=== PATIENT | male | born 1945 | race Caucasian/White ===

== ENCOUNTER 2018-04-16 04:08 | Inpatient (IN) | payer MEDICARE ==
[2018-04-16] MEDS ORDERED: MORPHINE SULFATE 4 MG/ML SYRINGE IV STA (04:28)
[2018-04-16] MEDS ORDERED: SODIUM CHLORIDE 0.9% 1,000 ML IV STA (04:28)
[2018-04-16] MEDS ORDERED: ONDANSETRON 4 MG/2 ML VIAL IVP STA (04:28)
--- NOTE | 2018-04-16 04:29 | ED ---
Abdominal Pain HPI - General Chief Complaint: Abdominal Pain Stated Complaint: vomiting Time Seen by Provider: 04/16/18 04:28 Source: patient Mode of arrival: ambulatory Limitations: no limitations - History of Present Illness Initial Comments: There is a pleasant 72-year-old woman who presents the emergency department today for evaluation of abdominal pain. Patient reports he was in his usual state of health until yesterday morning when he was eating breakfast at the [employer], he reports approximately skilled nursing through breakfast he developed sudden sharp abdominal pain and nausea. He was unable to finish his breakfast. Throughout the remainder of the day he didn't try to eat anything else and had persistent nausea. Patient reports he had a single episode of nonbloody nonbilious emesis around 8 or 9 PM last night. Patient then attempted to sleep but was very uncomfortable, this morning he had another large volume emesis that was nonbloody nonbilious and continued nausea and abdominal pain decided to ask his to bring him to the hospital for further evaluation. Patient does have a history of diverticulitis in the past though he reports that pain was lower in his left-sided pelvis he also has a history of kidney stones but reports when he has had kidney stones about this pain seemed to be in his back this pain seems to be more diffuse mid abdomen. Patient reports he has far overdue for colonoscopy though he's never had any acute findings he was told on his last colonoscopy they couldn't advance the scope as far as they would've liked due to the shape of his colon. He does have a history of abdominal hernia repair but otherwise no abdominal surgeries, he still has his appendix and gallbladder. He has no history of bowel obstruction. - Related Data Allergies Allergy/AdvReac Type Severity Reaction Status Date / Time No Known Allergies Allergy Verified 04/16/18 04:51 Review of Systems ROS Statement: Those systems with pertinent positive or pertinent negative responses have been documented in the HPI. ROS Other: All systems not noted in ROS Statement are negative. Past Medical History Past Medical History: CVA/TIA Additional Past Medical History / Comment(s): Kidney stones, diverticulitis History of Any Multi-Drug Resistant Organisms: None Reported Past Surgical History: Hernia Repair, Orthopedic Surgery Past Psychological History: No Psychological Hx Reported Smoking Status: Never smoker Past Alcohol Use History: None Reported Past Drug Use History: None Reported General Exam - General Exam Comments Initial Comments: Physical Exam GENERAL: Patient is well-developed and well-nourished. Patient is nontoxic and well-hydrated and is in mild distress, appears uncomfortable HENT: Normocephalic, Atraumatic. EYES: PERRL, EOMI PULMONARY: Unlabored respirations. No audible rales rhonchi or wheezing was noted. CARDIOVASCULAR: Tachycardia, regular ABDOMEN: Soft, normal active bowel sounds, mild diffuse tenderness, no peritoneal signs SKIN: Skin is clear with no lesions or rashes and otherwise unremarkable. Well-healed surgical incision over the right knee : Deferred NEUROLOGIC: Patient is alert and oriented x3. Moving all extremities spontaneously MUSCULOSKELETAL: Normal extremities with adequate strength and full range of motion. No lower extremity swelling or edema. No calf tenderness. PSYCHIATRIC: Normal psychiatric evaluation. Limitations: no limitations Limitations: no limitations Course Vital Signs 04/16/18 04/16/18 04:09 05:28 Temperature 97.6 F Pulse Rate 125 H 101 H Respiratory 18 17 Rate Blood Pressure 128/70 138/75 O2 Sat by Pulse 97 96 Oximetry Medical Decision Making - Medical Decision Making Patient was seen and evaluated, history is obtained from patient Labs and imaging were ordered Zofran and morphine were ordered Labs with leukocytosis this is likely reactive Computed tomography scan suggestive of small bowel obstruction, there is significant gastric distention and fluid in the stomach these results were discussed with the patient patient is agreeable to an NG tube. Admission orders were placed, surgery was consulted - Lab Data Result diagrams: 04/16/18 04:25 04/16/18 04:25 Lab Results 04/16/18 04/16/18 Range/Units 04:25 04:25 WBC 17.7 H (3.8-10.6) k/uL RBC 5.50 (4.30-5.90) m/uL Hgb 16.7 (13.0-17.5) gm/dL Hct 50.3 (39.0-53.0) % MCV 91.5 (80.0-100.0) fL MCH 30.3 (25.0-35.0) pg MCHC 33.1 (31.0-37.0) g/dL RDW 13.4 (11.5-15.5) % Plt Count 308 (150-450) k/uL Neutrophils % 88 % Lymphocytes % 5 % Monocytes % 5 % Eosinophils % 1 % Basophils % 0 % Neutrophils # 15.6 H (1.3-7.7) k/uL Lymphocytes # 0.9 L (1.0-4.8) k/uL Monocytes # 0.8 (0-1.0) k/uL Eosinophils # 0.2 (0-0.7) k/uL Basophils # 0.0 (0-0.2) k/uL Sodium 141 (137-145) mmol/L Potassium 4.1 (3.5-5.1) mmol/L Chloride 102 (98-107) mmol/L Carbon Dioxide 27 (22-30) mmol/L Anion Gap 12 mmol/L BUN 28 H (9-20) mg/dL Creatinine 1.53 H (0.66-1.25) mg/dL Est GFR (CKD-EPI)AfAm 52 (>60 ml/min/1.73 sqM) Est GFR (CKD-EPI)NonAf 45 (>60 ml/min/1.73 sqM) Glucose 163 H (74-99) mg/dL Calcium 10.5 H (8.4-10.2) mg/dL Total Bilirubin 0.9 (0.2-1.3) mg/dL AST 26 (17-59) U/L ALT 25 (21-72) U/L Alkaline Phosphatase 101 (38-126) U/L Total Protein 8.0 (6.3-8.2) g/dL Albumin 4.6 (3.5-5.0) g/dL Amylase 103 (30-110) U/L Lipase 71 (23-300) U/L Disposition Clinical Impression: Small bowel obstruction Disposition: ADMITTED IP TO THIS [facility] Condition: Stable Is patient prescribed a controlled substance at d/c from ED?: No Referrals: Bryan Edmonds DO [Primary Care Provider] - 1-2 days
[2018-04-16 04:47] LABS: Basophils % (A) 0 %; Eosinophils # (A) 0.2 k/uL (0-0.7); Eosinophils % (A) 1 %; HCT 50.3 % (39.0-53.0); HGB 16.7 gm/dL (13.0-17.5); Lymphocytes # (A) 0.9 k/uL (1.0-4.8); Lymphocytes % (A) 5 %; MCH 30.3 pg (25.0-35.0); MCHC 33.1 g/dL (31.0-37.0); MCV 91.5 fL (80.0-100.0); Monocytes # (A) 0.8 k/uL (0-1.0); Monocytes % (A) 5 %; Neutrophils # (A) 15.6 k/uL (1.3-7.7); Neutrophils % (A) 88 %; Platelet Count 308 k/uL (150-450); RDW 13.4 % (11.5-15.5); WBC 17.7 k/uL (3.8-10.6)
[2018-04-16 04:59] LABS: Albumin 4.6 g/dL (3.5-5.0); Calcium 10.5 mg/dL (8.4-10.2); Potassium 4.1 mmol/L (3.5-5.1); Total Bilirubin 0.9 mg/dL (0.2-1.3)
--- NOTE | 2018-04-16 05:28 | XR ---
EXAM: XR Abdomen, 2 Views CLINICAL HISTORY: Reason: abdominal pain TECHNIQUE: Frontal view of the abdomen/pelvis with upright view of the abdomen. COMPARISON: No relevant prior studies available. FINDINGS: Intraperitoneal space: No free air. Gastrointestinal tract: Unremarkable. No dilation. Bones/joints: Unremarkable. Other findings: IMPRESSION: Short air-fluid levels demonstrated in some distended loops of bowel. Possibility of ileus versus the early small bowel obstruction cannot be excluded
--- NOTE | 2018-04-16 05:51 | CT ---
EXAM: CT Abdomen and Pelvis With Intravenous Contrast CLINICAL HISTORY: Pain hx of diverticulitis TECHNIQUE: Axial computed tomography images of the abdomen and pelvis with intravenous administration of 80mL of Isovue 300. DLP is 1368.3 mGy-cm. This CT exam was performed using one or more of the following dose reduction techniques: automated exposure control, adjustment of the mA and/or kV according to patient size, and/or use of iterative reconstruction technique. COMPARISON: No relevant prior studies available. FINDINGS: Lung bases: Large eventration versus elevation of the right hemidiaphragm. Unremarkable. No mass. No consolidation. ABDOMEN: Liver: Unremarkable. No mass. Gallbladder and bile ducts: Unremarkable. No calcified stones. No ductal dilation. Pancreas: Unremarkable. No mass. No ductal dilation. Spleen: Unremarkable. No splenomegaly. Adrenals: Unremarkable. No mass. Kidneys and ureters: No solid mass. Multiple bilateral renal cysts. Multiple bilateral nonobstructing calyceal stones. There is formation of staghorn type calculus in the right this measures 2.3 cm in size. No evidence for hydronephrosis. Stomach and bowel: Small bowel obstruction with dilated proximal small bowel with decompressed distal small bowel beyond what appears be an area of adhesion in the right lower quadrant adjacent to the anterior abdominal wall. Clinical correlation is required. Small umbilical hernia containing fat PELVIS: Appendix: The appendix is unremarkable. Bladder: Unremarkable. No mass. Reproductive: Unremarkable as visualized. ABDOMEN and PELVIS: Intraperitoneal space: Unremarkable. No free air. No significant fluid collection. Bones/joints: No acute fracture. No dislocation. Soft tissues: Unremarkable. Vasculature: Unremarkable. No abdominal aortic aneurysm. Lymph nodes: Unremarkable. No enlarged lymph nodes. IMPRESSION: Findings suspicious for early small bowel obstruction with dilated small bowel proximally decompressed distal small bowel with zone of transition in the right lower quadrant appears to be an area of adhesion adjacent to the anterior abdominal wall.
[2018-04-16] MEDS ORDERED: ONDANSETRON 4 MG/2 ML VIAL IVP PRN (06:03)
[2018-04-16] MEDS ORDERED: NALOXONE 0.4 MG/ML 1 ML VIAL IV PRN (06:03)
[2018-04-16] MEDS ORDERED: LIDOCAINE URO-JET JELLY 2% 5 ML KIT URETHRAL ONE (06:06)
[2018-04-16 07:22] VITALS: BMI 31.0
[2018-04-16 09:17] LABS: Appearance,Urine Clear (Clear); Bilirubin,Urine Negative (Negative); Blood,Urine Trace (Negative); Color,Urine Yellow; Glucose,Urine (UA) Negative (Negative); Ketones,Urine Trace (Negative); Leukocyte Esterase,Urine Trace (Negative); Mucus,Urine Rare /hpf; Nitrite,Urine Negative (Negative); Protein,Urine Trace (Negative); RBC,Urine 4 /hpf (0-5); Squamous Epithelial Cell,Urine <1 /hpf (0-4); Urobilinogen,Urine <2.0 mg/dL (<2.0); WBC,Urine 5 /hpf (0-5)
[2018-04-16] MEDS: PANTOPRAZOLE 40 MG/10 ML VIAL IV SCH (09:19)
[2018-04-16] MEDS: SODIUM CHLORIDE 0.9% 1,000 ML IV SCH ×3 (10:30→23:33)
--- NOTE | 2018-04-16 16:00 | P.GSCN ---
History of Present Illness Consult date: 04/16/18 Reason for Consult: Small bowel obstruction History of present illness: Patient presents to the ER early this morning with abdominal pain. He was doing well yesterday morning when he awoke. He says his potassium felt low because of lower extremity cramps any at 3 bananas a short period of time. Following that he went out and a large breakfast. Around 10:30 yesterday morning he began experiencing abdominal pain. Pain is periumbilical. Pain persisted with nausea throughout the day. 9 a class last night patient had episodes of emesis that recurred at 2 and 3 AM. He came to the ER at that point. Somewhat loose stool yesterday. No sick contacts. No history of similar events. Patient's only abdominal surgery was a large midline hernia. He is unsure whether mesh was used. CAT scan was performed which revealed findings consistent with small bowel obstruction transition point right midabdomen. No hernias seen. Pain is essentially gone at this time. Small amount of flatus. Nasogastric tube remains in place. He had 700 mL output from nasogastric tube. White blood cell count last night elevated at 17. Review of Systems The patient denies any acute changes in vision or hearing, no dysphagia or odynophagia, no chest pain or shortness of breath, no dysuria or hematuria, no headache, no runny nose, no rectal bleeding or melena, no unexplained weight loss Past Medical History Past Medical History: CVA/TIA Additional Past Medical History / Comment(s): Kidney stones, diverticulitis History of Any Multi-Drug Resistant Organisms: None Reported Past Surgical History: Hernia Repair, Orthopedic Surgery Additional Past Surgical History / Comment(s): rotator cuff, TRK Past Psychological History: No Psychological Hx Reported Smoking Status: Never smoker Past Alcohol Use History: None Reported Past Drug Use History: None Reported - Past Family History Father Family Medical History: No Reported History Mother Family Medical History: Cancer Medications and Allergies Home Medications Medication Instructions Recorded Confirmed Type Aspirin EC [Ecotrin] 325 mg PO DAILY 04/16/18 04/16/18 History Metoprolol Tartrate [Lopressor] 25 mg PO BID 04/16/18 04/16/18 History Multivitamins, Thera [Multivitamin 1 tab PO DAILY 04/16/18 04/16/18 History (formulary)] amLODIPine [Norvasc] 5 mg PO DAILY 04/16/18 04/16/18 History Allergies Allergy/AdvReac Type Severity Reaction Status Date / Time No Known Allergies Allergy Verified 04/16/18 08:20 Surgical - Exam Vital Signs Temp Pulse Resp BP Pulse Ox 97.6 F 125 H 18 128/70 97 04/16/18 04:09 04/16/18 04:09 04/16/18 04:09 04/16/18 04:09 04/16/18 04:09 Physical exam: General: Well-developed, well-nourished HEENT: Normocephalic, sclerae nonicteric Abdomen: Nontender, nondistended, midline incision above umbilicus Extremities: No edema Neuro: Alert and oriented Results - Labs 04/16/18 04:25 04/16/18 04:25 Abnormal Lab Results - Last 24 Hours (Table) 04/16/18 04/16/18 04/16/18 Range/Units 04:25 04:25 08:33 WBC 17.7 H (3.8-10.6) k/uL Neutrophils # 15.6 H (1.3-7.7) k/uL Lymphocytes # 0.9 L (1.0-4.8) k/uL BUN 28 H (9-20) mg/dL Creatinine 1.53 H (0.66-1.25) mg/dL Glucose 163 H (74-99) mg/dL Calcium 10.5 H (8.4-10.2) mg/dL Ur Specific [place] 1.050 H (1.001-1.035) Urine Protein Trace H (Negative) Urine Ketones Trace H (Negative) Urine Blood Trace H (Negative) Ur Leukocyte Esterase Trace H (Negative) Urine Mucus Rare H (None) /hpf Diabetes panel 04/16/18 Range/Units 04:25 Sodium 141 (137-145) mmol/L Potassium 4.1 (3.5-5.1) mmol/L Chloride 102 (98-107) mmol/L Carbon Dioxide 27 (22-30) mmol/L BUN 28 H (9-20) mg/dL Creatinine 1.53 H (0.66-1.25) mg/dL Glucose 163 H (74-99) mg/dL Calcium 10.5 H (8.4-10.2) mg/dL AST 26 (17-59) U/L ALT 25 (21-72) U/L Alkaline Phosphatase 101 (38-126) U/L Total Protein 8.0 (6.3-8.2) g/dL Albumin 4.6 (3.5-5.0) g/dL Calcium panel 04/16/18 Range/Units 04:25 Calcium 10.5 H (8.4-10.2) mg/dL Albumin 4.6 (3.5-5.0) g/dL Pituitary panel 04/16/18 Range/Units 04:25 Sodium 141 (137-145) mmol/L Potassium 4.1 (3.5-5.1) mmol/L Chloride 102 (98-107) mmol/L Carbon Dioxide 27 (22-30) mmol/L BUN 28 H (9-20) mg/dL Creatinine 1.53 H (0.66-1.25) mg/dL Glucose 163 H (74-99) mg/dL Calcium 10.5 H (8.4-10.2) mg/dL Adrenal panel 04/16/18 Range/Units 04:25 Sodium 141 (137-145) mmol/L Potassium 4.1 (3.5-5.1) mmol/L Chloride 102 (98-107) mmol/L Carbon Dioxide 27 (22-30) mmol/L BUN 28 H (9-20) mg/dL Creatinine 1.53 H (0.66-1.25) mg/dL Glucose 163 H (74-99) mg/dL Calcium 10.5 H (8.4-10.2) mg/dL Total Bilirubin 0.9 (0.2-1.3) mg/dL AST 26 (17-59) U/L ALT 25 (21-72) U/L Alkaline Phosphatase 101 (38-126) U/L Total Protein 8.0 (6.3-8.2) g/dL Albumin 4.6 (3.5-5.0) g/dL Assessment and Plan (1) Small bowel obstruction Narrative/Plan: Continue nasogastric tube to suction. Recheck abdominal x-rays tomorrow. Recheck labs tomorrow. Etiology of the patient's CAT scan findings unclear. Still could represent atypical enteritis/ileus. Patient has had relatively minimal abdominal surgeries therefore adhesions are somewhat less likely. CAT scan findings do not support however internal herniation or malignancy with any certainty. Likely will plan small bowel follow-through during this hospitalization or possibly as an outpatient if the patient progresses nicely. Otherwise would consider diagnostic laparoscopy. Current Visit: Yes Status: Acute Code(s): K56.609 - UNSP INTESTNL OBST, UNSP TO PARTIAL VERSUS COMPLETE OBST SNOMED Code(s): 068707996
[2018-04-16] MEDS: HEPARIN SODIUM,PORCINE 5,000 UNIT/ML 1 ML VIAL SQ SCH ×2 (16:23→23:33)
[2018-04-16] MEDS: METOPROLOL TARTRATE 25 MG TAB PO SCH (22:25)
[2018-04-16] MEDS ORDERED: cloNIDine 0.1 MG/24HR PATCH TRANSDERM SCH (22:45)
--- NOTE | 2018-04-17 00:11 | HP ---
HISTORY AND PHYSICAL DATE OF ADMISSION: April 16, 2018. DATE OF SERVICE: April 16, 2018. PRESENTING COMPLAINT: Abdominal pain. HISTORY OF PRESENTING COMPLAINT: This is a very pleasant 72-year-old patient of Dr. Edmonds. Chronic stable medical conditions include diverticulosis, kidney stones, and obesity. The patient off and on gets charley horses and has take potassium supplementation. This morning, patient is going down with his for shopping and get some charley horses. Patient stopped on the way at the local grocery store and ate 3 bananas, then went on to go to [employer]. They ordered a full breakfast and he was eating the same including orange juice, biscuit, gravy, scrambled eggs and fay. [place] through the meal, the patient started developing severe abdominal pain and patient decided to leave. After some time patient had a loose bowel movement and became very nauseated. Abdominal pain continued to get worse. Decided to come down to the ER. There were no fever, chills. The patient's abdominal x-ray showed air-fluid levels. CT scan showed evidence of early small bowel obstruction. NG tube was placed and the patient is admitted for the same. When I saw this patient this afternoon, patient has not had any flatus or bowel movement. is present at the bedside. REVIEW OF SYSTEMS: CONSTITUTIONAL: Tired. HEENT: NG tube in place. RESPIRATORY: None. CARDIOVASCULAR none. GASTROINTESTINAL as above. GENITOURINARY: None. MUSCULOSKELETAL: None. DERMATOLOGIC, HEMATOLOGIC, LYMPHATIC: none. PSYCHIATRY none. NEUROLOGICAL: None. PAST MEDICAL HISTORY: Of stroke with recovery, kidney stones, diverticulitis. PAST SURGICAL HISTORY: Hernia repair, orthopedic surgery for rotator cuff. SOCIAL HISTORY: Does not smoke or drink alcohol. . FAMILY HISTORY: Reviewed, noncontributory to presentation. HOME MEDICATION: 1. Norvasc 5 mg a day. 2. Multivitamin 1 tablet p.o. daily. 3. Lopressor 25 mg b.i.d. 4. Aspirin 325 p.o. daily. ALLERGIES: None. PHYSICAL EXAMINATION: VITAL SIGNS: Vital signs on presentation, temperature 97.6, pulse 125, respiratory 18, blood pressure 120/70, pulse ox 97% on room air. GENERAL APPEARANCE: Well built, BMI 31. Sitting up, awake. EYES: Pupils equal. Conjunctivae normal. HEENT: External appearance of nose and ears normal. Oral cavity dry mucous membrane. HEENT: NG tube in place. NECK: JVD not raised. Mass not palpable. RESPIRATORY: Effort lungs are clear. CARDIOVASCULAR: 1st and 2nd sounds normal. No edema. Hyperactive bowel sounds. Minimal tenderness. Liver and spleen not palpable. LYMPHATICS: No lymph nodes palpable in neck or axillae. PSYCHIATRY: Alert and oriented x3. Mood and affect normal. NEUROLOGICAL: Pupils equal. Cranial nerves grossly intact. Power and sensation grossly intact. INVESTIGATIONS: White count 7.7, hemoglobin 16.7, potassium 4.1, BUN 28, creatinine 1.53. Abdominal x- ray film personally reviewed by me shows multiple air-fluid levels. CT scan of the abdomen suggestive of small bowel obstruction. EKG tracing personally reviewed by me shows sinus tachycardia, multiple PVCs. ASSESSMENT: 1. Acute small-bowel obstruction could have been presented different, large amount of food in a short period of time. The patient does feel a bit better with the NG tube. 2. Multiple PVCs on the EKG, asymptomatic. 3. Renal failure, acute versus chronic. We will repeat the same after hydration. The patient does have a trace of protein and protein in the urine. Also do a renal ultrasound. 4. Essential hypertension. 5. Leukocytosis likely reactive from the bowel obstruction. No obvious evidence of infection. PLAN: Patient has an NG tube in place. IV fluids. Do renal ultrasound. Dr. Albarado from General Surgery saw the patient. Care was discussed with the patient and . DVT prophylaxis given. Repeat labs in the morning. Copy to Dr. Edmonds. MMBOOL / RADHAN: [id number] /
[2018-04-17 07:26] LABS: Basophils % (A) 0 %; Eosinophils # (A) 0.3 k/uL (0-0.7); Eosinophils % (A) 2 %; HCT 48.1 % (39.0-53.0); HGB 15.3 gm/dL (13.0-17.5); Lymphocytes % (A) 8 %; MCH 30.5 pg (25.0-35.0); MCHC 31.8 g/dL (31.0-37.0); MCV 95.8 fL (80.0-100.0); Mean Platelet Volume 6.8; Monocytes # (A) 0.6 k/uL (0-1.0); Monocytes % (A) 5 %; Neutrophils # (A) 9.8 k/uL (1.3-7.7); Neutrophils % (A) 83 %; Platelet Count 225 k/uL (150-450); RBC 5.02 m/uL (4.30-5.90); RDW 13.6 % (11.5-15.5); WBC 11.8 k/uL (3.8-10.6)
[2018-04-17 07:39] LABS: Calcium 8.9 mg/dL (8.4-10.2); Potassium 4.2 mmol/L (3.5-5.1)
[2018-04-17] MEDS: HEPARIN SODIUM,PORCINE 5,000 UNIT/ML 1 ML VIAL SQ SCH ×2 (08:44→17:12)
[2018-04-17] MEDS: ASPIRIN 325 MG TAB PO SCH (08:44)
[2018-04-17] MEDS: PANTOPRAZOLE 40 MG/10 ML VIAL IV SCH (08:45)
[2018-04-17] MEDS: METOPROLOL TARTRATE 25 MG TAB PO SCH ×2 (08:45→20:55)
[2018-04-17] MEDS: amLODIPine 5 MG TAB PO SCH (08:45)
--- NOTE | 2018-04-17 09:32 | XR ---
EXAMINATION TYPE: XR abdomen complete w decub DATE OF EXAM: 04/17/2018 COMPARISON: 04/17/2018, earlier today HISTORY: 72-year-old male pain follow-up bowel obstruction TECHNIQUE: Supine, upright, and right side down lateral decubitus views of the abdomen are obtained. FINDINGS: Elevation of right hemidiaphragm. NG tube is present. Patchy retrocardiac opacity. No evidence for free intraperitoneal air when correlated with the decubitus view. A few dilated small bowel loops in the left side of the abdomen measure up to 4.9 cm, unchanged. Renal calculi on the left measuring up to 1.2 cm. Some mild scattered colonic gas is present with mild stool burden. IMPRESSION: 1. Similar dilated left-sided small bowel loops measuring up to 4.9 cm suggesting continued small bow el obstruction. There is no progressive dilatation. Some of the air fluid levels show improvement. 2. No free air seen. 3. Elevation of the right hemidiaphragm. Query etiology including possibility of hemidiaphragmatic pa ralysis.
--- NOTE | 2018-04-17 09:59 | P.PN ---
Subjective Progress Note Date: 04/17/18 Principal diagnosis: Bowel obstruction Patient doing better today. No pain. Passed a large volume of flatus last night. Very small bowel movement. Minimal nasogastric tube output. X-rays. Improved. Objective - Vital Signs Vital signs: Vital Signs Temp 98.7 F 04/17/18 07:46 Pulse 95 04/17/18 07:46 Resp 17 04/17/18 07:46 BP 146/88 04/17/18 07:46 Pulse Ox 92 L 04/17/18 07:46 Intake & Output 04/16/18 04/17/18 04/17/18 18:59 06:59 18:59 Intake Total 2000 Output Total 500 300 300 Balance -500 1700 -300 Weight 95.254 kg Intake: Intake, IV Titration 2000 Amount Sodium Chloride 0.9% 1, 2000 000 ml @ 125 mls/hr IV . Q8H [facility] Rx#:[id number] Output: Gastric Drainage 100 Urine 500 200 300 Other: Voiding Method Toilet # Voids 1 400 - Exam Abdomen: Soft, nontender, nondistended - Labs CBC & Chem 7: 04/17/18 07:09 04/17/18 07:09 Labs: Abnormal Lab Results - Last 24 Hours (Table) 04/17/18 04/17/18 Range/Units 07:09 07:09 WBC 11.8 H (3.8-10.6) k/uL Neutrophils # 9.8 H (1.3-7.7) k/uL Chloride 110 H (98-107) mmol/L BUN 21 H (9-20) mg/dL Microbiology - Last 24 Hours (Table) 04/16/18 08:33 Urine Culture - Preliminary Urine,Clean Catch Assessment and Plan (1) Small bowel obstruction Narrative/Plan: Remove nasogastric tube today. Start clear liquids. Reevaluate tomorrow. Current Visit: Yes Status: Acute Code(s): K56.609 - UNSP INTESTNL OBST, UNSP TO PARTIAL VERSUS COMPLETE OBST SNOMED Code(s): 490436157
--- NOTE | 2018-04-17 10:39 | US ---
EXAMINATION TYPE: US kidneys/renal and bladder DATE OF EXAM: 04/17/2018 COMPARISON: Correlation CT 04/16/2018 CLINICAL HISTORY: 72-year-old male acute vs CKD. Patient states having no pain at this time. Patient states having hx of renal stones and left renal cysts drained. TECHNIQUE: Multiple sonographic images of the kidneys and bladder are obtained. FINDINGS: EXAM MEASUREMENTS: Right Kidney: 10.9 x 5.1 x 6.1 cm Left Kidney: 12.7 x 4.1 x 6.0 cm Right Kidney: Suggesting a mild pelvocaliectasis. Multiple echogenic foci seen with shadowing. Large st = 1.2 cm in medial lower pole . Left Kidney: No hydronephrosis. Multiple echogenic foci and cystic appearing lesions seen. Largest c ystic lesion seen lower pole - 5.9 x 5.6 x 6.3 cm. Echogenic lesion with slight shadow in mid/lower pole - 1.8 x 1.6 cm. Echogenic focus with shadow in upper pole =0.8 cm. Bladder: Underdistended. Left jet seen IMPRESSION: 1. Mild pelvicaliectasis on the right may be transient. Consider follow-up to reassess. The patient's recent CT shows no hydronephrosis. 2. Bilateral nephrolithiasis measuring up to 1.6 cm by ultrasound. 3. Cysts measuring up to 5.9 cm on the left. 4. A vague echogenic area in the mid to lower pole of the left kidney is questioned by the sonographe r to represent a focal lesion. Review of the patient's recent CT shows a 1.8 cm cyst in this region. The ultrasound finding may reflect prominent renal sinus fat. Precautionary 6 month follow-up ultraso und can be performed to exclude any enlarging lesion. No definite suspicious lesion seen on the patie nt's CT.
[2018-04-17] MEDS: SODIUM CHLORIDE 0.9% 1,000 ML IV SCH ×2 (10:48→19:04)
--- NOTE | 2018-04-17 23:56 | PN ---
PROGRESS NOTE DATE OF SERVICE: 04/17/2018. PRESENTING COMPLAINT: Abdominal pain. INTERVAL HISTORY: This patient presents with small-bowel obstruction. Had NG tube taken out this morning. The patient has passed some flatus. No bowel movement. Abdominal pain is not present. REVIEW OF SYSTEMS: Done for constitutional, cardiovascular, GI, pulmonary; relevant findings as above. CURRENT MEDICATIONS: Reviewed, include Catapres patch. PHYSICAL EXAMINATION: Temperature 98.3 pulse 81, respiratory rate 18, blood pressure 110/66, pulse ox 91 percent on room air. GENERAL APPEARANCE: Sitting up, more comfortable. EYES: Pupils equal. Conjunctivae normal. HEENT: External appearance of ears and nose normal. Oral cavity normal. NG tube is out. NECK: JVD not raised. Mass not palpable. Respiratory effort normal. LUNGS: Clear. CARDIOVASCULAR: 1st and 2nd heart sounds normal. No edema. ABDOMEN: Distended, soft. Bowel sounds hyperactive. PSYCHIATRY: Alert and oriented x3. Mood and affect normal. INVESTIGATIONS: Abdominal x-ray personally reviewed by me shows some dilated small loops with decreased air-fluid levels. Renal ultrasound did show some kidney stones. ASSESSMENT: 1. Acute small-bowel obstruction that showed some clinical improvement and radiological improvement. 2. Multiple premature ventricular contractions, asymptomatic. 3. Acute renal failure, appears to be prerenal with creatinine actually improving. 4. Bilateral nephrolithiasis. 5. Abnormal renal ultrasound, to follow up with Urology as an outpatient. 6. Essential hypertension. PLAN: Overall patient doing better. Started on clear liquids and we will see how he does. Encouraged to ambulate. Repeat electrolytes in the morning. MMODL / IJN: [id number] /
[2018-04-18] MEDS: HEPARIN SODIUM,PORCINE 5,000 UNIT/ML 1 ML VIAL SQ SCH ×3 (00:52→14:57)
[2018-04-18 06:53] LABS: Basophils % (A) 0 %; Eosinophils # (A) 0.3 k/uL (0-0.7); Eosinophils % (A) 4 %; HCT 43.1 % (39.0-53.0); HGB 13.7 gm/dL (13.0-17.5); Lymphocytes # (A) 1.4 k/uL (1.0-4.8); Lymphocytes % (A) 19 %; MCH 29.6 pg (25.0-35.0); MCHC 31.7 g/dL (31.0-37.0); MCV 93.4 fL (80.0-100.0); Monocytes # (A) 0.4 k/uL (0-1.0); Monocytes % (A) 6 %; Neutrophils # (A) 4.8 k/uL (1.3-7.7); Neutrophils % (A) 68 %; Platelet Count 217 k/uL (150-450); RBC 4.61 m/uL (4.30-5.90); RDW 13.3 % (11.5-15.5); WBC 7.1 k/uL (3.8-10.6)
[2018-04-18 07:07] LABS: Calcium 8.6 mg/dL (8.4-10.2)
[2018-04-18] MEDS: PANTOPRAZOLE 40 MG/10 ML VIAL IV SCH (08:09)
[2018-04-18] MEDS: ASPIRIN 325 MG TAB PO SCH (08:10)
[2018-04-18] MEDS: METOPROLOL TARTRATE 25 MG TAB PO SCH (08:10)
[2018-04-18] MEDS: amLODIPine 5 MG TAB PO SCH (08:10)
--- NOTE | 2018-04-18 10:14 | P.PN ---
Subjective Progress Note Date: 04/18/18 Principal diagnosis: Bowel obstruction Patient doing well today. Denies pain. He had a bowel movement last night. He is tolerating clear liquids. White blood cell count is normal. Objective - Vital Signs Vital signs: Vital Signs Temp 97.8 F 04/18/18 06:55 Pulse 73 04/18/18 06:55 Resp 16 04/18/18 06:55 BP 154/92 04/18/18 06:55 Pulse Ox 92 L 04/18/18 06:55 Intake & Output 04/17/18 04/18/18 04/18/18 18:59 06:59 18:59 Intake Total 250 Output Total 450 Balance -200 Intake: Intake, IV Titration 250 Amount Sodium Chloride 0.9% 1, 250 000 ml @ 125 mls/hr IV . Q8H [facility] Rx#:[id number] Output: Gastric Drainage 150 Urine 300 Other: Voiding Method Toilet Toilet Urinal Urinal # Voids 0 - Exam Abdomen: Soft, nontender, nondistended - Labs CBC & Chem 7: 04/18/18 06:34 04/18/18 06:34 Labs: Abnormal Lab Results - Last 24 Hours (Table) 04/18/18 Range/Units 06:34 Chloride 110 H (98-107) mmol/L Microbiology - Last 24 Hours (Table) 04/16/18 08:33 Urine Culture - Final Urine,Clean Catch Assessment and Plan (1) Small bowel obstruction Narrative/Plan: Will advance diet at this time. Ambulate. Follow-up in the office if he is discharged later today. We'll plan outpatient small bowel follow-through. Follow-up regarding the patient's renal abnormalities on ultrasound per primary service. Current Visit: Yes Status: Acute Code(s): K56.609 - UNSP INTESTNL OBST, UNSP TO PARTIAL VERSUS COMPLETE OBST SNOMED Code(s): 196470761
[2018-04-18 14:42] VITALS: BP 129/80; PULSE 81; RESP 18; TEMP 97.4
--- NOTE | 2018-04-19 07:40 | DS ---
DISCHARGE SUMMARY DATE OF ADMISSION: 04/16/2018 DATE OF DISCHARGE: 04/18/2018 FINAL DIAGNOSES: 1. Acute small-bowel obstruction. 2. Multiple PVCs, asymptomatic. 3. Acute renal failure, appears to be prerenal. 4. Bilateral nephrolithiasis. 5. Abnormal renal ultrasound to be followed as an outpatient by Urology. 6. Essential hypertension. HOSPITAL COURSE: This patient presented with abdominal pain, nausea, vomiting, found to be acute bowel obstruction. Did well, had an NG tube. At time of discharge, tolerating a diet. Had a bowel movement. Abdominal pain was resolved. The patient had acute renal failure. Creatinine was 1.53 on presentation, did drop down to 1.07. The patient has slight abnormalities renal ultrasound. Patient to follow up with Urology for the same. CONSULTATION: Dr. Albarado from General surgery. On exam abdomen soft, nontender. Afebrile. Blood pressure 129/70. DISCHARGE MEDICATIONS: 1. Lopressor 25 mg b.i.d. 2. Multivitamin 1 tablet p.o. daily. 3. Aspirin 81 mg a day. 4. Norvasc 5 mg p.o. b.i.d. 5. Blood pressure medications adjusted. Follow up with Dr. Albarado as needed, Dr. Edmonds in [address] Sergey Daniel in 4 weeks. Abdominal ultrasound. Diet soft and advance as tolerated. Care was discussed with the patient. Questions were answered. Copy to Dr. Edmonds. MMODL / IJN: [id number] /
== END 2018-04-18 15:43 | disposition home or self-care (01) | DRG 389 ==
LOC: EC 04:08 → 4SSUR 06:04
PROVIDERS: ADMIT Hospitalist; ATTEND Hospitalist
DX: K56.609 Unspecified intestinal obstruction, unspecified as to partial versus complete obstruction (principal); N17.9 Acute kidney failure, unspecified; E66.9 Obesity, unspecified; Z68.31 Body mass index [BMI] 31.0-31.9, adult; I10 Essential (primary) hypertension; I49.3 Ventricular premature depolarization; K57.90 Diverticulosis of intestine, part unspecified, without perforation or abscess without bleeding; N20.0 Calculus of kidney; Z79.82 Long term (current) use of aspirin; Z79.899 Other long term (current) drug therapy; Z86.73 Personal history of transient ischemic attack (TIA), and cerebral infarction without residual deficits; Z87.442 Personal history of urinary calculi
CPT/HCPCS: 36415; 74018; 74021; 74177; 76770; 80048; 80053; 81001; 82150; 83690; 85025; 87086; 93005; 96361; 96374; 96375; 99285

== ENCOUNTER 2018-07-05 15:31 | Emergency (ER) | payer MEDICARE ==
[2018-07-05 16:14] VITALS: TEMP 97.4
--- NOTE | 2018-07-05 18:11 | US ---
EXAMINATION TYPE: US venous doppler duplex LE LT DATE OF EXAM: 07/05/2018 5:32 PM COMPARISON: NONE CLINICAL HISTORY: Pain. Pain post op knee surgery x8 weeks ago. SIDE PERFORMED: Left TECHNIQUE: The lower extremity deep venous system is examined utilizing real time linear array sonog arlene with graded compression, doppler sonography and color-flow sonography. VESSELS IMAGED: External Iliac Vein (EIV) Common Femoral Vein Deep Femoral Vein Greater Saphenous Vein * Femoral Vein Popliteal Vein Small Saphenous Vein * Proximal Calf Veins (* superficial vessels) Left Leg: Negative for DVT Grayscale, color doppler, spectral doppler imaging performed of the deep veins of the left lower extr emity. There is normal flow, compressibility, vascular waveforms. IMPRESSION: No ultrasound evidence for acute DVT in the left lower extremity.
--- NOTE | 2018-07-05 18:31 | ED ---
General Adult HPI - General Source: patient, RN notes reviewed Mode of arrival: ambulatory Limitations: no limitations <Ermias Sumner - Last Filed: 07/05/18 18:19> <Sergio Johnson - Last Filed: 07/05/18 18:43> - General Chief complaint: Extremity Injury, Lower Stated complaint: Poss Blood Clot Time Seen by Provider: 07/05/18 17:14 - History of Present Illness Initial comments: 72-year-old male presents to the emergency department for a chief complaint of left leg cramping. Patient states he had a knee replacement on 8 weeks ago and has had cramping in his calf and upper thigh since that time. He states he called his orthopedic physician who is out of [place] and requested a refill of his Robaxin. He states the orthopedic surgeon being concerned for possible blood clot and wanted him to get an ultrasound. He denies any pain in the calf. He states cramping is worse at night. Patient has no other complaints at this time including shortness of breath, chest pain, abdominal pain, nausea or vomiting, headache, or visual changes. (Ermias Sumner) - Related Data Home Medications Medication Instructions Recorded Confirmed Metoprolol Tartrate [Lopressor] 25 mg PO BID 04/16/18 07/05/18 Multivitamins, Thera [Multivitamin 1 tab PO DAILY 04/16/18 07/05/18 (formulary)] Methocarbamol [Robaxin-750] 750 mg PO HS 07/05/18 07/05/18 traMADol HCL [Ultram] 50 mg PO DAILY PRN 07/05/18 07/05/18 Previous Rx's Medication Instructions Recorded Aspirin 81 mg PO DAILY #1 chewable 04/18/18 amLODIPine [Norvasc] 5 mg PO BID #60 tab 04/18/18 Methocarbamol [Robaxin] 500 mg PO QID PRN #12 tab 07/05/18 Allergies Allergy/AdvReac Type Severity Reaction Status Date / Time No Known Allergies Allergy Verified 07/05/18 16:14 Review of Systems ROS Other: All systems not noted in ROS Statement are negative. <Ermias Sumner - Last Filed: 07/05/18 18:19> ROS Other: All systems not noted in ROS Statement are negative. <Sergio Johnson - Last Filed: 07/05/18 18:43> ROS Statement: Those systems with pertinent positive or pertinent negative responses have been documented in the HPI. Past Medical History Past Medical History: CVA/TIA Additional Past Medical History / Comment(s): Kidney stones, diverticulitis History of Any Multi-Drug Resistant Organisms: None Reported Past Surgical History: Hernia Repair, Orthopedic Surgery Additional Past Surgical History / Comment(s): rotator cuff, TRK, left knee Past Psychological History: No Psychological Hx Reported Smoking Status: Never smoker Past Alcohol Use History: None Reported Past Drug Use History: None Reported - Past Family History Father Family Medical History: No Reported History Mother Family Medical History: Cancer <Ermias Sumner - Last Filed: 07/05/18 18:19> General Exam Limitations: no limitations General appearance: alert, in no apparent distress Head exam: Present: atraumatic, normocephalic, normal inspection Eye exam: Present: normal appearance, PERRL, EOMI. Absent: scleral icterus, conjunctival injection, periorbital swelling ENT exam: Present: normal exam, mucous membranes moist Neck exam: Present: normal inspection, full ROM. Absent: tenderness, meningi smus, lymphadenopathy Respiratory exam: Present: normal lung sounds bilaterally. Absent: respiratory distress, wheezes, rales, rhonchi, stridor Cardiovascular Exam: Present: regular rate, normal rhythm, normal heart sounds. Absent: systolic murmur, diastolic murmur, rubs, gallop, clicks Extremities exam: Present: normal inspection, full ROM, normal capillary refill (Capillary refill less than 2 seconds and DP pulse 2+ in the left lower extremity), joint swelling (Patient does have moderate 2+ pitting edema noted in the left ankle which he states his been consistent since his surgery.), other (Sensation intact in the left lower extremity). Absent: tenderness (Tenderness noted in the calf or posterior knee), pedal edema, calf tenderness (Negative Homans sign) Neurological exam: Present: alert, oriented X3, CN II-XII intact Psychiatric exam: Present: normal affect, normal mood <Ermias Sumner - Last Filed: 07/05/18 18:19> Course <Sergio Johnson - Last Filed: 07/05/18 18:43> Vital Signs 07/05/18 16:09 Temperature 97.4 F L Pulse Rate 73 Respiratory 20 Rate Blood Pressure 131/86 O2 Sat by Pulse 93 L Oximetry - Reevaluation(s) Reevaluation #1: 07/05/18 18:42 PA supervision: I proceeded [id number] evaluation the patient did discuss the findings with him. Patient had a recent left knee states surgery/replacement he did have cramps he was sent in for evaluation or rule out a DVT. The ultrasound was negative for that finding. He does not have any other complaints this time no current cramping. He does state that he has a history the past of low potassium he states he will likely take more bananas and citrus. He also was advised to drink more water. He is in agreement with this finding he will be discharged I agree with the assessment and plan (Sergio Johnson) Medical Decision Making <Ermias Sumner - Last Filed: 07/05/18 18:19> - Medical Decision Making 72-year-old male presents to the emergency department for a chief complaint of left leg cramping. Patient states this has been ongoing since his total knee replacement 8 weeks ago. His orthopedic surgeon wanted to make sure he did not have a DVT before refilling his muscle relaxer. On exam negative Christie sign. There is 2+ pitting edema noted in the left ankle however this has been consistent since patient surgery. Ultrasound is negative for DVT. At this time patient will be given a few days worth of Robaxin. He will follow up with his orthopedic surgeon. He will return here if he has any worsening symptoms. (Ermias Sumner) Disposition Is patient prescribed a controlled substance at d/c from ED?: No Time of Disposition: 18:26 <Ermias Sumner - Last Filed: 07/05/18 18:19> <Sergio Johnson - Last Filed: 07/05/18 18:43> Clinical Impression: Leg cramping Disposition: HOME SELF-CARE Condition: Good Instructions (If sedation given, give patient instructions): Knee Pain (ED) Additional Instructions: Please take Robaxin as needed. Please follow-up with primary care in 1-2 days. Please return to the emergency department if you have any worsening symptoms. Prescriptions: Methocarbamol [Robaxin] 500 mg PO QID PRN #12 tab PRN Reason: Pain Referrals: Bryan Edmonds, [Primary Care Provider] - 1-2 days
[2018-07-05 18:47] VITALS: BP 145/83; PULSE 72; RESP 16
== END 2018-07-05 18:46 | disposition home or self-care (01) ==
LOC: EC 15:31
DX: R25.2 Cramp and spasm (principal); R60.0 Localized edema; Z86.73 Personal history of transient ischemic attack (TIA), and cerebral infarction without residual deficits; Z87.442 Personal history of urinary calculi; Z87.19 Personal history of other diseases of the digestive system; Z96.652 Presence of left artificial knee joint; Z98.890 Other specified postprocedural states; Z79.899 Other long term (current) drug therapy
CPT/HCPCS: 99283

== ENCOUNTER → 2018-10-01 | Outpatient (CLI) | payer MEDICARE ==
--- NOTE | 2018-10-01 09:44 | US ---
EXAMINATION TYPE: US kidneys/renal and bladder DATE OF EXAM: 10/01/2018 COMPARISON: 04/17/2018 CLINICAL HISTORY: N28.89 other specified disorders of kidney and. history of renal cysts and stones, no symptoms today EXAM MEASUREMENTS: Right Kidney: 10.2 x 4.6 x 6.0cm Left Kidney: 12.4 x 5.3 x 7.0cm Right Kidney: Multiple, nonobstructing, renal stones seen. The largest calculus on the right measures up to 8 mm. Left Kidney: Multiple, nonobstructing renal stones seen, along with multiple cystic lesions, largest = 6.8 x 5.6 x 6.8cm at mid/inf pole. The largest calculus on the left measures up to 1 cm. Bladder: not distended, has difficulty filling bladder based on previous exams also Bilateral Jets seen: no There is diminished cortical medullary differentiation and slightly lobular contour of the bilateral kidneys without significant cortical renal thinning. The urinary bladder is incompletely distended de monstrating circumferential urinary bladder wall thickening, possibly related to incomplete distentio n. There is lobular impression on the posterior urinary bladder by the enlarged and nodular prostate gland. IMPRESSION: 1. The previously seen right mild pelvocaliectasis was transient and no longer persists. 2. Bilateral nephrolithiasis is again seen measuring up to 1 cm on the left and 8 mm on the right. No hydronephrosis. 3. Multiple left renal cysts appears simple and benign and measure up to 6.8 cm, enlarged in the inte rim previously measuring up to 5.8 cm. 4. The previously questioned left renal mass versus artifact does not persist on today's examination only cystic lesions are seen. 5. Circumferential urinary bladder wall thickening may relate to incomplete. Additionally there is no dular impression on the posterior urinary bladder by an enlarged nodular prostate gland.
== END | disposition home or self-care (01) ==
LOC: RADUSWWP 08:45
PROVIDERS: ATTEND Family Medicine
DX: N20.0 Calculus of kidney (principal); N28.1 Cyst of kidney, acquired; N32.89 Other specified disorders of bladder
CPT/HCPCS: 76770

== ENCOUNTER → 2020-12-13 | Outpatient (CLI) | payer MEDICARE ==
[2020-12-13 11:20] LABS: HCT 51.9 % (39.0-53.0); HGB 16.6 gm/dL (13.0-17.5); MCH 31.6 pg (25.0-35.0); MCHC 31.9 g/dL (31.0-37.0); MCV 98.9 fL (80.0-100.0); Mean Platelet Volume 7.4; Platelet Count 214 k/uL (150-450); RBC 5.25 m/uL (4.30-5.90); RDW 13.5 % (11.5-15.5); WBC 8.2 k/uL (3.8-10.6)
[2020-12-13 11:29] LABS: Potassium 4.6 mmol/L (3.5-5.1)
--- NOTE | 2020-12-13 11:39 | XR ---
EXAMINATION TYPE: XR chest 2V DATE OF EXAM: 12/13/2020 COMPARISON: NONE HISTORY: Shortness of breath TECHNIQUE: Frontal and lateral views of the chest are obtained. FINDINGS: Scattered senescent parenchymal changes noted. Chronic elevation right hemidiaphragm with right basil ar No evidence for infiltrate. No evidence for atelectasis. Heart size is stable. Mediastinal structures are stable and grossly unremarkable. No evidence for hilar prominence. Degenerative changes dorsal spine. IMPRESSION: 1. No evidence for acute pulmonary disease.
== END | disposition home or self-care (01) ==
LOC: LABPAT 10:55
PROVIDERS: ATTEND Internal Medicine Interventional Cardiology
DX: Z01.818 Encounter for other preprocedural examination (principal); R06.02 Shortness of breath; R94.39 Abnormal result of other cardiovascular function study; R09.89 Other specified symptoms and signs involving the circulatory and respiratory systems
CPT/HCPCS: 36415; 71046; 80051; 82565; 84520; 85027

== ENCOUNTER → 2020-12-17 | Day surgery (SDC) | payer MEDICARE ==
[2020-12-12 13:39] VITALS: BMI 31.7
[~2020-12-17] MED LIST: ALPRAZolam 0.25 MG TAB PO PRN; ALPRAZolam 0.5 MG TAB PO PRN; ASPIRIN 325 MG TAB PO ONE; ASPIRIN 81 MG PO SCH; ATORVASTATIN 20 MG TAB PO SCH; HEPARIN SODIUM 1,000 UN/ML (10ML VL) IV ONE; HEPARIN SODIUM 1,000 UN/ML (10ML VL) ONE; HEPARIN SODIUM,PORCINE 10,000 UNIT in SODIUM CHLORIDE 0.9% 1,000 ML IRRIGATION PRN; HEPARIN SODIUM,PORCINE 2,500 UNIT in SODIUM CHLORIDE 0.9% 250 ML IRRIGATION PRN; IOPAMIDOL-370 100ML BTL INJ ONE; LIDOCAINE 1% INJ 10MG/ML (20 ML MDV) ONE; LIDOCAINE 1% INJ 10MG/ML (20 ML MDV) SQ ONE; METOPROLOL TARTRATE 25 MG TAB PO SCH; METOPROLOL TARTRATE 50 MG TAB PO SCH; MIDAZOLAM 2 MG/2 ML VIAL IV ONE; MULTIVITAMINS, THERA 1 EACH TAB PO SCH; NITROGLYCERIN SL TABS 0.4 MG TAB SUBLINGUAL PRN; RX INFO: IV CONTRAST WAS GIVEN 1 EACH MISC MISCELLANE PRN; SODIUM CHLORIDE 0.9% 1,000 ML IV SCH; SODIUM CHLORIDE 0.9% 1,000 ML in EMPTY BAG 1 BAG IV ONE; VERAPAMIL 2.5 MG/ML 2 ML AMP ONE; VERAPAMIL SYRINGE (5 MG/10 ML) INTRAARTER ONE; amLODIPine 5 MG TAB PO SCH
[2020-12-17 07:34] VITALS: TEMP 97.5
--- NOTE | 2020-12-17 12:49 | US ---
EXAMINATION TYPE: US carotid duplex BILAT DATE OF EXAM: 12/17/2020 COMPARISON: NONE CLINICAL HISTORY: Stenosis. EXAM MEASUREMENTS: RIGHT: Peak Systolic Velocity (PSV) cm/sec ----- Right CCA: 76.7 ----- Right ICA: 97.4 ----- Right ECA: 150.0 ICA/CCA ratio: 1.27 RIGHT: End Diastole cm/sec ----- Right CCA: 14.3 ----- Right ICA: 25.3 ----- Right ECA: 0.0 LEFT: Peak Systolic Velocity (PSV) cm/sec ----- Left CCA: 85.8 ----- Left ICA: 88.1 ----- Left ECA: 104.0 ICA/CCA ratio: 1.03 LEFT: End Diastole cm/sec ----- Left CCA: 11.5 ----- Left ICA: 23.0 ----- Left ECA: 12.3 VERTEBRALS (direction of flow): Right Vertebral: Antegrade Left Vertebral: Antegrade Rhythm: Normal No significant stenosis seen. Plaque noted throughout. Shadowing plaque noted. IMPRESSION: No evidence for hemodynamically significant stenosis. NASCET criteria was used in interpretation of this exam? Criteria for Assigning % of Stenosis / Diameter reduction (Estimation based on the indirect measurements of the internal carotid artery velocities (ICA PSV). 1. Normal (no stenosis)=ICA PSV < 125 cm/s: ratio < 2.0: ICA EDV<40 cm/s. 2. Less than 50% stenosis=ICA PSV < 125 cm/s: ratio < 2.0: ICA EDV<40 cm/s. 3. 50 to 69% stenosis=ICA PSV of 125 to 230 cm/s: ration 2.0 ? 4.0: ICA EDV 40-100 cm/s. 4. Greater than 70% stenosis to near occlusion= ICA PSV > 230 cm/s: ratio > 4.0: ICA EDV > 100 cm/s. 5. Near occlusion= ICA PSV velocities may be low or undetectable: variable ratio and ICA EDV. 6. Total occlusion=unable to detect flow.
--- NOTE | 2020-12-17 14:10 | CC ---
CARDIAC CATHETERIZATION REPORT DATE OF SERVICE: 12/17/2020 PROCEDURE: Left heart catheterization and coronary angiography. PERFORMED BY: Dr. Jose Owen. Moderate conscious sedation time was 20 minutes. The patient was administered Versed. Oxygen saturation, hemodynamics and EKG were monitored closely. CLINICAL INFORMATION: Mr. Davey Stratton is a 75-year-old gentleman with a history of hypertension, hyperlipidemia, previous CVA with left upper extremity weakness but significant improvement. He recently had a Lexiscan stress test which revealed anteroapical reversible defect of a moderate size with hypokinesia and ejection fraction of 50%. He was advised cardiac catheterization after due discussion regarding rationale, risks, benefits and options. This patient was found to have elevated creatinine and was therefore adequately hydrated both orally and intravenously this morning. He has no diabetes mellitus. PROCEDURE NOTE: Under local anesthesia and strict aseptic precautions, a 6-Japanese introducer was placed in the right radial artery. Using a JL3.5 and JR4 catheters, I performed coronary angiography, and the same right catheter was used to check LV pressure, but LV gram was not performed. The sheath was taken out and TR band applied as per protocol, with saturation in the fingers of the right hand of 93%. The patient tolerated procedure well without complications. CARDIAC CATHETERIZATION FINDINGS: The left ventricular end-diastolic pressure is about 12 mmHg without any gradient across the aortic valve. CORONARY ANGIOGRAPHY FINDINGS: RIGHT CORONARY ARTERY: Technically a dominant vessel has a 90% lesion in the proximal portion and another 80% in the distal portion, then it bifurcates into PDA and PLV. PLV is not filled very well, PDA also still sluggishly. There appear to be some collaterals to the distal RCA. RCA therefore is a highly diseased vessel with two areas of significant narrowing, but the PDA appears to be a graftable vessel. LEFT MAIN CORONARY ARTERY: Short vessel, free of significant disease, that bifurcates into LAD, circumflex and ramus intermedius. LEFT ANTERIOR DESCENDING CORONARY ARTERY: This vessel is totally occluded in the proximal portion after a small septal branch. This fills late from ipsilateral collaterals and the vessel appears to be of fair caliber and graftable but has diffuse disease in it, also. This is a chronic occlusion. RAMUS INTERMEDIUS: This vessel is of fair caliber and distribution, gives off a first branch very proximally, small in caliber and distribution. Then there is a 70% narrowing and then it bifurcates into two branches. The ramus therefore has a 70% narrowing that bifurcates into two large branches. LEFT POSTERIOR CIRCUMFLEX CORONARY ARTERY: This is a nondominant vessel that gives off small AV groove branches and distally has what seems to be a subtotal occlusion of the circumflex and slow filling of the distal branches. COLLATERAL CIRCULATION: There is a fair network of collaterals coming from the left system, opacifying the distal branches of RCA as well. Left ventriculogram was not performed. FINAL IMPRESSION: This patient has normal filling pressures, no gradient, significant triple-vessel disease involving the LAD, which is totally occluded with slow filling but graftable, RCA which has two 90% and 80% lesions in the proximal and distal portion, and ramus intermedius that has a 70% narrowing. The patient also has CKD. RECOMMENDATIONS: I am recommending aortocoronary bypass surgery with graft to the LAD, ramus intermedius and also distal RCA/PDA. The details were discussed with the patient and . I left a message for Dr. Addison, who will see the patient today. I will obtain an echocardiogram at bedside and also a carotid Doppler today. Discussed my thoughts in detail with the patient and his . MMODL / IJN: [id number] /
[2020-12-17 14:16] LABS: Appearance,Urine Clear (Clear); Bilirubin,Urine Negative (Negative); Blood,Urine Trace (Negative); Color,Urine Yellow; Glucose,Urine (UA) Negative (Negative); Ketones,Urine Negative (Negative); Leukocyte Esterase,Urine Negative (Negative); Mucus,Urine Rare /hpf; Nitrite,Urine Negative (Negative); PH, Urine 6.5 (5.0-8.0); Protein,Urine Negative (Negative); RBC,Urine 4 /hpf (0-5); Specific Gravity,Urine 1.022 (1.001-1.035); Urobilinogen,Urine <2.0 mg/dL (<2.0); WBC,Urine 4 /hpf (0-5)
[2020-12-17 14:23] LABS: Basophils # (A) 0.1 k/uL (0-0.2); Basophils % (A) 1 %; Eosinophils # (A) 0.1 k/uL (0-0.7); Eosinophils % (A) 2 %; HCT 46.7 % (39.0-53.0); HGB 15.6 gm/dL (13.0-17.5); Lymphocytes # (A) 1.5 k/uL (1.0-4.8); Lymphocytes % (A) 17 %; MCH 31.9 pg (25.0-35.0); MCHC 33.4 g/dL (31.0-37.0); MCV 95.6 fL (80.0-100.0); Mean Platelet Volume 7.5; Monocytes # (A) 0.5 k/uL (0-1.0); Monocytes % (A) 6 %; Neutrophils # (A) 6.4 k/uL (1.3-7.7); Neutrophils % (A) 73 %; Platelet Count 223 k/uL (150-450); RBC 4.89 m/uL (4.30-5.90); RDW 13.7 % (11.5-15.5); WBC 8.8 k/uL (3.8-10.6)
[2020-12-17 14:36] LABS: Partial Thromboplastin Time 26.5 sec (22.0-30.0); Prothrombin Time 10.7 sec (9.0-12.0)
[2020-12-17 14:42] LABS: Albumin 3.8 g/dL (3.5-5.0); Magnesium 2.4 mg/dL (1.6-2.3); Potassium 4.1 mmol/L (3.5-5.1); Total Bilirubin 0.5 mg/dL (0.2-1.3); Total Protein 6.3 g/dL (6.3-8.2)
[2020-12-17 15:59] LABS: T4, Free (Free Thyroxine) 1.42 ng/dL (0.78-2.19)
[2020-12-17 16:55] VITALS: BP 141/67; PULSE 70; RESP 18
--- NOTE | 2020-12-17 17:47 | P.GSCN ---
History of Present Illness Consult date: 12/17/20 Reason for Consult: Multivessel coronary artery disease, evaluation for myocardial revascularization surgery. Requesting physician: Nathan Owen History of present illness: This is a 75-year-old gentleman who follows with Dr. Bryan Edmonds on an outpatient basis for his primary care service and Dr. YASMANY Owen for his cardiac care. 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 The patient denies any recent complaints of shortness of breath, chest pain or pressure, nausea, vomiting, fever, chills, presyncope or syncope. On 11/19/2020 the patient underwent a gated SPECT Lexiscan Cardiolite myocardial perfusion scan and rest study which showed abnormal stress test MPI with evidence of moderate sized moderate intensity anterapical septal reversible defect with mild hypokinesia with an estimated ejection fraction of 50%. It also showed the possibility of ischemia should be considered. Due to the patient's abnormal stress test he was recommended to undergo a cardiac catheterization. The patient was brought in on elective basis and underwent a cardiac catheterization today 12/17/2020 which demonstrated an 80% stenosis to his right coronary artery, a 70% stenosis to a circumflex coronary artery and a totally occluded mid left anterior descending coronary artery. Due to the findings on the cardiac catheterization a consult was placed to Dr. Mariam Addison cardiothoracic surgery for further evaluation and treatment recommendations including myocardial revascularization surgery. Review of Systems A 14 point review of systems was completed and was negative except as mentioned in the HPI. Past Medical History Past Medical History: CVA/TIA (In 2010), Hyperlipidemia, Hypertension, Osteoarth ritis (OA) Additional Past Medical History / Comment(s): Kidney stones, diverticulitis History of Any Multi-Drug Resistant Organisms: None Reported Past Surgical History: Hernia Repair, Joint Replacement, Orthopedic Surgery Additional Past Surgical History / Comment(s): Right rotator cuff, total left and right knee replacements, abd hernia, he reports he had a procedure done to his left kidney to drain a cyst. Past Anesthesia/Blood Transfusion Reactions: No Reported Reaction Past Psychological History: No Psychological Hx Reported Smoking Status: Never smoker Past Alcohol Use History: None Reported Past Drug Use History: None Reported - Past Family History Father Family Medical History: Diabetes Mellitus, Hypertension Additional Family Medical History / Comment(s): Alzheimer's Mother Family Medical History: Cancer (History of kidney cancer) Medications and Allergies Home Medications Medication Instructions Recorded Confirmed Type Multivitamins, Thera [Multivitamin 1 tab PO DAILY 04/16/18 12/17/20 History (formulary)] Aspirin 81 mg PO DAILY #1 chewable 04/18/18 12/17/20 Rx Atorvastatin [Lipitor] 20 mg PO DAILY 12/12/20 12/17/20 History Metoprolol Tartrate [Lopressor] 25 mg PO HS 12/12/20 12/17/20 History Metoprolol Tartrate [Lopressor] 50 mg PO QAM 12/12/20 12/17/20 History amLODIPine [Norvasc] 5 mg PO DAILY 12/12/20 12/17/20 History Allergies Allergy/AdvReac Type Severity Reaction Status Date / Time No Known Allergies Allergy Verified 12/17/20 07:17 Surgical - Exam Vital Signs Temp Pulse Resp BP Pulse Ox 97.5 F L 102 H 18 125/67 91 L 12/17/20 07:30 12/17/20 07:30 12/17/20 07:30 12/17/20 07:30 12/17/20 07:30 - General well developed, well nourished, no distress, no pain, obese - Eyes PERRL, normal ocular movement, no icteric, no deviation - ENT normal pinna, normal nares, normal mucosa, no hearing loss, no congestion - Neck Neck is supple, no JVD. no masses, no bruits, trachea midline, no venous distension - Respiratory Lungs sounds essentially clear throughout, diminished to his bilateral bases. Respirations are symmetrical and nonlabored. Oxygen saturation are 91% on room air. - Cardiovascular Regular rhythm and rate. S1 and S2 present, negative for S3, gallop or murmur. No edema present. Bedside telemetry showing normal sinus rhythm heart rate 77. - Abdomen Abdomen: soft, non tender, bowel sounds (Active to all 4 abdominal quadrants.), no organomegaly, no surgical scars, no wound, no masses, no guarding, no rigid, no distended - Genitourinary Deferred - Rectum Deferred - Integumentary no rash, no growths, no abnormal pigmentation - Neurologic Cranial nerves II through XII intact. normal coordination, normal sensation - Musculoskeletal Moves all 4 extremities with equal strength. - Psychiatric oriented to time, oriented to person, oriented to place, speech is normal, memory intact Results - Labs 12/17/20 14:12 12/17/20 14:12 - Imaging Chest x-ray: report reviewed, image reviewed Additional studies: Carotid duplex results reviewed which demonstrates no evidence of hemodynamically significant stenosis. Assessment and Plan Assessment: 1. Multivessel coronary artery disease 2. History of CVA in 2010, with no residual deficits 3. Hypertension 4. Hyperlipidemia 5. Elevated BUN and creatinine on 12/13/2020 with a BUN of 26 and a creatinine of 1.86 6. History of small bowel obstruction in 2018 7. History of nephrolithiasis 8. Osteoarthritis 9. History of multiple left renal cysts 10. Lifetime nonsmoker Plan: The patient was seen and examined at his bedside in the extended stay unit. His chart and diagnostics were reviewed. The patient was seen and examined by Dr. Mariam Addison at his bedside in the extended stay unit. The usual preoperative course of open heart surgery was discussed in detail with the patient, his and daughter present at his bedside. Risks and benefits of myocardial revascularization surgery were reviewed and there questions were answered. Preoperative testing and preoperative teaching has been initiated. Once the preoperative testing has been completed we will calculate a risk or which will be discussed with the patient. Continue to optimize medical management with aspirin, statin and beta claudia. We will obtain a 2-D echocardiogram to evaluate his valves preoperatively. More recommendations to follow based on patient's clinical course. We will obtain a baseline computed tomography scan without contrast of his brain due to his history of CVA in 2010. A 5 m walk test was completed with the patient with time 1 showing 2.89 seconds, time 2 2.59 seconds, time 3 2.74 seconds. The patient will be scheduled to follow up with Dr. Mariam Addison in the office this 12/21/2020 to further discuss treatment options including myocardial revascularization. Thank you Dr. Owen for this consult and we will look for to working with you in the care of this patient. Time with Patient: Greater than 30
--- NOTE | 2020-12-17 18:04 | CT ---
EXAMINATION TYPE: CT brain wo con DATE OF EXAM: 12/17/2020 COMPARISON: None HISTORY: abnormal CVL study, hx of CVA CT DLP: 1108.4 mGycm Automated exposure control for dose reduction was used. There is cerebral cortical atrophy. There is moderate patchy hypodensity in the periventricular white matter. There is evidence of more noticeable white matter ischemia in the left internal capsule and left centrum semiovale. The calvarium is intact. The skull base is intact. IMPRESSION: Cerebral atrophy. Chronic small vessel ischemia that is more noticeable in the left cerebral hemisphe re. No hemorrhage.
[2020-12-18 03:23] LABS: Chol/HDL Ratio 3.64
[2020-12-18 05:46] LABS: Hepatitis A Antibody IgM Non-Reactive (Non-Reactive); Hepatitis C IgG Antibody Non-Reactive (Non-Reactive)
[2020-12-18 05:47] LABS: Hepatitis B Core IgM Non-Reactive (Non-Reactive); Hepatitis B Surface Antigen Non-Reactive (Non-Reactive)
--- NOTE | 2020-12-18 06:49 | ECHOF ---
Referral Reason:Evaulate wall motion and EF MEASUREMENTS -------- HEIGHT: 177.8 cm WEIGHT: 97.5 kg BP: RVIDd: 3.5 cm (< 3.3) IVSd: 1.1 cm (0.6 - 1.1) LVIDd: 4.6 cm (3.9 - 5.3) LVPWd: 1.5 cm (0.6 - 1.1) IVSs: 1.6 cm LVIDs: 1.7 cm LVPWs: 1.6 cm Ao Diam: 3.6 cm (2.0 - 3.7) AV Cusp: 2.1 cm (1.5 - 2.6) LA Diam: 4.3 cm (2.7 - 3.8) MV EXCURSION: 11.453 mm (> 18.000) MV EF SLOPE: 65 mm/s (70 - 150) EPSS: 0.4 cm MV E Julien: 0.68 m/s MV DecT: 300 ms MV A Julien: 1.10 m/s MV E/A Ratio: 0.62 RAP: 5.00 mmHg RVSP: 17.09 mmHg FINDINGS -------- This was a technically difficult study with suboptimal views. The left ventricular size is normal. There is mild concentric left ventricular hypertrophy. Overa ll left ventricular systolic function is low-normal with, an EF between 50 - 55 %. Apical lateral L V wall motion is hypokinetic. The right ventricle is mildly enlarged. The left atrium is mildly dilated. The right atrial size is normal. Lumason used The aortic valve is trileaflet and appears structurally normal. The mitral valve is normal. There is trace mitral regurgitation. The tricuspid valve appears structurally normal. Trace tricuspid regurgitation present. Right glenna tricular systolic pressure is normal at < 35 mmHg. There is no pulmonic regurgitation present. The aortic root size is normal. IVC Not well visulized. There is no pericardial effusion. CONCLUSIONS -------- 1. The left ventricular size is normal. 2. There is mild concentric left ventricular hypertrophy. 3. Apical lateral LV wall motion is hypokinetic. 4. The right ventricle is mildly enlarged. 5. The left atrium is mildly dilated. 6. There is trace mitral regurgitation. 7. Trace tricuspid regurgitation present. 8. There is no pericardial effusion. NEGATIVE SPOTTER: Princess Friend RDCS
--- NOTE | 2020-12-19 11:35 | P.ARTDOP ---
Arterial Doppler LOWER EXTREMITY ARTERIAL DOPPLER: DATE OF SERVICE: 12/17/2020 Reason for study: Preop CABG. Doppler waveforms: Multiphasic bilaterally throughout. Pulse volume recording: []. Pressure gradients: None. Ankle-brachial indices: The right cannot be occluded. The left is 1.35.. Toe brachial indices: [] on the right, [] on the left Impression: Perfusion appears normal. Hi ankle pressures suggest calcific wall disease, not of hemodynamic significance..
--- NOTE | 2020-12-19 11:37 | P.VSCSTY ---
Greater Saphenous Vein Mapping This is bilateral lower extremity greater saphenous vein mapping. Date of service: 12/17/2020 Vein quality and ultrasound appearance: We see no intraluminal thrombus or obvious wall changes. Vein size groin right : 8 x 7.3 groin left: 8.6 x 8.5 High thigh right: 5.1 x 5.4 high thigh left: 5.2 x 3.7 Mid thigh right: 4.6 x 3.9 mid thigh left: 5.7 x 4.2 Above-knee right: 3.3 x 2.5 above-knee left: 4.7 x 4.0 Below knee right: 2.2 x 1.9 below-knee left: 3.4 x 3.5 Mid calf right: 2.0 x 1.8 mid calf left: 2.5 x 2.3 Ankle right: 1.9 x 1.3 ankle left: To 0.3 x 1.7. Impression: Usable bilateral greater saphenous vein. Right below the knee and left ankle appear bit small for use as conduit..
== END ==
LOC: CATHCVL 06:59
PROVIDERS: ATTEND Internal Medicine Interventional Cardiology
DX: I25.10 Atherosclerotic heart disease of native coronary artery without angina pectoris (principal); I25.82 Chronic total occlusion of coronary artery; I12.9 Hypertensive chronic kidney disease with stage 1 through stage 4 chronic kidney disease, or unspecified chronic kidney disease; N18.9 Chronic kidney disease, unspecified; E78.5 Hyperlipidemia, unspecified; I69.351 Hemiplegia and hemiparesis following cerebral infarction affecting right dominant side; M19.90 Unspecified osteoarthritis, unspecified site; Z82.49 Family history of ischemic heart disease and other diseases of the circulatory system; Q61.02 Congenital multiple renal cysts
CPT/HCPCS: 94150; 93306; 93458; 84439; 80061; 80053; 80074; 84443; 83735; 85025; 85610; 85730; 81001; 83036; 93970; 93922; 93880; 70450; C1769; C1894; J2250; J2001; J1644; Q9967

== ENCOUNTER → 2020-12-22 | Outpatient (CLI) | payer MEDICARE ==
[2020-12-22 09:36] LABS: HCT 46.6 % (39.0-53.0); HGB 15.9 gm/dL (13.0-17.5); MCH 32.7 pg (25.0-35.0); MCHC 34.1 g/dL (31.0-37.0); MCV 95.9 fL (80.0-100.0); Mean Platelet Volume 7.7; Platelet Count 233 k/uL (150-450); RBC 4.86 m/uL (4.30-5.90); RDW 13.6 % (11.5-15.5); WBC 7.7 k/uL (3.8-10.6)
[2020-12-22 09:44] LABS: Potassium 4.7 mmol/L (3.5-5.1)
== END | disposition home or self-care (01) ==
LOC: LABPAT 08:45
PROVIDERS: ATTEND Internal Medicine Interventional Cardiology
DX: Z01.812 Encounter for preprocedural laboratory examination (principal); I25.10 Atherosclerotic heart disease of native coronary artery without angina pectoris
CPT/HCPCS: 80051; 82565; 84520; 85027

== ENCOUNTER 2020-12-26 07:01 | Day surgery (SDC) | payer MEDICARE ==
[~2020-12-26 07:01] MED LIST changes: -ASPIRIN 81 MG PO SCH; -ATORVASTATIN 20 MG TAB PO SCH; +ATORVASTATIN 80 MG TAB PO ONE; -HEPARIN SODIUM 1,000 UN/ML (10ML VL) IV ONE; -HEPARIN SODIUM 1,000 UN/ML (10ML VL) ONE; -IOPAMIDOL-370 100ML BTL INJ ONE; -LIDOCAINE 1% INJ 10MG/ML (20 ML MDV) ONE; -LIDOCAINE 1% INJ 10MG/ML (20 ML MDV) SQ ONE; -METOPROLOL TARTRATE 25 MG TAB PO SCH; -METOPROLOL TARTRATE 50 MG TAB PO SCH; -MIDAZOLAM 2 MG/2 ML VIAL IV ONE; -MULTIVITAMINS, THERA 1 EACH TAB PO SCH; -RX INFO: IV CONTRAST WAS GIVEN 1 EACH MISC MISCELLANE PRN; -SODIUM CHLORIDE 0.9% 1,000 ML IV SCH; -VERAPAMIL 2.5 MG/ML 2 ML AMP ONE; -VERAPAMIL SYRINGE (5 MG/10 ML) INTRAARTER ONE; -amLODIPine 5 MG TAB PO SCH
[2020-12-26] MEDS ORDERED: SODIUM CHLORIDE 0.9% 1,000 ML IV ONE (07:24)
[2020-12-26 08:15] LABS: Calcium 9.7 mg/dL (8.4-10.2); Potassium 4.5 mmol/L (3.5-5.1)
[2020-12-26] MEDS ORDERED: LIDOCAINE 1% INJ 10MG/ML (20 ML MDV) ONE (10:23)
[2020-12-26] MEDS ORDERED: HEPARIN SODIUM 1,000 UN/ML (10ML VL) ONE (10:49)
[2020-12-26] MEDS ORDERED: LIDOCAINE 1% INJ 10MG/ML (20 ML MDV) SQ ONE (10:52)
[2020-12-26] MEDS ORDERED: MIDAZOLAM 2 MG/2 ML VIAL IV ONE ×2 (10:53)
[2020-12-26] MEDS: HEPARIN SODIUM 1,000 UN/ML (10ML VL) IV ONE ×2 (11:00→11:21)
[2020-12-26] MEDS ORDERED: NITROGLYCERIN 1000MCG/10ML SYRINGE INTRACORON ONE (11:36)
[2020-12-26] MEDS ORDERED: TICAGRELOR 90 MG TAB ONE (11:37)
[2020-12-26] MEDS ORDERED: IOPAMIDOL-370 100ML BTL INJ ONE (11:41)
[2020-12-26] MEDS ORDERED: TICAGRELOR 90 MG TAB PO ONE (11:41)
[2020-12-26] MEDS ORDERED: HYDROmorphone 0.5 MG/0.5 ML SYRINGE IVP ONE (11:45)
[2020-12-26] MEDS: SODIUM CHLORIDE 0.9% 1,000 ML IV SCH (17:05)
--- NOTE | 2020-12-26 17:43 | PTCA ---
PERCUTANEOUSTRANS CORORONARY ANGIOGRAPHY DATE OF SERVICE: 12/26/2020 PROCEDURE: PTCA and stenting of proximal and distal complex calcified tortuous right coronary artery with 2 drug-eluting stents. PERFORMED BY: Dr. Jose Owen. Moderate conscious sedation time was 56 minutes. Patient was administered Versed, oxygen saturation, hemodynamics and EKG were monitored closely. CLINICAL INFORMATION: Mr. Stratton is a 75-year-old gentleman with a history of previous CVA, significant triple- vessel disease, hypertension and hyperlipidemia. He also has right-sided diaphragmatic paralysis, was advised initially aortocoronary bypass surgery but Dr. Addison, the cardiac surgeon, felt that he was a high risk for surgery and therefore recommended percutaneous intervention. I suggested I will do intervention of the RCA which was a heavily calcified vessel in the proximal and distal portion of 95% lesion and then I will tackle the circumflex at a later date. Patient has renal failure with a creatinine in the range of 1.8-2.0. His maximum threshold of contrast was only 99 cc. He was brought in for the procedure after due discussion regarding risks, benefits, options. PROCEDURE NOTE: Under local anesthesia and strict aseptic precautions, a 6-Afghan introducer was placed in the right femoral artery. Using initially a JR4 catheter I got decent injection of the right coronary artery but I had poor guide support. I switched it over to ART 3.5 guide catheter. I could not advance the wire. I used a combination of a 45 degree SuperCross and a long whisper wire. With this combination the wire was kept distally in the PLV branch. Predilatation was performed with a 2.5 caliber 12 mm NC Trek balloon. Multiple inflations in the proximal and distal portions were given. I then deployed a 12 mm long 3.25 caliber Xience stent in the distal lesion and a 3.5 caliber 18 mm long Xience stent in the proximal lesion. Excellent angiographic result was achieved. Patient received 6500 units of heparin and ACT was 265. He also received 180 mg of Brilinta. The sheath was taken out and a Perclose device used to secure hemostasis and he was sent to the room in stable condition. Excellent angiographic result without complication was achieved. Results were discussed with the patient and family and I expect he will be discharged tomorrow morning if he remains stable. MMODL / IJN: [id number] /
[2020-12-26] MEDS ORDERED: METOPROLOL TARTRATE 25 MG TAB PO SCH (21:00)
[2020-12-26] MEDS: TICAGRELOR 90 MG TAB PO SCH (21:51)
[2020-12-27] MEDS: SODIUM CHLORIDE 0.9% 1,000 ML IV SCH (01:52)
[2020-12-27 02:56] VITALS: PULSE 54; RESP 19
[2020-12-27 08:21] LABS: African American GFR (CKD) 47 (>60 ml/min/1.73 sqM); Anion Gap 9 mmol/L; Blood Urea Nitrogen 20 mg/dL (9-20); Calcium 8.8 mg/dL (8.4-10.2); Carbon Dioxide 20 mmol/L (22-30); Chloride 111 mmol/L (98-107); Glucose 109 mg/dL (74-99); Non-African American GFR(CKD) 41 (>60 ml/min/1.73 sqM); Potassium 4.3 mmol/L (3.5-5.1); Sodium 140 mmol/L (137-145)
[2020-12-27] MEDS: TICAGRELOR 90 MG TAB PO SCH (08:41)
[2020-12-27] MEDS ORDERED: ASPIRIN 81 MG PO SCH (09:00)
[2020-12-27] MEDS ORDERED: METOPROLOL TARTRATE 50 MG TAB PO SCH (09:00)
[2020-12-27] MEDS ORDERED: amLODIPine 5 MG TAB PO SCH (09:00)
[2020-12-27 09:27] LABS: African American GFR (CKD) 46 (>60 ml/min/1.73 sqM); Anion Gap 9 mmol/L; Blood Urea Nitrogen 19 mg/dL (9-20); Calcium 9.1 mg/dL (8.4-10.2); Carbon Dioxide 25 mmol/L (22-30); Chloride 107 mmol/L (98-107); Glucose 131 mg/dL (74-99); Non-African American GFR(CKD) 40 (>60 ml/min/1.73 sqM); Potassium 4.6 mmol/L (3.5-5.1); Sodium 141 mmol/L (137-145)
[2020-12-27 09:34] VITALS: BP 168/99; TEMP 97.3
[2020-12-27 09:41] LABS: Basophils # (A) 0.1 X 10*3/uL (0.00-0.10); Basophils % (A) 1 %; Eosinophils # (A) 0.3 X 10*3/uL (0.04-0.35); Eosinophils % (A) 3 %; HGB 13.2 g/dL (13.0-17.0); Lymphocytes # (A) 0.9 X 10*3/uL (0.90-5.00); Lymphocytes % (A) 9 %; MCH 30.6 pg (27.0-32.0); MCHC 32.2 g/dL (32.0-37.0); MCV 94.9 fL (80.0-97.0); Monocytes % (A) 10 %; Neutrophils # (A) 7.4 X 10*3/uL (1.80-7.70); Neutrophils % (A) 78 %; Platelet Count 197 X 10*3/uL (140-440); RBC 4.32 X 10*6/uL (4.40-5.60); RDW 13.8 % (11.5-14.5); WBC 9.6 X 10*3/uL (4.50-10.00)
--- NOTE | 2020-12-27 10:51 | DS ---
DISCHARGE SUMMARY DATE OF ADMISSION: 12/26/2020 DATE OF DISCHARGE: 12/27/2020 DIAGNOSIS: 1. Unstable angina with significant triple-vessel disease. 2. Hypertension. 3. Chronic kidney disease. 4. Hypercholesterolemia. This gentleman had significant triple-vessel disease. He had an abnormal stress test and was advised aortocoronary bypass surgery, but Surgery felt his risk was high, given his previous history of stroke, diaphragmatic paralysis and elevated creatinine. I therefore brought him in for elective PCI. His LAD was totally occluded, collateralized from the right and circumflex. I performed stenting of two lesions in the right coronary artery. These were heavily calcified lesions in the proximal and distal portions. Excellent angiographic result was achieved. Post-procedure course was uneventful. This morning he is asymptomatic. His right groin is clean and dry with a good pulse. His blood pressure is stable. His EKG is unremarkable. Labs are pending. Plan is to discharge him today, and I will see him in the office on January 01 at 9:15 _AM____. His vitals are stable. No JVD. S1, S2 heard normally. Short systolic murmur at the left sternal border is noted. Lungs are clear. Abdomen is soft, nontender. Right groin is clean and dry with a good pulse. Central nervous system grossly within normal limits. His labs are pending, specifically his creatinine, which was 9.4. He received only 80 mL or less of contrast yesterday. He will be discharged today and I will see him in the office on January 01. To call for questions. MMODL / IJN: [id number] / ALICIA
== END 2020-12-27 11:10 | disposition home or self-care (01) ==
LOC: CATHCVL 07:01 → 6NMEDSUR 11:46 → CATHCVL 12-27 11:10
PROVIDERS: ATTEND Internal Medicine Interventional Cardiology
DX: I25.110 Atherosclerotic heart disease of native coronary artery with unstable angina pectoris (principal); I25.82 Chronic total occlusion of coronary artery; I25.84 Coronary atherosclerosis due to calcified coronary lesion; J98.6 Disorders of diaphragm; E78.00 Pure hypercholesterolemia, unspecified; E78.2 Mixed hyperlipidemia; I12.9 Hypertensive chronic kidney disease with stage 1 through stage 4 chronic kidney disease, or unspecified chronic kidney disease; N18.9 Chronic kidney disease, unspecified; Z79.82 Long term (current) use of aspirin; Z79.899 Other long term (current) drug therapy; I69.954 Hemiplegia and hemiparesis following unspecified cerebrovascular disease affecting left non-dominant side
CPT/HCPCS: 80048 ×2; 85025; C9600; C1769 ×4; C1887 ×3; C1894 ×2; C1725; C1760; C1874 ×2; J2250; J2001; J1644; J1170; Q9967

== ENCOUNTER → 2021-01-03 | Outpatient (CLI) | payer MEDICARE ==
[2021-01-03 19:17] LABS: HCT 46.8 % (39.6-50.0); HGB 14.6 g/dL (13.0-17.0); MCH 30.3 pg (27.0-32.0); MCHC 31.2 g/dL (32.0-37.0); MCV 97.1 fL (80.0-97.0); Mean Platelet Volume 9.7 fL (9.5-12.2); Platelet Count 257 X 10*3/uL (140-440); RBC 4.82 X 10*6/uL (4.40-5.60); RDW 13.9 % (11.5-14.5); WBC 10.55 X 10*3/uL (4.50-10.00)
[2021-01-04 01:59] LABS: African American GFR (CKD) 41.7 (60.0-200.0); Anion Gap 11.3 mmol/L (4.00-12.00); BUN/Creat Ratio 12.22 Ratio (12.00-20.00); Calcium 9.8 mg/dL (8.7-10.3); Carbon Dioxide 25.7 mmol/L (21.6-31.8); Potassium 4.8 mmol/L (3.5-5.5)
== END | disposition home or self-care (01) ==
LOC: LABWHC1 08:59
PROVIDERS: ATTEND Internal Medicine Interventional Cardiology
DX: I25.10 Atherosclerotic heart disease of native coronary artery without angina pectoris (principal)
CPT/HCPCS: 36415; 80048; 85027

== ENCOUNTER 2021-01-22 06:52 | Day surgery (SDC) | payer MEDICARE ==
[2021-01-18 16:14] VITALS: BMI 33.7
[~2021-01-22 06:52] MED LIST changes: -ASPIRIN 325 MG TAB PO ONE; -ATORVASTATIN 80 MG TAB PO ONE; -SODIUM CHLORIDE 0.9% 1,000 ML in EMPTY BAG 1 BAG IV ONE
[2021-01-22] MEDS ORDERED: ASPIRIN 325 MG TAB PO ONE (07:00)
[2021-01-22] MEDS ORDERED: SODIUM CHLORIDE 0.9% 1,000 ML in EMPTY BAG 1 BAG IV ONE (07:00)
[2021-01-22] MEDS ORDERED: ATORVASTATIN 80 MG TAB PO ONE (07:00)
[2021-01-22] MEDS ORDERED: SODIUM CHLORIDE 0.9% 1,000 ML IV ONE (07:20)
[2021-01-22 07:42] VITALS: RESP 16; TEMP 98.5
[2021-01-22] MEDS ORDERED: VERAPAMIL 2.5 MG/ML 2 ML AMP ONE (08:49)
[2021-01-22] MEDS ORDERED: LIDOCAINE 1% INJ 10MG/ML (20 ML MDV) ONE (08:49)
[2021-01-22] MEDS ORDERED: MIDAZOLAM 2 MG/2 ML VIAL IV ONE (09:27)
[2021-01-22] MEDS ORDERED: LIDOCAINE 1% INJ 10MG/ML (20 ML MDV) SQ ONE ×2 (09:28→09:30)
[2021-01-22] MEDS ORDERED: VERAPAMIL SYRINGE (5 MG/10 ML) INTRAARTER ONE ×2 (09:28→09:32)
[2021-01-22] MEDS: HEPARIN SODIUM 1,000 UN/ML (10ML VL) IV ONE ×2 (09:36→09:39)
[2021-01-22] MEDS ORDERED: IOPAMIDOL-370 100ML BTL INJ ONE (09:59)
[2021-01-22] MEDS ORDERED: CLOPIDOGREL 75 MG TAB ONE (10:03)
[2021-01-22] MEDS ORDERED: CLOPIDOGREL 75 MG TAB PO ONE (10:05)
[2021-01-22] MEDS ORDERED: IOPAMIDOL-370 50ML BTL INJ ONE (10:13)
[2021-01-22] MEDS ORDERED: RX INFO: IV CONTRAST WAS GIVEN 1 EACH MISC MISCELLANE PRN (10:59)
[2021-01-22] MEDS ORDERED: MAG HYDROX/AL HYDROX/SIMETH 30 ML CUP PO PRN (10:59)
[2021-01-22] MEDS ORDERED: ZOLPIDEM 5 MG TAB PO PRN (10:59)
[2021-01-22] MEDS ORDERED: ATROPINE SULFATE 0.1 MG/ML 10ML SYRINGE IV PRN (10:59)
[2021-01-22] MEDS ORDERED: SODIUM CHLORIDE 0.9% 1,000 ML IV SCH (11:00)
--- NOTE | 2021-01-22 11:32 | PTCA ---
PERCUTANEOUSTRANS CORORONARY ANGIOGRAPHY DATE OF SERVICE: 01/22/2021. PROCEDURE: 1. Selective coronary angiography of [place] right coronary artery that was stented 3-4 weeks ago. 2. Percutaneous transluminal coronary angioplasty and stenting of proximal ramus intermedius coronary artery with a drug-eluting stent. PERFORMED BY: Dr. Jose Owen. Moderate conscious sedation time was 38 minutes. The patient was administered Versed. Oxygen saturation, hemodynamics and EKG were monitored closely. CLINICAL INFORMATION: Mr. Davey Stratton is a 75-year-old gentleman with a history of previous stroke with some residual neurological deficit, hypertension and hypercholesterolemia who has also significant coronary artery disease. He underwent stenting of proximal and distal RCA about 3-1/2 weeks ago, was brought in for elective PCI of ramus intermedius, which had an 85% to 90% lesion. He also has a total occlusion of LAD that fills late. He was initially advised aortocoronary bypass surgery, but the surgeons felt that he was at high risk, given his diaphragmatic paralysis on the left side, and also CVA with poor pulmonary status. He was brought in for elective PCI of ramus. PROCEDURE NOTE: Under local anesthesia and strict aseptic precautions, a 6-Pashto introducer was placed in the right radial artery. Using a standard right Jo diagnostic catheter, I performed selective coronary angiography of the right coronary artery and noted that the previously stented proximal and distal RCA was widely patent with good flow. I then turned my attention to the left system. A JL3.5 guide catheter was used to cannulate the left coronary artery. A run-through wire was used to cross the lesion in the ramus. Predilatation was performed with a 2.75 caliber 8 mm NC Trek balloon, and then I deployed a 3.25 caliber 8 mm long Xience stent at 12 atmospheres. Patient had mild chest discomfort. No EKG changes. Excellent angiographic result without complication was achieved. Patient received intravenous heparin of 5500 units and ACT was 278. Excellent angiographic result without complication was achieved. The guide, catheter and wire were taken out. The sheath was taken out and TR band applied as per protocol. Saturation in the fingers of the right hand was 94%. Excellent angiographic result without complication was achieved of the ramus intermedius with one drug-eluting stent. Previously stented RCA was widely patent. Results were discussed with the patient and family, and I expect he will be discharged later on this evening. I will see him in the office on Thursday at 2:30 p.m. SINDY / RODRIGO: [id number] /
[2021-01-22 16:11] VITALS: BP 130/72; PULSE 76
[2021-01-22] MEDS ORDERED: METOPROLOL TARTRATE 25 MG TAB PO SCH (21:00)
[2021-01-23] MEDS ORDERED: amLODIPine 5 MG TAB PO SCH (09:00)
[2021-01-23] MEDS ORDERED: METOPROLOL TARTRATE 50 MG TAB PO SCH (09:00)
[2021-01-23] MEDS ORDERED: MULTIVITAMINS, THERA 1 EACH TAB PO SCH (09:00)
[2021-01-23] MEDS ORDERED: ATORVASTATIN 20 MG TAB PO SCH (09:00)
[2021-01-23] MEDS ORDERED: ASPIRIN 81 MG PO SCH (09:00)
[2021-01-23] MEDS ORDERED: CLOPIDOGREL 75 MG TAB PO SCH (09:00)
== END 2021-01-22 16:30 | disposition home or self-care (01) ==
LOC: CATHCVL 06:52
PROVIDERS: ATTEND Internal Medicine Interventional Cardiology
DX: I25.10 Atherosclerotic heart disease of native coronary artery without angina pectoris (principal); I12.9 Hypertensive chronic kidney disease with stage 1 through stage 4 chronic kidney disease, or unspecified chronic kidney disease; N18.9 Chronic kidney disease, unspecified; E78.5 Hyperlipidemia, unspecified; Z86.73 Personal history of transient ischemic attack (TIA), and cerebral infarction without residual deficits; Z79.02 Long term (current) use of antithrombotics/antiplatelets; Z95.5 Presence of coronary angioplasty implant and graft; Z79.82 Long term (current) use of aspirin; Z79.899 Other long term (current) drug therapy; Z20.822 Contact with and (suspected) exposure to COVID-19
CPT/HCPCS: 87635; C9600; C1887; C1894; C1725; C1874; J2250; J2001; J1644; Q9967 ×2

== ENCOUNTER 2021-02-17 09:06 | Emergency (ER) | payer MEDICARE ==
[2021-02-17 09:16] VITALS: RESP 18
--- NOTE | 2021-02-17 09:25 | ED ---
Male Urogenital HPI - General Chief complaint: Urogenital Stated complaint: blood in urine Time Seen by Provider: 02/17/21 09:15 Source: patient, RN notes reviewed Mode of arrival: ambulatory Limitations: physical limitation - History of Present Illness Initial comments: Patient is 75-year-old male presented daily for blood in urine. Patient states that starting last night 1 a.m. noticed red tinting to be here an ongoing pattern. Patient reports to other episodes since that time that urine has appeared with red tint. Patient denies any pain with urination no changes in oral intake or bowel movements at this time. Patient denies any nausea vomiting generalize weakness or fatigue. Patient denies comfort and abdomen, no reported flank pain. Patient does have positive history for 1 month old stent placement related to CAD. Patient does also have a positive history of kidney stones in the past. - Related Data Home Medications Medication Instructions Recorded Confirmed Metoprolol Tartrate [Lopressor] 25 mg PO HS 12/12/20 02/17/21 amLODIPine [Norvasc] 5 mg PO DAILY 12/12/20 02/17/21 Clopidogrel [Plavix] 75 mg PO HS 01/18/21 02/17/21 Aspirin 81 mg PO HS 02/17/21 02/17/21 Atorvastatin Calcium [Lipitor] 80 mg PO HS 02/17/21 02/17/21 Metoprolol Tartrate [Lopressor] 50 mg PO DAILY 02/17/21 02/17/21 Multivit-Min/FA/Lycopen/Lutein 1 tab PO HS 02/17/21 02/17/21 [Centrum Silver Men Tablet] Nitroglycerin Sl Tabs [Nitrostat] 0.4 mg SUBLINGUAL Q5M PRN 02/17/21 02/17/21 Previous Rx's Medication Instructions Recorded Tamsulosin [Flomax] 0.4 mg PO DAILY #7 cap 02/17/21 Allergies Allergy/AdvReac Type Severity Reaction Status Date / Time No Known Allergies Allergy Verified 02/17/21 10:05 Review of Systems ROS Statement: Those systems with pertinent positive or pertinent negative responses have been documented in the HPI. ROS Other: All systems not noted in ROS Statement are negative. Past Medical History Past Medical History: CVA/TIA, Hyperlipidemia, Hypertension, Osteoarthritis (OA) Additional Past Medical History / Comment(s): Kidney stones, diverticulitis History of Any Multi-Drug Resistant Organisms: None Reported Past Surgical History: Heart Catheterization, Heart Catheterization With Stent, Hernia Repair, Joint Replacement, Orthopedic Surgery Additional Past Surgical History / Comment(s): Right rotator cuff, total left and right knee replacements, abd hernia, he reports he had a procedure done to his left kidney to drain a cyst. Past Anesthesia/Blood Transfusion Reactions: No Reported Reaction Past Psychological History: No Psychological Hx Reported Smoking Status: Never smoker Past Alcohol Use History: None Reported Past Drug Use History: None Reported - Past Family History Father Family Medical History: Diabetes Mellitus, Hypertension Additional Family Medical History / Comment(s): Alzheimer's Mother Family Medical History: Cancer General Exam Limitations: physical limitation General appearance: alert, in no apparent distress Respiratory exam: Present: normal lung sounds bilaterally. Absent: respiratory distress, wheezes, rales, rhonchi, stridor Cardiovascular Exam: Present: regular rate, normal rhythm, normal heart sounds. Absent: systolic murmur, diastolic murmur, rubs, gallop, clicks GI/Abdominal exam: Present: soft, normal bowel sounds. Absent: distended, tenderness, guarding, rebound, rigid Neurological exam: Present: alert, oriented X3 Skin exam: Present: warm, dry, intact, normal color. Absent: rash Course Vital Signs 02/17/21 09:12 Temperature 98.5 F Pulse Rate 69 Respiratory 18 Rate Blood Pressure 126/71 O2 Sat by Pulse 95 Oximetry Medical Decision Making - Medical Decision Making 75-year-old male presented from chief complaint of hematuria. Patient does have a long history kidney stones in which the patient was imaged today showing that he has 5 ureteral calculi largest approximately 9 mm right proximal ureteral stone approximately 8 mm. Right ear is not obstructing, left obstructing. Patient's creatinine is at baseline or improved from prior creatinines. I did discuss case with on-call urologist Dr. Flores recommended patient follow-up in office this week is return numbers Department if he has any worsening or change of symptoms. Patient currently has no pain. - Lab Data Result diagrams: 02/17/21 09:43 02/17/21 09:43 Lab Results 02/17/21 02/17/21 02/17/21 Range/Units 09:43 09:43 09:43 WBC 9.8 (3.8-10.6) k/uL RBC 4.53 (4.30-5.90) m/uL Hgb 14.2 (13.0-17.5) gm/dL Hct 43.2 (39.0-53.0) % MCV 95.4 (80.0-100.0) fL MCH 31.5 (25.0-35.0) pg MCHC 33.0 (31.0-37.0) g/dL RDW 13.3 (11.5-15.5) % Plt Count 246 (150-450) k/uL MPV 7.3 Neutrophils % 75 % Lymphocytes % 13 % Monocytes % 5 % Eosinophils % 3 % Basophils % 1 % Neutrophils # 7.3 (1.3-7.7) k/uL Lymphocytes # 1.3 (1.0-4.8) k/uL Monocytes # 0.5 (0-1.0) k/uL Eosinophils # 0.3 (0-0.7) k/uL Basophils # 0.1 (0-0.2) k/uL Sodium 138 (137-145) mmol/L Potassium 4.4 (3.5-5.1) mmol/L Chloride 104 (98-107) mmol/L Carbon Dioxide 25 (22-30) mmol/L Anion Gap 9 mmol/L BUN 21 H (9-20) mg/dL Creatinine 1.57 H (0.66-1.25) mg/dL Est GFR (CKD-EPI)AfAm 49 (>60 ml/min/1.73 sqM) Est GFR (CKD-EPI)NonAf 43 (>60 ml/min/1.73 sqM) Glucose 113 H (74-99) mg/dL Plasma Lactic Acid Noman (0.7-2.0) mmol/L Calcium 9.1 (8.4-10.2) mg/dL Total Bilirubin 0.8 (0.2-1.3) mg/dL AST 26 (17-59) U/L ALT 25 (4-49) U/L Alkaline Phosphatase 103 (38-126) U/L Total Protein 6.8 (6.3-8.2) g/dL Albumin 3.9 (3.5-5.0) g/dL Urine Color Light Red Urine Appearance Clear (Clear) Urine pH 6.5 (5.0-8.0) Ur Specific [place] 1.004 (1.001-1.035) Urine Protein 1+ H (Negative) Urine Glucose (UA) Negative (Negative) Urine Ketones Negative (Negative) Urine Blood Large H (Negative) Urine Nitrite Negative (Negative) Urine Bilirubin Negative (Negative) Urine Urobilinogen <2.0 (<2.0) mg/dL Ur Leukocyte Esterase Small H (Negative) Urine RBC 4 (0-5) /hpf Urine WBC 6 H (0-5) /hpf Urine Bacteria Rare H (None) /hpf 02/17/21 Range/Units 09:43 WBC (3.8-10.6) k/uL RBC (4.30-5.90) m/uL Hgb (13.0-17.5) gm/dL Hct (39.0-53.0) % MCV (80.0-100.0) fL MCH (25.0-35.0) pg MCHC (31.0-37.0) g/dL RDW (11.5-15.5) % Plt Count (150-450) k/uL MPV Neutrophils % % Lymphocytes % % Monocytes % % Eosinophils % % Basophils % % Neutrophils # (1.3-7.7) k/uL Lymphocytes # (1.0-4.8) k/uL Monocytes # (0-1.0) k/uL Eosinophils # (0-0.7) k/uL Basophils # (0-0.2) k/uL Sodium (137-145) mmol/L Potassium (3.5-5.1) mmol/L Chloride (98-107) mmol/L Carbon Dioxide (22-30) mmol/L Anion Gap mmol/L BUN (9-20) mg/dL Creatinine (0.66-1.25) mg/dL Est GFR (CKD-EPI)AfAm (>60 ml/min/1.73 sqM) Est GFR (CKD-EPI)NonAf (>60 ml/min/1.73 sqM) Glucose (74-99) mg/dL Plasma Lactic Acid Noman 1.1 (0.7-2.0) mmol/L Calcium (8.4-10.2) mg/dL Total Bilirubin (0.2-1.3) mg/dL AST (17-59) U/L ALT (4-49) U/L Alkaline Phosphatase (38-126) U/L Total Protein (6.3-8.2) g/dL Albumin (3.5-5.0) g/dL Urine Color Urine Appearance (Clear) Urine pH (5.0-8.0) Ur Specific [place] (1.001-1.035) Urine Protein (Negative) Urine Glucose (UA) (Negative) Urine Ketones (Negative) Urine Blood (Negative) Urine Nitrite (Negative) Urine Bilirubin (Negative) Urine Urobilinogen (<2.0) mg/dL Ur Leukocyte Esterase (Negative) Urine RBC (0-5) /hpf Urine WBC (0-5) /hpf Urine Bacteria (None) /hpf Disposition Clinical Impression: Bilateral ureteral calculi, Hematuria Disposition: HOME SELF-CARE Condition: Stable Instructions (If sedation given, give patient instructions): Kidney Stones (ED) Additional Instructions: Please return to the Emergency Department if symptoms worsen or any other concerns. Prescriptions: Tamsulosin [Flomax] 0.4 mg PO DAILY #7 cap Is patient prescribed a controlled substance at d/c from ED?: No Referrals: Bryan Edmonds DO [Primary Care Provider] - 1-2 days Kristopher Daniel MD [STAFF PHYSICIAN] - 1-2 days Time of Disposition: 11:33
[2021-02-17] MEDS ORDERED: SODIUM CHLORIDE 0.9% 1,000 ML IV ONE (09:31)
[2021-02-17 10:23] LABS: Appearance,Urine Clear (Clear); Bacteria,Urine Rare /hpf; Bilirubin,Urine Negative (Negative); Blood,Urine Large (Negative); Color,Urine Light Red; Glucose,Urine (UA) Negative (Negative); Ketones,Urine Negative (Negative); Leukocyte Esterase,Urine Small (Negative); Nitrite,Urine Negative (Negative); PH, Urine 6.5 (5.0-8.0); Protein,Urine 1+ (Negative); RBC,Urine 4 /hpf (0-5); Specific Gravity,Urine 1.004 (1.001-1.035); Urobilinogen,Urine <2.0 mg/dL (<2.0); WBC,Urine 6 /hpf (0-5)
[2021-02-17 10:24] LABS: Albumin 3.9 g/dL (3.5-5.0); Calcium 9.1 mg/dL (8.4-10.2); Potassium 4.4 mmol/L (3.5-5.1); Total Bilirubin 0.8 mg/dL (0.2-1.3); Total Protein 6.8 g/dL (6.3-8.2)
[2021-02-17 10:26] LABS: Basophils # (A) 0.1 k/uL (0-0.2); Basophils % (A) 1 %; Eosinophils # (A) 0.3 k/uL (0-0.7); Eosinophils % (A) 3 %; HCT 43.2 % (39.0-53.0); HGB 14.2 gm/dL (13.0-17.5); Lymphocytes # (A) 1.3 k/uL (1.0-4.8); Lymphocytes % (A) 13 %; MCH 31.5 pg (25.0-35.0); MCV 95.4 fL (80.0-100.0); Mean Platelet Volume 7.3; Monocytes # (A) 0.5 k/uL (0-1.0); Monocytes % (A) 5 %; Neutrophils # (A) 7.3 k/uL (1.3-7.7); Neutrophils % (A) 75 %; Platelet Count 246 k/uL (150-450); RBC 4.53 m/uL (4.30-5.90); RDW 13.3 % (11.5-15.5); WBC 9.8 k/uL (3.8-10.6)
--- NOTE | 2021-02-17 11:14 | CT ---
EXAMINATION TYPE: CT abdomen pelvis wo con DATE OF EXAM: 02/17/2021 COMPARISON: 04/16/2020 HISTORY: Blood in urine CT DLP: 1112.4 mGycm Examination of the solid and hollow viscera is limited given the lack of contrast. FINDINGS: LUNG BASES: Elevation right hemidiaphragm with right basilar parenchymal scarring. LIVER/GB: The gallbladder is unremarkable. No space-occupying hepatic lesion. PANCREAS: No pancreatic mass identified. No inflammatory process seen. SPLEEN: No evidence for splenomegaly. No intrasplenic lesions seen. ADRENALS: No adrenal nodules identified. No evidence for thickening. KIDNEYS: 3 obstructing calculi are noted within the mid left ureter measuring 5 mm, 5.2 mm and 9 mm respectively. There is a moderate to severe left-sided hydroureteronephrosis. 2 additional distal lef t ureteral calculi are noted measuring up to 5 mm. There is renal parenchymal thinning which may refl ect chronic process. Additional multiple renal calculi are seen on the left totaling approximately 6 in number the largest being within the lower pole measuring 1.1 cm. Hypoattenuating renal lesions may reflect cysts. Lack of contrast limits evaluation. Multiple calculi right kidney noted. Proximal right ureteral calculus measuring 8 mm without significant hydronephrosis. 3. Bilateral nephrolithiasis. Proximal right ureteral calculus measuring 8 mm without significant hyd ronephrosis. 2.3 cm calculus lower pole right kidney with additional calculi totaling approximately 8 and number. BOWEL: Appendix has a normal appearance. No evidence of bowel obstruction. No inflammatory process. Lymph nodes: No evidence for adenopathy greater than 1 cm. Abdominal aorta: Atheromatous changes seen. No evidence for aneurysm. Genital organs: No significant abnormality. Other: No significant abnormality. IMPRESSION: 1. Five Calculi noted within the left ureter 3 of which are within the mid left ureter resulting in m oderate to severe left-sided hydronephrosis. 2 distal calculi left ureter as noted above. 2.
[2021-02-17] MEDS ORDERED: ACET/COD 300 MG/30 MG STARTER PACK 6 TAB BTL PO STA (11:33)
[2021-02-17 11:58] VITALS: BP 129/70; PULSE 62; TEMP 98
== END 2021-02-17 11:58 | disposition home or self-care (01) ==
LOC: EC 09:06
DX: N13.2 Hydronephrosis with renal and ureteral calculous obstruction (principal); I10 Essential (primary) hypertension; E78.5 Hyperlipidemia, unspecified; M19.90 Unspecified osteoarthritis, unspecified site; Z86.73 Personal history of transient ischemic attack (TIA), and cerebral infarction without residual deficits; Z79.82 Long term (current) use of aspirin; Z79.899 Other long term (current) drug therapy
CPT/HCPCS: 36415; 74176; 80053; 81001; 83605; 85025; 96360; 99284

== ENCOUNTER 2021-03-06 08:30 | Day surgery (SDC) | payer MEDICARE ==
[2021-03-05 14:20] VITALS: BMI 32.6
--- NOTE | 2021-03-05 17:56 | P.GSHP ---
History of Present Illness H&P Date: 03/05/21 75 yo male sent via the [facility] er with left ureteral stones. He has two large left distal ureteral stones with chronic hydro present much longer than the recent er visit. He comes for a left ureteroscopy with laser lithotripsy and probable stent. The risks have been discussed. - Constitutional Constitutional: Denies chills, Denies fever - EENT Eyes: denies blurred vision, denies pain Ears, nose, mouth and throat: Denies headache, Denies sore throat - Cardiovascular Cardiovascular: Denies chest pain, Denies shortness of breath - Respiratory Respiratory: Denies cough, Denies 7 - Gastrointestinal Gastrointestinal: Denies abdominal pain, Denies diarrhea, Denies nausea, Denies vomiting - Genitourinary (Female) Genitourinary: Denies dysuria, Denies hematuria - Genitourinary (Male) Genitourinary: Denies dysuria, Denies hematuria - Musculoskeletal Musculoskeletal: Denies myalgias - Integumentary Integumentary: Denies pruritus, Denies rash - Neurological Neurological: Denies numbness, Denies weakness - Psychiatric Psychiatric: Denies anxiety, Denies depression - Endocrine Endocrine: Denies fatigue, Denies weight change Past Medical History Past Medical History: Coronary Artery Disease (CAD), CVA/TIA, Hyperlipidemia, Hypertension Additional Past Medical History / Comment(s): Kidney stones, diverticulitis, stroke 10 yrs ago-no residual effects, History of Any Multi-Drug Resistant Organisms: None Reported Past Surgical History: Heart Catheterization, Heart Catheterization With Stent, Hernia Repair, Joint Replacement, Orthopedic Surgery Additional Past Surgical History / Comment(s): Right rotator cuff, total left and right knee replacements, he reports he had a procedure done to his left kidney to drain a cyst. 3 cardiac stents Past Anesthesia/Blood Transfusion Reactions: No Reported Reaction Date of Last Stent Placement:: 01/22/21 Smoking Status: Never smoker - Past Family History Father Family Medical History: Diabetes Mellitus, Hypertension Additional Family Medical History / Comment(s): Alzheimer's Mother Family Medical History: Cancer Additional Family Medical History / Comment(s): kidney Medications and Allergies Home Medications Medication Instructions Recorded Confirmed Type Metoprolol Tartrate [Lopressor] 25 mg PO HS 12/12/20 03/05/21 History amLODIPine [Norvasc] 5 mg PO DAILY 12/12/20 03/05/21 History Clopidogrel [Plavix] 75 mg PO DAILY 01/18/21 03/05/21 History Aspirin 81 mg PO HS 02/17/21 03/05/21 History Atorvastatin Calcium [Lipitor] 80 mg PO DAILY 02/17/21 03/05/21 History Metoprolol Tartrate [Lopressor] 50 mg PO QAM 02/17/21 03/05/21 History Multivit-Min/FA/Lycopen/Lutein 1 tab PO HS 02/17/21 03/05/21 History [Centrum Silver Men Tablet] Nitroglycerin Sl Tabs [Nitrostat] 0.4 mg SUBLINGUAL Q5M PRN 02/17/21 03/05/21 History Tamsulosin [Flomax] 0.4 mg PO DAILY 03/05/21 03/05/21 History Allergies Allergy/AdvReac Type Severity Reaction Status Date / Time No Known Allergies Allergy Verified 03/05/21 14:07 Surgical - Exam - General well developed, well nourished - Eyes PERRL - ENT no hearing loss - Neck trachea midline - Respiratory normal expansion, normal respiratory effort - Cardiovascular Rhythm: regular - Abdomen Abdomen: soft, non tender - Genitourinary normal penis with no external lesions, testicles present - Integumentary no rash - Neurologic normal coordination, normal sensation - Musculoskeletal normal gait, normal posture - Psychiatric oriented to time, oriented to person, oriented to place, speech is normal, memory intact Results - Imaging CT scan - abdomen: report reviewed, image reviewed CT scan - pelvis: report reviewed, image reviewed Assessment and Plan Assessment: Impression: left ureteral stones large Plan: left ureteroscopy with laser lithotripsy and probable stent placement
[~2021-03-06 08:30] MED LIST changes: -ALPRAZolam 0.25 MG TAB PO PRN; -ALPRAZolam 0.5 MG TAB PO PRN; +DEXAMETHASONE SOD PHOSPHATE 4 MG/ML 1 ML VIAL IV ONE; -HEPARIN SODIUM,PORCINE 10,000 UNIT in SODIUM CHLORIDE 0.9% 1,000 ML IRRIGATION PRN; -HEPARIN SODIUM,PORCINE 2,500 UNIT in SODIUM CHLORIDE 0.9% 250 ML IRRIGATION PRN; +HYDROmorphone 0.5 MG/0.5 ML SYRINGE IVP PRN; +LACTATED RINGERS 1,000 ML IV SCH; +LIDOCAINE 1% (10MG/ML) FOR IV START INTRADERMA PRN; +MIDAZOLAM 2 MG/2 ML VIAL IV PRN; -NITROGLYCERIN SL TABS 0.4 MG TAB SUBLINGUAL PRN; +ONDANSETRON 4 MG/2 ML VIAL IVP ONE
--- NOTE | 2021-03-06 08:53 | XR ---
KUB graph history: Kidney stones Frontal KUB and [address] 02/17/2021 The left ureteral calculi are again noted in similar position. There are phleboliths within the pelvi s. Multiple left-sided renal calcifications are again seen as noted on CT, there are again noted mult iple right-sided renal calcifications as well as a proximal right ureteral calculus. No evident bowel obstruction or pneumoperitoneum. Degenerative disc changes present in the visualized spine. IMPRESSION: Bilateral ureteral calculi, nephrolithiasis is present bilaterally
[2021-03-06] MEDS ORDERED: SUCCINYLCHOLINE CHLORIDE 100 MG/5 ML SYR IV ONE (10:41)
[2021-03-06] MEDS ORDERED: PROPOFOL 10 MG/ML 20 ML VIAL IV ONE (10:41)
[2021-03-06] MEDS ORDERED: LIDOCAINE 1% INJ 10MG/ML (20 ML MDV) ONE (10:41)
[2021-03-06] MEDS ORDERED: PHENYLEPHRINE-0.9% NACL SYG 1,000 MCG/10 ML SYRINGE ONE (10:41)
[2021-03-06] MEDS ORDERED: fentaNYL (PF) 50 MCG/ML 2 ML AMP ONE (10:41)
[2021-03-06] MEDS ORDERED: MIDAZOLAM 2 MG/2 ML VIAL ONE (10:41)
[2021-03-06] MEDS ORDERED: IOPAMIDOL-370 50ML BTL MISCELLANE ONE (11:03)
--- NOTE | 2021-03-06 12:33 | P.OP ---
Date of Procedure: 03/06/21 Preoperative Diagnosis: Left ureteral stones with obstruction Postoperative Diagnosis: same Procedure(s) Performed: Cystoscopy, left ureteroscopy with laser lithotripsy, placement of 6 x 26 double-J catheter Anesthesia: ESTUARDO Surgeon: Kristopher Daniel Estimated Blood Loss (ml): 25 Pathology: other (Stone) Condition: stable Disposition: PACU Indications for Procedure: The patient is 75. He came via [facility] emergency room because of flank pain. He has 3 large stones in the distal ureter with chronic hydroureteronephrosis. He comes for ureteroscopy and laser lithotripsy on the left side. Description of Procedure: The patient is brought to the operating room and given a general ended tracheal anesthesia on the operating table. He's placed in lithotomy position with sterile prep and drape. Cystoscopy Foroblique lens and 22-[place]oz[place] sheath identifies a normal anterior urethra. The prostate is enlarged long trilobed and vascular. Upon entering the bladder there is severe trabeculation. The left ureteral orifice is identified and somewhat J-hook to. I'm eventually able to get the left ureteroscope up the ureter to the first distal stone. With the 270 laser probe the stone was broken into tiny pieces. I advanced the scope further up and there is a 1 cm stone with a tiny 2-3 mm fragment distal of that in the ureter. I spent a long time breaking the stone into tiny pieces. I eventually place an 035 wire up the ureter into the kidney. I removed the ureteroscope and over the wire a 6 x 26 double-J catheters passed into the left kidney and coils in the bladder. Prior to this it is backloaded on the cystoscope. This is a very challenging procedure due to the very large prostate and the angulation of the left distal ureteral orifice.. I then of procedure the bladder strain the patient awake and returned recovery room good condition. He will be discharged home upon recovery and found the office in one week for left ureteral stent removal.
[2021-03-06 12:44] VITALS: TEMP 97.5
[2021-03-06 13:17] VITALS: RESP 18
[2021-03-06 13:40] VITALS: BP 109/70; PULSE 63
--- NOTE | 2021-03-06 14:06 | FL ---
Fluoroscopy HISTORY: Ureteral calculus 15 seconds fluoroscopy time supplied to the referring clinician. 4 intraoperative C-arm images docum ent the procedure. See dictated report from urology.
== END 2021-03-06 14:24 | disposition home or self-care (01) ==
LOC: OR 08:30
PROVIDERS: ATTEND Urology
DX: N13.2 Hydronephrosis with renal and ureteral calculous obstruction (principal); I25.10 Atherosclerotic heart disease of native coronary artery without angina pectoris; Z86.73 Personal history of transient ischemic attack (TIA), and cerebral infarction without residual deficits; E78.5 Hyperlipidemia, unspecified; I10 Essential (primary) hypertension; Z87.442 Personal history of urinary calculi; Z83.49 Family history of other endocrine, nutritional and metabolic diseases; Z82.49 Family history of ischemic heart disease and other diseases of the circulatory system; Z79.82 Long term (current) use of aspirin
CPT/HCPCS: 52353; 82365; 74018; C2625; C1758 ×2; C1769 ×2; J2250; J1100; J0690; J2405; J2001; J3010; J2370; J0330; J2704; Q9967

== ENCOUNTER 2021-03-17 11:22 | Emergency (ER) | payer MEDICARE ==
[2021-03-17 11:52] VITALS: TEMP 98.1
[2021-03-17 14:31] LABS: Basophils # (A) 0.1 k/uL (0-0.2); Basophils % (A) 1 %; Eosinophils # (A) 0.3 k/uL (0-0.7); Eosinophils % (A) 3 %; HCT 42.2 % (39.0-53.0); HGB 13.9 gm/dL (13.0-17.5); Lymphocytes # (A) 1.4 k/uL (1.0-4.8); Lymphocytes % (A) 15 %; MCH 30.8 pg (25.0-35.0); MCHC 32.9 g/dL (31.0-37.0); MCV 93.7 fL (80.0-100.0); Mean Platelet Volume 6.8; Monocytes # (A) 0.5 k/uL (0-1.0); Monocytes % (A) 5 %; Neutrophils # (A) 6.7 k/uL (1.3-7.7); Neutrophils % (A) 74 %; Platelet Count 306 k/uL (150-450); RDW 13.6 % (11.5-15.5)
[2021-03-17 14:42] LABS: Calcium 9.5 mg/dL (8.4-10.2); Potassium 4.4 mmol/L (3.5-5.1)
[2021-03-17 15:04] LABS: Mucus,Urine Few /hpf; RBC,Urine >182 /hpf (0-5); WBC,Urine 20 /hpf (0-5)
[2021-03-17 15:06] LABS: Appearance,Urine Bloody (Clear); Color,Urine Dark Red
--- NOTE | 2021-03-17 15:44 | US ---
EXAMINATION TYPE: US renals and bladder DATE OF EXAM: 03/17/2021 COMPARISON: NONE CLINICAL HISTORY: evaluate for hydronephrosis. multiple renal stones for years, recent stenting and r emoval of stent on the left, gross hematuria is what brings pt in today, no pain EXAM MEASUREMENTS: Right Kidney: 11.4 x 4.7 x 5.7 cm Left Kidney: 14.2 x 6.3 x 6.3 cm Right Kidney: multiple stones, largest inferior pole = 2.6cm Left Kidney: inferior pole cyst = 5.9cm, multiple stones seen, largest superior pole = 1.3cm Bladder: not fully distended IMPRESSION: Multiple bilateral renal calculi. No evidence of any significant hydronephrosis. Renal cortical cysts seen lower pole left kidney. No evidence of a bladder mass. There is clearing of the left side hydro nephrosis compared to CT scan of 02/17/2021.
[2021-03-17] MEDS ORDERED: cefTRIAXone IN SWFI 1,000 MG/10 ML SYRINGE IVP STA (15:50)
--- NOTE | 2021-03-17 15:52 | ED ---
General Adult HPI - General Chief complaint: Urogenital Stated complaint: Blood in Urine Time Seen by Provider: 03/17/21 13:54 Source: patient, RN notes reviewed, old records reviewed Mode of arrival: ambulatory Limitations: no limitations - History of Present Illness Initial comments: She is a 75-year-old male with past medical history remarkable for CAD, CVA, hypertension, kidney stones who recently had a ureteral stent placed and removed for a large stone presents emergency Department complaining of return of hematuria. Patient had his stent removed last week. His urine became normal but he started noticing hematuria yesterday. This progressively gotten darker. Denies any blood thinners. Denies any abdominal pain. He has known nephrolit hiasis still. He has no other symptoms at this time. He became concerned because he needed a stent last time in 1 to be evaluated for possible obstruction. He denies any other acute complaints at this time. - Related Data Home Medications Medication Instructions Recorded Confirmed Metoprolol Tartrate [Lopressor] 25 mg PO HS 12/12/20 03/17/21 amLODIPine [Norvasc] 5 mg PO DAILY 12/12/20 03/17/21 Clopidogrel [Plavix] 75 mg PO DAILY 01/18/21 03/17/21 Aspirin 81 mg PO HS 02/17/21 03/17/21 Atorvastatin Calcium [Lipitor] 80 mg PO DAILY 02/17/21 03/17/21 Metoprolol Tartrate [Lopressor] 50 mg PO DAILY 02/17/21 03/17/21 Multivit-Min/FA/Lycopen/Lutein 1 tab PO HS 02/17/21 03/17/21 [Centrum Silver Men Tablet] Nitroglycerin Sl Tabs [Nitrostat] 0.4 mg SUBLINGUAL Q5M PRN 02/17/21 03/17/21 Previous Rx's Medication Instructions Recorded Sulfamethox-Tmp 800-160Mg [Bactrim 1 tab PO Q12HR 5 Days #10 tab 03/17/21 DS 800-160 mg] Tamsulosin [Flomax] 0.4 mg PO DAILY 7 Days #7 cap 03/17/21 Allergies Allergy/AdvReac Type Severity Reaction Status Date / Time No Known Allergies Allergy Verified 03/17/21 14:17 Review of Systems ROS Statement: Those systems with pertinent positive or pertinent negative responses have been documented in the HPI. Review of Systems: CONST: Denies fever EYES: Denies blurry vision ENT: Denies nasal congestion C/V: Denies Chest pain RESP: Denies shortness of breath GI: Denies abdominal pain : Endorses hematuria SKIN: Denies rash. MSK: Denies joint pain. NEURO: Denies headache ROS Other: All systems not noted in ROS Statement are negative. Past Medical History Past Medical History: Coronary Artery Disease (CAD), CVA/TIA, Hyperlipidemia, Hypertension Additional Past Medical History / Comment(s): Kidney stones, diverticulitis, stroke 10 yrs ago-no residual effects, History of Any Multi-Drug Resistant Organisms: None Reported Past Surgical History: Heart Catheterization, Heart Catheterization With Stent, Hernia Repair, Joint Replacement, Orthopedic Surgery Additional Past Surgical History / Comment(s): Right rotator cuff, total left and right knee replacements, he reports he had a procedure done to his left kidney to drain a cyst. 3 cardiac stents Past Anesthesia/Blood Transfusion Reactions: No Reported Reaction Date of Last Stent Placement:: 01/22/21 Past Psychological History: No Psychological Hx Reported Smoking Status: Never smoker - Past Family History Father Family Medical History: Diabetes Mellitus, Hypertension Additional Family Medical History / Comment(s): Alzheimer's Mother Family Medical History: Cancer Additional Family Medical History / Comment(s): kidney General Exam - General Exam Comments Initial Comments: General: Appears in no acute distress. HEAD: Normal with no signs of head trauma. EYES: PERRLA, EOMI, conjunctiva normal, no discharge. ENT: Hearing grossly intact, normal oropharynx. RESPIRATORY: Clear breath sounds bilaterally. No wheezes, rales, or rhonchi. C/V: Regular rate and rhythm. S1 and S2 auscultated, no edema, peripheral pulses 2+ and intact throughout ABD: Abd is soft, nontender, nondistended EXT: Normal range of motion, no obvious deformity SKIN: No rashes or lesions observed on exposed skin. NEURO: Alert and oriented 4. Limitations: no limitations Course Vital Signs 03/17/21 03/17/21 11:48 15:57 Temperature 98.1 F Pulse Rate 71 67 Respiratory 16 18 Rate Blood Pressure 148/60 146/90 O2 Sat by Pulse 95 99 Oximetry Medical Decision Making - Medical Decision Making Based on the patient's presentation and physical exam, I'm concerned for possible worsening obstruction considering his history of kidney stones. We will obtain basic laboratory studies in addition to urinalysis and renal and bladder ultrasound. Patient was in agreement this plan. Does not require any analgesia or other medications at this time. Laboratory studies were remarkable for a normal hemoglobin. Patient is elevated creatinine of 1.62 in the setting of CK D. This is improved from prior creatinine levels. Urinalysis revealed a large number of RBCs with 20 WBCs. Renal ultrasound reveals nephrolithiasis without signs of hydronephrosis. Reevaluation come patient remains asymptomatic. He has been tolerating by mouth intake. I do believe it is safe for him to be discharged home. Due to the white blood cell count in his urine, he will be given a dose of Rocephin as well as home bactrim in case he is developing a UTI. I did recommend he follow-up with his urologist. He was in agreement this plan. I will provide the patient with a prescription for Bactrim, Flomax. I instructed the patient to follow up with their PCP in the next 3 days. . I explained th at the patient should return to the emergency department if they experience any worsening symptoms. Strict return precautions were discussed with the patient. The patient expressed understanding of these instructions. I answered all questions that the patient had. The patient was discharged home in good condition with their prescriptions and follow up information. - Lab Data Result diagrams: 03/17/21 14:14 03/17/21 14:14 Lab Results 03/17/21 03/17/21 03/17/21 Range/Units 14:14 14:14 14:14 WBC 9.0 (3.8-10.6) k/uL RBC 4.50 (4.30-5.90) m/uL Hgb 13.9 (13.0-17.5) gm/dL Hct 42.2 (39.0-53.0) % MCV 93.7 (80.0-100.0) fL MCH 30.8 (25.0-35.0) pg MCHC 32.9 (31.0-37.0) g/dL RDW 13.6 (11.5-15.5) % Plt Count 306 (150-450) k/uL MPV 6.8 Neutrophils % 74 % Lymphocytes % 15 % Monocytes % 5 % Eosinophils % 3 % Basophils % 1 % Neutrophils # 6.7 (1.3-7.7) k/uL Lymphocytes # 1.4 (1.0-4.8) k/uL Monocytes # 0.5 (0-1.0) k/uL Eosinophils # 0.3 (0-0.7) k/uL Basophils # 0.1 (0-0.2) k/uL Sodium 141 (137-145) mmol/L Potassium 4.4 (3.5-5.1) mmol/L Chloride 106 (98-107) mmol/L Carbon Dioxide 27 (22-30) mmol/L Anion Gap 8 mmol/L BUN 18 (9-20) mg/dL Creatinine 1.62 H (0.66-1.25) mg/dL Est GFR (CKD-EPI)AfAm 47 (>60 ml/min/1.73 sqM) Est GFR (CKD-EPI)NonAf 41 (>60 ml/min/1.73 sqM) Glucose 101 H (74-99) mg/dL Calcium 9.5 (8.4-10.2) mg/dL Urine Color Dark Red Urine Appearance Bloody (Clear) Urine RBC >182 H (0-5) /hpf Urine WBC 20 H (0-5) /hpf Urine Mucus Few H (None) /hpf Disposition Clinical Impression: Hematuria, Nephrolithiasis, UTI (urinary tract infection) Disposition: HOME SELF-CARE Condition: Good Instructions (If sedation given, give patient instructions): Kidney Stones (ED), Urinary Tract Infection in Men (ED), Hematuria (ED) Prescriptions: Sulfamethox-Tmp 800-160Mg [Bactrim DS 800-160 mg] 1 tab PO Q12HR 5 Days #10 tab Tamsulosin [Flomax] 0.4 mg PO DAILY 7 Days #7 cap Is patient prescribed a controlled substance at d/c from ED?: No Referrals: Bryan Edmonds DO [Primary Care Provider] - 1-2 days Kristopher Daniel MD [STAFF PHYSICIAN] - 1-2 days
[2021-03-17 15:59] VITALS: BP 146/90; PULSE 67; RESP 18
== END 2021-03-17 16:33 | disposition home or self-care (01) ==
LOC: EC 11:22
DX: N20.0 Calculus of kidney (principal); N39.0 Urinary tract infection, site not specified; I10 Essential (primary) hypertension; I25.10 Atherosclerotic heart disease of native coronary artery without angina pectoris; E78.5 Hyperlipidemia, unspecified; Z79.82 Long term (current) use of aspirin; Z79.899 Other long term (current) drug therapy; Z83.3 Family history of diabetes mellitus; Z82.49 Family history of ischemic heart disease and other diseases of the circulatory system
CPT/HCPCS: 36415; 80048; 85025; 81001; 87086; 76770; 96374; 99284; J0696

== ENCOUNTER 2021-04-02 17:15 | Inpatient (IN) | payer MEDICARE ==
[2021-04-02] MEDS ORDERED: SODIUM CHLORIDE 0.9% 500 ML 500 ML IV ONE (19:28)
--- NOTE | 2021-04-02 19:41 | ED ---
URI HPI - General Chief Complaint: Upper Respiratory Infection Stated Complaint: SOB,Fever Time Seen by Provider: 04/02/21 19:01 Source: patient, RN notes reviewed Mode of arrival: ambulatory Limitations: no limitations - History of Present Illness Initial Comments: This is a 75-year-old male presents emergency Department chief complaint of possible COVID-19. Patient had prior vaccination. Patient states on Thursday started having some chills, mild cough and congestion decreased appetite. Denies any chest pain no vomiting or diarrhea no noted sick contacts. Patient is not taking recent Tylenol Motrin or other complaints. - Related Data Home Medications Medication Instructions Recorded Confirmed Metoprolol Tartrate [Lopressor] 25 mg PO HS 12/12/20 03/17/21 amLODIPine [Norvasc] 5 mg PO DAILY 12/12/20 03/17/21 Clopidogrel [Plavix] 75 mg PO DAILY 01/18/21 03/17/21 Aspirin 81 mg PO HS 02/17/21 03/17/21 Atorvastatin Calcium [Lipitor] 80 mg PO DAILY 02/17/21 03/17/21 Metoprolol Tartrate [Lopressor] 50 mg PO DAILY 02/17/21 03/17/21 Multivit-Min/FA/Lycopen/Lutein 1 tab PO HS 02/17/21 03/17/21 [Centrum Silver Men Tablet] Nitroglycerin Sl Tabs [Nitrostat] 0.4 mg SUBLINGUAL Q5M PRN 02/17/21 03/17/21 Previous Rx's Medication Instructions Recorded Sulfamethox-Tmp 800-160Mg [Bactrim 1 tab PO Q12HR 5 Days #10 tab 03/17/21 DS 800-160 mg] Tamsulosin [Flomax] 0.4 mg PO DAILY 7 Days #7 cap 03/17/21 Allergies Allergy/AdvReac Type Severity Reaction Status Date / Time No Known Allergies Allergy Verified 04/02/21 17:25 Review of Systems ROS Statement: Those systems with pertinent positive or pertinent negative responses have been documented in the HPI. ROS Other: All systems not noted in ROS Statement are negative. Past Medical History Past Medical History: Coronary Artery Disease (CAD), CVA/TIA, Hyperlipidemia, Hypertension Additional Past Medical History / Comment(s): Kidney stones, diverticulitis, stroke 10 yrs ago-no residual effects, History of Any Multi-Drug Resistant Organisms: None Reported Past Surgical History: Heart Catheterization, Heart Catheterization With Stent, Hernia Repair, Joint Replacement, Orthopedic Surgery Additional Past Surgical History / Comment(s): Right rotator cuff, total left and right knee replacements, he reports he had a procedure done to his left kidney to drain a cyst. 3 cardiac stents Past Anesthesia/Blood Transfusion Reactions: No Reported Reaction Date of Last Stent Placement:: 01/22/21 Past Psychological History: No Psychological Hx Reported Smoking Status: Never smoker Past Alcohol Use History: None Reported Past Drug Use History: None Reported - Past Family History Father Family Medical History: Diabetes Mellitus, Hypertension Additional Family Medical History / Comment(s): Alzheimer's Mother Family Medical History: Cancer Additional Family Medical History / Comment(s): kidney General Exam Limitations: no limitations General appearance: alert, in no apparent distress Head exam: Present: atraumatic, normocephalic, normal inspection Eye exam: Present: normal appearance, PERRL, EOMI. Absent: scleral icterus, conjunctival injection, periorbital swelling ENT exam: Present: normal exam, mucous membranes moist Neck exam: Present: normal inspection. Absent: tenderness, meningismus, lymphadenopathy Respiratory exam: Present: normal lung sounds bilaterally. Absent: respiratory distress, wheezes, rales, rhonchi, stridor Cardiovascular Exam: Present: regular rate, normal rhythm, normal heart sounds. Absent: systolic murmur, diastolic murmur, rubs, gallop, clicks Course Vital Signs 04/02/21 17:22 Temperature 99.5 F Pulse Rate 110 H Respiratory 22 Rate Blood Pressure 109/55 O2 Sat by Pulse 95 Oximetry Medical Decision Making - Medical Decision Making Patient is positive for COVID-19. Patient did receive monoclonal antibodies will be discharged in stable condition. Return parameters were discussed - Lab Data Lab Results 04/02/21 Range/Units 17:30 Coronavirus (PCR) Detected A (Not Detectd) Disposition Clinical Impression: COVID-19 Disposition: HOME SELF-CARE Condition: Stable Instructions (If sedation given, give patient instructions): Coronavirus Disease 2019 (COVID-19) Additional Instructions: Please return to the Emergency Department if symptoms worsen or any other concerns. Is patient prescribed a controlled substance at d/c from ED?: No Referrals: Bryan Edmonds DO [Primary Care Provider] - 1-2 days Time of Disposition: 19:40
[2021-04-02] MEDS ORDERED: SOTROVIMAB (EUA) 500 MG in SODIUM CHLORIDE 0.9% 100 ML IVPB ONE (20:00)
--- NOTE | 2021-04-02 20:15 | XR ---
EXAMINATION TYPE: XR chest 2V DATE OF EXAM: 04/02/2021 COMPARISON: 12/13/2020 HISTORY: Cough TECHNIQUE: FINDINGS: There is marked elevation of the right diaphragm. There is atelectasis and infiltrate at ginger th lung bases. There is no heart failure. Bony thorax is intact. IMPRESSION: There is new airspace infiltrate left lower lobe compared to old exam. There is chronic e levation of the right diaphragm and with right basilar atelectasis and linear infiltrate.
[2021-04-02] MEDS ORDERED: SODIUM CHLORIDE 0.9% 50 ML IVPB ONE (20:30)
[2021-04-02] MEDS ORDERED: NALOXONE 0.4 MG/ML 1 ML VIAL IV PRN (21:53)
[2021-04-02] MEDS ORDERED: ONDANSETRON 4 MG/2 ML VIAL IVP PRN (21:53)
[2021-04-02] MEDS ORDERED: ACETAMINOPHEN TAB 325 MG TAB PO PRN (21:53)
[2021-04-02] MEDS ORDERED: ACETAMINOPHEN TAB 500 MG TAB PO STA (21:54)
[2021-04-02] MEDS ORDERED: DEXAMETHASONE SOD PHOSPHATE 10 MG/ML 1 ML VIAL IVP STA (21:55)
--- NOTE | 2021-04-02 21:56 | ED ---
Medical Decision Making - Medical Decision Making Upon patient being discharged patient seemed to steadily declining, having worsening dyspnea. Patient will be admitted for COVID-19. - Lab Data Lab Results 04/02/21 Range/Units 17:30 Coronavirus (PCR) Detected A (Not Detectd) Disposition Clinical Impression: COVID-19, Hypoxia, Pneumonia due to COVID-19 virus Disposition: HOME SELF-CARE Condition: Stable Instructions (If sedation given, give patient instructions): Coronavirus Disease 2019 (COVID-19) Additional Instructions: Please return to the Emergency Department if symptoms worsen or any other concerns. Is patient prescribed a controlled substance at d/c from ED?: No Referrals: Bryan Edmonds DO [Primary Care Provider] - 1-2 days Time of Disposition: 21:56
[2021-04-03 06:30] LABS: Basophils % (A) 0 %; Eosinophils % (A) 0 %; HCT 36.9 % (39.0-53.0); Lymphocytes # (A) 0.4 k/uL (1.0-4.8); Lymphocytes % (A) 3 %; MCH 30.9 pg (25.0-35.0); MCHC 32.6 g/dL (31.0-37.0); MCV 94.7 fL (80.0-100.0); Mean Platelet Volume 7.6; Monocytes # (A) 0.8 k/uL (0-1.0); Monocytes % (A) 5 %; Neutrophils # (A) 13.9 k/uL (1.3-7.7); Neutrophils % (A) 91 %; Platelet Count 222 k/uL (150-450); RDW 13.1 % (11.5-15.5); WBC 15.3 k/uL (3.8-10.6)
[2021-04-03 06:42] LABS: ALT 42 U/L (4-49); AST 46 U/L (17-59); African American GFR (CKD) 28 (>60 ml/min/1.73 sqM); Albumin 2.9 g/dL (3.5-5.0); Alkaline Phosphatase 118 U/L (38-126); Anion Gap 10 mmol/L; Blood Urea Nitrogen 31 mg/dL (9-20); Calcium 8.3 mg/dL (8.4-10.2); Carbon Dioxide 22 mmol/L (22-30); Chloride 102 mmol/L (98-107); Globulin 2.8 g/dL; Glucose 139 mg/dL (74-99); LDH 566 U/L (313-618); Non-African American GFR(CKD) 24 (>60 ml/min/1.73 sqM); Potassium 3.8 mmol/L (3.5-5.1); Sodium 134 mmol/L (137-145); Total Bilirubin 1.2 mg/dL (0.2-1.3); Total Protein 5.7 g/dL (6.3-8.2)
[2021-04-03] MEDS ORDERED: NITROGLYCERIN SL TABS 0.4 MG TAB SUBLINGUAL PRN (08:39)
[2021-04-03] MEDS: amLODIPine 5 MG TAB PO SCH (08:59)
[2021-04-03] MEDS: METOPROLOL TARTRATE 50 MG TAB PO SCH (08:59)
[2021-04-03] MEDS: ASPIRIN 81 MG PO SCH (08:59)
[2021-04-03] MEDS: CLOPIDOGREL 75 MG TAB PO SCH (08:59)
[2021-04-03] MEDS: ATORVASTATIN 80 MG TAB PO SCH (08:59)
[2021-04-03 09:10] LABS: C Reactive Protein 26.7 mg/dL (<1.0)
--- NOTE | 2021-04-03 10:48 | P.CNPUL ---
History of Present Illness Consult date: 04/03/21 Requesting physician: Shay Smith Reason for consult: dyspnea, hypoxemia, abnormal CXR/CT Chief complaint: Poor appetite, generalized weakness, shortness of breath History of present illness: This is a 75-year-old gentleman who follows with Dr. Edmonds as his primary care provider. He has a history of coronary artery disease with previous stent placements, nephrolithiasis with recent passing of a kidney stone, retention, hyperlipidemia, obesity. He presented here to the emergency room yesterday with poor appetite and a generalized weakness and shortness of breath. White count 15.3. Hemoglobin 12.0. Lymphocytes 0.4. Sodium 134. Potassium 3.8. Creatinine 2.50. BUN 31. GFR 24. Glucose 139. AST 46. ALT 42. LDH 566. C- reactive protein 26.7. Chronic virus by PCR positive. The patient has been vaccinated back in July 2020 2 with Moderna. No booster. Chest x-ray does r eveal new patchy airspace disease bilaterally. Elevated right hemidiaphragm. He is seen today in consultation in the emergency room. He is currently lying on the stretcher on his right side. This helps him breathe the easiest. He is currently requiring 6 L high flow nasal cannula to maintain O2 saturations in the low 90s. He was 87% on room air. He's been afebrile. Slightly tachycardic. Tachypneic. He's been initiated on Decadron. Review of Systems REVIEW OF SYSTEMS: CONSTITUTIONAL: Generalized weakness. Denies any recent significant weight loss or weight gain. EYES: Denies change in vision. EARS, NOSE, MOUTH, THROAT: Denies headaches, denies sore throat. CARDIOVASCULAR: Denies chest pain, palpitations or syncopal episodes. RESPIRATORY: Positive for shortness of breath, cough, congestion no hemoptysis. GASTROINTESTINAL: Poor appetite, denies abdominal pain GENITOURINARY: Recent kidney stones. MUSKULOSKELETAL: Denies pain, denies swelling. INTEGUMENTARY: Denies rash, denies eczema. NEUROLOGICAL: Denies recent memory loss, no recent seizure activity. PSYCHIATRIC: Denies anxiety, denies depression. HEMATOLOGIC/LYMPHATIC: Denies anemia, denies enlarged lymph nodes. 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 History of Any Multi-Drug Resistant Organisms: None Reported Past Surgical History: Heart Catheterization, Heart Catheterization With Stent, Hernia Repair, Joint Replacement, Orthopedic Surgery Additional Past Surgical History / Comment(s): Total of 3 coronary stents, cystoscopy/lithotripsy/L ureteroscopy and stent, L kidney cyst drained, abdominal hernia repair, R rotator cuff repair, bilateral total knee arthroplasties. Past Anesthesia/Blood Transfusion Reactions: No Reported Reaction Date of Last Stent Placement:: 01/22/21 Smoking Status: Never smoker - Past Family History Father Family Medical History: Diabetes Mellitus, Hypertension Additional Family Medical History / Comment(s): Alzheimer's Mother Family Medical History: Cancer Additional Family Medical History / Comment(s): kidney Medications and Allergies Home Medications Medication Instructions Recorded Confirmed Type Metoprolol Tartrate [Lopressor] 25 mg PO HS 12/12/20 04/02/21 History amLODIPine [Norvasc] 5 mg PO DAILY 12/12/20 04/02/21 History Clopidogrel [Plavix] 75 mg PO DAILY 01/18/21 04/02/21 History Aspirin 81 mg PO DAILY 02/17/21 04/02/21 History Atorvastatin Calcium [Lipitor] 80 mg PO DAILY 02/17/21 04/02/21 History Metoprolol Tartrate [Lopressor] 50 mg PO DAILY 02/17/21 04/02/21 History Multivit-Min/FA/Lycopen/Lutein 1 tab PO DAILY 02/17/21 04/02/21 History [Centrum Silver Men Tablet] Nitroglycerin Sl Tabs [Nitrostat] 0.4 mg SUBLINGUAL Q5M PRN 02/17/21 04/02/21 History Allergies Allergy/AdvReac Type Severity Reaction Status Date / Time No Known Allergies Allergy Verified 04/02/21 22:14 Physical Exam Vitals: Vital Signs Temp Pulse Pulse Resp BP BP Pulse Ox 04/03/21 09:51 91 L 04/03/21 08:49 28 H 90 L 04/03/21 08:36 113 H 28 H 110/65 87 L 04/02/21 22:14 91 L 04/02/21 21:56 99.4 F 123 H 40 H 124/70 87 L 04/02/21 20:15 24 04/02/21 20:02 98.6 F 95 22 144/61 90 L 04/02/21 17:22 99.5 F 110 H 22 109/55 95 Intake and Output 04/02/21 04/03/21 04/03/21 22:59 06:59 14:59 Intake Total 600 Balance 600 Intake: Oral 600 Other: Weight 99.79 kg 99.79 kg GENERAL EXAM: Alert, pleasant 75-year-old gentleman, laying on his right side, on 6 L high flow nasal cannula, fairly comfortable in no apparent distress. HEAD: Normocephalic. EYES: Normal reaction of pupils, equal size. NOSE: Clear with pink turbinates. THROAT: No erythema or exudates. NECK: No masses, no JVD. CHEST: No chest wall deformity. LUNGS: Equal air entry with crackles in the bilateral bases. CVS: S1 and S2 normal with no audible murmur, regular rhythm. ABDOMEN: No hepatosplenomegaly, normal bowel sounds, no guarding or rigidity. SPINE: No scoliosis or deformity SKIN: No rashes CENTRAL NERVOUS SYSTEM: No focal deficits, tone is normal in all 4 extremities. EXTREMITIES: There is no peripheral edema. No clubbing, no cyanosis. Peripheral pulses are intact. Results - Laboratory Findings CBC and BMP: 04/03/21 05:52 04/03/21 05:52 Abnormal lab findings: Abnormal Labs 04/02/21 04/03/21 04/03/21 17:30 05:52 05:52 WBC 15.3 H RBC 3.90 L Hgb 12.0 L Hct 36.9 L Neutrophils # 13.9 H Lymphocytes # 0.4 L Sodium 134 L BUN 31 H Creatinine 2.50 H Glucose 139 H Calcium 8.3 L C-Reactive Protein 26.7 H Total Protein 5.7 L Albumin 2.9 L Coronavirus (PCR) Detected A - Diagnostic Findings Chest x-ray: image reviewed Assessment and Plan Assessment: 1 Acute hypoxemic respiratory failure secondary to acute COVID-19 pneumonia in addition to an elevated right hemidiaphragm. The patient was vaccinated with Moderna 2 back in July 2020. No booster. GFR 24. May not qualify for Remdesivir. 2 Acute renal failure with a creatinine of 2.5. GFR 24. 3 History of nephrolithiasis with recent passing of a kidney stone 2 days ago. Renal ultrasound from 03/17/2021 revealed multiple bilateral renal calculi. No evidence of any significant high to nephrosis. There is clearing of left sided hydronephrosis compared to scan of 02/17/2021. 4 Leukocytosis, pro-calcitonin pending 5 Coronary artery disease with previous stent placement 6 History of CVA/TIA 7 Hyperlipidemia 8 Hypertension Plan: The patient was seen and evaluated Chest x-ray and labs reviewed Urinalysis with reflex to culture Check pro-calcitonin Add Decadron, vitamin supplements Renal dose Lovenox Titrate the FiO2 as tolerated We will continue to follow and make further recommendations based on his clinical status I, the cosigning physician, performed a history & physical examination of the patient. Lungs sounds with crackles in the posterior bases, diminished in the right base Maintaining good O2 saturations in the 90s on 6 L high flow nasal cannula. I discussed the assessment and plan of care with my nurse practitioner, Maia Chavez. I attest to the above consultation as dictated by her. Time with Patient: Greater than 30
[2021-04-03] MEDS: ZINC SULFATE 220 MG CAP PO SCH (12:38)
[2021-04-03] MEDS: DEXAMETHASONE SOD PHOSPHATE 10 MG/ML 1 ML VIAL IVP SCH (12:39)
[2021-04-03] MEDS: CHOLECALCIFEROL 25 MCG (1000 IU) TABLET PO SCH (12:39)
[2021-04-03] MEDS: ASCORBIC ACID 500 MG TAB PO SCH (12:39)
[2021-04-03] MEDS: ENOXAPARIN 30 MG/0.3 ML SYRINGE SQ SCH (12:39)
[2021-04-03 13:31] LABS: Appearance,Urine Cloudy (Clear); Bilirubin,Urine Negative (Negative); Blood,Urine Small (Negative); Color,Urine Yellow; Glucose,Urine (UA) Negative (Negative); Hyaline Casts,Urine 8 /lpf (0-2); Ketones,Urine Negative (Negative); Leukocyte Esterase,Urine Negative (Negative); Mucus,Urine Rare /hpf; Nitrite,Urine Negative (Negative); PH, Urine 5.5 (5.0-8.0); Protein,Urine 1+ (Negative); RBC,Urine 12 /hpf (0-5); Specific Gravity,Urine 1.015 (1.001-1.035); Squamous Epithelial Cell,Urine <1 /hpf (0-4); WBC,Urine 8 /hpf (0-5)
--- NOTE | 2021-04-03 15:50 | P.HPIM ---
History of Present Illness H&P Date: 04/03/21 Chief Complaint: Not feeling well This is a very pleasant 75-year-old patient who follows Dr. Edmonds. Chronic stable medical conditions include CAD with stent, hypertension, hyperlipidemia, stroke in the past with some right-sided weakness that resolved, bilateral kidney stones, right diaphragm paralysis diverticulosis. Arthritis in the joints. Patient presents with decreased appetite for 3 days. No loss of smell or taste. Feeling very weak. Slight fever. No diarrhea no headache. Slight cough. Patient did pass a kidney stone 3 days ago. Feeling tired and rundown. Some shortness of breath. Patient did test for positive for: The ER. Patient had received prior vaccination. Patient presented yesterday evening to the ER and received monoclonal antibodies. He was discharged. He came back to the ER feeling worse and hypoxic. And therefore admitted Review of systems: GEN.: Tired, decreased appetite EYES: None HEENT: None NECK: None RESPIRATORY: Some cough and shortness of breath CARDIOVASCULAR: None GASTROINTESTINAL: None GENITOURINARY: None MUSCULOSKELETAL: Joint pains LYMPHATICS: None HEMATOLOGICAL: None PSYCHIATRY: None NEUROLOGICAL: None Past medical history to include: CAD with stent, stroke with right-sided weakness that is resolved, hypertension, hyperlipidemia, kidney stones bilateral, right diaphragm paralysis, diverticulosis Social history: Sometimes uses a cane. . Retired. Does not smoke or drink alcohol. Family history: Diabetes, hypertension, Alzheimer's. Physical examination: VITAL SIGNS: 99.5, 110, 22, 109/55, 90% on room air GENERAL: BMI 32.5, laying in bed, awake, tired. EYES: Pupils equal. Conjunctiva normal. HEENT: External appearance of nose and ears normal, oral cavity grossly normal. NECK: JVD not raised; masses not palpable. HEART: First and second heart sounds are normal; no edema. LUNGS: Respiratory rate increased, decreased breath sounds, occasional crackle. ABDOMEN: Soft, nontender, liver spleen not palpable, no masses palpable. PSYCH: Alert and oriented x3; mood and affect normal. MUSCULAR skeletal: Evidence of OA NEUROLOGICAL: Cranial nerves grossly intact; no facial asymmetry, power and sensation grossly intact. LYMPHATICS: No lymph nodes palpable in the axilla and neck INVESTIGATIONS, reviewed in the clinical context: WBC 15.3 hemoglobin 12 platelets 222 sodium 134 potassium 3.8 BUN 31 creatinine 2.50 Coronavirus [PCR]: Detected EKG tracing personally reviewed by me. Right bundle-branch block. DC. Normal sinus rhythm. Rate 105 Chest x-ray film personally reviewed by me-right diaphragm elevation. Infiltrate in the bases. Previous labs: 03/17/2021]: Creatinine 1.62 Assessment and plan: -Acute COVID 19 pneumonitis,'s causing hypoxia in a patient who is previously been vaccinated. Patient had received monoclonal antibodies and return to the ER in a few hours feeling worse. Decadron 6 mg, Lovenox subcu, vitamin C zinc vitamin D. Pulmonary consultation -Acute hypoxic respiratory failure from COVID 19 pneumonitis, with pulse ox dropping to 87% on room air Currently on 3 L nasal cannula -CAD with stent Lopressor, Plavix, aspirin, Lipitor -Hyperlipidemia Lipitor 80 mg by mouth daily -Essential hypertension Lopressor 50 mg a morning pre-5 mg the evening, amlodipine 5 mg a day -Primary osteoarthritis multiple joints bilaterally Use pain medications as needed -Chronic diverticulosis, asymptomatic Follow clinically -Chronic kidney disease stage III from nephrosclerosis At the baseline creatinine of 1.6 -Acute kidney injury likely prerenal from decreased oral intake IV fluids. Follow renal function -Bilateral nephrolithiasis. Patient did pass a stone 3 days ago with some hematuria which is improved. On March 06 patient underwent left ureteroscope even with laser lithotripsy and placement of a double-J catheter by Dr. Mark Mason. Subcu Lovenox. Resume all medications. IV fluids 100 mL an hour. Follow labs. Consultation to pulmonary. Given the complexity and severity of patient's condition expect the patient to be in the hospital at least for 2 overnights Past Medical History Past Medical History: Coronary Artery Disease (CAD), CVA/TIA, Hyperlipidemia, Hypertension, Renal Disease Additional Past Medical History / Comment(s): 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 History of Any Multi-Drug Resistant Organisms: None Reported Past Surgical History: Heart Catheterization, Heart Catheterization With Stent, Hernia Repair, Joint Replacement, Orthopedic Surgery Additional Past Surgical History / Comment(s): Total of 3 coronary stents, cystoscopy/lithotripsy/L ureteroscopy and stent, L kidney cyst drained, abdominal hernia repair, R rotator cuff repair, bilateral total knee arthroplasties. Past Anesthesia/Blood Transfusion Reactions: No Reported Reaction Date of Last Stent Placement:: 01/22/21 Smoking Status: Never smoker - Past Family History Father Family Medical History: Diabetes Mellitus, Hypertension Additional Family Medical History / Comment(s): Alzheimer's Mother Family Medical History: Cancer Additional Family Medical History / Comment(s): kidney Medications and Allergies Home Medications Medication Instructions Recorded Confirmed Type Metoprolol Tartrate [Lopressor] 25 mg PO HS 12/12/20 04/02/21 History amLODIPine [Norvasc] 5 mg PO DAILY 12/12/20 04/02/21 History Clopidogrel [Plavix] 75 mg PO DAILY 01/18/21 04/02/21 History Aspirin 81 mg PO DAILY 02/17/21 04/02/21 History Atorvastatin Calcium [Lipitor] 80 mg PO DAILY 02/17/21 04/02/21 History Metoprolol Tartrate [Lopressor] 50 mg PO DAILY 02/17/21 04/02/21 History Multivit-Min/FA/Lycopen/Lutein 1 tab PO DAILY 02/17/21 04/02/21 History [Centrum Silver Men Tablet] Nitroglycerin Sl Tabs [Nitrostat] 0.4 mg SUBLINGUAL Q5M PRN 02/17/21 04/02/21 History Allergies Allergy/AdvReac Type Severity Reaction Status Date / Time No Known Allergies Allergy Verified 04/02/21 22:14 Physical Exam Vitals: Vital Signs Temp Pulse Pulse Resp BP BP Pulse Ox 04/03/21 09:51 91 L 04/03/21 08:49 28 H 90 L 04/03/21 08:36 113 H 28 H 110/65 87 L 04/02/21 22:14 91 L 04/02/21 21:56 99.4 F 123 H 40 H 124/70 87 L 04/02/21 20:15 24 04/02/21 20:02 98.6 F 95 22 144/61 90 L 04/02/21 17:22 99.5 F 110 H 22 109/55 95 Intake and Output 04/02/21 04/03/21 04/03/21 22:59 06:59 14:59 Intake Total 610 Balance 610 Intake: IV 10 Invasive Line 1 10 Oral 600 Other: Weight 99.79 kg 99.79 kg Results CBC & Chem 7: 04/03/21 05:52 04/03/21 05:52 Labs: Abnormal Lab Results - Last 24 Hours (Table) 04/02/21 04/03/21 04/03/21 Range/Units 17:30 05:52 05:52 WBC 15.3 H (3.8-10.6) k/uL RBC 3.90 L (4.30-5.90) m/uL Hgb 12.0 L (13.0-17.5) gm/dL Hct 36.9 L (39.0-53.0) % Neutrophils # 13.9 H (1.3-7.7) k/uL Lymphocytes # 0.4 L (1.0-4.8) k/uL Sodium 134 L (137-145) mmol/L BUN 31 H (9-20) mg/dL Creatinine 2.50 H (0.66-1.25) mg/dL Glucose 139 H (74-99) mg/dL Calcium 8.3 L (8.4-10.2) mg/dL C-Reactive Protein 26.7 H (<1.0) mg/dL Total Protein 5.7 L (6.3-8.2) g/dL Albumin 2.9 L (3.5-5.0) g/dL Coronavirus (PCR) Detected A (Not Detectd) Thrombosis Risk Factor Assmnt - Choose All That Apply Any of the Below Risk Factors Present?: Yes Each Factor Represents 1 point: Serious lung disease incl. pneumonia (< 1month) Other Risk Factors: Yes Each Risk Factor Represents 3 Points: Age 75 years or older Other congenital or acquired thrombophilia - If yes, enter type in comment: No Thrombosis Risk Factor Assessment Total Risk Factor Score: 4 Thrombosis Risk Factor Assessment Level: Moderate Risk
[2021-04-03 16:59] LABS: Glucose,Whole Blood 143 mg/dL (75-99)
[2021-04-03] MEDS: INSULIN ASPART (NovoLOG) 100 UNIT/ML VIAL SQ SCH ×2 (17:14→22:14)
[2021-04-03] MEDS: SODIUM CHLORIDE 0.45% 1,000 ML IV SCH (17:21)
[2021-04-03 22:04] LABS: Glucose,Whole Blood 139 mg/dL (75-99)
[2021-04-03] MEDS: METOPROLOL TARTRATE 25 MG TAB PO SCH (22:13)
[2021-04-04 06:18] LABS: Glucose,Whole Blood 139 mg/dL (75-99)
[2021-04-04] MEDS: SODIUM CHLORIDE 0.45% 1,000 ML IV SCH ×2 (06:26→17:13)
[2021-04-04] MEDS: INSULIN ASPART (NovoLOG) 100 UNIT/ML VIAL SQ SCH ×4 (06:27→22:07)
[2021-04-04 07:59] LABS: Calcium 8.4 mg/dL (8.4-10.2); Potassium 3.8 mmol/L (3.5-5.1)
[2021-04-04 08:35] LABS: C Reactive Protein 35.9 mg/dL (<1.0)
--- NOTE | 2021-04-04 08:59 | XR ---
EXAMINATION TYPE: XR chest 1V portable DATE OF EXAM: 04/04/2021 COMPARISON: Chest x-ray 04/02/2021 HISTORY: Covid 19 pneumonia TECHNIQUE: Single frontal view of the chest is obtained. FINDINGS: There is been interval increase in the density seen in the right lower and mid lung. There is meniscus adjacent to the right lateral heart border, motion on exam. Airspace disease persists in the left mid and lower lung. Heart is largely obscured. Patient is rotated. No evident pneumothorax. IMPRESSION: Findings may represent right pleural effusion and associated atelectasis versus pneumoni a or edema.
[2021-04-04] MEDS: ENOXAPARIN 30 MG/0.3 ML SYRINGE SQ SCH (09:10)
[2021-04-04] MEDS: CLOPIDOGREL 75 MG TAB PO SCH (09:10)
[2021-04-04] MEDS: amLODIPine 5 MG TAB PO SCH (09:11)
[2021-04-04] MEDS: ATORVASTATIN 80 MG TAB PO SCH (09:11)
[2021-04-04] MEDS: CHOLECALCIFEROL 25 MCG (1000 IU) TABLET PO SCH (09:11)
[2021-04-04] MEDS: METOPROLOL TARTRATE 50 MG TAB PO SCH (09:11)
[2021-04-04] MEDS: ASPIRIN 81 MG PO SCH (09:11)
[2021-04-04] MEDS: ZINC SULFATE 220 MG CAP PO SCH (09:11)
[2021-04-04] MEDS: ASCORBIC ACID 500 MG TAB PO SCH (09:12)
[2021-04-04] MEDS: DEXAMETHASONE SOD PHOSPHATE 10 MG/ML 1 ML VIAL IVP SCH (09:12)
[2021-04-04 12:14] LABS: Glucose,Whole Blood 128 mg/dL (75-99)
--- NOTE | 2021-04-04 13:34 | P.PN ---
Subjective Progress Note Date: 04/04/21 Principal diagnosis: COVID-19 pneumonia This is a 75-year-old gentleman who follows with Dr. Edmonds as his primary care provider. He has a history of coronary artery disease with previous stent placements, nephrolithiasis with recent passing of a kidney stone, retention, hyperlipidemia, obesity. He presented here to the emergency room yesterday with poor appetite and a generalized weakness and shortness of breath. White count 15.3. Hemoglobin 12.0. Lymphocytes 0.4. Sodium 134. Potassium 3.8. Creatinine 2.50. BUN 31. GFR 24. Glucose 139. AST 46. ALT 42. LDH 566. C- reactive protein 26.7. Chronic virus by PCR positive. The patient has been vaccinated back in July 2020 2 with Moderna. No booster. Chest x-ray does reveal new patchy airspace disease bilaterally. Elevated right hemidiaphragm. He is seen today in consultation in the emergency room. He is currently lying on the stretcher on his right side. This helps him breathe the easiest. He is currently requiring 6 L high flow nasal cannula to maintain O2 saturations in the low 90s. He was 87% on room air. He's been afebrile. Slightly tachycardic. Tachypneic. He's been initiated on Decadron. The patient is seen today 04/04/2021 in follow-up on the regular medical floor. He is currently resting comfortably in bed. Laying on his right side. Breathing a bit easier today compared to yesterday. He is still requiring 15 L high flow nasal cannula to maintain O2 saturation in the low 90s. He is afebrile. Hemodynamically stable. His appetite has improved. D-dimer 1.08. Sodium 134. Potassium 3.8. Creatinine 2.25. Glucose 139. LDH 529. C- reactive protein 35.9. Pro-calcitonin 5.08. Urine culture pending. Blood culture revealed no growth to date. He is continued on Decadron, Lovenox, vitamin supplements. 0.45 normal saline at 100 ML's per hour. Objective - Vital Signs Vital signs: Vital Signs Temp 97.3 F L 04/04/21 13:14 Pulse 77 04/04/21 13:14 Resp 16 04/04/21 13:14 BP 107/60 04/04/21 13:14 Pulse Ox 90 L 04/04/21 13:14 Intake & Output 04/03/21 04/04/21 04/04/21 18:59 06:59 18:59 Intake Total 1270 Output Total 0 Balance 1270 0 Weight 99.79 kg 99.79 kg Intake: IV 110 Invasive Line 1 10 Sodium Chloride 0.45% 1, 100 000 ml @ 100 mls/hr IV . Q10H [facility] Rx#:[id number] Oral 1160 Output: Urine 0 Other: Voiding Method Bedside Commode Bedside Commode Urinal Urinal # Voids 0 - Exam GENERAL EXAM: Alert, pleasant 75-year-old gentleman, laying on his right side, on 15 L high flow nasal cannula, fairly comfortable in no apparent distress. HEAD: Normocephalic. EYES: Normal reaction of pupils, equal size. NOSE: Clear with pink turbinates. THROAT: No erythema or exudates. NECK: No masses, no JVD. CHEST: No chest wall deformity. LUNGS: Equal air entry with crackles in the bilateral bases. CVS: S1 and S2 normal with no audible murmur, regular rhythm. ABDOMEN: No hepatosplenomegaly, normal bowel sounds, no guarding or rigidity. SPINE: No scoliosis or deformity SKIN: No rashes CENTRAL NERVOUS SYSTEM: No focal deficits, tone is normal in all 4 extremities. EXTREMITIES: There is no peripheral edema. No clubbing, no cyanosis. Peripheral pulses are intact. - Labs CBC & Chem 7: 04/03/21 05:52 04/04/21 06:52 Labs: Abnormal Lab Results - Last 24 Hours (Table) 04/03/21 04/03/21 04/03/21 Range/Units 05:52 10:41 13:15 D-Dimer (<0.60) mg/L FEU Sodium (137-145) mmol/L Carbon Dioxide (22-30) mmol/L BUN (9-20) mg/dL Creatinine (0.66-1.25) mg/dL Glucose (74-99) mg/dL POC Glucose (mg/dL) (75-99) mg/dL Ferritin 554.0 H (22.0-322.0) ng/mL C-Reactive Protein (<1.0) mg/dL Procalcitonin 5.08 H (0.02-0.09) ng/mL Urine Protein 1+ H (Negative) Urine Blood Small H (Negative) Urine RBC 12 H (0-5) /hpf Urine WBC 8 H (0-5) /hpf Hyaline Casts 8 H (0-2) /lpf Urine Mucus Rare H (None) /hpf 04/03/21 04/03/21 04/04/21 Range/Units 16:53 22:03 06:10 D-Dimer (<0.60) mg/L FEU Sodium (137-145) mmol/L Carbon Dioxide (22-30) mmol/L BUN (9-20) mg/dL Creatinine (0.66-1.25) mg/dL Glucose (74-99) mg/dL POC Glucose (mg/dL) 143 H 139 H 139 H (75-99) mg/dL Ferritin (22.0-322.0) ng/mL C-Reactive Protein (<1.0) mg/dL Procalcitonin (0.02-0.09) ng/mL Urine Protein (Negative) Urine Blood (Negative) Urine RBC (0-5) /hpf Urine WBC (0-5) /hpf Hyaline Casts (0-2) /lpf Urine Mucus (None) /hpf 04/04/21 04/04/21 04/04/21 Range/Units 06:52 06:52 12:03 D-Dimer 1.08 H (<0.60) mg/L FEU Sodium 134 L (137-145) mmol/L Carbon Dioxide 21 L (22-30) mmol/L BUN 43 H (9-20) mg/dL Creatinine 2.25 H (0.66-1.25) mg/dL Glucose 139 H (74-99) mg/dL POC Glucose (mg/dL) 128 H (75-99) mg/dL Ferritin (22.0-322.0) ng/mL C-Reactive Protein 35.9 H (<1.0) mg/dL Procalcitonin (0.02-0.09) ng/mL Urine Protein (Negative) Urine Blood (Negative) Urine RBC (0-5) /hpf Urine WBC (0-5) /hpf Hyaline Casts (0-2) /lpf Urine Mucus (None) /hpf Microbiology - Last 24 Hours (Table) 04/03/21 10:41 Blood Culture - Preliminary Blood No Growth after 24 hours Assessment and Plan Assessment: 1 Acute hypoxemic respiratory failure secondary to acute COVID-19 pneumonia in addition to an elevated right hemidiaphragm. The patient was vaccinated with Moderna 2 back in July 2020. No booster. GFR 24. May not qualify for Remdesivir. He is now up to 15 liters high flow nasal cannula. Pro calcitonin 5.08. 2 Acute renal failure with a creatinine of 2.5. GFR 24. 3 History of nephrolithiasis with recent passing of a kidney stone 2 days ago. Renal ultrasound from 03/17/2021 revealed multiple bilateral renal calculi. No evidence of any significant high to nephrosis. There is clearing of left sided hydronephrosis compared to scan of 02/17/2021. 4 Leukocytosis, pro-calcitonin pending 5 Coronary artery disease with previous stent placement 6 History of CVA/TIA 7 Hyperlipidemia 8 Hypertension Plan: The patient was seen and evaluated Elevated pro-calcitonin Urine culture pending Continue Lovenox, Decadron, vitamin supplements Titrate the FiO2 as tolerated We will continue to follow I, the cosigning physician, performed a history & physical examination of the patient. Lungs sounds with crackles in the posterior bases, diminished in the right base Maintaining O2 saturations in the 90s on 15 L high flow nasal cannula. I discussed the assessment and plan of care with my nurse practitioner, Maia Chavez. I attest to the above note as dictated by her.
--- NOTE | 2021-04-04 16:54 | P.PN ---
Progress Note - Text Progress Note Date: 04/04/21 Chief Complaint: Not feeling well This is a very pleasant 75-year-old patient who follows Dr. Edmonds. Chronic stable medical conditions include CAD with stent, hypertension, hyperlipidemia, stroke in the past with some right-sided weakness that resolved, bilateral kid hardik stones, right diaphragm paralysis diverticulosis. Arthritis in the joints. Patient presents with decreased appetite for 3 days. No loss of smell or taste. Feeling very weak. Slight fever. No diarrhea no headache. Slight cough. Patient did pass a kidney stone 3 days ago. Feeling tired and rundown. Some shortness of breath. Patient did test for positive for COVID in the ER. Patient had received prior vaccination. Patient presented yesterday evening to the ER and received monoclonal antibodies. He was discharged. He came back to the ER feeling worse and hypoxic. And therefore admitted April 04: shortness of breath. On 15 L nasal cannula. Tired Review of systems: Was done for constitutional, cardiovascular, GI, pulmonary. relevant finding as above Past medical history to include: CAD with stent, stroke with right-sided weakness that is resolved, hypertension, hyperlipidemia, kidney stones bilateral, right diaphragm paralysis, diverticulosis Social history: Sometimes uses a cane. . Retired. Does not smoke or drink alcohol. Family history: Diabetes, hypertension, Alzheimer's. Physical examination: VITAL SIGNS: 97.3, 77,'s 22, 107/60, 90% on 15 L high flow GENERAL: Reclining in bed, awake, tired LUNGS: Respiratory rate increased, decreased breath sounds, occasional crackle. PSYCH: Alert and oriented x3; mood and affect normal. NEUROLOGICAL: Cranial nerves grossly intact; no facial asymmetry, moving all 4 limbs Rest of exam. Pulmonary nursing INVESTIGATIONS, reviewed in the clinical context: April 04: D-dimer 1.08 progression 3.8 BUN 43 creatinine 2.25 WBC 15.3 hemoglobin 12 platelets 222 sodium 134 potassium 3.8 BUN 31 creatinine 2.50 Coronavirus [PCR]: Detected EKG tracing personally reviewed by me. Right bundle-branch block. DC. Normal sinus rhythm. Rate 105 Chest x-ray film personally reviewed by me-right diaphragm elevation. Infiltrate in the bases. Previous labs: 03/17/2021]: Creatinine 1.62 Assessment and plan: -Acute COVID 19 pneumonitis,'s causing hypoxia in a patient who is previously been vaccinated. Patient had received monoclonal antibodies and return to the ER in a few hours feeling worse.: Not improving Decadron 6 mg, Lovenox subcu, vitamin C zinc vitamin D. Pulmonary consultation -Acute hypoxic respiratory failure from COVID 19 pneumonitis, with pulse ox dropping to 87% on room air: Worsening Currently on15 L nasal cannula -CAD with stent Lopressor, Plavix, aspirin, Lipitor -Hyperlipidemia Lipitor 80 mg by mouth daily -Essential hypertension Lopressor 50 mg a morning pre-5 mg the evening, amlodipine 5 mg a day -Primary osteoarthritis multiple joints bilaterally Use pain medications as needed -Chronic diverticulosis, asymptomatic Follow clinically -Chronic kidney disease stage III from nephrosclerosis At the baseline creatinine of 1.6 -Acute kidney injury likely prerenal from decreased oral intake IV fluids. Follow renal function -Bilateral nephrolithiasis. Patient did pass a stone 3 days ago with some hematuria which is improved. On March 06 patient underwent left ureteroscope even with laser lithotripsy and placement of a double-J catheter by Dr. Mark Mason. Subcu Lovenox. 15 L nasal cannula. Continue saline. Repeat labs.
[2021-04-04 16:59] LABS: Glucose,Whole Blood 139 mg/dL (75-99)
[2021-04-04 20:34] LABS: Glucose,Whole Blood 160 mg/dL (75-99)
[2021-04-04] MEDS: METOPROLOL TARTRATE 25 MG TAB PO SCH (22:06)
[2021-04-05 05:59] LABS: Glucose,Whole Blood 324 mg/dL (75-99)
[2021-04-05] MEDS: INSULIN ASPART (NovoLOG) 100 UNIT/ML VIAL SQ SCH ×4 (06:49→21:16)
[2021-04-05] MEDS: SODIUM CHLORIDE 0.45% 1,000 ML IV SCH ×2 (06:53→21:29)
[2021-04-05] MEDS: METOPROLOL TARTRATE 50 MG TAB PO SCH (08:43)
[2021-04-05] MEDS: ASPIRIN 81 MG PO SCH (08:43)
[2021-04-05] MEDS: CHOLECALCIFEROL 25 MCG (1000 IU) TABLET PO SCH (08:43)
[2021-04-05] MEDS: DEXAMETHASONE SOD PHOSPHATE 10 MG/ML 1 ML VIAL IVP SCH (08:44)
[2021-04-05] MEDS: amLODIPine 5 MG TAB PO SCH (08:44)
[2021-04-05] MEDS: CLOPIDOGREL 75 MG TAB PO SCH (08:44)
[2021-04-05] MEDS: ASCORBIC ACID 500 MG TAB PO SCH (08:44)
[2021-04-05] MEDS: ZINC SULFATE 220 MG CAP PO SCH (08:44)
[2021-04-05] MEDS: ATORVASTATIN 80 MG TAB PO SCH (08:44)
[2021-04-05] MEDS: ENOXAPARIN 30 MG/0.3 ML SYRINGE SQ SCH (08:44)
[2021-04-05 08:51] LABS: Calcium 8.7 mg/dL (8.4-10.2); Potassium 3.9 mmol/L (3.5-5.1)
[2021-04-05 09:51] LABS: C Reactive Protein 17.5 mg/dL (<1.0)
--- NOTE | 2021-04-05 11:20 | P.PN ---
Subjective Progress Note Date: 04/05/21 Principal diagnosis: COVID-19 pneumonia This is a 75-year-old gentleman who follows with Dr. Edmonds as his primary care provider. He has a history of coronary artery disease with previous stent placements, nephrolithiasis with recent passing of a kidney stone, retention, hyperlipidemia, obesity. He presented here to the emergency room yesterday with poor appetite and a generalized weakness and shortness of breath. White count 15.3. Hemoglobin 12.0. Lymphocytes 0.4. Sodium 134. Potassium 3.8. Creatinine 2.50. BUN 31. GFR 24. Glucose 139. AST 46. ALT 42. LDH 566. C- reactive protein 26.7. Chronic virus by PCR positive. The patient has been vaccinated back in July 2020 2 with Moderna. No booster. Chest x-ray does reveal new patchy airspace disease bilaterally. Elevated right hemidiaphragm. He is seen today in consultation in the emergency room. He is currently lying on the stretcher on his right side. This helps him breathe the easiest. He is currently requiring 6 L high flow nasal cannula to maintain O2 saturations in the low 90s. He was 87% on room air. He's been afebrile. Slightly tachycardic. Tachypneic. He's been initiated on Decadron. The patient is seen today 04/04/2021 in follow-up on the regular medical floor. He is currently resting comfortably in bed. Laying on his right side. Breathing a bit easier today compared to yesterday. He is still requiring 15 L high flow nasal cannula to maintain O2 saturation in the low 90s. He is afebrile. Hemodynamically stable. His appetite has improved. D-dimer 1.08. Sodium 134. Potassium 3.8. Creatinine 2.25. Glucose 139. LDH 529. C- reactive protein 35.9. Pro-calcitonin 5.08. Urine culture pending. Blood culture revealed no growth to date. He is continued on Decadron, Lovenox, vitamin supplements. 0.45 normal saline at 100 ML's per hour. The patient is seen today 04/05/2021 in follow-up on the regular medical floor. He is currently resting in bed on his right side. Awake and alert in no acute distress. He is still requiring 15 L high flow nasal cannula to maintain O2 saturation in the low 90s. He's been afebrile. Hemodynamically stable. Follow-up chest x-ray continues to show right hemidiaphragm elevation with some possible pleural effusion. Ultrasound of the right chest pending. Blood culture reveals no growth. D-dimer 0.9. Sodium 136. Potassium 3.9. Creatinine 2.09. He remains on Decadron, Lovenox, vitamin supplements. Objective - Vital Signs Vital signs: Vital Signs Temp 97.6 F 04/05/21 08:00 Pulse 62 04/05/21 08:00 Resp 24 04/05/21 08:00 BP 110/49 04/05/21 08:00 Pulse Ox 91 L 04/05/21 08:00 Intake & Output 04/04/21 04/05/21 04/05/21 18:59 06:59 18:59 Intake Total 1000 240 Output Total 300 Balance 1000 -60 Weight 99.79 kg 98.5 kg Intake: Intake, IV Titration 1000 Amount Sodium Chloride 0.45% 1, 1000 000 ml @ 100 mls/hr IV . Q10H [facility] Rx#:[id number] Oral 240 Output: Urine 300 Other: Voiding Method Bedside Commode Bedside Commode Urinal Urinal # Voids 1 # Bowel Movements 2 - Exam GENERAL EXAM: Alert, pleasant 75-year-old gentleman, laying on his right side, on 15 L high flow nasal cannula, fairly comfortable in no apparent distress. HEAD: Normocephalic. EYES: Normal reaction of pupils, equal size. NOSE: Clear with pink turbinates. THROAT: No erythema or exudates. NECK: No masses, no JVD. CHEST: No chest wall deformity. LUNGS: Equal air entry with crackles in the bilateral bases. CVS: S1 and S2 normal with no audible murmur, regular rhythm. ABDOMEN: No hepatosplenomegaly, normal bowel sounds, no guarding or rigidity. SPINE: No scoliosis or deformity SKIN: No rashes CENTRAL NERVOUS SYSTEM: No focal deficits, tone is normal in all 4 extremities. EXTREMITIES: There is no peripheral edema. No clubbing, no cyanosis. Peripheral pulses are intact. - Labs CBC & Chem 7: 04/03/21 05:52 04/05/21 08:00 Labs: Abnormal Lab Results - Last 24 Hours (Table) 04/04/21 04/04/21 04/04/21 Range/Units 12:03 16:51 20:21 D-Dimer (<0.60) mg/L FEU Sodium (137-145) mmol/L Carbon Dioxide (22-30) mmol/L BUN (9-20) mg/dL Creatinine (0.66-1.25) mg/dL Glucose (74-99) mg/dL POC Glucose (mg/dL) 128 H 139 H 160 H (75-99) mg/dL Magnesium (1.6-2.3) mg/dL C-Reactive Protein (<1.0) mg/dL 04/05/21 04/05/21 04/05/21 Range/Units 05:52 08:00 08:00 D-Dimer 0.90 H (<0.60) mg/L FEU Sodium 136 L (137-145) mmol/L Carbon Dioxide 15 L (22-30) mmol/L BUN 59 H (9-20) mg/dL Creatinine 2.09 H (0.66-1.25) mg/dL Glucose 113 H (74-99) mg/dL POC Glucose (mg/dL) 324 H (75-99) mg/dL Magnesium (1.6-2.3) mg/dL C-Reactive Protein 17.5 H (<1.0) mg/dL 04/05/21 Range/Units 08:00 D-Dimer (<0.60) mg/L FEU Sodium (137-145) mmol/L Carbon Dioxide (22-30) mmol/L BUN (9-20) mg/dL Creatinine (0.66-1.25) mg/dL Glucose (74-99) mg/dL POC Glucose (mg/dL) (75-99) mg/dL Magnesium 2.5 H (1.6-2.3) mg/dL C-Reactive Protein (<1.0) mg/dL Microbiology - Last 24 Hours (Table) 04/03/21 10:41 Blood Culture - Preliminary Blood No Growth after 24 hours Assessment and Plan Assessment: 1 Acute hypoxemic respiratory failure secondary to acute COVID-19 pneumonia in addition to an elevated right hemidiaphragm. The patient was vaccinated with Moderna 2 back in July 2020. No booster. GFR 24. He does not qualify for Remdesivir. He is now up to 15 liters high flow nasal cannula. Pro calcitonin 5.08. 2 Acute renal failure with a creatinine of 2.5. GFR 24. 3 History of nephrolithiasis with recent passing of a kidney stone 2 days ago. Renal ultrasound from 03/17/2021 revealed multiple bilateral renal calculi. No evidence of any significant high to nephrosis. There is clearing of left sided hydronephrosis compared to scan of 02/17/2021. 4 Leukocytosis, pro-calcitonin 5.08. Today's CBC pending. Blood culture reveals no growth to date. 5 Coronary artery disease with previous stent placement 6 History of CVA/TIA 7 Hyperlipidemia 8 Hypertension Plan: The patient was seen and evaluated Ultrasound of the right chest pending Continue Lovenox, Decadron, vitamin supplements Titrate the FiO2 as tolerated Follow-up chest x-ray and labs in a.m. We will continue to follow I, the cosigning physician, performed a history & physical examination of the patient. Lungs sounds with crackles in the posterior bases, diminished in the right base Maintaining O2 saturations in the 90s on 15 L high flow nasal cannula. I discussed the assessment and plan of care with my nurse practitioner, Maia Chavez. I attest to the above note as dictated by her.
[2021-04-05 12:00] LABS: Glucose,Whole Blood 125 mg/dL (75-99)
--- NOTE | 2021-04-05 12:41 | US ---
EXAMINATION TYPE: US chest DATE OF EXAM: 04/05/2021 COMPARISON: xray CLINICAL HISTORY: CoVID, right pleural effusion. TECHNIQUE: Targeted ultrasound of the posterior lower right hemithorax EXAM MEASUREMENTS: Right Pleural Effusion pocket size: 0.8 cm Right skin surface to fluid distance: 3.4 cm Small pocket, no markings. Pulmonologists are able to review the images in the patient?s EMR. IMPRESSIONS: As above
[2021-04-05 12:56] LABS: Basophils % (A) 0 %; Eosinophils % (A) 0 %; HCT 42.4 % (39.0-53.0); HGB 13.7 gm/dL (13.0-17.5); Lymphocytes # (A) 0.9 k/uL (1.0-4.8); Lymphocytes % (A) 6 %; MCH 31.5 pg (25.0-35.0); MCHC 32.3 g/dL (31.0-37.0); MCV 97.5 fL (80.0-100.0); Mean Platelet Volume 9.1; Monocytes # (A) 0.6 k/uL (0-1.0); Monocytes % (A) 4 %; Neutrophils # (A) 13.1 k/uL (1.3-7.7); Neutrophils % (A) 89 %; Platelet Count 321 k/uL (150-450); RBC 4.35 m/uL (4.30-5.90); RDW 14.1 % (11.5-15.5); WBC 14.7 k/uL (3.8-10.6)
[2021-04-05] MEDS ORDERED: LEVOFLOXACIN 500 MG TAB PO SCH (13:00)
--- NOTE | 2021-04-05 13:57 | P.CRDCN ---
History of Present Illness Consult date: 04/05/21 History of present illness: This is a 75-year-old gentleman who we consulted to see for further evaluation of cardiac arrhythmia. The patient does have history of coronary artery disease with prior stenting as well as hypertension and dyslipidemia and also history of chronic kidney disease. He presented to the emergency department complaining of poor appetite associated with generalized weakness and fatigue and increasing in the shortness of breath without fever or chills. No symptoms of chest pain or chest discomfort. He was diagnosed was COVID-19 infection and currently he is on isolation. We requested to see the patient for further evaluation of cardiac arrhythmia. The patient did have multiple episodes of sinus pauses with the longest 2.9 seconds. Currently he is on metoprolol at 50 mg in the morning and 2598. He was asymptomatic during these episodes without any dizziness or lightheadedness and without any presyncope or syncope. No known thyroid disease. The patient underwent an echo earlier this year and that revealed normal left ventricular systolic function. Reviewing and watching the rhythm strip at the telemetry room indicate that the patient possibly is in atrial fibrillation and I am in process of obtaining an EKG at this point. 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 History of Any Multi-Drug Resistant Organisms: None Reported Past Surgical History: Heart Catheterization, Heart Catheterization With Stent, Hernia Repair, Joint Replacement, Orthopedic Surgery Additional Past Surgical History / Comment(s): Total of 3 coronary stents, cystoscopy/lithotripsy/L ureteroscopy and stent, L kidney cyst drained, abdominal hernia repair, R rotator cuff repair, bilateral total knee arthroplasties. Past Anesthesia/Blood Transfusion Reactions: No Reported Reaction Date of Last Stent Placement:: 01/22/21 Smoking Status: Never smoker - Past Family History Father Family Medical History: Diabetes Mellitus, Hypertension Additional Family Medical History / Comment(s): Alzheimer's Mother Family Medical History: Cancer Additional Family Medical History / Comment(s): kidney Medications and Allergies Home Medications Medication Instructions Recorded Confirmed Type Metoprolol Tartrate [Lopressor] 25 mg PO HS 12/12/20 04/02/21 History amLODIPine [Norvasc] 5 mg PO DAILY 12/12/20 04/02/21 History Clopidogrel [Plavix] 75 mg PO DAILY 01/18/21 04/02/21 History Aspirin 81 mg PO DAILY 02/17/21 04/02/21 History Atorvastatin Calcium [Lipitor] 80 mg PO DAILY 02/17/21 04/02/21 History Metoprolol Tartrate [Lopressor] 50 mg PO DAILY 02/17/21 04/02/21 History Multivit-Min/FA/Lycopen/Lutein 1 tab PO DAILY 02/17/21 04/02/21 History [Centrum Silver Men Tablet] Nitroglycerin Sl Tabs [Nitrostat] 0.4 mg SUBLINGUAL Q5M PRN 02/17/21 04/02/21 History Allergies Allergy/AdvReac Type Severity Reaction Status Date / Time No Known Allergies Allergy Verified 04/02/21 22:14 Physical Exam Vitals: Vital Signs Temp Pulse Resp BP Pulse Ox 04/05/21 12:00 98.3 F 71 24 109/53 89 L 04/05/21 08:00 97.6 F 62 24 110/49 91 L 04/05/21 04:00 96.8 F L 81 18 125/67 95 04/05/21 02:00 97.6 F 79 18 143/67 94 L 04/04/21 20:00 97.6 F 79 18 143/67 94 L 04/04/21 17:18 79 16 121/56 91 L Intake and Output 04/04/21 04/05/21 04/05/21 22:59 06:59 14:59 Intake Total 1000 240 Output Total 300 Balance 700 240 Intake: Intake, IV Titration 1000 Amount Sodium Chloride 0.45% 1, 1000 000 ml @ 100 mls/hr IV . Q10H [facility] Rx#:[id number] Oral 240 Output: Urine 300 Other: Voiding Method Bedside Commode Urinal # Voids 1 # Bowel Movements 2 Weight 98.5 kg - Constitutional General appearance: no acute distress Results 04/05/21 08:00 04/05/21 08:00 CBC 04/05/21 Range/Units 08:00 WBC 14.7 H (3.8-10.6) k/uL RBC 4.35 (4.30-5.90) m/uL Hgb 13.7 (13.0-17.5) gm/dL Hct 42.4 (39.0-53.0) % Plt Count 321 (150-450) k/uL Comprehensive Metabolic Panel 04/05/21 Range/Units 08:00 Sodium 136 L (137-145) mmol/L Potassium 3.9 (3.5-5.1) mmol/L Chloride 105 (98-107) mmol/L Carbon Dioxide 15 L (22-30) mmol/L BUN 59 H (9-20) mg/dL Creatinine 2.09 H (0.66-1.25) mg/dL Glucose 113 H (74-99) mg/dL Calcium 8.7 (8.4-10.2) mg/dL Current Medications Generic Name Dose Route Start Last Admin Trade Name Freq PRN Reason Stop Dose Admin Acetaminophen 650 mg 04/02/21 21:53 Acetaminophen Tab 325 Mg Tab PO Q6HR PRN Mild Pain or Fever > 100.5 Amlodipine Besylate 5 mg 04/03/21 09:00 04/05/21 08:44 Amlodipine 5 Mg Tab PO 5 mg DAILY [facility] Administration Ascorbic Acid 1,000 mg 04/03/21 11:00 04/05/21 08:44 Ascorbic Acid 500 Mg Tab PO 1,000 mg DAILY [facility] Administration Aspirin 81 mg 04/03/21 09:00 04/05/21 08:43 Aspirin 81 Mg PO 81 mg DAILY [facility] Administration Atorvastatin Calcium 80 mg 04/03/21 09:00 04/05/21 08:44 Atorvastatin 80 Mg Tab PO 80 mg DAILY [facility] Administration Cholecalciferol 25 mcg 04/03/21 11:00 04/05/21 08:43 Cholecalciferol 25 Mcg (1000 Iu) Tablet PO 25 mcg DAILY [facility] Administration Clopidogrel Bisulfate 75 mg 04/03/21 09:00 04/05/21 08:44 Clopidogrel 75 Mg Tab PO 75 mg DAILY [facility] Administration Dexamethasone Sodium Phosphate 6 mg 04/03/21 11:00 04/05/21 08:44 Dexamethasone Sod Phosphate 10 Mg/Ml 1 Ml Vial IVP 6 mg DAILY [facility] Administration Enoxaparin Sodium 30 mg 04/03/21 11:00 04/05/21 08:44 Enoxaparin 30 Mg/0.3 Ml Syringe SQ 30 mg DAILY [facility] Administration Sodium Chloride 1,000 mls @ 100 mls/hr 12/08/21 15:45 04/05/21 06:53 Saline 0.45% IV Not Given .Q10H [facility] Insulin Aspart 0 unit 04/03/21 17:30 04/05/21 12:19 Insulin Aspart (Novolog) 100 Unit/Ml Vial SQ Not Given ACHS [facility] Protocol Levofloxacin 250 mg 04/06/21 12:00 Levofloxacin 250 Mg Tab PO Q24H [facility] Metoprolol Tartrate 25 mg 04/05/21 21:00 Metoprolol Tartrate 25 Mg Tab PO BID [facility] Naloxone HCl 0.2 mg 04/02/21 21:53 Naloxone 0.4 Mg/Ml 1 Ml Vial IV Q2M PRN Opioid Reversal Nitroglycerin 0.4 mg 04/03/21 08:39 Nitroglycerin Sl Tabs 0.4 Mg Tab SUBLINGUAL Q5M PRN Chest Pain Ondansetron HCl 4 mg 04/02/21 21:53 Ondansetron 4 Mg/2 Ml Vial IVP Q8HR PRN Nausea And Vomiting Zinc Sulfate 220 mg 04/03/21 11:00 04/05/21 08:44 Zinc Sulfate 220 Mg Cap PO 220 mg DAILY [facility] Administration Intake and Output 04/04/21 04/05/21 04/05/21 22:59 06:59 14:59 Intake Total 1000 240 Output Total 300 Balance 700 240 Intake: Intake, IV Titration 1000 Amount Sodium Chloride 0.45% 1, 1000 000 ml @ 100 mls/hr IV . Q10H [facility] Rx#:[id number] Oral 240 Output: Urine 300 Other: Voiding Method Bedside Commode Urinal # Voids 1 # Bowel Movements 2 Weight 98.5 kg 04/05/21 08:00 04/05/21 08:00 Assessment and Plan Assessment: Assessment #1 acute hypoxic respiratory failure secondary to COVID-19 a pneumonia #2 acute on chronic renal failure #3 multiple episodes of sinus pauses concerning for conversion pauses. #4 coronary artery disease #5 history of TIA/CVA Plan #1 decrease the dose of metoprolol #2 obtain a TSH and free T4 #3 continue monitor the rhythm and watch for sinus pauses. Rule out atrial fibrillation #4 follow-up with the patient
--- NOTE | 2021-04-05 14:41 | P.PN ---
Progress Note - Text Progress Note Date: 04/05/21 Chief Complaint: Not feeling well This is a very pleasant 75-year-old patient who follows Dr. Edmonds. Chronic stable medical conditions include CAD with stent, hypertension, hyperlipidemia, stroke in the past with some right-sided weakness that resolved, bilateral kid hardik stones, right diaphragm paralysis diverticulosis. Arthritis in the joints. Patient presents with decreased appetite for 3 days. No loss of smell or taste. Feeling very weak. Slight fever. No diarrhea no headache. Slight cough. Patient did pass a kidney stone 3 days ago. Feeling tired and rundown. Some shortness of breath. Patient did test for positive for COVID in the ER. Patient had received prior vaccination. Patient presented yesterday evening to the ER and received monoclonal antibodies. He was discharged. He came back to the ER feeling worse and hypoxic. And therefore admitted April 04: shortness of breath. On 15 L nasal cannula. Tired April 05: Short of breath. On 15 L nasal cannula. Tired. Oral intake fair. Review of systems: Was done for constitutional, cardiovascular, GI, pulmonary. relevant finding as above Active Medications Acetaminophen (Acetaminophen Tab 325 Mg Tab) 650 mg PO Q6HR PRN PRN Reason: Mild Pain or Fever > 100.5 Amlodipine Besylate (Amlodipine 5 Mg Tab) 5 mg PO DAILY [facility] Last Admin: 04/05/21 08:44 Dose: 5 mg Documented by: Ascorbic Acid (Ascorbic Acid 500 Mg Tab) 1,000 mg PO DAILY [facility] Last Admin: 04/05/21 08:44 Dose: 1,000 mg Documented by: Aspirin (Aspirin 81 Mg) 81 mg PO DAILY [facility] Last Admin: 04/05/21 08:43 Dose: 81 mg Documented by: Atorvastatin Calcium (Atorvastatin 80 Mg Tab) 80 mg PO DAILY [facility] Last Admin: 04/05/21 08:44 Dose: 80 mg Documented by: Cholecalciferol (Cholecalciferol 25 Mcg (1000 Iu) Tablet) 25 mcg PO DAILY [facility] Last Admin: 04/05/21 08:43 Dose: 25 mcg Documented by: Clopidogrel Bisulfate (Clopidogrel 75 Mg Tab) 75 mg PO DAILY [facility] Last Admin: 04/05/21 08:44 Dose: 75 mg Documented by: Dexamethasone Sodium Phosphate (Dexamethasone Sod Phosphate 10 Mg/Ml 1 Ml Vial) 6 mg IVP DAILY [facility] Last Admin: 04/05/21 08:44 Dose: 6 mg Documented by: Enoxaparin Sodium (Enoxaparin 30 Mg/0.3 Ml Syringe) 30 mg SQ DAILY [facility] Last Admin: 04/05/21 08:44 Dose: 30 mg Documented by: Sodium Chloride (Saline 0.45%) 1,000 mls @ 100 mls/hr IV .Q10H [facility] Last Admin: 04/05/21 06:53 Dose: Not Given Documented by: Insulin Aspart (Insulin Aspart (Novolog) 100 Unit/Ml Vial) 0 unit SQ ACHS [facility]; Protocol Last Admin: 04/05/21 12:19 Dose: Not Given Documented by: Levofloxacin (Levofloxacin 250 Mg Tab) 250 mg PO Q24H [facility] Metoprolol Tartrate (Metoprolol Tartrate 25 Mg Tab) 25 mg PO BID [facility] Naloxone HCl (Naloxone 0.4 Mg/Ml 1 Ml Vial) 0.2 mg IV Q2M PRN PRN Reason: Opioid Reversal Nitroglycerin (Nitroglycerin Sl Tabs 0.4 Mg Tab) 0.4 mg SUBLINGUAL Q5M PRN PRN Reason: Chest Pain Ondansetron HCl (Ondansetron 4 Mg/2 Ml Vial) 4 mg IVP Q8HR PRN PRN Reason: Nausea And Vomiting Zinc Sulfate (Zinc Sulfate 220 Mg Cap) 220 mg PO DAILY [facility] Last Admin: 04/05/21 08:44 Dose: 220 mg Documented by: Past medical history to include: CAD with stent, stroke with right-sided weakness that is resolved, hypertension, hyperlipidemia, kidney stones bilateral, right diaphragm paralysis, diverticulosis Social history: Sometimes uses a cane. . Retired. Does not smoke or drink alcohol. Family history: Diabetes, hypertension, Alzheimer's. Physical examination: VITAL SIGNS: 98.3, 71, 24, 109/53, 89% on 15 L GENERAL: Reclining in bed, awake, tired LUNGS: Respiratory rate increased, decreased breath sounds, occasional crackle. PSYCH: Alert and oriented x3; mood and affect normal. NEUROLOGICAL: Cranial nerves grossly intact; no facial asymmetry, moving all 4 limbs Rest of exam. Pulmonary nursing INVESTIGATIONS, reviewed in the clinical context: April 05: White count 14.7 hemoglobin 13.7 d-dimer 0.9 BUN 59 creatinine 2.09 CRP 17.5 April 04: D-dimer 1.08 progression 3.8 BUN 43 creatinine 2.25 WBC 15.3 hemoglobin 12 platelets 222 sodium 134 potassium 3.8 BUN 31 creatinine 2.50 Coronavirus [PCR]: Detected EKG tracing personally reviewed by me. Right bundle-branch block. DC. Normal sinus rhythm. Rate 105 Chest x-ray film personally reviewed by me-right diaphragm elevation. Infiltrate in the bases. Previous labs: 03/17/2021]: Creatinine 1.62 Assessment and plan: -Acute COVID 19 pneumonitis,'s causing hypoxia in a patient who is previously been vaccinated. Patient had received monoclonal antibodies and return to the ER in a few hours feeling worse.: Not improving Decadron 6 mg, Lovenox subcu, vitamin C zinc vitamin D. Pulmonary consultation -Acute hypoxic respiratory failure from COVID 19 pneumonitis, with pulse ox dropping to 87% on room air: Not improving Currently on 15 L nasal cannula -CAD with stent Lopressor, Plavix, aspirin, Lipitor -Hyperlipidemia Lipitor 80 mg by mouth daily -Essential hypertension Lopressor 50 mg a morning pre-5 mg the evening, amlodipine 5 mg a day -Primary osteoarthritis multiple joints bilaterally Use pain medications as needed -Chronic diverticulosis, asymptomatic Follow clinically -Chronic kidney disease stage III from nephrosclerosis At the baseline creatinine of 1.6 -Acute kidney injury likely prerenal from decreased oral intake: Slow improvement IV fluids. Follow renal function -Bilateral nephrolithiasis. Patient did pass a stone 3 days ago with some hematuria which is improved. On March 06 patient underwent left ureteroscope even with laser lithotripsy and placement of a double-J catheter by Dr. Mark Mason. Subcu Lovenox. 15 L nasal cannula. Continue saline. Discussed with patient. Up in chair as tolerated. Follow with pulmonary.
[2021-04-05] MEDS ORDERED: HEPARIN SODIUM 1,000 UN/ML (10ML VL) IV PRN (15:48)
[2021-04-05] MEDS ORDERED: HEPARIN SOD,PORK IN 0.45% NACL 25,000 UNIT in 0.45% NACL 1 250ML.BAG IV SCH (16:15)
[2021-04-05 17:11] LABS: Glucose,Whole Blood 159 mg/dL (75-99)
[2021-04-05 20:52] LABS: Glucose,Whole Blood 194 mg/dL (75-99)
[2021-04-05] MEDS: METOPROLOL TARTRATE 25 MG TAB PO SCH (21:16)
[2021-04-06 05:31] LABS: C Reactive Protein 6.3 mg/dL (<1.0); Calcium 8.5 mg/dL (8.4-10.2); Potassium 4.2 mmol/L (3.5-5.1)
[2021-04-06 05:46] LABS: INR 1.3 (<1.2); Prothrombin Time 13.5 sec (9.0-12.0)
[2021-04-06 05:57] LABS: Partial Thromboplastin Time 103.6 sec (22.0-30.0)
[2021-04-06 06:14] LABS: Glucose,Whole Blood 137 mg/dL (75-99)
[2021-04-06] MEDS: INSULIN ASPART (NovoLOG) 100 UNIT/ML VIAL SQ SCH ×4 (06:56→21:04)
--- NOTE | 2021-04-06 07:10 | P.PN ---
Subjective Progress Note Date: 04/06/21 Principal diagnosis: Paroxysmal atrial fibrillation The patient is a 75-year-old gentleman with CAD and prior revascularization as well as history of stroke and also multiple comorbid conditions was admitted to the hospital was COVID-19 pneumonia. We consulted to see the patient because of multiple episodes of sinus pauses. When the patient was seen he did have a regular rhythm and EKG confirmed atrial fibrillation which is a new diagnosis the patient. Because of the sinus pauses a decrease the dose of metoprolol. The patient continues to have controlled heart rate in the 50s as well as the 60s. He has been in normal sinus mechanism. He was started on heparin IV for anticoagulation and I would consider starting him on oral anticoagulation. The echo previously showed an ejection fraction within normal limits. Objective - Vital Signs Vital signs: Vital Signs Temp 97.8 F 04/06/21 00:00 Pulse 62 04/06/21 02:00 Resp 18 04/06/21 02:00 BP 122/50 04/06/21 00:00 Pulse Ox 94 L 04/06/21 00:00 Intake & Output 04/05/21 04/06/21 04/06/21 18:59 06:59 18:59 Intake Total 1280 869.929 Balance 1280 869.929 Weight 83.5 kg Intake: IV 800 Sodium Chloride 0.45% 1, 800 000 ml @ 100 mls/hr IV . Q10H [facility] Rx#:[id number] Intake, IV Titration 149.929 Amount Heparin Sod,Pork in 0.45% 149.929 NaCl 25,000 unit In 0.45 % NaCl 1 250ml.bag @ 10. 15 UNITS/KG/HR 9.998 mls/ hr IV .Q24H [facility] Rx#: [id number] Oral 480 720 Other: Voiding Method Bedside Commode Urinal # Voids 1 1 # Bowel Movements 2 - Constitutional General appearance: Present: no acute distress - Labs CBC & Chem 7: 04/05/21 08:00 04/06/21 04:59 Labs: Abnormal Lab Results - Last 24 Hours (Table) 04/05/21 04/05/21 04/05/21 Range/Units 08:00 08:00 08:00 WBC (3.8-10.6) k/uL Neutrophils # (1.3-7.7) k/uL Lymphocytes # (1.0-4.8) k/uL PT (9.0-12.0) sec INR (<1.2) APTT (22.0-30.0) sec D-Dimer 0.90 H (<0.60) mg/L FEU Sodium 136 L (137-145) mmol/L Carbon Dioxide 15 L (22-30) mmol/L BUN 59 H (9-20) mg/dL Creatinine 2.09 H (0.66-1.25) mg/dL Glucose 113 H (74-99) mg/dL POC Glucose (mg/dL) (75-99) mg/dL Magnesium 2.5 H (1.6-2.3) mg/dL C-Reactive Protein 17.5 H (<1.0) mg/dL 04/05/21 04/05/21 04/05/21 Range/Units 08:00 11:58 16:55 WBC 14.7 H (3.8-10.6) k/uL Neutrophils # 13.1 H (1.3-7.7) k/uL Lymphocytes # 0.9 L (1.0-4.8) k/uL PT (9.0-12.0) sec INR (<1.2) APTT (22.0-30.0) sec D-Dimer (<0.60) mg/L FEU Sodium (137-145) mmol/L Carbon Dioxide (22-30) mmol/L BUN (9-20) mg/dL Creatinine (0.66-1.25) mg/dL Glucose (74-99) mg/dL POC Glucose (mg/dL) 125 H 159 H (75-99) mg/dL Magnesium (1.6-2.3) mg/dL C-Reactive Protein (<1.0) mg/dL 04/05/21 04/06/21 04/06/21 Range/Units 20:48 04:59 04:59 WBC (3.8-10.6) k/uL Neutrophils # (1.3-7.7) k/uL Lymphocytes # (1.0-4.8) k/uL PT 13.5 H (9.0-12.0) sec INR 1.3 H (<1.2) APTT 103.6 H* (22.0-30.0) sec D-Dimer 0.60 H (<0.60) mg/L FEU Sodium 135 L (137-145) mmol/L Carbon Dioxide 16 L (22-30) mmol/L BUN 68 H (9-20) mg/dL Creatinine 1.98 H (0.66-1.25) mg/dL Glucose 153 H (74-99) mg/dL POC Glucose (mg/dL) 194 H (75-99) mg/dL Magnesium (1.6-2.3) mg/dL C-Reactive Protein 6.3 H (<1.0) mg/dL 04/06/21 Range/Units 06:09 WBC (3.8-10.6) k/uL Neutrophils # (1.3-7.7) k/uL Lymphocytes # (1.0-4.8) k/uL PT (9.0-12.0) sec INR (<1.2) APTT (22.0-30.0) sec D-Dimer (<0.60) mg/L FEU Sodium (137-145) mmol/L Carbon Dioxide (22-30) mmol/L BUN (9-20) mg/dL Creatinine (0.66-1.25) mg/dL Glucose (74-99) mg/dL POC Glucose (mg/dL) 137 H (75-99) mg/dL Magnesium (1.6-2.3) mg/dL C-Reactive Protein (<1.0) mg/dL Microbiology - Last 24 Hours (Table) 04/03/21 10:41 Blood Culture - Preliminary Blood No Growth after 48 hours Assessment and Plan Assessment: Assessment #1 acute hypoxic respiratory failure secondary to COVID-19 a pneumonia #2 acute on chronic renal failure #3 paroxysmal atrial fibrillation #4 multiple episodes of sinus pauses Plan #1 continue the current dose of metoprolol which was reduced yesterday #2 continue heparin IV and consider oral anticoagulation in the next 24 hours #3 previous echo showed normal ejection fraction
[2021-04-06] MEDS: ASCORBIC ACID 500 MG TAB PO SCH (09:09)
[2021-04-06] MEDS: amLODIPine 5 MG TAB PO SCH (09:09)
[2021-04-06] MEDS: ZINC SULFATE 220 MG CAP PO SCH (09:09)
[2021-04-06] MEDS: ATORVASTATIN 80 MG TAB PO SCH (09:09)
[2021-04-06] MEDS: ASPIRIN 81 MG PO SCH (09:09)
[2021-04-06] MEDS: CHOLECALCIFEROL 25 MCG (1000 IU) TABLET PO SCH (09:09)
[2021-04-06] MEDS: DEXAMETHASONE SOD PHOSPHATE 10 MG/ML 1 ML VIAL IVP SCH (09:09)
[2021-04-06] MEDS: METOPROLOL TARTRATE 25 MG TAB PO SCH ×2 (09:10→21:04)
[2021-04-06] MEDS: SODIUM CHLORIDE 0.45% 1,000 ML IV SCH ×4 (09:10→18:39)
[2021-04-06] MEDS: CLOPIDOGREL 75 MG TAB PO SCH (09:10)
[2021-04-06 12:04] LABS: Glucose,Whole Blood 136 mg/dL (75-99)
[2021-04-06] MEDS: LEVOFLOXACIN 250 MG TAB PO SCH (12:22)
--- NOTE | 2021-04-06 13:44 | P.PN ---
Subjective Progress Note Date: 04/06/21 Principal diagnosis: COVID-19 pneumonia This is a 75-year-old gentleman who follows with Dr. Edmonds as his primary care provider. He has a history of coronary artery disease with previous stent placements, nephrolithiasis with recent passing of a kidney stone, retention, hyperlipidemia, obesity. He presented here to the emergency room yesterday with poor appetite and a generalized weakness and shortness of breath. White count 15.3. Hemoglobin 12.0. Lymphocytes 0.4. Sodium 134. Potassium 3.8. Creatinine 2.50. BUN 31. GFR 24. Glucose 139. AST 46. ALT 42. LDH 566. C- reactive protein 26.7. Chronic virus by PCR positive. The patient has been vaccinated back in July 2020 2 with Moderna. No booster. Chest x-ray does reveal new patchy airspace disease bilaterally. Elevated right hemidiaphragm. He is seen today in consultation in the emergency room. He is currently lying on the stretcher on his right side. This helps him breathe the easiest. He is currently requiring 6 L high flow nasal cannula to maintain O2 saturations in the low 90s. He was 87% on room air. He's been afebrile. Slightly tachycardic. Tachypneic. He's been initiated on Decadron. The patient is seen today 04/04/2021 in follow-up on the regular medical floor. He is currently resting comfortably in bed. Laying on his right side. Breathing a bit easier today compared to yesterday. He is still requiring 15 L high flow nasal cannula to maintain O2 saturation in the low 90s. He is afebrile. Hemodynamically stable. His appetite has improved. D-dimer 1.08. Sodium 134. Potassium 3.8. Creatinine 2.25. Glucose 139. LDH 529. C- reactive protein 35.9. Pro-calcitonin 5.08. Urine culture pending. Blood culture revealed no growth to date. He is continued on Decadron, Lovenox, vitamin supplements. 0.45 normal saline at 100 ML's per hour. The patient is seen today 04/05/2021 in follow-up on the regular medical floor. He is currently resting in bed on his right side. Awake and alert in no acute distress. He is still requiring 15 L high flow nasal cannula to maintain O2 saturation in the low 90s. He's been afebrile. Hemodynamically stable. Follow-up chest x-ray continues to show right hemidiaphragm elevation with some possible pleural effusion. Ultrasound of the right chest pending. Blood culture reveals no growth. D-dimer 0.9. Sodium 136. Potassium 3.9. Creatinine 2.09. He remains on Decadron, Lovenox, vitamin supplements. The patient is seen today 04/06/2021 in follow-up on the regular medical floor. He is currently sitting up at the bedside. Awake and alert in no acute distress. He is still requiring 14 L high flow nasal cannula with O2 saturations in the mid 90s. Ultrasound of the right chest revealed no significant pleural effusion. Blood culture revealed no growth. INR 1.3. D- dimer 0.6. Sodium 135. Potassium 4.2. Creatinine 1.98. BUN 68. C-reactive protein 6.3. Glucose 137. Continued on Decadron, vitamin supplements, Levaquin. The patient was found to be in atrial fibrillation with sinus pauses. Beta b lockers were adjusted. Currently on a heparin drip. Objective - Vital Signs Vital signs: Vital Signs Temp 98.3 F 04/06/21 12:43 Pulse 78 04/06/21 12:43 Resp 18 04/06/21 12:43 BP 118/58 04/06/21 12:43 Pulse Ox 88 L 04/06/21 12:43 Intake & Output 04/05/21 04/06/21 04/06/21 18:59 06:59 18:59 Intake Total 1280 729.890 0698 Balance 1280 363.660 4167 Weight 83.5 kg Intake: IV 800 Sodium Chloride 0.45% 1, 800 000 ml @ 100 mls/hr IV . Q10H [facility] Rx#:[id number] Intake, IV Titration 151.104 7947 Amount Heparin Sod,Pork in 0.45% 149.929 0 NaCl 25,000 unit In 0.45 % NaCl 1 250ml.bag @ 10. 15 UNITS/KG/HR 9.998 mls/ hr IV .Q24H [facility] Rx#: [id number] Sodium Chloride 0.45% 1, 1200 000 ml @ 100 mls/hr IV . Q10H [facility] Rx#:[id number] Oral 480 720 Other: Voiding Method Bedside Commode Urinal # Voids 1 1 1 # Bowel Movements 2 1 - Exam GENERAL EXAM: Alert, pleasant 75-year-old gentleman, sitting up in bed, on 14 L high flow nasal cannula, fairly comfortable in no apparent distress. HEAD: Normocephalic. EYES: Normal reaction of pupils, equal size. NOSE: Clear with pink turbinates. THROAT: No erythema or exudates. NECK: No masses, no JVD. CHEST: No chest wall deformity. LUNGS: Equal air entry with crackles in the bilateral bases. CVS: S1 and S2 normal with no audible murmur, regular rhythm. ABDOMEN: No hepatosplenomegaly, normal bowel sounds, no guarding or rigidity. SPINE: No scoliosis or deformity SKIN: No rashes CENTRAL NERVOUS SYSTEM: No focal deficits, tone is normal in all 4 extremities. EXTREMITIES: There is no peripheral edema. No clubbing, no cyanosis. Peripheral pulses are intact. - Labs CBC & Chem 7: 04/05/21 08:00 04/06/21 04:59 Labs: Abnormal Lab Results - Last 24 Hours (Table) 04/05/21 04/05/21 04/06/21 Range/Units 16:55 20:48 04:59 PT 13.5 H (9.0-12.0) sec INR 1.3 H (<1.2) APTT 103.6 H* (22.0-30.0) sec D-Dimer 0.60 H (<0.60) mg/L FEU Sodium (137-145) mmol/L Carbon Dioxide (22-30) mmol/L BUN (9-20) mg/dL Creatinine (0.66-1.25) mg/dL Glucose (74-99) mg/dL POC Glucose (mg/dL) 159 H 194 H (75-99) mg/dL C-Reactive Protein (<1.0) mg/dL 04/06/21 04/06/21 04/06/21 Range/Units 04:59 06:09 12:03 PT (9.0-12.0) sec INR (<1.2) APTT (22.0-30.0) sec D-Dimer (<0.60) mg/L FEU Sodium 135 L (137-145) mmol/L Carbon Dioxide 16 L (22-30) mmol/L BUN 68 H (9-20) mg/dL Creatinine 1.98 H (0.66-1.25) mg/dL Glucose 153 H (74-99) mg/dL POC Glucose (mg/dL) 137 H 136 H (75-99) mg/dL C-Reactive Protein 6.3 H (<1.0) mg/dL Microbiology - Last 24 Hours (Table) 04/03/21 10:41 Blood Culture - Preliminary Blood No Growth after 72 hours Assessment and Plan Assessment: 1 Acute hypoxemic respiratory failure secondary to acute COVID-19 pneumonia in addition to an elevated right hemidiaphragm. The patient was vaccinated with Moderna 2 back in July 2020. No booster. GFR 24. He does not qualify for Remdesivir. He is now up to 14 liters high flow nasal cannula. Pro calcitonin 5.08. 2 Acute renal failure with a creatinine of 2.5. GFR 24. 3 History of nephrolithiasis with recent passing of a kidney stone 2 days ago. Renal ultrasound from 03/17/2021 revealed multiple bilateral renal calculi. No evidence of any significant high to nephrosis. There is clearing of left sided hydronephrosis compared to scan of 02/17/2021. 4 Leukocytosis, pro-calcitonin 5.08. Today's CBC pending. Blood culture reveals no growth to date. 5 Coronary artery disease with previous stent placement 6 History of CVA/TIA 7 Hyperlipidemia 8 Hypertension 9 New-onset atrial fibrillation with bradycardia, heparin drip initiated Plan: The patient was seen and evaluated No significant right-sided pleural effusion Continue Decadron, vitamin supplements Now on a heparin drip for A. fib Still requiring 14 L high flow nasal cannula Titrate the FiO2 as tolerated Follow-up chest x-ray and labs in a.m. We will continue to follow I, the cosigning physician, performed a history & physical examination of the patient. Lungs sounds with crackles in the posterior bases, diminished in the right base Maintaining O2 saturations in the 90s on 14 L high flow nasal cannula. I discussed the assessment and plan of care with my nurse practitioner, Maia Chavez. I attest to the above note as dictated by her.
[2021-04-06] MEDS ORDERED: PANTOPRAZOLE 40 MG TABLET PO SCH (13:48)
--- NOTE | 2021-04-06 16:19 | P.PN ---
Progress Note - Text Progress Note Date: 04/06/21 Chief Complaint: Not feeling well This is a very pleasant 75-year-old patient who follows Dr. Edmonds. Chronic stable medical conditions include CAD with stent, hypertension, hyperlipidemia, stroke in the past with some right-sided weakness that resolved, bilateral kid hardik stones, right diaphragm paralysis diverticulosis. Arthritis in the joints. Patient presents with decreased appetite for 3 days. No loss of smell or taste. Feeling very weak. Slight fever. No diarrhea no headache. Slight cough. Patient did pass a kidney stone 3 days ago. Feeling tired and rundown. Some shortness of breath. Patient did test for positive for COVID in the ER. Patient had received prior vaccination. Patient presented yesterday evening to the ER and received monoclonal antibodies. He was discharged. He came back to the ER feeling worse and hypoxic. And therefore admitted April 04: shortness of breath. On 15 L nasal cannula. Tired April 05: Short of breath. On 15 L nasal cannula. Tired. Oral intake fair. April 06: Short of breath. Remains on 15 L nasal cannula. Tired. Eating 25-50%. Patient had dark stools this morning. I discontinued IV heparin. GI service not available the hospital. Surgery consulted. Protonix added. No abdominal pain. Patient (yesterday went into atrial fibrillation. With pauses. Lopressor dose was cut back. Started IV heparin by cardiology.] Atrial fibrillation rate controlled today. Review of systems: Was done for constitutional, cardiovascular, GI, pulmonary. relevant finding as above Active Medications Acetaminophen (Acetaminophen Tab 325 Mg Tab) 650 mg PO Q6HR PRN PRN Reason: Mild Pain or Fever > 100.5 Amlodipine Besylate (Amlodipine 5 Mg Tab) 5 mg PO DAILY [facility] Last Admin: 04/06/21 09:09 Dose: 5 mg Documented by: Ascorbic Acid (Ascorbic Acid 500 Mg Tab) 1,000 mg PO DAILY [facility] Last Admin: 04/06/21 09:09 Dose: 1,000 mg Documented by: Aspirin (Aspirin 81 Mg) 81 mg PO DAILY [facility] Last Admin: 04/06/21 09:09 Dose: 81 mg Documented by: Atorvastatin Calcium (Atorvastatin 80 Mg Tab) 80 mg PO DAILY [facility] Last Admin: 04/06/21 09:09 Dose: 80 mg Documented by: Cholecalciferol (Cholecalciferol 25 Mcg (1000 Iu) Tablet) 25 mcg PO DAILY [facility] Last Admin: 04/06/21 09:09 Dose: 25 mcg Documented by: Clopidogrel Bisulfate (Clopidogrel 75 Mg Tab) 75 mg PO DAILY [facility] Last Admin: 04/06/21 09:10 Dose: 75 mg Documented by: Dexamethasone Sodium Phosphate (Dexamethasone Sod Phosphate 10 Mg/Ml 1 Ml Vial) 6 mg IVP DAILY [facility] Last Admin: 04/06/21 09:09 Dose: 6 mg Documented by: Sodium Chloride (Saline 0.45%) 1,000 mls @ 100 mls/hr IV .Q10H [facility] Last Admin: 04/06/21 12:18 Dose: Not Given Documented by: Insulin Aspart (Insulin Aspart (Novolog) 100 Unit/Ml Vial) 0 unit SQ ACHS [facility]; Protocol Last Admin: 04/06/21 12:22 Dose: 1 unit Documented by: Levofloxacin (Levofloxacin 250 Mg Tab) 250 mg PO Q24H [facility] Last Admin: 04/06/21 12:22 Dose: 250 mg Documented by: Metoprolol Tartrate (Metoprolol Tartrate 25 Mg Tab) 25 mg PO BID [facility] Last Admin: 04/06/21 09:10 Dose: 25 mg Documented by: Naloxone HCl (Naloxone 0.4 Mg/Ml 1 Ml Vial) 0.2 mg IV Q2M PRN PRN Reason: Opioid Reversal Nitroglycerin (Nitroglycerin Sl Tabs 0.4 Mg Tab) 0.4 mg SUBLINGUAL Q5M PRN PRN Reason: Chest Pain Ondansetron HCl (Ondansetron 4 Mg/2 Ml Vial) 4 mg IVP Q8HR PRN PRN Reason: Nausea And Vomiting Pantoprazole Sodium (Pantoprazole 40 Mg/10 Ml Vial) 40 mg IVP BID [facility] Zinc Sulfate (Zinc Sulfate 220 Mg Cap) 220 mg PO DAILY [facility] Last Admin: 04/06/21 09:09 Dose: 220 mg Documented by: Past medical history to include: CAD with stent, stroke with right-sided weakness that is resolved, hypertension, hyperlipidemia, kidney stones bilateral, right diaphragm paralysis, diverticulosis Social history: Sometimes uses a cane. . Retired. Does not smoke or drink alcohol. Family history: Diabetes, hypertension, Alzheimer's. Physical examination: VITAL SIGNS: 98.1, 68, 18, 120/46, 96% on 15 L GENERAL: Reclining in bed, awake, tired LUNGS: Respiratory rate increased, . PSYCH: Alert and oriented x3; mood and affect normal. NEUROLOGICAL: Cranial nerves grossly intact; no facial asymmetry, moving all 4 limbs Rest of exam. Pulmonary nursing INVESTIGATIONS, reviewed in the clinical context: April 05: White count 14.7 hemoglobin 13.7 d-dimer 0.9 BUN 59 creatinine 2.09 CRP 17.5 April 04: D-dimer 1.08 progression 3.8 BUN 43 creatinine 2.25 WBC 15.3 hemoglobin 12 platelets 222 sodium 134 potassium 3.8 BUN 31 creatinine 2.50 Coronavirus [PCR]: Detected EKG tracing personally reviewed by me. Right bundle-branch block. DC. Normal sinus rhythm. Rate 105 Chest x-ray film personally reviewed by me-right diaphragm elevation. Infiltrate in the bases. Previous labs: 03/17/2021]: Creatinine 1.62 Assessment and plan: -Acute COVID 19 pneumonitis,'s causing hypoxia in a patient who is previously been vaccinated. Patient had received monoclonal antibodies and return to the ER in a few hours feeling worse.: Not improving Decadron 6 mg, Lovenox subcu, vitamin C zinc vitamin D. Pulmonary consultation -Acute hypoxic respiratory failure from COVID 19 pneumonitis, with pulse ox dropping to 87% on room air: Not improving Currently on 15 L nasal cannula -Acute GI bleed, suspect upper GI source.. Not patient is on aspirin, Plavix. Dexamethasone. IV heparin. Follow H&H. DC IV heparin. Stop Plavix. Consult surgery -New onset atrial fibrillation. Rate controlled. Lopressor 25 mg twice a day. IV heparin that was started discontinued because of Doxil stools -Patient was having pauses on telemetry Dose of Lopressor cutback -CAD with stent Lopressor, Plavix, aspirin, Lipitor -Hyperlipidemia Lipitor 80 mg by mouth daily -Essential hypertension Lopressor 50 mg a morning pre-5 mg the evening, amlodipine 5 mg a day -Primary osteoarthritis multiple joints bilaterally Use pain medications as needed -Chronic diverticulosis, asymptomatic Follow clinically -Chronic kidney disease stage III from nephrosclerosis At the baseline creatinine of 1.6 -Acute kidney injury likely prerenal from decreased oral intake: Slow improvement IV fluids. Follow renal function -Bilateral nephrolithiasis. Patient did pass a stone 3 days ago with some hematuria which is improved. On March 06 patient underwent left ureteroscope even with laser lithotripsy and placement of a double-J catheter by Dr. Flores Dexamethasone. Subcu Lovenox. 15 L nasal cannula. . DC IV heparin. Check CBC later today. And in the morning. Add PPI. Stop Plavix. Consult surgery. Discussed with patient.
[2021-04-06 16:29] LABS: Glucose,Whole Blood 198 mg/dL (75-99)
[2021-04-06 17:44] LABS: HCT 37.9 % (39.0-53.0); HGB 12.3 gm/dL (13.0-17.5); MCH 31.7 pg (25.0-35.0); MCHC 32.4 g/dL (31.0-37.0); MCV 97.9 fL (80.0-100.0); Mean Platelet Volume 8.1; Platelet Count 339 k/uL (150-450); RBC 3.87 m/uL (4.30-5.90); RDW 14.3 % (11.5-15.5); WBC 16.5 k/uL (3.8-10.6)
[2021-04-06 20:02] LABS: Glucose,Whole Blood 157 mg/dL (75-99)
[2021-04-06] MEDS: PANTOPRAZOLE 40 MG/10 ML VIAL IVP SCH (21:03)
[2021-04-07] MEDS: SODIUM CHLORIDE 0.45% 1,000 ML IV SCH ×2 (05:28→20:40)
[2021-04-07 06:10] LABS: Glucose,Whole Blood 113 mg/dL (75-99)
[2021-04-07] MEDS: INSULIN ASPART (NovoLOG) 100 UNIT/ML VIAL SQ SCH ×4 (06:58→20:43)
--- NOTE | 2021-04-07 07:20 | XR ---
EXAMINATION TYPE: XR chest 1V portable DATE OF EXAM: 04/07/2021 6:28 AM COMPARISON:Chest radiographs from 04/04/2021 CLINICAL INDICATION:Male, 75 years old with history of CoVID pneumonia; TECHNIQUE: Frontal view of the chest. FINDINGS: Lungs/Pleura: Persistent opacification of the right mid and lower lung. The left lung demonstrates a few areas of airspace opacities within the left lung base similar to prior. No evidence of pneumothor ax. Pulmonary vascularity: Unremarkable. Heart/mediastinum: Cardiomediastinal silhouette is unremarkable. Musculoskeletal: No acute osseous pathology. IMPRESSION: 1. Persistent large right pleural effusion and/or atelectasis changes. 2. Persistent left lung base airspace disease.
[2021-04-07 07:41] LABS: Basophils % (A) 0 %; Eosinophils % (A) 0 %; HCT 38.1 % (39.0-53.0); HGB 12.4 gm/dL (13.0-17.5); Lymphocytes % (A) 6 %; MCH 31.2 pg (25.0-35.0); MCHC 32.4 g/dL (31.0-37.0); MCV 96.3 fL (80.0-100.0); Mean Platelet Volume 7.9; Monocytes # (A) 0.9 k/uL (0-1.0); Monocytes % (A) 5 %; Neutrophils # (A) 16.1 k/uL (1.3-7.7); Neutrophils % (A) 88 %; Platelet Count 415 k/uL (150-450); RBC 3.96 m/uL (4.30-5.90); RDW 14.2 % (11.5-15.5); WBC 18.3 k/uL (3.8-10.6)
--- NOTE | 2021-04-07 07:44 | P.PN ---
Subjective Progress Note Date: 04/07/21 Principal diagnosis: Paroxysmal atrial fibrillation The patient is a 75-year-old gentleman with CAD and prior revascularization as well as history of stroke and also multiple comorbid conditions was admitted to the hospital was COVID-19 pneumonia. We consulted to see the patient because of multiple episodes of sinus pauses. When the patient was evaluated he was found to have irregular rhythm and he was found to be in atrial fibrillation which is new with the diagnosis to him. Because of the sinus pauses with decrease the dose of metoprolol. The patient remains in atrial fibrillation with heart rate in the 50s as well as the 60s. Last night he did have multiple episodes of sinus pauses with the longest of 2.9 seconds at 12:00 at night. He was asymptomatic during these episodes. I'm going to back up the dose of beta claudia with metoprolol to 12.5 mg by mouth twice a day from 25 mg by mouth twice a day. Beside that he needs to be on anticoagulation and I'm going to stop the aspirin and add oral anticoagulation to the current medical regimen. Objective - Vital Signs Vital signs: Vital Signs Temp 97.9 F 04/07/21 04:00 Pulse 72 04/07/21 04:00 Resp 18 04/07/21 04:00 BP 127/73 04/07/21 04:00 Pulse Ox 90 L 04/07/21 04:00 Intake & Output 04/06/21 04/07/21 04/07/21 18:59 06:59 18:59 Intake Total 1200 480 Balance 1200 480 Intake: Intake, IV Titration 1200 Amount Heparin Sod,Pork in 0.45% 0 NaCl 25,000 unit In 0.45 % NaCl 1 250ml.bag @ 10. 15 UNITS/KG/HR 9.998 mls/ hr IV .Q24H [facility] Rx#: [id number] Sodium Chloride 0.45% 1, 1200 000 ml @ 100 mls/hr IV . Q10H [facility] Rx#:[id number] Oral 480 Other: Voiding Method Bedside Commode Urinal # Voids 3 3 # Bowel Movements 1 - Constitutional General appearance: Present: no acute distress - Labs CBC & Chem 7: 04/06/21 16:52 04/06/21 04:59 Labs: Abnormal Lab Results - Last 24 Hours (Table) 04/06/21 04/06/21 04/06/21 Range/Units 12:03 13:15 16:28 WBC (3.8-10.6) k/uL RBC (4.30-5.90) m/uL Hgb (13.0-17.5) gm/dL Hct (39.0-53.0) % APTT 51.5 H (22.0-30.0) sec POC Glucose (mg/dL) 136 H 198 H (75-99) mg/dL 04/06/21 04/06/21 04/07/21 Range/Units 16:52 20:01 06:08 WBC 16.5 H (3.8-10.6) k/uL RBC 3.87 L (4.30-5.90) m/uL Hgb 12.3 L (13.0-17.5) gm/dL Hct 37.9 L (39.0-53.0) % APTT (22.0-30.0) sec POC Glucose (mg/dL) 157 H 113 H (75-99) mg/dL Microbiology - Last 24 Hours (Table) 04/03/21 10:41 Blood Culture - Preliminary Blood No Growth after 72 hours Assessment and Plan Assessment: Assessment #1 acute hypoxic respiratory failure secondary to COVID-19 a pneumonia #2 acute on chronic renal failure #3 atrial fibrillation, paroxysmal, this is a new diagnosis to the patient. #4 acute on chronic renal failure Plan #1 decrease the dose of metoprolol to 12.5 mg by mouth twice a day #2 consider oral anticoagulation #3 continue monitor the kidney function and electrolytes #4 follow-up with the patient
[2021-04-07] MEDS: PANTOPRAZOLE 40 MG/10 ML VIAL IVP SCH ×2 (09:00→20:40)
[2021-04-07] MEDS: DEXAMETHASONE SOD PHOSPHATE 10 MG/ML 1 ML VIAL IVP SCH (09:01)
[2021-04-07] MEDS: ASCORBIC ACID 500 MG TAB PO SCH (09:02)
[2021-04-07] MEDS: ATORVASTATIN 80 MG TAB PO SCH (09:02)
[2021-04-07] MEDS: ZINC SULFATE 220 MG CAP PO SCH (09:02)
[2021-04-07] MEDS: APIXABAN 2.5 MG TABLET PO SCH ×2 (09:02→20:40)
[2021-04-07] MEDS: CLOPIDOGREL 75 MG TAB PO SCH (09:02)
[2021-04-07] MEDS: METOPROLOL TARTRATE 12.5 MG TAB PO SCH ×2 (09:02→20:40)
[2021-04-07] MEDS: amLODIPine 5 MG TAB PO SCH (09:02)
[2021-04-07] MEDS: CHOLECALCIFEROL 25 MCG (1000 IU) TABLET PO SCH (09:02)
--- NOTE | 2021-04-07 10:25 | P.GSCN ---
History of Present Illness Consult date: 04/07/21 Reason for Consult: GI bleed History of present illness: We were consulted on this patient for possible GI bleed. Patient says he had a stool that looked somewhat bloody a few days ago. Bowel movements are now normal. He has not had a previous endoscopic evaluation. Patient was on Plavix for stents that were placed in December. Today he was started on eloquis. He is Covid positive. Mild shortness of breath. No history of previous GI bleed. 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 History of Any Multi-Drug Resistant Organisms: None Reported Past Surgical History: Heart Catheterization, Heart Catheterization With Stent, Hernia Repair, Joint Replacement, Orthopedic Surgery Additional Past Surgical History / Comment(s): Total of 3 coronary stents, cystoscopy/lithotripsy/L ureteroscopy and stent, L kidney cyst drained, abdominal hernia repair, R rotator cuff repair, bilateral total knee arth roplasties. Past Anesthesia/Blood Transfusion Reactions: No Reported Reaction Date of Last Stent Placement:: 01/22/21 Smoking Status: Never smoker - Past Family History Father Family Medical History: Diabetes Mellitus, Hypertension Additional Family Medical History / Comment(s): Alzheimer's Mother Family Medical History: Cancer Additional Family Medical History / Comment(s): kidney Medications and Allergies Home Medications Medication Instructions Recorded Confirmed Type Metoprolol Tartrate [Lopressor] 25 mg PO HS 12/12/20 04/02/21 History amLODIPine [Norvasc] 5 mg PO DAILY 12/12/20 04/02/21 History Clopidogrel [Plavix] 75 mg PO DAILY 01/18/21 04/02/21 History Aspirin 81 mg PO DAILY 02/17/21 04/02/21 History Atorvastatin Calcium [Lipitor] 80 mg PO DAILY 02/17/21 04/02/21 History Metoprolol Tartrate [Lopressor] 50 mg PO DAILY 02/17/21 04/02/21 History Multivit-Min/FA/Lycopen/Lutein 1 tab PO DAILY 02/17/21 04/02/21 History [Centrum Silver Men Tablet] Nitroglycerin Sl Tabs [Nitrostat] 0.4 mg SUBLINGUAL Q5M PRN 02/17/21 04/02/21 History Allergies Allergy/AdvReac Type Severity Reaction Status Date / Time No Known Allergies Allergy Verified 04/02/21 22:14 Surgical - Exam Vital Signs Temp Pulse Resp BP Pulse Ox 99.5 F 110 H 22 109/55 95 04/02/21 17:22 04/02/21 17:22 04/02/21 17:22 04/02/21 17:22 04/02/21 17:22 Physical exam: General: Well-developed, well-nourished HEENT: Normocephalic, sclerae nonicteric Abdomen: Nontender, nondistended Extremities: No edema Neuro: Alert and oriented Results - Labs 04/07/21 07:09 04/06/21 04:59 Abnormal Lab Results - Last 24 Hours (Table) 04/06/21 04/06/21 04/06/21 Range/Units 12:03 13:15 16:28 WBC (3.8-10.6) k/uL RBC (4.30-5.90) m/uL Hgb (13.0-17.5) gm/dL Hct (39.0-53.0) % Neutrophils # (1.3-7.7) k/uL APTT 51.5 H (22.0-30.0) sec D-Dimer (<0.60) mg/L FEU POC Glucose (mg/dL) 136 H 198 H (75-99) mg/dL C-Reactive Protein (<1.0) mg/dL 04/06/21 04/06/21 04/07/21 Range/Units 16:52 20:01 06:08 WBC 16.5 H (3.8-10.6) k/uL RBC 3.87 L (4.30-5.90) m/uL Hgb 12.3 L (13.0-17.5) gm/dL Hct 37.9 L (39.0-53.0) % Neutrophils # (1.3-7.7) k/uL APTT (22.0-30.0) sec D-Dimer (<0.60) mg/L FEU POC Glucose (mg/dL) 157 H 113 H (75-99) mg/dL C-Reactive Protein (<1.0) mg/dL 04/07/21 04/07/21 04/07/21 Range/Units 07:09 07:09 07:09 WBC 18.3 H (3.8-10.6) k/uL RBC 3.96 L (4.30-5.90) m/uL Hgb 12.4 L (13.0-17.5) gm/dL Hct 38.1 L (39.0-53.0) % Neutrophils # 16.1 H (1.3-7.7) k/uL APTT (22.0-30.0) sec D-Dimer 0.83 H (<0.60) mg/L FEU POC Glucose (mg/dL) (75-99) mg/dL C-Reactive Protein 3.9 H (<1.0) mg/dL Microbiology - Last 24 Hours (Table) 04/03/21 10:41 Blood Culture - Preliminary Blood No Growth after 72 hours Assessment and Plan (1) GI bleed Narrative/Plan: Patient apparently had a stool that appeared possibly bloody. This has resolved. He was started on eloquis today. We'll see if any further bleeding occurs at this point. Will follow with you. Certainly endoscopic workup at some point is in the patient's best interest however this can be performed as an outpatient if no further bleeding at this time. Current Visit: Yes Status: Acute Code(s): K92.2 - GASTROINTESTINAL HEMORRHAGE, UNSPECIFIED SNOMED Code(s): 23789864
[2021-04-07 11:23] LABS: Glucose,Whole Blood 139 mg/dL (75-99)
[2021-04-07] MEDS: LEVOFLOXACIN 250 MG TAB PO SCH (11:43)
--- NOTE | 2021-04-07 12:36 | P.PN ---
Progress Note - Text Progress Note Date: 04/07/21 Chief Complaint: Not feeling well This is a very pleasant 75-year-old patient who follows Dr. Edmonds. Chronic stable medical conditions include CAD with stent, hypertension, hyperlipidemia, stroke in the past with some right-sided weakness that resolved, bilateral kid hardik stones, right diaphragm paralysis diverticulosis. Arthritis in the joints. Patient presents with decreased appetite for 3 days. No loss of smell or taste. Feeling very weak. Slight fever. No diarrhea no headache. Slight cough. Patient did pass a kidney stone 3 days ago. Feeling tired and rundown. Some shortness of breath. Patient did test for positive for COVID in the ER. Patient had received prior vaccination. Patient presented yesterday evening to the ER and received monoclonal antibodies. He was discharged. He came back to the ER feeling worse and hypoxic. And therefore admitted April 04: shortness of breath. On 15 L nasal cannula. Tired April 05: Short of breath. On 15 L nasal cannula. Tired. Oral intake fair. April 06: Short of breath. Remains on 15 L nasal cannula. Tired. Eating 25-50%. Patient had dark stools this morning. I discontinued IV heparin. GI service not available the hospital. Surgery consulted. Protonix added. No abdominal pain. Patient (yesterday went into atrial fibrillation. With pauses. Lopressor dose was cut back. Started IV heparin by cardiology.] Atrial fibrillation rate controlled today. April 07: Remain short of breath. Tired. From Black stool changed over to dark brown stool. No abdominal pain. Sitting up in a recliner. Eating about 25%. 98% on 10 L. Started on eliquis by cardiology. Review of systems: Was done for constitutional, cardiovascular, GI, pulmonary. relevant finding as above Active Medications Acetaminophen (Acetaminophen Tab 325 Mg Tab) 650 mg PO Q6HR PRN PRN Reason: Mild Pain or Fever > 100.5 Amlodipine Besylate (Amlodipine 5 Mg Tab) 5 mg PO DAILY [facility] Last Admin: 04/07/21 09:02 Dose: 5 mg Documented by: Apixaban (Apixaban 2.5 Mg Tablet) 2.5 mg PO BID [facility]; Protocol Last Admin: 04/07/21 09:02 Dose: 2.5 mg Documented by: Ascorbic Acid (Ascorbic Acid 500 Mg Tab) 1,000 mg PO DAILY [facility] Last Admin: 04/07/21 09:02 Dose: 1,000 mg Documented by: Atorvastatin Calcium (Atorvastatin 80 Mg Tab) 80 mg PO DAILY [facility] Last Admin: 04/07/21 09:02 Dose: 80 mg Documented by: Cholecalciferol (Cholecalciferol 25 Mcg (1000 Iu) Tablet) 25 mcg PO DAILY [facility] Last Admin: 04/07/21 09:02 Dose: 25 mcg Documented by: Clopidogrel Bisulfate (Clopidogrel 75 Mg Tab) 75 mg PO DAILY [facility] Last Admin: 04/07/21 09:02 Dose: 75 mg Documented by: Dexamethasone Sodium Phosphate (Dexamethasone Sod Phosphate 10 Mg/Ml 1 Ml Vial) 6 mg IVP DAILY [facility] Last Admin: 04/07/21 09:01 Dose: 6 mg Documented by: Sodium Chloride (Saline 0.45%) 1,000 mls @ 50 mls/hr IV .Q20H [facility] Last Admin: 04/07/21 05:28 Dose: 100 mls/hr Documented by: Insulin Aspart (Insulin Aspart (Novolog) 100 Unit/Ml Vial) 0 unit SQ [facility]; Protocol Last Admin: 04/07/21 11:43 Dose: 1 unit Documented by: Levofloxacin (Levofloxacin 250 Mg Tab) 250 mg PO Q24H [facility] Last Admin: 04/07/21 11:43 Dose: 250 mg Documented by: Metoprolol Tartrate (Metoprolol Tartrate 12.5 Mg Tab) 12.5 mg PO BID [facility] Last Admin: 04/07/21 09:02 Dose: 12.5 mg Documented by: Naloxone HCl (Naloxone 0.4 Mg/Ml 1 Ml Vial) 0.2 mg IV Q2M PRN PRN Reason: Opioid Reversal Nitroglycerin (Nitroglycerin Sl Tabs 0.4 Mg Tab) 0.4 mg SUBLINGUAL Q5M PRN PRN Reason: Chest Pain Ondansetron HCl (Ondansetron 4 Mg/2 Ml Vial) 4 mg IVP Q8HR PRN PRN Reason: Nausea And Vomiting Pantoprazole Sodium (Pantoprazole 40 Mg/10 Ml Vial) 40 mg IVP BID [facility] Last Admin: 04/07/21 09:00 Dose: 40 mg Documented by: Zinc Sulfate (Zinc Sulfate 220 Mg Cap) 220 mg PO DAILY [facility] Last Admin: 04/07/21 09:02 Dose: 220 mg Documented by: Past medical history to include: CAD with stent, stroke with right-sided weakness that is resolved, hypertension, hyperlipidemia, kidney stones bilateral, right diaphragm paralysis, diverticulosis Social history: Sometimes uses a cane. . Retired. Does not smoke or drink alcohol. Family history: Diabetes, hypertension, Alzheimer's. Physical examination: VITAL SIGNS: 96.9, 89, 18, 1 25 x 66, 98% on 10 L GENERAL: Reclining in chair, awake, tired LUNGS: Respiratory rate increased, . PSYCH: Alert and oriented x3; mood and affect normal. NEUROLOGICAL: Cranial nerves grossly intact; no facial asymmetry, moving all 4 limbs Rest of exam. As per Pulmonary and nursing INVESTIGATIONS, reviewed in the clinical context: April 07: White count 18.3 hemoglobin 12.4 d-dimer 0.83 CRP 3.9 April 05: White count 14.7 hemoglobin 13.7 d-dimer 0.9 BUN 59 creatinine 2.09 CRP 17.5 April 04: D-dimer 1.08 progression 3.8 BUN 43 creatinine 2.25 WBC 15.3 hemoglobin 12 platelets 222 sodium 134 potassium 3.8 BUN 31 creatinine 2.50 Coronavirus [PCR]: Detected EKG tracing personally reviewed by me. Right bundle-branch block. DC. Normal sinus rhythm. Rate 105 Chest x-ray film personally reviewed by me-right diaphragm elevation. Infiltrate in the bases. Previous labs: 03/17/2021]: Creatinine 1.62 Assessment and plan: -Acute COVID 19 pneumonitis,'s causing hypoxia in a patient who is previously been vaccinated. Patient had received monoclonal antibodies and return to the ER in a few hours feeling worse.: Slow to respond Decadron 6 mg, Lovenox subcu, vitamin C zinc vitamin D. Pulmonary consultation -Acute hypoxic respiratory failure from COVID 19 pneumonitis, with pulse ox dropping to 87% on room air: Slow to respond Currently on 10 L nasal cannula -Acute GI bleed, suspect upper GI source.. Note patient is on aspirin, Plavix. Dexamethasone. IV heparin. Follow H&H. DC IV heparin. Stop Plavix. Surgery on the case. Started on eliquis today by his cardiology. -New onset atrial fibrillation. Rate controlled. Lopressor 25 mg twice a day. IV heparin that was started discontinued because of dark stools. Started on eliquis -Patient was having pauses on telemetry Dose of Lopressor cutback -CAD with stent Lopressor, Plavix, aspirin-discontinued, Lipitor -Hyperlipidemia Lipitor 80 mg by mouth daily -Essential hypertension Lopressor 50 mg a morning pre-5 mg the evening, amlodipine 5 mg a day -Primary osteoarthritis multiple joints bilaterally Use pain medications as needed -Chronic diverticulosis, asymptomatic Follow clinically -Chronic kidney disease stage III from nephrosclerosis At the baseline creatinine of 1.6 -Acute kidney injury likely prerenal from decreased oral intake: Slow improvement IV fluids. Follow renal function -Bilateral nephrolithiasis. Patient did pass a stone 3 days ago with some hematuria which is improved. On March 06 patient underwent left ureteroscope even with laser lithotripsy and placement of a double-J catheter by Dr. Flores Dexamethasone. Subcu Lovenox. 12 L nasal cannula. . Started on eliquis by cardiology. PPI. Repeat CBC.
--- NOTE | 2021-04-07 14:40 | P.PN ---
Subjective Progress Note Date: 04/07/21 Principal diagnosis: Dyspnea This is a 75-year-old gentleman who follows with Dr. Edmonds as his primary care provider. He has a history of coronary artery disease with previous stent placements, nephrolithiasis with recent passing of a kidney stone, retention, hyperlipidemia, obesity. He presented here to the emergency room yesterday with poor appetite and a generalized weakness and shortness of breath. White count 15.3. Hemoglobin 12.0. Lymphocytes 0.4. Sodium 134. Potassium 3.8. Creatinine 2.50. BUN 31. GFR 24. Glucose 139. AST 46. ALT 42. LDH 566. C-reactive protein 26.7. Chronic virus by PCR positive. The patient has been vaccinated back in July 2020 2 with Moderna. No booster. Chest x-ray does reveal new patchy airspace disease bilaterally. Elevated right hemidiaphragm. He is seen today in consultation in the emergency room. He is currently lying on the stretcher on his right side. This helps him breathe the easiest. He is currently requiring 6 L high flow nasal cannula to maintain O2 saturations in the low 90s. He was 87% on room air. He's been afebrile. Slightly tachycardic. Tachypneic. He's been initiated on Decadron. The patient is seen today 04/04/2021 in follow-up on the regular medical floor. He is currently resting comfortably in bed. Laying on his right side. Breathing a bit easier today compared to yesterday. He is still requiring 15 L high flow nasal cannula to maintain O2 saturation in the low 90s. He is afebrile. Hemodynamically stable. His appetite has improved. D-dimer 1.08. Sodium 134. Potassium 3.8. Creatinine 2.25. Glucose 139. LDH 529. C- reactive protein 35.9. Pro-calcitonin 5.08. Urine culture pending. Blood culture revealed no growth to date. He is continued on Decadron, Lovenox, vitamin supplements. 0.45 normal saline at 100 ML's per hour. The patient is seen today 04/05/2021 in follow-up on the regular medical floor. He is currently resting in bed on his right side. Awake and alert in no acute distress. He is still requiring 15 L high flow nasal cannula to maintain O2 saturation in the low 90s. He's been afebrile. Hemodynamically stable. Follow-up chest x-ray continues to show right hemidiaphragm elevation with some possible pleural effusion. Ultrasound of the right chest pending. Blood culture reveals no growth. D-dimer 0.9. Sodium 136. Potassium 3.9. Creatinine 2.09. He remains on Decadron, Lovenox, vitamin supplements. The patient is seen today 04/06/2021 in follow-up on the regular medical floor. He is currently sitting up at the bedside. Awake and alert in no acute distress. He is still requiring 14 L high flow nasal cannula with O2 saturations in the mid 90s. Ultrasound of the right chest revealed no significant pleural effusion. Blood culture revealed no growth. INR 1.3. D- dimer 0.6. Sodium 135. Potassium 4.2. Creatinine 1.98. BUN 68. C-reactive protein 6.3. Glucose 137. Continued on Decadron, vitamin supplements, Levaquin. The patient was found to be in atrial fibrillation with sinus pauses. Beta blockers were adjusted. Currently on a heparin drip. On 04/07/2021 patient seen in follow-up on selective care unit, he is awake and alert, in no acute distress, he is currently on 12 L of oxygen pulse ox is 90%. Appears to be in no acute distress. He sitting up in the recliner, breathing comfortably, patient has diminished breath sounds on the right, he has chronically elevated right hemidiaphragm, he is ultrasound of the chest showed no significant pleural fluid on the right for drainage, overall breathing comfortably, respirations are nonlabored, he has diffuse crackles over left lower base, his been afebrile. He remains on Decadron 6 mg daily, he is on empiric antibiotics in the form of Levaquin, and he is on Eliquis 2.5 mg twice daily for new onset atrial fibrillation. No acute events overnight, occasional cough, no phlegm production. Objective - Vital Signs Vital signs: Vital Signs Temp 96.9 F L 04/07/21 12:00 Pulse 99 04/07/21 12:00 Resp 18 04/07/21 12:00 BP 144/68 04/07/21 12:00 Pulse Ox 94 L 04/07/21 12:00 Intake & Output 04/06/21 04/07/21 04/07/21 18:59 06:59 18:59 Intake Total 1200 480 236 Output Total 100 Balance 1200 480 136 Intake: Intake, IV Titration 1200 Amount Heparin Sod,Pork in 0.45% 0 NaCl 25,000 unit In 0.45 % NaCl 1 250ml.bag @ 10. 15 UNITS/KG/HR 9.998 mls/ hr IV .Q24H [facility] Rx#: [id number] Sodium Chloride 0.45% 1, 1200 000 ml @ 50 mls/hr IV . Q20H [facility] Rx#:[id number] Oral 480 236 Output: Urine 100 Other: Voiding Method Bedside Commode Urinal # Voids 3 3 # Bowel Movements 1 - Exam GENERAL EXAM: Alert, very pleasant, 75-year-old white male, on 10 L of oxygen pulse ox is 94-98% comfortable in no apparent distress. HEAD: Normocephalic/atraumatic. EYES: Normal reaction of pupils, equal size. Conjunctiva pink, sclera white. NOSE: Clear with pink turbinates. THROAT: No erythema or exudates. NECK: No masses, no JVD, no thyroid enlargement, no adenopathy. CHEST: No chest wall deformity. Symmetrical expansion. LUNGS: Diminished air entry over right lung noted, diffuse scattered crackles o everett left lung CVS: Irregular rate and rhythm, normal S1 and S2, no gallops, no murmurs, no rubs ABDOMEN: Soft, nontender. No hepatosplenomegaly, normal bowel sounds, no guarding or rigidity. EXTREMITIES: No clubbing, no edema, no cyanosis, 2+ pulses and upper and lower extremities. MUSCULOSKELETAL: Muscle strength and tone normal. SPINE: No scoliosis or deformity SKIN: No rashes CENTRAL NERVOUS SYSTEM: Alert and oriented -3. No focal deficits, tone is normal in all 4 extremities. PSYCHIATRIC: Alert and oriented -3. Appropriate affect. Intact judgment and insight. - Labs CBC & Chem 7: 04/07/21 07:09 04/06/21 04:59 Labs: Abnormal Lab Results - Last 24 Hours (Table) 04/06/21 04/06/21 04/06/21 Range/Units 16:28 16:52 20:01 WBC 16.5 H (3.8-10.6) k/uL RBC 3.87 L (4.30-5.90) m/uL Hgb 12.3 L (13.0-17.5) gm/dL Hct 37.9 L (39.0-53.0) % Neutrophils # (1.3-7.7) k/uL D-Dimer (<0.60) mg/L FEU POC Glucose (mg/dL) 198 H 157 H (75-99) mg/dL C-Reactive Protein (<1.0) mg/dL 04/07/21 04/07/21 04/07/21 Range/Units 06:08 07:09 07:09 WBC 18.3 H (3.8-10.6) k/uL RBC 3.96 L (4.30-5.90) m/uL Hgb 12.4 L (13.0-17.5) gm/dL Hct 38.1 L (39.0-53.0) % Neutrophils # 16.1 H (1.3-7.7) k/uL D-Dimer 0.83 H (<0.60) mg/L FEU POC Glucose (mg/dL) 113 H (75-99) mg/dL C-Reactive Protein (<1.0) mg/dL 04/07/21 04/07/21 Range/Units 07:09 11:22 WBC (3.8-10.6) k/uL RBC (4.30-5.90) m/uL Hgb (13.0-17.5) gm/dL Hct (39.0-53.0) % Neutrophils # (1.3-7.7) k/uL D-Dimer (<0.60) mg/L FEU POC Glucose (mg/dL) 139 H (75-99) mg/dL C-Reactive Protein 3.9 H (<1.0) mg/dL Microbiology - Last 24 Hours (Table) 04/03/21 10:41 Blood Culture - Preliminary Blood No Growth after 96 hours Assessment and Plan Plan: Assessment: #1. Acute hypoxic rest secondary to acute COVID-19 pneumonia, and possible pneumonia is not completely excluded, patient is covered with Levaquin. Patient was vaccinated with DuoNeb vaccine in July 2020. Did not qualify for Remdesivir related to his GFR of less than 30. #2. Rule out possibility of underlying pneumonia, community-acquired, currently covered with Levaquin #3. Acute renal failure #4. History of nephrolithiasis with recent history of kidney stone passing 2 days ago. Renal ultrasound on 03/17/2021 showed multiple bilateral renal calculi. No evidence of hydronephrosis #4. Leukocytosis, with elevated pro calcitonin #5. Coronary artery disease with previous stent placement #6. History of CVA/TIA #. Hyperlipidemia #8. Hypertension #9. New-onset A. fib with bradycardia, patient was started on Eliquis, currently rate is 70-80 BPM #10. Possible GI bleed, surgery has been consulted, hemoglobin has been stable at 12.4 Plan: Continue current medical treatment Continue Decadron, Eliquis is on hold for possible blood in stool Wean Fio2 to keep O2 sat at or above 90% Breathing comfortably, encouraged the patient to sit up in the chair and deep breathing and cough, Provide incentive spirometer No plans for thoracentesis I performed a history & physical examination of the patient and discussed their management with my nurse practitioner, Dottie Askew. I reviewed the nurse practitioner's note and agree with the documented findings and plan of care. Lung sounds are positive for diminished breath sounds throughout the lung ross. The findings and the impression was discussed with the patient. I attest to the documentation by the nurse practitioner. Time with Patient: Greater than 30
[2021-04-07 16:52] LABS: Glucose,Whole Blood 176 mg/dL (75-99)
[2021-04-07 20:19] LABS: Glucose,Whole Blood 151 mg/dL (75-99)
[2021-04-08 05:57] LABS: Glucose,Whole Blood 104 mg/dL (75-99)
[2021-04-08 06:23] LABS: Basophils % (A) 0 %; Eosinophils % (A) 0 %; HCT 37.2 % (39.0-53.0); Lymphocytes % (A) 5 %; MCH 31.6 pg (25.0-35.0); MCHC 32.3 g/dL (31.0-37.0); MCV 97.9 fL (80.0-100.0); Monocytes # (A) 1.1 k/uL (0-1.0); Monocytes % (A) 5 %; Neutrophils # (A) 18.6 k/uL (1.3-7.7); Neutrophils % (A) 89 %; Platelet Count 401 k/uL (150-450); RBC 3.81 m/uL (4.30-5.90); RDW 14.3 % (11.5-15.5); WBC 20.9 k/uL (3.8-10.6)
[2021-04-08] MEDS: INSULIN ASPART (NovoLOG) 100 UNIT/ML VIAL SQ SCH ×4 (06:32→21:14)
[2021-04-08 06:37] LABS: Calcium 8.7 mg/dL (8.4-10.2); Potassium 4.9 mmol/L (3.5-5.1)
[2021-04-08] MEDS: DEXAMETHASONE SOD PHOSPHATE 10 MG/ML 1 ML VIAL IVP SCH (09:05)
[2021-04-08] MEDS: ATORVASTATIN 80 MG TAB PO SCH (09:05)
[2021-04-08] MEDS: APIXABAN 2.5 MG TABLET PO SCH ×2 (09:05→21:14)
[2021-04-08] MEDS: METOPROLOL TARTRATE 12.5 MG TAB PO SCH ×2 (09:05→21:14)
[2021-04-08] MEDS: PANTOPRAZOLE 40 MG/10 ML VIAL IVP SCH ×2 (09:05→21:14)
[2021-04-08] MEDS: ZINC SULFATE 220 MG CAP PO SCH (09:06)
[2021-04-08] MEDS: ASCORBIC ACID 500 MG TAB PO SCH (09:06)
[2021-04-08] MEDS: CLOPIDOGREL 75 MG TAB PO SCH (09:06)
[2021-04-08] MEDS: amLODIPine 5 MG TAB PO SCH (09:06)
[2021-04-08] MEDS: CHOLECALCIFEROL 25 MCG (1000 IU) TABLET PO SCH (09:06)
--- NOTE | 2021-04-08 10:45 | P.PN ---
<Lucia Ahuja - Last Filed: 04/08/21 10:40> Subjective Progress Note Date: 04/08/21 CHIEF COMPLAINT: GI bleed HISTORY OF PRESENT ILLNESS: Surgical service is following her course patient's GI bleed. Patient has had no further blood in stools. He is having brown bowel movements. Denies any abdominal pain. Denies any pain with eating. Denies any nausea or vomiting. Afebrile. WBC 18.3 up to 20.9 hemoglobin stable at 12 down from 12.4. He is on Eliquis for A. fib. PHYSICAL EXAM: VITAL SIGNS: Reviewed. GENERAL: Well-developed in no acute distress. HEENT: No sclera icterus. Extraocular movements grossly intact. Moist buccal mucosa. Head is atraumatic, normocephalic. ABDOMEN: Soft. Nondistended. Nontender. NEUROLOGIC: Alert and oriented. Cranial nerves II through XII grossly intact. ASSESSMENT: 1. Possible GI bleed. Now resolved. No further signs of bleeding. 2. COVID-19 pneumonia PLAN: -Recommend endoscopies outpatient -Continue supportive care -Continue regular diet -Continue to monitor for any signs or symptoms of bleeding Physician [place] Expert note has been reviewed by physician. Signing provider agrees with the documented findings, assessment, and plan of care. Objective - Vital Signs Vital signs: Vital Signs Temp 98.6 F 04/08/21 09:22 Pulse 81 04/08/21 09:22 Resp 18 04/08/21 09:22 BP 114/58 04/08/21 09:22 Pulse Ox 93 L 04/08/21 09:22 Intake & Output 04/07/21 04/08/21 04/08/21 18:59 06:59 18:59 Intake Total 351 Output Total 100 200 Balance 251 -200 Weight 99.4 kg 99.5 kg Intake: Oral 351 Output: Urine 100 200 Other: Voiding Method Bedside Commode Bedside Commode Urinal Urinal # Bowel Movements 2 1 - Labs CBC & Chem 7: 04/08/21 05:33 04/08/21 05:33 Labs: Abnormal Lab Results - Last 24 Hours (Table) 04/07/21 04/07/21 04/07/21 Range/Units 11:22 16:51 20:07 WBC (3.8-10.6) k/uL RBC (4.30-5.90) m/uL Hgb (13.0-17.5) gm/dL Hct (39.0-53.0) % Neutrophils # (1.3-7.7) k/uL Monocytes # (0-1.0) k/uL Chloride (98-107) mmol/L Carbon Dioxide (22-30) mmol/L BUN (9-20) mg/dL Creatinine (0.66-1.25) mg/dL Glucose (74-99) mg/dL POC Glucose (mg/dL) 139 H 176 H 151 H (75-99) mg/dL C-Reactive Protein (<1.0) mg/dL Procalcitonin (0.02-0.09) ng/mL 04/08/21 04/08/21 04/08/21 Range/Units 05:33 05:33 05:33 WBC 20.9 H (3.8-10.6) k/uL RBC 3.81 L (4.30-5.90) m/uL Hgb 12.0 L (13.0-17.5) gm/dL Hct 37.2 L (39.0-53.0) % Neutrophils # 18.6 H (1.3-7.7) k/uL Monocytes # 1.1 H (0-1.0) k/uL Chloride 109 H (98-107) mmol/L Carbon Dioxide 21 L (22-30) mmol/L BUN 72 H (9-20) mg/dL Creatinine 2.60 H (0.66-1.25) mg/dL Glucose 110 H (74-99) mg/dL POC Glucose (mg/dL) (75-99) mg/dL C-Reactive Protein 3.0 H (<1.0) mg/dL Procalcitonin 0.54 H (0.02-0.09) ng/mL 04/08/21 Range/Units 05:56 WBC (3.8-10.6) k/uL RBC (4.30-5.90) m/uL Hgb (13.0-17.5) gm/dL Hct (39.0-53.0) % Neutrophils # (1.3-7.7) k/uL Monocytes # (0-1.0) k/uL Chloride (98-107) mmol/L Carbon Dioxide (22-30) mmol/L BUN (9-20) mg/dL Creatinine (0.66-1.25) mg/dL Glucose (74-99) mg/dL POC Glucose (mg/dL) 104 H (75-99) mg/dL C-Reactive Protein (<1.0) mg/dL Procalcitonin (0.02-0.09) ng/mL Microbiology - Last 24 Hours (Table) 04/03/21 10:41 Blood Culture - Preliminary Blood No Growth after 96 hours <Jersey Albarado - Last Filed: 04/08/21 18:02> Subjective As above. Patient still hasn't noticed any active bleeding. He is now on eloquis. Tolerating diet. No abdominal pain. Patient is not a good candidate for endoscopic evaluation at this time. Recommend patient have upper and lower endoscopy after Covid pneumonia improved. We'll sign off. Will have patient follow up post discharge to schedule upper and lower endoscopy. Objective - Vital Signs Vital signs: Vital Signs Temp 97.8 F 04/08/21 15:56 Pulse 80 04/08/21 15:56 Resp 18 04/08/21 15:56 BP 110/73 04/08/21 15:56 Pulse Ox 92 L 04/08/21 15:56 Intake & Output 04/07/21 04/08/21 04/08/21 18:59 06:59 18:59 Intake Total 351 236 Output Total 100 200 Balance 251 -200 236 Weight 99.4 kg 99.5 kg Intake: Oral 351 236 Output: Urine 100 200 Other: Voiding Method Bedside Commode Bedside Commode Urinal Urinal # Voids 1 # Bowel Movements 2 1 1 - Labs CBC & Chem 7: 04/08/21 05:33 04/08/21 05:33 Labs: Abnormal Lab Results - Last 24 Hours (Table) 04/07/21 04/08/21 04/08/21 Range/Units 20:07 05:33 05:33 WBC 20.9 H (3.8-10.6) k/uL RBC 3.81 L (4.30-5.90) m/uL Hgb 12.0 L (13.0-17.5) gm/dL Hct 37.2 L (39.0-53.0) % Neutrophils # 18.6 H (1.3-7.7) k/uL Monocytes # 1.1 H (0-1.0) k/uL Chloride (98-107) mmol/L Carbon Dioxide (22-30) mmol/L BUN (9-20) mg/dL Creatinine (0.66-1.25) mg/dL Glucose (74-99) mg/dL POC Glucose (mg/dL) 151 H (75-99) mg/dL C-Reactive Protein (<1.0) mg/dL Procalcitonin 0.54 H (0.02-0.09) ng/mL 04/08/21 04/08/21 04/08/21 Range/Units 05:33 05:56 11:40 WBC (3.8-10.6) k/uL RBC (4.30-5.90) m/uL Hgb (13.0-17.5) gm/dL Hct (39.0-53.0) % Neutrophils # (1.3-7.7) k/uL Monocytes # (0-1.0) k/uL Chloride 109 H (98-107) mmol/L Carbon Dioxide 21 L (22-30) mmol/L BUN 72 H (9-20) mg/dL Creatinine 2.60 H (0.66-1.25) mg/dL Glucose 110 H (74-99) mg/dL POC Glucose (mg/dL) 104 H 147 H (75-99) mg/dL C-Reactive Protein 3.0 H (<1.0) mg/dL Procalcitonin (0.02-0.09) ng/mL 04/08/21 Range/Units 16:41 WBC (3.8-10.6) k/uL RBC (4.30-5.90) m/uL Hgb (13.0-17.5) gm/dL Hct (39.0-53.0) % Neutrophils # (1.3-7.7) k/uL Monocytes # (0-1.0) k/uL Chloride (98-107) mmol/L Carbon Dioxide (22-30) mmol/L BUN (9-20) mg/dL Creatinine (0.66-1.25) mg/dL Glucose (74-99) mg/dL POC Glucose (mg/dL) 188 H (75-99) mg/dL C-Reactive Protein (<1.0) mg/dL Procalcitonin (0.02-0.09) ng/mL Microbiology - Last 24 Hours (Table) 04/03/21 10:41 Blood Culture - Preliminary Blood No Growth after 120 hours Assessment and Plan (1) GI bleed Current Visit: Yes Status: Acute Code(s): K92.2 - GASTROINTESTINAL HEMORRHAGE, UNSPECIFIED SNOMED Code(s): 42925041
[2021-04-08 11:41] LABS: Glucose,Whole Blood 147 mg/dL (75-99)
[2021-04-08] MEDS: LEVOFLOXACIN 250 MG TAB PO SCH (12:07)
--- NOTE | 2021-04-08 12:54 | P.PN ---
Subjective This is a 75 year old male with a past medical history of coronary artery disease s/p PCI to RCA 12/26/2020, PCI to proximal ramus intermidius 01/22/2021, hypertension, hyperlipidemia, chronic kidney disease, CVA. He follows with Dr. Owen. We are consulted for new atrial fibrillation with RVR and pauses on telemetry. Echo 11/2020 revealed EF 50-55%. Patient is admitted with Covid 19 pneumonia. Patient continues to be in atrial fibrillation HR 55-70s. He continues to have pauses on the monitor all 2-3seconds. No significant pauses noted. His beta claudia was decreased from 25-12.5 mg twice a day. He has been started on Eliquis 2.5 mg BID. Patient is also on amlodipine 5 mg daily, atorvastatin 80 mg daily, Plavix 75 mg daily. Patient was seen by surgery for possible GI bleed, plan for endoscopies as an outpatient GENERAL: Well-appearing, well-nourished and in no acute distress. NECK: Supple without JVD or thyromegaly. LUNGS: Breath sounds clear to auscultation bilaterally. Respiration equal and unlabored. No wheezes, rales or rhonchi. HEART: Irregular rate and rhythm. S1 and S2 heard. EXTREMITIES: no edema. ASSESSMENT: COVID-19 Pneumonia New onset Paroxysmal atrial fibrillation [id number] score 5 Coronary artery disease s/p PCI to RCA 12/26/2020, PCI to proximal ramus intermidius 01/22/2021 History of hypertension Hyperlipidemia Chronic kidney disease History of CVA PLAN: Patient's heart rates are controlled, will continue metoprolol tartrate 12.5mg BID Continue Eliquis 2.5mg daily, consult case management for coverage assistance Continue Plavix, discontinue aspirin Continue amlodipine 5mg daily Continue cardiac telemetry Patient was seen by surgery for possible GI bleed, plan for endoscopies as an outpatient Follow up with Dr. Owen as an outpatient Objective - Vital Signs Vital signs: Vital Signs Temp 98.6 F 04/08/21 09:22 Pulse 75 04/08/21 12:12 Resp 18 04/08/21 12:12 BP 115/55 04/08/21 12:12 Pulse Ox 94 L 04/08/21 12:12 Intake & Output 04/07/21 04/08/21 04/08/21 18:59 06:59 18:59 Intake Total 351 Output Total 100 200 Balance 251 -200 Weight 99.4 kg 99.5 kg Intake: Oral 351 Output: Urine 100 200 Other: Voiding Method Bedside Commode Bedside Commode Urinal Urinal # Voids 1 # Bowel Movements 2 1 - Labs CBC & Chem 7: 04/08/21 05:33 04/08/21 05:33 Labs: Abnormal Lab Results - Last 24 Hours (Table) 04/07/21 04/07/21 04/08/21 Range/Units 16:51 20:07 05:33 WBC (3.8-10.6) k/uL RBC (4.30-5.90) m/uL Hgb (13.0-17.5) gm/dL Hct (39.0-53.0) % Neutrophils # (1.3-7.7) k/uL Monocytes # (0-1.0) k/uL Chloride (98-107) mmol/L Carbon Dioxide (22-30) mmol/L BUN (9-20) mg/dL Creatinine (0.66-1.25) mg/dL Glucose (74-99) mg/dL POC Glucose (mg/dL) 176 H 151 H (75-99) mg/dL C-Reactive Protein (<1.0) mg/dL Procalcitonin 0.54 H (0.02-0.09) ng/mL 04/08/21 04/08/21 04/08/21 Range/Units 05:33 05:33 05:56 WBC 20.9 H (3.8-10.6) k/uL RBC 3.81 L (4.30-5.90) m/uL Hgb 12.0 L (13.0-17.5) gm/dL Hct 37.2 L (39.0-53.0) % Neutrophils # 18.6 H (1.3-7.7) k/uL Monocytes # 1.1 H (0-1.0) k/uL Chloride 109 H (98-107) mmol/L Carbon Dioxide 21 L (22-30) mmol/L BUN 72 H (9-20) mg/dL Creatinine 2.60 H (0.66-1.25) mg/dL Glucose 110 H (74-99) mg/dL POC Glucose (mg/dL) 104 H (75-99) mg/dL C-Reactive Protein 3.0 H (<1.0) mg/dL Procalcitonin (0.02-0.09) ng/mL 04/08/21 Range/Units 11:40 WBC (3.8-10.6) k/uL RBC (4.30-5.90) m/uL Hgb (13.0-17.5) gm/dL Hct (39.0-53.0) % Neutrophils # (1.3-7.7) k/uL Monocytes # (0-1.0) k/uL Chloride (98-107) mmol/L Carbon Dioxide (22-30) mmol/L BUN (9-20) mg/dL Creatinine (0.66-1.25) mg/dL Glucose (74-99) mg/dL POC Glucose (mg/dL) 147 H (75-99) mg/dL C-Reactive Protein (<1.0) mg/dL Procalcitonin (0.02-0.09) ng/mL Microbiology - Last 24 Hours (Table) 04/03/21 10:41 Blood Culture - Preliminary Blood No Growth after 96 hours
--- NOTE | 2021-04-08 14:01 | P.PN ---
Progress Note - Text Progress Note Date: 04/08/21 Chief Complaint: Not feeling well This is a very pleasant 75-year-old patient who follows Dr. Edmonds. Chronic stable medical conditions include CAD with stent, hypertension, hyperlipidemia, stroke in the past with some right-sided weakness that resolved, bilateral kid hardik stones, right diaphragm paralysis diverticulosis. Arthritis in the joints. Patient presents with decreased appetite for 3 days. No loss of smell or taste. Feeling very weak. Slight fever. No diarrhea no headache. Slight cough. Patient did pass a kidney stone 3 days ago. Feeling tired and rundown. Some shortness of breath. Patient did test for positive for COVID in the ER. Patient had received prior vaccination. Patient presented yesterday evening to the ER and received monoclonal antibodies. He was discharged. He came back to the ER feeling worse and hypoxic. And therefore admitted April 04: shortness of breath. On 15 L nasal cannula. Tired April 05: Short of breath. On 15 L nasal cannula. Tired. Oral intake fair. April 06: Short of breath. Remains on 15 L nasal cannula. Tired. Eating 25-50%. Patient had dark stools this morning. I discontinued IV heparin. GI service not available the hospital. Surgery consulted. Protonix added. No abdominal pain. Patient (yesterday went into atrial fibrillation. With pauses. Lopressor dose was cut back. Started IV heparin by cardiology.] Atrial fibrillation rate controlled today. April 07: Remain short of breath. Tired. From Black stool changed over to dark brown stool. No abdominal pain. Sitting up in a recliner. Eating about 25%. 98% on 10 L. Started on eliquis by cardiology. April 08: No more dark stools. Breathing she did better. Eating doesn't nasal cannula. Sitting up in a chair. Eating some. Review of systems: Was done for constitutional, cardiovascular, GI, pulmonary. relevant finding as above Active Medications Acetaminophen (Acetaminophen Tab 325 Mg Tab) 650 mg PO Q6HR PRN PRN Reason: Mild Pain or Fever > 100.5 Amlodipine Besylate (Amlodipine 5 Mg Tab) 5 mg PO DAILY [facility] Last Admin: 04/08/21 09:06 Dose: 5 mg Documented by: Apixaban (Apixaban 2.5 Mg Tablet) 2.5 mg PO BID [facility]; Protocol Last Admin: 04/08/21 09:05 Dose: 2.5 mg Documented by: Ascorbic Acid (Ascorbic Acid 500 Mg Tab) 1,000 mg PO DAILY [facility] Last Admin: 04/08/21 09:06 Dose: 1,000 mg Documented by: Atorvastatin Calcium (Atorvastatin 80 Mg Tab) 80 mg PO DAILY [facility] Last Admin: 04/08/21 09:05 Dose: 80 mg Documented by: Cholecalciferol (Cholecalciferol 25 Mcg (1000 Iu) Tablet) 25 mcg PO DAILY [facility] Last Admin: 04/08/21 09:06 Dose: 25 mcg Documented by: Clopidogrel Bisulfate (Clopidogrel 75 Mg Tab) 75 mg PO DAILY [facility] Last Admin: 04/08/21 09:06 Dose: 75 mg Documented by: Dexamethasone Sodium Phosphate (Dexamethasone Sod Phosphate 10 Mg/Ml 1 Ml Vial) 6 mg IVP DAILY [facility] Last Admin: 04/08/21 09:05 Dose: 6 mg Documented by: Sodium Chloride (Saline 0.45%) 1,000 mls @ 50 mls/hr IV .Q20H [facility] Last Admin: 04/07/21 20:40 Dose: 50 mls/hr Documented by: Insulin Aspart (Insulin Aspart (Novolog) 100 Unit/Ml Vial) 0 unit SQ ACHS [facility]; Protocol Last Admin: 04/08/21 12:06 Dose: 1 unit Documented by: Levofloxacin (Levofloxacin 250 Mg Tab) 250 mg PO Q24H [facility] Last Admin: 04/08/21 12:07 Dose: 250 mg Documented by: Metoprolol Tartrate (Metoprolol Tartrate 12.5 Mg Tab) 12.5 mg PO BID [facility] Last Admin: 04/08/21 09:05 Dose: 12.5 mg Documented by: Naloxone HCl (Naloxone 0.4 Mg/Ml 1 Ml Vial) 0.2 mg IV Q2M PRN PRN Reason: Opioid Reversal Nitroglycerin (Nitroglycerin Sl Tabs 0.4 Mg Tab) 0.4 mg SUBLINGUAL Q5M PRN PRN Reason: Chest Pain Ondansetron HCl (Ondansetron 4 Mg/2 Ml Vial) 4 mg IVP Q8HR PRN PRN Reason: Nausea And Vomiting Pantoprazole Sodium (Pantoprazole 40 Mg/10 Ml Vial) 40 mg IVP BID [facility] Last Admin: 04/08/21 09:05 Dose: 40 mg Documented by: Zinc Sulfate (Zinc Sulfate 220 Mg Cap) 220 mg PO DAILY [facility] Last Admin: 04/08/21 09:06 Dose: 220 mg Documented by: Past medical history to include: CAD with stent, stroke with right-sided weakness that is resolved, hypertension, hyperlipidemia, kidney stones bilateral, right diaphragm paralysis, diverticulosis Social history: Sometimes uses a cane. . Retired. Does not smoke or drink alcohol. Family history: Diabetes, hypertension, Alzheimer's. Physical examination: VITAL SIGNS: 98.6, 91, 18, 140s/58, 93% on 8 L GENERAL: Sitting up in chair, awake, tired LUNGS: Respiratory rate increased, . PSYCH: Alert and oriented x3; mood and affect normal. NEUROLOGICAL: Cranial nerves grossly intact; no facial asymmetry, moving all 4 limbs Rest of exam. As per Pulmonary and nursing INVESTIGATIONS, reviewed in the clinical context: April 08: WBC 20.9 hemoglobin 12 platelets 401 potassium 4.9 BUN 72 creatinine 2.6 CRP 3. D-dimer 0.5 to April 07: White count 18.3 hemoglobin 12.4 d-dimer 0.83 CRP 3.9 April 05: White count 14.7 hemoglobin 13.7 d-dimer 0.9 BUN 59 creatinine 2.09 CRP 17.5 April 04: D-dimer 1.08 progression 3.8 BUN 43 creatinine 2.25 WBC 15.3 hemoglobin 12 platelets 222 sodium 134 potassium 3.8 BUN 31 creatinine 2.50 Coronavirus [PCR]: Detected EKG tracing personally reviewed by me. Right bundle-branch block. DC. Normal sinus rhythm. Rate 105 Chest x-ray film personally reviewed by me-right diaphragm elevation. Infiltrate in the bases. Previous labs: 03/17/2021]: Creatinine 1.62 Assessment and plan: -Acute COVID 19 pneumonitis,'s causing hypoxia in a patient who is previously been vaccinated. Patient had received monoclonal antibodies and return to the ER in a few hours feeling worse.: Slow to respond Decadron 6 mg, Lovenox subcu, vitamin C zinc vitamin D. Pulmonary consultation -Acute hypoxic respiratory failure from COVID 19 pneumonitis, with pulse ox dropping to 87% on room air: Slow to respond Currently on 8 L nasal cannula -Acute GI bleed, suspect upper GI source.. Note patient is on aspirin, Plavix. Dexamethasone. IV heparin. Follow H&H. DC IV heparin. Stop Plavix. Surgery on the case. On eliquis for A. fib.. -New onset atrial fibrillation. Rate controlled. Lopressor 25 mg twice a day. IV heparin that was started discontinued because of dark stools. Started on eliquis -Patient was having pauses on telemetry Dose of Lopressor cutback -CAD with stent Lopressor, Plavix, aspirin-discontinued, Lipitor -Hyperlipidemia Lipitor 80 mg by mouth daily -Essential hypertension Lopressor 50 mg a morning pre-5 mg the evening, amlodipine 5 mg a day -Primary osteoarthritis multiple joints bilaterally Use pain medications as needed -Chronic diverticulosis, asymptomatic Follow clinically -Chronic kidney disease stage III from nephrosclerosis At the baseline creatinine of 1.6 -Acute kidney injury likely prerenal from decreased oral intake: Worsening Creatinine 2.6. Increase IV fluids 200 mL an hour.. Follow renal function -Bilateral nephrolithiasis. Patient did pass a stone 3 days ago with some hematuria which is improved. On March 06 patient underwent left ureteroscope even with laser lithotripsy and placement of a double-J catheter by Dr. Mark Mason. Subcu Lovenox. 8 L nasal cannula. . Eliquis PPI. Follow BMP. Increase IV fluids 100 mL an hour.
--- NOTE | 2021-04-08 15:44 | P.PN ---
Subjective Progress Note Date: 04/08/21 Principal diagnosis: Coronavirus associated pneumonia. This is a 75-year-old gentleman who follows with Dr. Edmonds as his primary care provider. He has a history of coronary artery disease with previous stent placements, nephrolithiasis with recent passing of a kidney stone, retention, hyperlipidemia, obesity. He presented here to the emergency room yesterday with poor appetite and a generalized weakness and shortness of breath. White count 15.3. Hemoglobin 12.0. Lymphocytes 0.4. Sodium 134. Potassium 3.8. Creatinine 2.50. BUN 31. GFR 24. Glucose 139. AST 46. ALT 42. LDH 566. C- reactive protein 26.7. Chronic virus by PCR positive. The patient has been v accinated back in July 2020 2 with Moderna. No booster. Chest x-ray does reveal new patchy airspace disease bilaterally. Elevated right hemidiaphragm. He is seen today in consultation in the emergency room. He is currently lying on the stretcher on his right side. This helps him breathe the easiest. He is currently requiring 6 L high flow nasal cannula to maintain O2 saturations in the low 90s. He was 87% on room air. He's been afebrile. Slightly tachycardic. Tachypneic. He's been initiated on Decadron. The patient is seen today 04/04/2021 in follow-up on the regular medical floor. He is currently resting comfortably in bed. Laying on his right side. Breathing a bit easier today compared to yesterday. He is still requiring 15 L high flow nasal cannula to maintain O2 saturation in the low 90s. He is afebrile. Hemodynamically stable. His appetite has improved. D-dimer 1.08. Sodium 134. Potassium 3.8. Creatinine 2.25. Glucose 139. LDH 529. C- reactive protein 35.9. Pro-calcitonin 5.08. Urine culture pending. Blood culture revealed no growth to date. He is continued on Decadron, Lovenox, vitamin supplements. 0.45 normal saline at 100 ML's per hour. The patient is seen today 04/05/2021 in follow-up on the regular medical floor. He is currently resting in bed on his right side. Awake and alert in no acute distress. He is still requiring 15 L high flow nasal cannula to maintain O2 saturation in the low 90s. He's been afebrile. Hemodynamically stable. Follow-up chest x-ray continues to show right hemidiaphragm elevation with some possible pleural effusion. Ultrasound of the right chest pending. Blood culture reveals no growth. D-dimer 0.9. Sodium 136. Potassium 3.9. Creatinine 2.09. He remains on Decadron, Lovenox, vitamin supplements. The patient is seen today 04/06/2021 in follow-up on the regular medical floor. He is currently sitting up at the bedside. Awake and alert in no acute distress. He is still requiring 14 L high flow nasal cannula with O2 saturations in the mid 90s. Ultrasound of the right chest revealed no s ignificant pleural effusion. Blood culture revealed no growth. INR 1.3. D- dimer 0.6. Sodium 135. Potassium 4.2. Creatinine 1.98. BUN 68. C-reactive protein 6.3. Glucose 137. Continued on Decadron, vitamin supplements, Levaquin. The patient was found to be in atrial fibrillation with sinus pauses. Beta blockers were adjusted. Currently on a heparin drip. On 04/07/2021 patient seen in follow-up on selective care unit, he is awake and alert, in no acute distress, he is currently on 12 L of oxygen pulse ox is 90%. Appears to be in no acute distress. He sitting up in the recliner, breathing comfortably, patient has diminished breath sounds on the right, he has chronically elevated right hemidiaphragm, he is ultrasound of the chest showed no significant pleural fluid on the right for drainage, overall breathing comfortably, respirations are nonlabored, he has diffuse crackles over left lower base, his been afebrile. He remains on Decadron 6 mg daily, he is on empiric antibiotics in the form of Levaquin, and he is on Eliquis 2.5 mg twice daily for new onset atrial fibrillation. No acute events overnight, occasional cough, no phlegm production. Progress note dated 04/08/2021. 75-year-old male seen today in room 354. The patient is currently on 6 L nasal cannula, and receiving half-normal saline at 50 mL an hour. He has been vaccinated against coronavirus infection. The patient feels much better today. Much less short of breath. Apparently yesterday he was on 12 L of oxygen. The patient has recently found to have coronary artery disease, and apparently was c onsidering bypass grafting, but instead, stents were placed. White count 20.1, he will been 12, hematocrit 37.2, with a normal platelet count. D-dimer is 0.52. Sodium 139, potassium 4.9, chlorides 109, CO2 21, anion gap 9, BUN 72, with creatinine of 2.60. Pro-calcitonin levels 0.54. Microbiology is negative. A chest x-ray reveals a chronically elevated right diaphragm. Ultrasound did not show significant fluid collection. Objective - Vital Signs Vital signs: Vital Signs Temp 98.6 F 04/08/21 09:22 Pulse 75 04/08/21 14:00 Resp 18 04/08/21 14:00 BP 115/55 04/08/21 12:12 Pulse Ox 94 L 04/08/21 12:12 Intake & Output 04/07/21 04/08/21 04/08/21 18:59 06:59 18:59 Intake Total 351 236 Output Total 100 200 Balance 251 -200 236 Weight 99.4 kg 99.5 kg Intake: Oral 351 236 Output: Urine 100 200 Other: Voiding Method Bedside Commode Bedside Commode Urinal Urinal # Voids 1 # Bowel Movements 2 1 1 - Exam No acute distress, oriented 3. Currently on 8 liter high flow nasal cannula with saturations of 94%. HEENT examination is grossly unremarkable. Neck supple. Full range of motion. No adenopathy thyromegaly or neck vein distention. Cardiovascular examination reveals regular rhythm rate. S1-S2 normal. No S3 or S4. No discernible murmur noted. Heart sounds are distant. Heart rate 75 bpm. Lungs reveal scattered rhonchi throughout. Severely diminished breath sounds at the right base. No wheezes. No crackles. Abdomen soft bowel sounds are heard. No masses or tenderness. Extremities are intact. No cyanosis clubbing or edema. Skin is without rash or lesion. Neurologic examination is brief but nonfocal. - Labs CBC & Chem 7: 04/08/21 05:33 04/08/21 05:33 Labs: Abnormal Lab Results - Last 24 Hours (Table) 04/07/21 04/07/21 04/08/21 Range/Units 16:51 20:07 05:33 WBC (3.8-10.6) k/uL RBC (4.30-5.90) m/uL Hgb (13.0-17.5) gm/dL Hct (39.0-53.0) % Neutrophils # (1.3-7.7) k/uL Monocytes # (0-1.0) k/uL Chloride (98-107) mmol/L Carbon Dioxide (22-30) mmol/L BUN (9-20) mg/dL Creatinine (0.66-1.25) mg/dL Glucose (74-99) mg/dL POC Glucose (mg/dL) 176 H 151 H (75-99) mg/dL C-Reactive Protein (<1.0) mg/dL Procalcitonin 0.54 H (0.02-0.09) ng/mL 04/08/21 04/08/21 04/08/21 Range/Units 05:33 05:33 05:56 WBC 20.9 H (3.8-10.6) k/uL RBC 3.81 L (4.30-5.90) m/uL Hgb 12.0 L (13.0-17.5) gm/dL Hct 37.2 L (39.0-53.0) % Neutrophils # 18.6 H (1.3-7.7) k/uL Monocytes # 1.1 H (0-1.0) k/uL Chloride 109 H (98-107) mmol/L Carbon Dioxide 21 L (22-30) mmol/L BUN 72 H (9-20) mg/dL Creatinine 2.60 H (0.66-1.25) mg/dL Glucose 110 H (74-99) mg/dL POC Glucose (mg/dL) 104 H (75-99) mg/dL C-Reactive Protein 3.0 H (<1.0) mg/dL Procalcitonin (0.02-0.09) ng/mL 04/08/21 Range/Units 11:40 WBC (3.8-10.6) k/uL RBC (4.30-5.90) m/uL Hgb (13.0-17.5) gm/dL Hct (39.0-53.0) % Neutrophils # (1.3-7.7) k/uL Monocytes # (0-1.0) k/uL Chloride (98-107) mmol/L Carbon Dioxide (22-30) mmol/L BUN (9-20) mg/dL Creatinine (0.66-1.25) mg/dL Glucose (74-99) mg/dL POC Glucose (mg/dL) 147 H (75-99) mg/dL C-Reactive Protein (<1.0) mg/dL Procalcitonin (0.02-0.09) ng/mL Microbiology - Last 24 Hours (Table) 04/03/21 10:41 Blood Culture - Preliminary Blood No Growth after 120 hours Assessment and Plan Assessment: Acute hypoxemic respiratory failure secondary to coronavirus associated pneumonia. Possible community-acquired pneumonia. Acute renal failure. History of nephrolithiasis. CAD with previous stent placement. History of CVA. History of hyperlipidemia. History of hypertension. History of new onset atrial fibrillation. History of possible GI bleed. History of chronically elevated right diaphragm. Plan: Plan dated 04/08/2021. The patient continues on appropriate medications including Decadron, Eliquis, and vitamins. The patient's currently on 8 L high flow nasal O2. The patient's getting half-normal saline at 50 mL an hour. Medications, labs, and x-rays all reviewed. No plans for thoracentesis. Ultrasound shows small amount of fluid in the right pleural space. He has a chronically elevated right hemidiaphragm. Yesterday, he was on 12 L high flow. He does seem to be improving albeit slo wly. Time with Patient: Less than 30
[2021-04-08 16:42] LABS: Glucose,Whole Blood 188 mg/dL (75-99)
[2021-04-08] MEDS: SODIUM CHLORIDE 0.45% 1,000 ML IV SCH (16:42)
[2021-04-08] MEDS: SODIUM BICARBONATE TAB 650 MG TAB PO SCH ×2 (16:45→21:14)
[2021-04-08 19:58] LABS: Glucose,Whole Blood 181 mg/dL (75-99)
[2021-04-09] MEDS: SODIUM CHLORIDE 0.45% 1,000 ML IV SCH ×2 (05:11→10:20)
[2021-04-09 06:17] LABS: Glucose,Whole Blood 101 mg/dL (75-99)
[2021-04-09 06:28] LABS: Calcium 8.6 mg/dL (8.4-10.2); Potassium 4.6 mmol/L (3.5-5.1)
[2021-04-09] MEDS: INSULIN ASPART (NovoLOG) 100 UNIT/ML VIAL SQ SCH ×4 (06:30→21:51)
[2021-04-09] MEDS: APIXABAN 2.5 MG TABLET PO SCH ×2 (10:18→21:50)
[2021-04-09] MEDS: ATORVASTATIN 80 MG TAB PO SCH (10:18)
[2021-04-09] MEDS: CLOPIDOGREL 75 MG TAB PO SCH (10:18)
[2021-04-09] MEDS: CHOLECALCIFEROL 25 MCG (1000 IU) TABLET PO SCH (10:18)
[2021-04-09] MEDS: METOPROLOL TARTRATE 12.5 MG TAB PO SCH ×2 (10:18→21:50)
[2021-04-09] MEDS: ZINC SULFATE 220 MG CAP PO SCH (10:18)
[2021-04-09] MEDS: amLODIPine 5 MG TAB PO SCH (10:19)
[2021-04-09] MEDS: LEVOFLOXACIN 250 MG TAB PO SCH (10:19)
[2021-04-09] MEDS: PANTOPRAZOLE 40 MG/10 ML VIAL IVP SCH ×2 (10:19→21:51)
[2021-04-09] MEDS: ASCORBIC ACID 500 MG TAB PO SCH (10:19)
[2021-04-09] MEDS: DEXAMETHASONE SOD PHOSPHATE 10 MG/ML 1 ML VIAL IVP SCH (10:19)
[2021-04-09] MEDS: SODIUM BICARBONATE TAB 650 MG TAB PO SCH (10:24)
[2021-04-09 11:27] VITALS: BMI 32.3
--- NOTE | 2021-04-09 11:28 | P.PN ---
Subjective This is a 75 year old male with a past medical history of coronary artery disease s/p PCI to RCA 12/26/2020, PCI to proximal ramus intermidius 01/22/2021, hypertension, hyperlipidemia, chronic kidney disease, CVA. He follows with Dr. Owen. We are consulted for new atrial fibrillation with RVR and pauses on telemetry. Echo 11/2020 revealed EF 50-55%. Patient is admitted with Covid 19 pneumonia. Patient continues to be in atrial fibrillation heart rates are controlled. He continues to have pauses on the monitor all 3 seconds or less than 3 seconds. No significant pauses noted. He is currently maintained on metprolol tartrate 12.5 mg BID, Eliquis 2.5 mg BID, amlodipine 5 mg daily, atorvastatin 80 mg daily, Plavix 75 mg daily. VITALS: Blood pressure 121/56, heart rate 70, afebrile, oxygen saturation 93%, requiring 7 liters high flow nasal cannula GENERAL: In no acute distress. NECK: Supple without JVD or thyromegaly. LUNGS: Respiration equal and unlabored. HEART: Irregular rate and rhythm. ASSESSMENT: COVID-19 Pneumonia New onset Paroxysmal atrial fibrillation [id number] score 5 Coronary artery disease s/p PCI to RCA 12/26/2020, PCI to proximal ramus intermidius 01/22/2021 History of hypertension Hyperlipidemia Chronic kidney disease History of CVA PLAN: Patient's heart rates are controlled, will continue metoprolol tartrate 12.5mg BID Continue Eliquis 2.5mg daily, per case management, patient does not have Rx coverage, he will get a free month of Eliqius, he may need to be transition to another anticoagulation in the office Continue Plavix, discontinue aspirin Continue amlodipine 5mg daily Patient was seen by surgery for possible GI bleed, plan for endoscopies as an outpatient We will follow the patient as needed. Please reach out with any further questions or concerns. Follow up with Dr. Owen as an outpatient Objective - Vital Signs Vital signs: Vital Signs Temp 97.8 F 04/09/21 04:00 Pulse 70 04/09/21 04:00 Resp 18 04/09/21 04:00 BP 121/56 04/09/21 04:00 Pulse Ox 93 L 04/09/21 04:00 Intake & Output 04/08/21 04/09/21 04/09/21 18:59 06:59 18:59 Intake Total 476 480 Output Total 450 Balance 476 30 Intake: Oral 476 480 Output: Urine 450 Other: Voiding Method Bedside Commode Bedside Commode Urinal Urinal # Voids 1 1 # Bowel Movements 1 1 - Labs CBC & Chem 7: 04/08/21 05:33 04/09/21 05:20 Labs: Abnormal Lab Results - Last 24 Hours (Table) 04/08/21 04/08/21 04/08/21 Range/Units 11:40 16:41 19:56 Chloride (98-107) mmol/L Carbon Dioxide (22-30) mmol/L BUN (9-20) mg/dL Creatinine (0.66-1.25) mg/dL Glucose (74-99) mg/dL POC Glucose (mg/dL) 147 H 188 H 181 H (75-99) mg/dL 04/09/21 04/09/21 Range/Units 05:20 06:13 Chloride 112 H (98-107) mmol/L Carbon Dioxide 16 L (22-30) mmol/L BUN 73 H (9-20) mg/dL Creatinine 2.77 H (0.66-1.25) mg/dL Glucose 111 H (74-99) mg/dL POC Glucose (mg/dL) 101 H (75-99) mg/dL Microbiology - Last 24 Hours (Table) 04/03/21 10:41 Blood Culture - Preliminary Blood No Growth after 120 hours
--- NOTE | 2021-04-09 11:43 | P.PN ---
Subjective Progress Note Date: 04/09/21 Principal diagnosis: Coronavirus associated pneumonia. This is a 75-year-old gentleman who follows with Dr. Edmonds as his primary care provider. He has a history of coronary artery disease with previous stent placements, nephrolithiasis with recent passing of a kidney stone, retention, hyperlipidemia, obesity. He presented here to the emergency room yesterday with poor appetite and a generalized weakness and shortness of breath. White count 15.3. Hemoglobin 12.0. Lymphocytes 0.4. Sodium 134. Potassium 3.8. Creatinine 2.50. BUN 31. GFR 24. Glucose 139. AST 46. ALT 42. LDH 566. C- reactive protein 26.7. Chronic virus by PCR positive. The patient has been v accinated back in July 2020 2 with Moderna. No booster. Chest x-ray does reveal new patchy airspace disease bilaterally. Elevated right hemidiaphragm. He is seen today in consultation in the emergency room. He is currently lying on the stretcher on his right side. This helps him breathe the easiest. He is currently requiring 6 L high flow nasal cannula to maintain O2 saturations in the low 90s. He was 87% on room air. He's been afebrile. Slightly tachycardic. Tachypneic. He's been initiated on Decadron. The patient is seen today 04/04/2021 in follow-up on the regular medical floor. He is currently resting comfortably in bed. Laying on his right side. Breathing a bit easier today compared to yesterday. He is still requiring 15 L high flow nasal cannula to maintain O2 saturation in the low 90s. He is afebrile. Hemodynamically stable. His appetite has improved. D-dimer 1.08. Sodium 134. Potassium 3.8. Creatinine 2.25. Glucose 139. LDH 529. C- reactive protein 35.9. Pro-calcitonin 5.08. Urine culture pending. Blood culture revealed no growth to date. He is continued on Decadron, Lovenox, vitamin supplements. 0.45 normal saline at 100 ML's per hour. The patient is seen today 04/05/2021 in follow-up on the regular medical floor. He is currently resting in bed on his right side. Awake and alert in no acute distress. He is still requiring 15 L high flow nasal cannula to maintain O2 saturation in the low 90s. He's been afebrile. Hemodynamically stable. Follow-up chest x-ray continues to show right hemidiaphragm elevation with some possible pleural effusion. Ultrasound of the right chest pending. Blood culture reveals no growth. D-dimer 0.9. Sodium 136. Potassium 3.9. Creatinine 2.09. He remains on Decadron, Lovenox, vitamin supplements. The patient is seen today 04/06/2021 in follow-up on the regular medical floor. He is currently sitting up at the bedside. Awake and alert in no acute distress. He is still requiring 14 L high flow nasal cannula with O2 saturations in the mid 90s. Ultrasound of the right chest revealed no s ignificant pleural effusion. Blood culture revealed no growth. INR 1.3. D- dimer 0.6. Sodium 135. Potassium 4.2. Creatinine 1.98. BUN 68. C-reactive protein 6.3. Glucose 137. Continued on Decadron, vitamin supplements, Levaquin. The patient was found to be in atrial fibrillation with sinus pauses. Beta blockers were adjusted. Currently on a heparin drip. On 04/07/2021 patient seen in follow-up on selective care unit, he is awake and alert, in no acute distress, he is currently on 12 L of oxygen pulse ox is 90%. Appears to be in no acute distress. He sitting up in the recliner, breathing comfortably, patient has diminished breath sounds on the right, he has chronically elevated right hemidiaphragm, he is ultrasound of the chest showed no significant pleural fluid on the right for drainage, overall breathing comfortably, respirations are nonlabored, he has diffuse crackles over left lower base, his been afebrile. He remains on Decadron 6 mg daily, he is on empiric antibiotics in the form of Levaquin, and he is on Eliquis 2.5 mg twice daily for new onset atrial fibrillation. No acute events overnight, occasional cough, no phlegm production. Progress note dated 04/08/2021. 75-year-old male seen today in room 354. The patient is currently on 6 L nasal cannula, and receiving half-normal saline at 50 mL an hour. He has been vaccinated against coronavirus infection. The patient feels much better today. Much less short of breath. Apparently yesterday he was on 12 L of oxygen. The patient has recently found to have coronary artery disease, and apparently was c onsidering bypass grafting, but instead, stents were placed. White count 20.1, he will been 12, hematocrit 37.2, with a normal platelet count. D-dimer is 0.52. Sodium 139, potassium 4.9, chlorides 109, CO2 21, anion gap 9, BUN 72, with creatinine of 2.60. Pro-ca Progress note dated 04/09/2021. 75-year-old male, again seen in room 354. Currently, the patient's receiving half-normal saline at 100 mL an hour, is on 6 L nasal cannula. He does feel better today. He was hoping for physical therapy to come see him. They have not as yet. Currently, sodium 139, potassium 4.6, chlorides 112, CO2 16, anion gap 11, BUN 73, with a creatinine of 2.77. Last chest x-ray was done on April 07. Objective - Vital Signs Vital signs: Vital Signs Temp 97.8 F 04/09/21 04:00 Pulse 70 04/09/21 04:00 Resp 18 04/09/21 04:00 BP 121/56 04/09/21 04:00 Pulse Ox 93 L 04/09/21 04:00 Intake & Output 04/08/21 04/09/21 04/09/21 18:59 06:59 18:59 Intake Total 476 480 Output Total 450 Balance 476 30 Weight 99.5 kg Intake: Oral 476 480 Output: Urine 450 Other: Voiding Method Bedside Commode Bedside Commode Urinal Urinal # Voids 1 1 # Bowel Movements 1 1 - Exam No acute distress, oriented 3. Currently on 6 liter high flow nasal cannula with saturations of 93%. HEENT examination is grossly unremarkable. Neck supple. Full range of motion. No adenopathy thyromegaly or neck vein distention. Cardiovascular examination reveals regular rhythm rate. S1-S2 normal. No S3 or S4. No discernible murmur noted. Heart sounds are distant. Heart rate 70 bpm. Lungs reveal scattered rhonchi throughout. Severely diminished breath sounds at the right base. No wheezes. No crackles. Abdomen soft bowel sounds are heard. No masses or tenderness. Extremities are intact. No cyanosis clubbing or edema. Skin is without rash or lesion. Neurologic examination is brief but nonfocal. - Labs CBC & Chem 7: 04/08/21 05:33 04/09/21 05:20 Labs: Abnormal Lab Results - Last 24 Hours (Table) 04/08/21 04/08/21 04/08/21 Range/Units 11:40 16:41 19:56 Chloride (98-107) mmol/L Carbon Dioxide (22-30) mmol/L BUN (9-20) mg/dL Creatinine (0.66-1.25) mg/dL Glucose (74-99) mg/dL POC Glucose (mg/dL) 147 H 188 H 181 H (75-99) mg/dL 04/09/21 04/09/21 Range/Units 05:20 06:13 Chloride 112 H (98-107) mmol/L Carbon Dioxide 16 L (22-30) mmol/L BUN 73 H (9-20) mg/dL Creatinine 2.77 H (0.66-1.25) mg/dL Glucose 111 H (74-99) mg/dL POC Glucose (mg/dL) 101 H (75-99) mg/dL Microbiology - Last 24 Hours (Table) 04/03/21 10:41 Blood Culture - Preliminary Blood No Growth after 120 hours Assessment and Plan Assessment: Acute hypoxemic respiratory failure secondary to coronavirus associated pneumonia. Possible community-acquired pneumonia. Acute renal failure. History of nephrolithiasis. CAD with previous stent placement. History of CVA. History of hyperlipidemia. History of hypertension. History of new onset atrial fibrillation. History of possible GI bleed. History of chronically elevated right diaphragm. Plan: Plan dated 04/08/2021. The patient continues on appropriate medications including Decadron, Eliquis, and vitamins. The patient's currently on 8 L high flow nasal O2. The patient's getting half-normal saline at 50 mL an hour. Medications, labs, and x-rays all reviewed. No plans for thoracentesis. Ultrasound shows small amount of fluid in the right pleural space. He has a chronically elevated right hemidiaphragm. Yesterday, he was on 12 L high flow. He does seem to be improving albeit sl owly. Plan dated 04/09/2021. The patient continues on appropriate medications including Decadron, Eliquis, vitamin C, vitamin D3, and zinc. His oxygen has been weaned down to 6 L from 8 L yesterday. Remains on half-normal saline, now at 100 mL an hour. The patient's doing much better. Clinically he feels much better. He's hoping for some physical therapy today. He does have a chronically elevated right hemidiaphragm. Ultrasound showed minimal fluid. He was not a candidate for thoracentesis. We will continue to follow make recommendations where appropriate. Time with Patient: Less than 30
[2021-04-09 11:54] LABS: Glucose,Whole Blood 135 mg/dL (75-99)
[2021-04-09] MEDS ORDERED: DEXTROSE 5% IN WATER 1,000 ML with SODIUM ACETATE 100 MEQ IV SCH (12:00)
--- NOTE | 2021-04-09 14:01 | P.PN ---
Progress Note - Text Progress Note Date: 04/09/21 Chief Complaint: Not feeling well This is a very pleasant 75-year-old patient who follows Dr. Edmonds. Chronic stable medical conditions include CAD with stent, hypertension, hyperlipidemia, stroke in the past with some right-sided weakness that resolved, bilateral kid hardik stones, right diaphragm paralysis diverticulosis. Arthritis in the joints. Patient presents with decreased appetite for 3 days. No loss of smell or taste. Feeling very weak. Slight fever. No diarrhea no headache. Slight cough. Patient did pass a kidney stone 3 days ago. Feeling tired and rundown. Some shortness of breath. Patient did test for positive for COVID in the ER. Patient had received prior vaccination. Patient presented yesterday evening to the ER and received monoclonal antibodies. He was discharged. He came back to the ER feeling worse and hypoxic. And therefore admitted April 04: shortness of breath. On 15 L nasal cannula. Tired April 05: Short of breath. On 15 L nasal cannula. Tired. Oral intake fair. April 06: Short of breath. Remains on 15 L nasal cannula. Tired. Eating 25-50%. Patient had dark stools this morning. I discontinued IV heparin. GI service not available the hospital. Surgery consulted. Protonix added. No abdominal pain. Patient (yesterday went into atrial fibrillation. With pauses. Lopressor dose was cut back. Started IV heparin by cardiology.] Atrial fibrillation rate controlled today. April 07: Remain short of breath. Tired. From Black stool changed over to dark brown stool. No abdominal pain. Sitting up in a recliner. Eating about 25%. 98% on 10 L. Started on eliquis by cardiology. April 08: No more dark stools. Breathing she did better. Eating doesn't nasal cannula. Sitting up in a chair. Eating some. April 09: Remains on eliquis. Oral intake fair. On 7 L of nasal cannula. S low improvement in breathing. Creatinine worsening. Sodium bicarbonate drip with D5W ordered. Nephrology consultation. Review of systems: Was done for constitutional, cardiovascular, GI, pulmonary. relevant finding as above Active Medications Acetaminophen (Acetaminophen Tab 325 Mg Tab) 650 mg PO Q6HR PRN PRN Reason: Mild Pain or Fever > 100.5 Amlodipine Besylate (Amlodipine 5 Mg Tab) 5 mg PO DAILY [facility] Last Admin: 04/09/21 10:19 Dose: 5 mg Documented by: Apixaban (Apixaban 2.5 Mg Tablet) 2.5 mg PO BID [facility]; Protocol Last Admin: 04/09/21 10:18 Dose: 2.5 mg Documented by: Ascorbic Acid (Ascorbic Acid 500 Mg Tab) 1,000 mg PO DAILY [facility] Last Admin: 04/09/21 10:19 Dose: 1,000 mg Documented by: Atorvastatin Calcium (Atorvastatin 80 Mg Tab) 80 mg PO DAILY [facility] Last Admin: 04/09/21 10:18 Dose: 80 mg Documented by: Cholecalciferol (Cholecalciferol 25 Mcg (1000 Iu) Tablet) 25 mcg PO DAILY [facility] Last Admin: 04/09/21 10:18 Dose: 25 mcg Documented by: Clopidogrel Bisulfate (Clopidogrel 75 Mg Tab) 75 mg PO DAILY [facility] Last Admin: 04/09/21 10:18 Dose: 75 mg Documented by: Dexamethasone Sodium Phosphate (Dexamethasone Sod Phosphate 10 Mg/Ml 1 Ml Vial) 6 mg IVP DAILY [facility] Last Admin: 04/09/21 10:19 Dose: 6 mg Documented by: Sodium Bicarbonate 100 ml/ (Dextrose/Water) 1,100 mls @ 125 mls/hr IV .Q8H48M [facility] Insulin Aspart (Insulin Aspart (Novolog) 100 Unit/Ml Vial) 0 unit SQ ACHS [facility]; Protocol Last Admin: 04/09/21 13:11 Dose: 1 unit Documented by: Levofloxacin (Levofloxacin 250 Mg Tab) 250 mg PO Q24H [facility] Last Admin: 04/09/21 10:19 Dose: 250 mg Documented by: Metoprolol Tartrate (Metoprolol Tartrate 12.5 Mg Tab) 12.5 mg PO BID [facility] Last Admin: 04/09/21 10:18 Dose: 12.5 mg Documented by: Naloxone HCl (Naloxone 0.4 Mg/Ml 1 Ml Vial) 0.2 mg IV Q2M PRN PRN Reason: Opioid Reversal Nitroglycerin (Nitroglycerin Sl Tabs 0.4 Mg Tab) 0.4 mg SUBLINGUAL Q5M PRN PRN Reason: Chest Pain Ondansetron HCl (Ondansetron 4 Mg/2 Ml Vial) 4 mg IVP Q8HR PRN PRN Reason: Nausea And Vomiting Pantoprazole Sodium (Pantoprazole 40 Mg/10 Ml Vial) 40 mg IVP BID [facility] Last Admin: 04/09/21 10:19 Dose: 40 mg Documented by: Zinc Sulfate (Zinc Sulfate 220 Mg Cap) 220 mg PO DAILY [facility] Last Admin: 04/09/21 10:18 Dose: 220 mg Documented by: Past medical history to include: CAD with stent, stroke with right-sided weakness that is resolved, hypertension, hyperlipidemia, kidney stones bilateral, right diaphragm paralysis, diverticulosis Social history: Sometimes uses a cane. . Retired. Does not smoke or drink alcohol. Family history: Diabetes, hypertension, Alzheimer's. Physical examination: VITAL SIGNS: 96.8, 94, 22, 95 x 69, 94% on 7 L GENERAL: Sitting up in chair, awake, tired LUNGS: Respiratory rate increased, . PSYCH: Alert and oriented x3; mood and affect normal. NEUROLOGICAL: Cranial nerves grossly intact; no facial asymmetry, moving all 4 limbs Rest of exam. As per Pulmonary and nursing INVESTIGATIONS, reviewed in the clinical context: April 09: Potassium 4.6 BUN 73 creatinine 2.77 April 08: WBC 20.9 hemoglobin 12 platelets 401 potassium 4.9 BUN 72 creatinine 2.6 CRP 3. D-dimer 0.5 to April 07: White count 18.3 hemoglobin 12.4 d-dimer 0.83 CRP 3.9 April 05: White count 14.7 hemoglobin 13.7 d-dimer 0.9 BUN 59 creatinine 2.09 CRP 17.5 April 04: D-dimer 1.08 progression 3.8 BUN 43 creatinine 2.25 WBC 15.3 hemoglobin 12 platelets 222 sodium 134 potassium 3.8 BUN 31 creatinine 2.50 Coronavirus [PCR]: Detected EKG tracing personally reviewed by me. Right bundle-branch block. DC. Normal sinus rhythm. Rate 105 Chest x-ray film personally reviewed by me-right diaphragm elevation. Infiltrate in the bases. Previous labs: 03/17/2021]: Creatinine 1.62 Assessment and plan: -Acute COVID 19 pneumonitis,'s causing hypoxia in a patient who is previously been vaccinated. Patient had received monoclonal antibodies and return to the ER in a few hours feeling worse.: Slow to respond Decadron 6 mg, Lovenox subcu, vitamin C zinc vitamin D. Pulmonary consultation -Acute hypoxic respiratory failure from COVID 19 pneumonitis, with pulse ox dropping to 87% on room air: Slow to respond Currently on 7 L nasal cannula -Acute GI bleed, suspect upper GI source.. Note patient is on aspirin, Plavix. Dexamethasone. IV heparin. Follow H&H. DC IV heparin. Stop Plavix. Surgery on the case. On eliquis for A. fib.. -New onset atrial fibrillation. Rate controlled. Lopressor 25 mg twice a day. IV heparin that was started discontinued because of dark stools. Started on eliquis -Patient was having pauses on telemetry Dose of Lopressor cutback -CAD with stent Lopressor, Plavix, aspirin-discontinued, Lipitor -Hyperlipidemia Lipitor 80 mg by mouth daily -Essential hypertension Lopressor 50 mg a morning pre-5 mg the evening, amlodipine 5 mg a day -Primary osteoarthritis multiple joints bilaterally Use pain medications as needed -Chronic diverticulosis, asymptomatic Follow clinically -Chronic kidney disease stage III from nephrosclerosis At the baseline creatinine of 1.6 -Acute kidney injury likely prerenal from decreased oral intake: Worsening Creatinine 2.77. Consult nephrology. -Metabolic acidosis due to acute kidney injury: New diagnosis *Bicarbonate drip -Bilateral nephrolithiasis. Patient did pass a stone 3 days ago with some hematuria which is improved. On March 06 patient underwent left ureteroscope even with laser lithotripsy and placement of a double-J catheter by Dr. Flores Dexamethasone. Subcu Lovenox. 7 L nasal cannula. . Eliquis PPI. Start bicarbonate drip Consult nephrology. Follow labs
[2021-04-09 17:12] LABS: Glucose,Whole Blood 200 mg/dL (75-99)
[2021-04-09] MEDS: DEXTROSE 5% IN WATER 1,000 ML with SODIUM BICARB (1 MEQ/ML) 100 ML IV SCH ×2 (18:50→21:51)
[2021-04-09 20:46] LABS: Glucose,Whole Blood 160 mg/dL (75-99)
[2021-04-10 06:04] LABS: Glucose,Whole Blood 114 mg/dL (75-99)
[2021-04-10] MEDS: INSULIN ASPART (NovoLOG) 100 UNIT/ML VIAL SQ SCH ×4 (06:06→21:17)
[2021-04-10 06:24] LABS: Calcium 8.4 mg/dL (8.4-10.2); Potassium 4.8 mmol/L (3.5-5.1)
[2021-04-10] MEDS: ATORVASTATIN 80 MG TAB PO SCH (10:18)
[2021-04-10] MEDS: METOPROLOL TARTRATE 12.5 MG TAB PO SCH ×2 (10:18→21:17)
[2021-04-10] MEDS: ZINC SULFATE 220 MG CAP PO SCH (10:18)
[2021-04-10] MEDS: APIXABAN 2.5 MG TABLET PO SCH ×2 (10:18→21:17)
[2021-04-10] MEDS: amLODIPine 5 MG TAB PO SCH (10:18)
[2021-04-10] MEDS: CLOPIDOGREL 75 MG TAB PO SCH (10:18)
[2021-04-10] MEDS: DEXTROSE 5% IN WATER 1,000 ML with SODIUM BICARB (1 MEQ/ML) 100 ML IV SCH ×2 (10:19→16:26)
[2021-04-10] MEDS: DEXAMETHASONE SOD PHOSPHATE 10 MG/ML 1 ML VIAL IVP SCH (10:19)
[2021-04-10] MEDS: CHOLECALCIFEROL 25 MCG (1000 IU) TABLET PO SCH (10:19)
[2021-04-10] MEDS: ASCORBIC ACID 500 MG TAB PO SCH (10:19)
[2021-04-10] MEDS: PANTOPRAZOLE 40 MG/10 ML VIAL IVP SCH (10:28)
[2021-04-10 11:34] LABS: Glucose,Whole Blood 136 mg/dL (75-99)
--- NOTE | 2021-04-10 14:16 | P.PN ---
Subjective Progress Note Date: 04/10/21 Principal diagnosis: Coronavirus associated pneumonia. This is a 75-year-old gentleman who follows with Dr. Edmonds as his primary care provider. He has a history of coronary artery disease with previous stent placements, nephrolithiasis with recent passing of a kidney stone, retention, hyperlipidemia, obesity. He presented here to the emergency room yesterday with poor appetite and a generalized weakness and shortness of breath. White count 15.3. Hemoglobin 12.0. Lymphocytes 0.4. Sodium 134. Potassium 3.8. Creatinine 2.50. BUN 31. GFR 24. Glucose 139. AST 46. ALT 42. LDH 566. C- reactive protein 26.7. Chronic virus by PCR positive. The patient has been v accinated back in July 2020 2 with Moderna. No booster. Chest x-ray does reveal new patchy airspace disease bilaterally. Elevated right hemidiaphragm. He is seen today in consultation in the emergency room. He is currently lying on the stretcher on his right side. This helps him breathe the easiest. He is currently requiring 6 L high flow nasal cannula to maintain O2 saturations in the low 90s. He was 87% on room air. He's been afebrile. Slightly tachycardic. Tachypneic. He's been initiated on Decadron. The patient is seen today 04/04/2021 in follow-up on the regular medical floor. He is currently resting comfortably in bed. Laying on his right side. Breathing a bit easier today compared to yesterday. He is still requiring 15 L high flow nasal cannula to maintain O2 saturation in the low 90s. He is afebrile. Hemodynamically stable. His appetite has improved. D-dimer 1.08. Sodium 134. Potassium 3.8. Creatinine 2.25. Glucose 139. LDH 529. C- reactive protein 35.9. Pro-calcitonin 5.08. Urine culture pending. Blood culture revealed no growth to date. He is continued on Decadron, Lovenox, vitamin supplements. 0.45 normal saline at 100 ML's per hour. The patient is seen today 04/05/2021 in follow-up on the regular medical floor. He is currently resting in bed on his right side. Awake and alert in no acute distress. He is still requiring 15 L high flow nasal cannula to maintain O2 saturation in the low 90s. He's been afebrile. Hemodynamically stable. Follow-up chest x-ray continues to show right hemidiaphragm elevation with some possible pleural effusion. Ultrasound of the right chest pending. Blood culture reveals no growth. D-dimer 0.9. Sodium 136. Potassium 3.9. Creatinine 2.09. He remains on Decadron, Lovenox, vitamin supplements. The patient is seen today 04/06/2021 in follow-up on the regular medical floor. He is currently sitting up at the bedside. Awake and alert in no acute distress. He is still requiring 14 L high flow nasal cannula with O2 saturations in the mid 90s. Ultrasound of the right chest revealed no s ignificant pleural effusion. Blood culture revealed no growth. INR 1.3. D- dimer 0.6. Sodium 135. Potassium 4.2. Creatinine 1.98. BUN 68. C-reactive protein 6.3. Glucose 137. Continued on Decadron, vitamin supplements, Levaquin. The patient was found to be in atrial fibrillation with sinus pauses. Beta blockers were adjusted. Currently on a heparin drip. On 04/07/2021 patient seen in follow-up on selective care unit, he is awake and alert, in no acute distress, he is currently on 12 L of oxygen pulse ox is 90%. Appears to be in no acute distress. He sitting up in the recliner, breathing comfortably, patient has diminished breath sounds on the right, he has chronically elevated right hemidiaphragm, he is ultrasound of the chest showed no significant pleural fluid on the right for drainage, overall breathing comfortably, respirations are nonlabored, he has diffuse crackles over left lower base, his been afebrile. He remains on Decadron 6 mg daily, he is on empiric antibiotics in the form of Levaquin, and he is on Eliquis 2.5 mg twice daily for new onset atrial fibrillation. No acute events overnight, occasional cough, no phlegm production. Progress note dated 04/08/2021. 75-year-old male seen today in room 354. The patient is currently on 6 L nasal cannula, and receiving half-normal saline at 50 mL an hour. He has been vaccinated against coronavirus infection. The patient feels much better today. Much less short of breath. Apparently yesterday he was on 12 L of oxygen. The patient has recently found to have coronary artery disease, and apparently was c onsidering bypass grafting, but instead, stents were placed. White count 20.1, he will been 12, hematocrit 37.2, with a normal platelet count. D-dimer is 0.52. Sodium 139, potassium 4.9, chlorides 109, CO2 21, anion gap 9, BUN 72, with creatinine of 2.60. Pro-ca Progress note dated 04/09/2021. 75-year-old male, again seen in room 354. Currently, the patient's receiving half-normal saline at 100 mL an hour, is on 6 L nasal cannula. He does feel better today. He was hoping for physical therapy to come see him. They have not as yet. Currently, sodium 139, potassium 4.6, chlorides 112, CO2 16, anion gap 11, BUN 73, with a creatinine of 2.77. Last chest x-ray was done on April 07. Progress note dated 04/10/2021. 75-year-old male, seen again in room 354. Currently, Mr. Stratton is on 4 L nasal cannula. He is getting an IV with 2 ampules of sodium bicarbonate and D5W, at 100 mL an hour. The patient's resting comfortably. He denies any shortness of breath, cough, wheezing, or phlegm production. He does feel better. Current labs include a sodium 138, potassium 4.8, chlorides 111, CO2 19, anion gap 8, BUN 67, with a creatinine of 2.59. There is no recent chest x-ray. Currently, the patient is on vitamin C, vitamin D3, and zinc. In addition, the patient is getting Decadron, and Eliquis. Finally, the patient is on Levaquin 250 mg every 24 hours. Microbiology is currently negative. Objective - Vital Signs Vital signs: Vital Signs Temp 98.0 F 04/10/21 13:01 Pulse 75 04/10/21 13:01 Resp 16 04/10/21 13:01 BP 155/52 04/10/21 13:01 Pulse Ox 93 L 04/10/21 13:01 Intake & Output 04/09/21 04/10/21 04/10/21 18:59 06:59 18:59 Intake Total 100 115 Output Total 3 303 Balance 97 -303 115 Weight 99.5 kg Intake: Oral 100 115 Output: Urine 300 Stool 3 3 Other: Voiding Method Bedside Commode Bedside Commode Urinal Urinal # Voids 2 # Bowel Movements 2 - Exam No acute distress, oriented 3. Currently on 4 liter high flow nasal cannula with saturations of 93%. HEENT examination is grossly unremarkable. Neck supple. Full range of motion. No adenopathy thyromegaly or neck vein distention. Cardiovascular examination reveals regular rhythm rate. S1-S2 normal. No S3 or S4. No discernible murmur noted. Heart sounds are distant. Heart rate 75 bpm. Lungs reveal scattered rhonchi throughout. Severely diminished breath sounds at the right base. No wheezes. No crackles. Abdomen soft bowel sounds are heard. No masses or tenderness. Extremities are intact. No cyanosis clubbing or edema. Skin is without rash or lesion. Neurologic examination is brief but nonfocal. - Labs CBC & Chem 7: 04/08/21 05:33 04/10/21 05:17 Labs: Abnormal Lab Results - Last 24 Hours (Table) 04/09/21 04/09/21 04/10/21 Range/Units 16:55 20:45 05:17 Chloride 111 H (98-107) mmol/L Carbon Dioxide 19 L (22-30) mmol/L BUN 67 H (9-20) mg/dL Creatinine 2.59 H (0.66-1.25) mg/dL Glucose 117 H (74-99) mg/dL POC Glucose (mg/dL) 200 H 160 H (75-99) mg/dL 04/10/21 04/10/21 Range/Units 05:52 11:33 Chloride (98-107) mmol/L Carbon Dioxide (22-30) mmol/L BUN (9-20) mg/dL Creatinine (0.66-1.25) mg/dL Glucose (74-99) mg/dL POC Glucose (mg/dL) 114 H 136 H (75-99) mg/dL Microbiology - Last 24 Hours (Table) 04/03/21 10:41 Blood Culture - Final Blood No Growth after 144 hours Assessment and Plan Assessment: Acute hypoxemic respiratory failure secondary to coronavirus associated pneumonia. Possible community-acquired pneumonia. Acute renal failure. History of nephrolithiasis. CAD with previous stent placement. History of CVA. History of hyperlipidemia. History of hypertension. History of new onset atrial fibrillation. History of possible GI bleed. History of chronically elevated right diaphragm. Plan: Plan dated 04/08/2021. The patient continues on appropriate medications including Decadron, Eliquis, and vitamins. The patient's currently on 8 L high flow nasal O2. The patient's getting half-normal saline at 50 mL an hour. Medications, labs, and x-rays all reviewed. No plans for thoracentesis. Ultrasound shows small amount of fluid in the right pleural space. He has a chronically elevated right hemidiaphragm. Yesterday, he was on 12 L high flow. He does seem to be improving albeit slowly. Plan dated 04/09/2021. The patient continues on appropriate medications including Decadron, Eliquis, vitamin C, vitamin D3, and zinc. His oxygen has been weaned down to 6 L from 8 L yesterday. Remains on half-normal saline, now at 100 mL an hour. The patient's doing much better. Clinically he feels much better. He's hoping for some physical therapy today. He does have a chronically elevated right hemidiaphragm. Ultrasound showed minimal fluid. He was not a candidate for thoracentesis. We will continue to follow make recommendations where appropriat e. Plan dated 04/10/2021. The patient continues on Decadron, Eliquis, vitamin C, vitamin D3, and zinc. The patient also continues on Levaquin IV at a reduced dose. The patient to has been weaned down to 4 L. He is currently on sodium bicarbonate drip, with 2 ampules of sodium bicarbonate and D5W, running at 100 mL an hour. The patient's overall prognosis remains guarded. We will continue to follow make recommendations where appropriate. The patient is not a candidate for thoracentesis. Time with Patient: Less than 30
--- NOTE | 2021-04-10 15:20 | US ---
EXAMINATION TYPE: US kidneys/renal and bladder DATE OF EXAM: 04/10/2021 COMPARISON: CT abdomen and pelvis February 17, 2021. CLINICAL HISTORY: rf. abnormal labs. Hx renal stones. Covid +. EXAM MEASUREMENTS: Right Kidney: 10.7 x 5.8 x 6.0 cm Left Kidney: 12.2 x 4.9 x 5.9 cm Right Kidney: Hydronephrosis. Multiple stones visualized with largest - lower pole 1.6 cm Left Kidney: Hydronephrosis. Multiple stones with largest - upper 1.5 cm . Lower pole cyst - 6.1 x 5.8 x 6.0 cm Bladder: distended, anechoic Bilateral Jets not seen Cortical thinning and increased cortical echogenicity bilaterally with exophytic 6.1 cm thin-walled c yst lower pole of the left kidney. Severe left-sided hydronephrosis redemonstrated. Satisfactorily di stended bladder without suspicious mass. Bilateral distal ureteral jets not seen. Increased cortical echogenicity right kidney. Mild to moderate right-sided hydronephrosis present. Bilateral renal calcu li varying sizes and shapes redemonstrated. IMPRESSION: Persistent severe left-sided hydronephrosis. New Mild to moderate right-sided hydronephro sis. Multiple bilateral renal calculi redemonstrated. Evidence of underlying chronic medical renal di sease again seen.
[2021-04-10] MEDS: LEVOFLOXACIN 250 MG TAB PO SCH (16:26)
[2021-04-10 17:20] LABS: Glucose,Whole Blood 189 mg/dL (75-99)
--- NOTE | 2021-04-10 18:11 | CONS ---
CONSULTATION REASON FOR CONSULTATION: Renal failure. HISTORY OF PRESENT ILLNESS: Patient is a 75-year-old male who was admitted to the hospital on 04/02/2021 with complaints of shortness of breath and not feeling well. He tested positive for COVID- 19. He does have CKD stage 3 and previous history of nephrolithiasis. Serum creatinine was 2.5 on initial admission. It increased to 2.7. It is back down to 2.5 now. Review of previous labs show serum creatinine 1.5 to 1.6 mg/dL on 02/17/2021 and 03/17/2021. Blood pressure has been slightly on the lower side with systolic in the 92 and 95 range yesterday and on 04/08. Patient has been voiding on his own. PAST MEDICAL HISTORY: Significant for coronary artery disease, history of CVA/TIA, hyperlipidemia, hypertension. PAST SURGICAL HISTORY: Cardiac catheterization, coronary stent placement, hernia repair, lithotripsy, ureteroscopy, stent placement, right rotator cuff, bilateral knee arthroplasties. SOCIAL HISTORY: Negative for smoking, drug abuse or alcohol abuse. MEDICATIONS: Medications prior to admission included Lopressor, Norvasc, Plavix, aspirin, Lipitor, Nitrostat. ALLERGIES: NONE. PHYSICAL EXAMINATION: Patient is comfortable, awake, not in any acute distress. Blood pressure is 155/52, heart rate of 89 per minute. He is afebrile. Examination of lower extremities shows trace edema. [employer] exam grossly intact. Lungs and heart are not examined. Labs show sodium 138, potassium 4.8, chloride 111, CO2 is 19, BUN 67, serum creatinine 2.59. ASSESSMENT: 1. Acute kidney injury, most likely prerenal versus acute tubular necrosis, currently nonoliguric. Rule out obstructive uropathy. Check ultrasound of the kidneys. Check postvoid residual. Patient also was hypotensive with systolic blood pressure in the 92 to 95 range on 04/08 and 04/09/2021. No nephrotoxic agents on board. I will continue with the IV fluids for now. 2. COVID pneumonia. 3. History of nephrolithiasis. 4. Coronary artery disease with history of coronary stent placement. 5. Metabolic acidosis, currently improved. PLAN: Continue with the bicarb drip. Repeat labs in a.m. Check postvoid residual. Check ultrasound of the kidneys. Patient will need outpatient followup for CKD. Thank you for this consultation. Will continue to follow the patient with you during his hospitalization. SINDY / RADHAN: [id number] /
--- NOTE | 2021-04-10 19:14 | P.PN ---
Progress Note - Text Progress Note Date: 04/10/21 Chief Complaint: Not feeling well This is a very pleasant 75-year-old patient who follows Dr. Edmonds. Chronic stable medical conditions include CAD with stent, hypertension, hyperlipidemia, stroke in the past with some right-sided weakness that resolved, bilateral kid hardik stones, right diaphragm paralysis diverticulosis. Arthritis in the joints. Patient presents with decreased appetite for 3 days. No loss of smell or taste. Feeling very weak. Slight fever. No diarrhea no headache. Slight cough. Patient did pass a kidney stone 3 days ago. Feeling tired and rundown. Some shortness of breath. Patient did test for positive for COVID in the ER. Patient had received prior vaccination. Patient presented yesterday evening to the ER and received monoclonal antibodies. He was discharged. He came back to the ER feeling worse and hypoxic. And therefore admitted April 04: shortness of breath. On 15 L nasal cannula. Tired April 05: Short of breath. On 15 L nasal cannula. Tired. Oral intake fair. April 06: Short of breath. Remains on 15 L nasal cannula. Tired. Eating 25-50%. Patient had dark stools this morning. I discontinued IV heparin. GI service not available the hospital. Surgery consulted. Protonix added. No abdominal pain. Patient (yesterday went into atrial fibrillation. With pauses. Lopressor dose was cut back. Started IV heparin by cardiology.] Atrial fibrillation rate controlled today. April 07: Remain short of breath. Tired. From Black stool changed over to dark brown stool. No abdominal pain. Sitting up in a recliner. Eating about 25%. 98% on 10 L. Started on eliquis by cardiology. April 08: No more dark stools. Breathing she did better. Eating doesn't nasal cannula. Sitting up in a chair. Eating some. April 09: Remains on eliquis. Oral intake fair. On 7 L of nasal cannula. S low improvement in breathing. Creatinine worsening. Sodium bicarbonate drip with D5W ordered. Nephrology consultation. April 10: Acute kidney injury. Possibly prerenal versus ATN. Has been on IV fluids since yesterday. Seen by nephrology. Some improvement in creatinine. Oral intake fair. Sitting up in a chair. Blood the patient start to ambulate in the room. On 4 L of nasal cannula. Review of systems: Was done for constitutional, cardiovascular, GI, pulmonary. relevant finding as above Active Medications Acetaminophen (Acetaminophen Tab 325 Mg Tab) 650 mg PO Q6HR PRN PRN Reason: Mild Pain or Fever > 100.5 Amlodipine Besylate (Amlodipine 5 Mg Tab) 5 mg PO DAILY [facility] Last Admin: 04/10/21 10:18 Dose: 5 mg Documented by: Apixaban (Apixaban 2.5 Mg Tablet) 2.5 mg PO BID [facility]; Protocol Last Admin: 04/10/21 10:18 Dose: 2.5 mg Documented by: Ascorbic Acid (Ascorbic Acid 500 Mg Tab) 1,000 mg PO DAILY [facility] Last Admin: 04/10/21 10:19 Dose: 1,000 mg Documented by: Atorvastatin Calcium (Atorvastatin 80 Mg Tab) 80 mg PO DAILY [facility] Last Admin: 04/10/21 10:18 Dose: 80 mg Documented by: Cholecalciferol (Cholecalciferol 25 Mcg (1000 Iu) Tablet) 25 mcg PO DAILY [facility] Last Admin: 04/10/21 10:19 Dose: 25 mcg Documented by: Clopidogrel Bisulfate (Clopidogrel 75 Mg Tab) 75 mg PO DAILY [facility] Last Admin: 04/10/21 10:18 Dose: 75 mg Documented by: Dexamethasone Sodium Phosphate (Dexamethasone Sod Phosphate 10 Mg/Ml 1 Ml Vial) 6 mg IVP DAILY [facility] Last Admin: 04/10/21 10:19 Dose: 6 mg Documented by: Sodium Bicarbonate 100 ml/ (Dextrose/Water) 1,100 mls @ 125 mls/hr IV .Q8H48M [facility] Last Admin: 04/10/21 16:26 Dose: Not Given Documented by: Insulin Aspart (Insulin Aspart (Novolog) 100 Unit/Ml Vial) 0 unit SQ ACHS [facility]; Protocol Last Admin: 04/10/21 18:08 Dose: 2 unit Documented by: Levofloxacin (Levofloxacin 250 Mg Tab) 250 mg PO Q24H [facility] Last Admin: 04/10/21 16:26 Dose: 250 mg Documented by: Metoprolol Tartrate (Metoprolol Tartrate 12.5 Mg Tab) 12.5 mg PO BID [facility] Last Admin: 04/10/21 10:18 Dose: 12.5 mg Documented by: Naloxone HCl (Naloxone 0.4 Mg/Ml 1 Ml Vial) 0.2 mg IV Q2M PRN PRN Reason: Opioid Reversal Nitroglycerin (Nitroglycerin Sl Tabs 0.4 Mg Tab) 0.4 mg SUBLINGUAL Q5M PRN PRN Reason: Chest Pain Ondansetron HCl (Ondansetron 4 Mg/2 Ml Vial) 4 mg IVP Q8HR PRN PRN Reason: Nausea And Vomiting Pantoprazole Sodium (Pantoprazole 40 Mg Tablet) 40 mg PO BID [facility] Zinc Sulfate (Zinc Sulfate 220 Mg Cap) 220 mg PO DAILY [facility] Last Admin: 04/10/21 10:18 Dose: 220 mg Documented by: Past medical history to include: CAD with stent, stroke with right-sided weakness that is resolved, hypertension, hyperlipidemia, kidney stones bilateral, right diaphragm paralysis, diverticulosis Social history: Sometimes uses a cane. . Retired. Does not smoke or drink alcohol. Family history: Diabetes, hypertension, Alzheimer's. Physical examination: VITAL SIGNS: 98, 75, 16, 150/52, 93% on 4 L GENERAL: Sitting up in chair, awake, LUNGS: Respiratory rate increased, . PSYCH: Alert and oriented x3; mood and affect normal. NEUROLOGICAL: Cranial nerves grossly intact; no facial asymmetry, moving all 4 limbs Rest of exam. As per Pulmonary and nursing INVESTIGATIONS, reviewed in the clinical context: April 10: Potassium 4.8 BUN 67 creatinine 2.59 April 09: Potassium 4.6 BUN 73 creatinine 2.77 April 08: WBC 20.9 hemoglobin 12 platelets 401 potassium 4.9 BUN 72 creatinine 2.6 CRP 3. D-dimer 0.5 to April 07: White count 18.3 hemoglobin 12.4 d-dimer 0.83 CRP 3.9 April 05: White count 14.7 hemoglobin 13.7 d-dimer 0.9 BUN 59 creatinine 2.09 CRP 17.5 April 04: D-dimer 1.08 progression 3.8 BUN 43 creatinine 2.25 WBC 15.3 hemoglobin 12 platelets 222 sodium 134 potassium 3.8 BUN 31 creatinine 2.50 Coronavirus [PCR]: Detected EKG tracing personally reviewed by me. Right bundle-branch block. DC. Normal sinus rhythm. Rate 105 Chest x-ray film personally reviewed by me-right diaphragm elevation. Infiltrate in the bases. Previous labs: 03/17/2021]: Creatinine 1.62 Assessment and plan: -Acute COVID 19 pneumonitis,'s causing hypoxia in a patient who is previously been vaccinated. Patient had received monoclonal antibodies and return to the ER in a few hours feeling worse.: Slow to respond Decadron 6 mg, Lovenox subcu, vitamin C zinc vitamin D. Pulmonary consultation -Acute hypoxic respiratory failure from COVID 19 pneumonitis, with pulse ox dropping to 87% on room air: Improving Currently on 4 L nasal cannula -Acute GI bleed, suspect upper GI source.. Note patient was on aspirin, Plavix. Dexamethasone. IV heparin. Follow H&H. DC IV heparin. Stop Plavix. Surgery on the case. On eliquis for A. fib.. -New onset atrial fibrillation. Rate controlled. Lopressor 25 mg twice a day. IV heparin that was started discontinued because of dark stools. Started on eliquis -Patient was having pauses on telemetry Dose of Lopressor cutback -CAD with stent Lopressor, Plavix, aspirin-discontinued, Lipitor -Hyperlipidemia Lipitor 80 mg by mouth daily -Essential hypertension Lopressor 12.5 mg twice a day, amlodipine 5 mg a day -Primary osteoarthritis multiple joints bilaterally Use pain medications as needed -Chronic diverticulosis, asymptomatic Follow clinically -Chronic kidney disease stage III from nephrosclerosis At the baseline creatinine of 1.6 -Acute kidney injury likely prerenal from decreased oral intake: Slow to respond Creatinine 2.59. Consult nephrology. IV fluids -Metabolic acidosis due to acute kidney injury: New diagnosis *Bicarbonate drip -Bilateral nephrolithiasis. Patient did pass a stone 3 days ago with some hematuria which is improved. On March 06 patient underwent left ureteroscope even with laser lithotripsy and placement of a double-J catheter by Dr. Flores Dexamethasone. Subcu Lovenox. 4 L nasal cannula. . Eliquis PPI. bicarbonate drip discussed with patient. Told to increase activity. Repeat BMP
[2021-04-10 20:59] LABS: Glucose,Whole Blood 164 mg/dL (75-99)
[2021-04-10] MEDS: PANTOPRAZOLE 40 MG TABLET PO SCH (21:17)
[2021-04-11 05:53] LABS: Glucose,Whole Blood 158 mg/dL (75-99)
[2021-04-11] MEDS: INSULIN ASPART (NovoLOG) 100 UNIT/ML VIAL SQ SCH ×4 (06:42→21:23)
[2021-04-11 08:10] LABS: Calcium 8.6 mg/dL (8.4-10.2); Potassium 4.4 mmol/L (3.5-5.1)
[2021-04-11] MEDS: CHOLECALCIFEROL 25 MCG (1000 IU) TABLET PO SCH (08:17)
[2021-04-11] MEDS: APIXABAN 2.5 MG TABLET PO SCH ×2 (08:17→21:23)
[2021-04-11] MEDS: DEXTROSE 5% IN WATER 1,000 ML with SODIUM BICARB (1 MEQ/ML) 100 ML IV SCH ×2 (08:17→10:08)
[2021-04-11] MEDS: CLOPIDOGREL 75 MG TAB PO SCH (08:18)
[2021-04-11] MEDS: DEXAMETHASONE SOD PHOSPHATE 10 MG/ML 1 ML VIAL IVP SCH (08:18)
[2021-04-11] MEDS: ZINC SULFATE 220 MG CAP PO SCH (08:18)
[2021-04-11] MEDS: amLODIPine 5 MG TAB PO SCH (08:18)
[2021-04-11] MEDS: ASCORBIC ACID 500 MG TAB PO SCH (08:18)
[2021-04-11] MEDS: METOPROLOL TARTRATE 12.5 MG TAB PO SCH ×2 (08:18→21:23)
[2021-04-11] MEDS: PANTOPRAZOLE 40 MG TABLET PO SCH ×2 (08:18→21:23)
[2021-04-11] MEDS: ATORVASTATIN 80 MG TAB PO SCH (08:18)
[2021-04-11 11:59] LABS: Glucose,Whole Blood 198 mg/dL (75-99)
--- NOTE | 2021-04-11 12:44 | P.PN ---
Subjective Progress Note Date: 04/11/21 Principal diagnosis: COVID-19 pneumonia This is a 75-year-old gentleman who follows with Dr. Edmonds as his primary care provider. He has a history of coronary artery disease with previous stent placements, nephrolithiasis with recent passing of a kidney stone, retention, hyperlipidemia, obesity. He presented here to the emergency room yesterday with poor appetite and a generalized weakness and shortness of breath. White count 15.3. Hemoglobin 12.0. Lymphocytes 0.4. Sodium 134. Potassium 3.8. Creatinine 2.50. BUN 31. GFR 24. Glucose 139. AST 46. ALT 42. LDH 566. C- reactive protein 26.7. Chronic virus by PCR positive. The patient has been vaccinated back in July 2020 2 with Moderna. No booster. Chest x-ray does reveal new patchy airspace disease bilaterally. Elevated right hemidiaphragm. He is seen today in consultation in the emergency room. He is currently lying on the stretcher on his right side. This helps him breathe the easiest. He is currently requiring 6 L high flow nasal cannula to maintain O2 saturations in the low 90s. He was 87% on room air. He's been afebrile. Slightly tachycardic. Tachypneic. He's been initiated on Decadron. The patient is seen today 04/04/2021 in follow-up on the regular medical floor. He is currently resting comfortably in bed. Laying on his right side. Breathing a bit easier today compared to yesterday. He is still requiring 15 L high flow nasal cannula to maintain O2 saturation in the low 90s. He is afebrile. Hemodynamically stable. His appetite has improved. D-dimer 1.08. Sodium 134. Potassium 3.8. Creatinine 2.25. Glucose 139. LDH 529. C- reactive protein 35.9. Pro-calcitonin 5.08. Urine culture pending. Blood culture revealed no growth to date. He is continued on Decadron, Lovenox, vitamin supplements. 0.45 normal saline at 100 ML's per hour. The patient is seen today 04/05/2021 in follow-up on the regular medical floor. He is currently resting in bed on his right side. Awake and alert in no acute distress. He is still requiring 15 L high flow nasal cannula to maintain O2 saturation in the low 90s. He's been afebrile. Hemodynamically stable. Follow-up chest x-ray continues to show right hemidiaphragm elevation with some possible pleural effusion. Ultrasound of the right chest pending. Blood culture reveals no growth. D-dimer 0.9. Sodium 136. Potassium 3.9. Creatinine 2.09. He remains on Decadron, Lovenox, vitamin supplements. The patient is seen today 04/06/2021 in follow-up on the regular medical floor. He is currently sitting up at the bedside. Awake and alert in no acute distress. He is still requiring 14 L high flow nasal cannula with O2 saturations in the mid 90s. Ultrasound of the right chest revealed no significant pleural effusion. Blood culture revealed no growth. INR 1.3. D- dimer 0.6. Sodium 135. Potassium 4.2. Creatinine 1.98. BUN 68. C-reactive protein 6.3. Glucose 137. Continued on Decadron, vitamin supplements, Levaquin. The patient was found to be in atrial fibrillation with sinus pauses. Beta b lockers were adjusted. Currently on a heparin drip. Patient is seen today 04/11/2021 in follow-up on the selective care unit. He is awake and alert in no acute distress. Currently sitting up in a chair at the bedside. He is down to 4 L high flow nasal cannula to maintain O2 saturations in the 90s. He denies any worsening shortness of breath, cough or congestion. His been up ambulating with physical therapy and a walker. He is doing well. Afebrile. Hemodynamically stable. Sodium 138. Potassium 4.4. Creatinine 2.48. Blood glucose 141. He remains on Decadron, vitamin supplements. He is on antibiotics in the form of Levaquin. He is anticoagulated with Eliquis. Objective - Vital Signs Vital signs: Vital Signs Temp 98.0 F 04/11/21 08:15 Pulse 79 04/11/21 08:15 Resp 16 04/11/21 08:15 BP 124/66 04/11/21 08:15 Pulse Ox 95 04/11/21 08:15 Intake & Output 04/10/21 04/11/21 04/11/21 18:59 06:59 18:59 Intake Total 1230 240 Output Total 3 6 3 Balance 1227 -6 237 Intake: Intake, IV Titration 1000 Amount Dextrose 5% in Water 1, 1000 000 ml @ 125 mls/hr IV . Q8H48M [place] with Sodium Bicarb (1 Meq/ml) 100 ml Rx#:[id number] Oral 230 240 Output: Stool 3 6 3 Other: Voiding Method Bedside Commode Bedside Commode Bedside Commode Urinal Urinal Urinal # Voids 3 1 1 # Bowel Movements 1 - Exam GENERAL EXAM: Alert, pleasant 75-year-old gentleman, sitting up in a chair, on 4 L high flow nasal cannula, fairly comfortable in no apparent distress. HEAD: Normocephalic. EYES: Normal reaction of pupils, equal size. NOSE: Clear with pink turbinates. THROAT: No erythema or exudates. NECK: No masses, no JVD. CHEST: No chest wall deformity. LUNGS: Equal air entry with crackles in the bilateral bases. CVS: S1 and S2 normal with no audible murmur, regular rhythm. ABDOMEN: No hepatosplenomegaly, normal bowel sounds, no guarding or rigidity. SPINE: No scoliosis or deformity SKIN: No rashes CENTRAL NERVOUS SYSTEM: No focal deficits, tone is normal in all 4 extremities. EXTREMITIES: There is no peripheral edema. No clubbing, no cyanosis. Peripheral pulses are intact. - Labs CBC & Chem 7: 04/08/21 05:33 04/11/21 07:18 Labs: Abnormal Lab Results - Last 24 Hours (Table) 04/10/21 04/10/21 04/11/21 Range/Units 17:18 20:55 05:48 BUN (9-20) mg/dL Creatinine (0.66-1.25) mg/dL Glucose (74-99) mg/dL POC Glucose (mg/dL) 189 H 164 H 158 H (75-99) mg/dL 04/11/21 04/11/21 Range/Units 07:18 11:56 BUN 56 H (9-20) mg/dL Creatinine 2.48 H (0.66-1.25) mg/dL Glucose 141 H (74-99) mg/dL POC Glucose (mg/dL) 198 H (75-99) mg/dL Assessment and Plan Assessment: 1 Acute hypoxemic respiratory failure secondary to acute COVID-19 pneumonia in addition to an elevated right hemidiaphragm. The patient was vaccinated with Moderna 2 back in July 2020. No booster. GFR 24. He does not qualify for Remdesivir. 2 Acute renal failure with a creatinine of 2.48 GFR 25. 3 History of nephrolithiasis with recent passing of a kidney stone. Renal ultrasound from 03/17/2021 revealed multiple bilateral renal calculi. No evidence of any significant high to nephrosis. There is clearing of left sided hydronephrosis compared to scan of 02/17/2021. 4 Leukocytosis, pro-calcitonin 5.08. Remains on Levaquin 5 Coronary artery disease with previous stent placement 6 History of CVA/TIA 7 Hyperlipidemia 8 Hypertension 9 New-onset atrial fibrillation with bradycardia, now on Eliquis Plan: The patient was seen and evaluated Continue Decadron, vitamin supplements Down to 4 L high flow nasal cannula Increase his activity as tolerated We will continue to follow I, the cosigning physician, performed a history & physical examination of the patient. Lungs sounds with crackles in the posterior bases, diminished in the right base Maintaining O2 saturations in the 90s on 4 L high flow nasal cannula. I discussed the assessment and plan of care with my nurse practi marcella, Maia Chavez. I attest to the above note as dictated by her.
[2021-04-11] MEDS: LEVOFLOXACIN 250 MG TAB PO SCH (13:00)
--- NOTE | 2021-04-11 14:51 | P.PN ---
Progress Note - Text Progress Note Date: 04/11/21 Chief Complaint: Not feeling well This is a very pleasant 75-year-old patient who follows Dr. Edmonds. Chronic stable medical conditions include CAD with stent, hypertension, hyperlipidemia, stroke in the past with some right-sided weakness that resolved, bilateral kid hardik stones, right diaphragm paralysis diverticulosis. Arthritis in the joints. Patient presents with decreased appetite for 3 days. No loss of smell or taste. Feeling very weak. Slight fever. No diarrhea no headache. Slight cough. Patient did pass a kidney stone 3 days ago. Feeling tired and rundown. Some shortness of breath. Patient did test for positive for COVID in the ER. Patient had received prior vaccination. Patient presented yesterday evening to the ER and received monoclonal antibodies. He was discharged. He came back to the ER feeling worse and hypoxic. And therefore admitted April 04: shortness of breath. On 15 L nasal cannula. Tired April 05: Short of breath. On 15 L nasal cannula. Tired. Oral intake fair. April 06: Short of breath. Remains on 15 L nasal cannula. Tired. Eating 25-50%. Patient had dark stools this morning. I discontinued IV heparin. GI service not available the hospital. Surgery consulted. Protonix added. No abdominal pain. Patient (yesterday went into atrial fibrillation. With pauses. Lopressor dose was cut back. Started IV heparin by cardiology.] Atrial fibrillation rate controlled today. April 07: Remain short of breath. Tired. From Black stool changed over to dark brown stool. No abdominal pain. Sitting up in a recliner. Eating about 25%. 98% on 10 L. Started on eliquis by cardiology. April 08: No more dark stools. Breathing she did better. Eating doesn't nasal cannula. Sitting up in a chair. Eating some. April 09: Remains on eliquis. Oral intake fair. On 7 L of nasal cannula. S low improvement in breathing. Creatinine worsening. Sodium bicarbonate drip with D5W ordered. Nephrology consultation. April 10: Acute kidney injury. Possibly prerenal versus ATN. Has been on IV fluids since yesterday. Seen by nephrology. Some improvement in creatinine. Oral intake fair. Sitting up in a chair. Blood the patient start to ambulate in the room. On 4 L of nasal cannula. April 11: Slight improvement in creatinine. Getting IV fluids/bicarb. Oral intake fair. Sitting up in a chair. On 4 L nasal cannula. Review of systems: Was done for constitutional, cardiovascular, GI, pulmonary. relevant finding as above Active Medications Acetaminophen (Acetaminophen Tab 325 Mg Tab) 650 mg PO Q6HR PRN PRN Reason: Mild Pain or Fever > 100.5 Amlodipine Besylate (Amlodipine 5 Mg Tab) 5 mg PO DAILY [facility] Last Admin: 04/11/21 08:18 Dose: 5 mg Documented by: Apixaban (Apixaban 2.5 Mg Tablet) 2.5 mg PO BID [facility]; Protocol Last Admin: 04/11/21 08:17 Dose: 2.5 mg Documented by: Ascorbic Acid (Ascorbic Acid 500 Mg Tab) 1,000 mg PO DAILY [facility] Last Admin: 04/11/21 08:18 Dose: 1,000 mg Documented by: Atorvastatin Calcium (Atorvastatin 80 Mg Tab) 80 mg PO DAILY [facility] Last Admin: 04/11/21 08:18 Dose: 80 mg Documented by: Cholecalciferol (Cholecalciferol 25 Mcg (1000 Iu) Tablet) 25 mcg PO DAILY [facility] Last Admin: 04/11/21 08:17 Dose: 25 mcg Documented by: Clopidogrel Bisulfate (Clopidogrel 75 Mg Tab) 75 mg PO DAILY [facility] Last Admin: 04/11/21 08:18 Dose: 75 mg Documented by: Dexamethasone Sodium Phosphate (Dexamethasone Sod Phosphate 10 Mg/Ml 1 Ml Vial) 6 mg IVP DAILY [facility] Last Admin: 04/11/21 08:18 Dose: 6 mg Documented by: Sodium Bicarbonate 100 ml/ (Dextrose/Water) 1,100 mls @ 125 mls/hr IV .Q8H48M [facility] Last Admin: 04/11/21 10:08 Dose: Not Given Documented by: Insulin Aspart (Insulin Aspart (Novolog) 100 Unit/Ml Vial) 0 unit SQ ACHS [facility]; Protocol Last Admin: 04/11/21 13:00 Dose: 2 unit Documented by: Levofloxacin (Levofloxacin 250 Mg Tab) 250 mg PO Q24H [facility] Last Admin: 04/11/21 13:00 Dose: 250 mg Documented by: Metoprolol Tartrate (Metoprolol Tartrate 12.5 Mg Tab) 12.5 mg PO BID [facility] Last Admin: 04/11/21 08:18 Dose: 12.5 mg Documented by: Naloxone HCl (Naloxone 0.4 Mg/Ml 1 Ml Vial) 0.2 mg IV Q2M PRN PRN Reason: Opioid Reversal Nitroglycerin (Nitroglycerin Sl Tabs 0.4 Mg Tab) 0.4 mg SUBLINGUAL Q5M PRN PRN Reason: Chest Pain Ondansetron HCl (Ondansetron 4 Mg/2 Ml Vial) 4 mg IVP Q8HR PRN PRN Reason: Nausea And Vomiting Pantoprazole Sodium (Pantoprazole 40 Mg Tablet) 40 mg PO BID [facility] Last Admin: 04/11/21 08:18 Dose: 40 mg Documented by: Zinc Sulfate (Zinc Sulfate 220 Mg Cap) 220 mg PO DAILY [facility] Last Admin: 04/11/21 08:18 Dose: 220 mg Documented by: Past medical history to include: CAD with stent, stroke with right-sided weakness that is resolved, hypertension, hyperlipidemia, kidney stones bilateral, right diaphragm paralysis, diverticulosis Social history: Sometimes uses a cane. . Retired. Does not smoke or drink alcohol. Family history: Diabetes, hypertension, Alzheimer's. Physical examination: VITAL SIGNS: 98, 91, 17, 122/68, 93% on 4 L GENERAL: Sitting up in chair, awake, LUNGS: Respiratory rate increased, . PSYCH: Alert and oriented x3; mood and affect normal. NEUROLOGICAL: Cranial nerves grossly intact; no facial asymmetry, moving all 4 limbs Rest of exam. As per Pulmonary and nursing INVESTIGATIONS, reviewed in the clinical context: April 11: Potassium 4.4 BUN 56 creatinine 2.48 April 10: Potassium 4.8 BUN 67 creatinine 2.59 April 09: Potassium 4.6 BUN 73 creatinine 2.77 April 08: WBC 20.9 hemoglobin 12 platelets 401 potassium 4.9 BUN 72 creatinine 2.6 CRP 3. D-dimer 0.5 to April 07: White count 18.3 hemoglobin 12.4 d-dimer 0.83 CRP 3.9 April 05: White count 14.7 hemoglobin 13.7 d-dimer 0.9 BUN 59 creatinine 2.09 CRP 17.5 April 04: D-dimer 1.08 progression 3.8 BUN 43 creatinine 2.25 WBC 15.3 hemoglobin 12 platelets 222 sodium 134 potassium 3.8 BUN 31 creatinine 2.50 Coronavirus [PCR]: Detected EKG tracing personally reviewed by me. Right bundle-branch block. DC. Normal sinus rhythm. Rate 105 Chest x-ray film personally reviewed by me-right diaphragm elevation. Infiltrate in the bases. Previous labs: 03/17/2021]: Creatinine 1.62 Assessment and plan: -Acute COVID 19 pneumonitis,'s causing hypoxia in a patient who is previously been vaccinated. Patient had received monoclonal antibodies and return to the ER in a few hours feeling worse.: Getting better Decadron 6 mg, Lovenox subcu, vitamin C zinc vitamin D. Pulmonary consultation -Acute hypoxic respiratory failure from COVID 19 pneumonitis, with pulse ox dropping to 87% on room air: Improving Currently on 4 L nasal cannula -Acute GI bleed, suspect upper GI source.. Note patient was on aspirin, Plavix. Dexamethasone. IV heparin. Follow H&H. DC IV heparin. Stop Plavix. Surgery on the case. On eliquis for A. fib.. -New onset atrial fibrillation. Rate controlled. Lopressor 25 mg twice a day. IV heparin that was started discontinued because of dark stools. eliquis -Patient was having pauses on telemetry Dose of Lopressor cutback -CAD with stent Lopressor, Plavix, aspirin-discontinued, Lipitor -Hyperlipidemia Lipitor 80 mg by mouth daily -Essential hypertension Lopressor 12.5 mg twice a day, amlodipine 5 mg a day -Primary osteoarthritis multiple joints bilaterally Use pain medications as needed -Chronic diverticulosis, asymptomatic Follow clinically -Chronic kidney disease stage III from nephrosclerosis At the baseline creatinine of 1.6 -Acute kidney injury likely prerenal from decreased oral intake: Slow to respond Creatinine 2.48 Consult nephrology. IV fluids -Metabolic acidosis due to acute kidney injury: New diagnosis *Bicarbonate drip -Bilateral nephrolithiasis. Patient did pass a stone 3 days ago with some hematuria which is improved. On March 06 patient underwent left ureteroscope even with laser lithotripsy and placement of a double-J catheter by Dr. Flores Dexamethasone. Subcu Lovenox. 4 L nasal cannula. . Eliquis PPI. bicarbonate drip discussed with patient. Follow labs
--- NOTE | 2021-04-11 16:45 | PN ---
PROGRESS NOTE Patient is seen for followup for acute kidney injury on top of chronic kidney disease. His serum creatinine is slightly better, down to 2.4 from 2.7. The patient has been voiding. He has a bedside commode. Twenty-four hour output is not charted. Currently being treated for COVID pneumonia. The patient is maintained on 4 L high-flow nasal cannula, O2 sats 93-95%. PHYSICAL EXAMINATION: Blood pressure this morning 124/66, heart rate 79 per minute. Patient is afebrile. Examination of lower extremities shows no significant edema. ACID BLOWER exam grossly intact. Heart and lungs are not examined. LAB: Show sodium 138, potassium 4.4, chloride 105, BUN 56, creatinine 2.48. UA showed 1+ protein, small blood. ASSESSMENT: 1. Acute kidney injury, ATN associated with hypotension, currently slowly improving. Patient is maintained on IV fluids. The ultrasound of the kidneys shows evidence of hydronephrosis with severe left hydronephrosis and mild to moderate right hydronephrosis with multiple bilateral renal calculi noted. Urology will be consulted. 2. Metabolic acidosis, currently improved. We can DC the IV bicarb. 3. Hypertension, controlled. 4. COVID pneumonia maintained on about 4 L with O2 sats 93-95%. 5. History of nephrolithiasis. PLAN: Discontinue bicarb drip. Consult Urology. Encourage increased oral intake. Repeat labs in a.m. Continue to avoid nephrotoxic agents. MMODL / IJN: [id number] /
[2021-04-11] MEDS: LACTATED RINGERS 1,000 ML IV SCH ×2 (17:31→21:24)
[2021-04-11 17:37] LABS: Glucose,Whole Blood 171 mg/dL (75-99)
--- NOTE | 2021-04-11 20:06 | P.GSCN ---
History of Present Illness Consult date: 04/11/21 Reason for Consult: bilateral hydronephrosis History of present illness: This is a 75-year-old male admitted to the hospital COVID pneumonia. Urology is consulted for bilateral hydronephrosis, he has history of left ureteral stones, underwent left-sided ureteroscopy by Dr. Daniel on March 06, and he subsequently underwent stent removal in the office. Of note he has history of significant right-sided stone burden also, plan to address his right-sided stone in April. His Creat was elevated at 2.77, creatinine is currently trending down to 2.48. His baseline is around 1.8. Of note he indicated he has passed a stone earlier this week. He denies any gross hematuria, dysuria, or flank pain. Ultrasound demonstrated evidence of bilateral hydronephrosis, no ureteral jets were visualized Review of Systems - Constitutional Denies chills, Denies fever - EENT Ears, nose, mouth and throat: Denies dysphagia - Cardiovascular Denies chest pain, Denies shortness of breath - Respiratory Reports dyspnea - Gastrointestinal Reports as per HPI - Genitourinary Denies dysuria, Denies hematuria - Integumentary Denies rash, Denies unusual bruising - Neurological Denies headaches, Denies syncope Past Medical History Past Medical History: Coronary Artery Disease (CAD), CVA/TIA, Hyperlipidemia, Hypertension, Renal Disease Additional Past Medical History / Comment(s): 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 History of Any Multi-Drug Resistant Organisms: None Reported Past Surgical History: Heart Catheterization, Heart Catheterization With Stent, Hernia Repair, Joint Replacement, Orthopedic Surgery Additional Past Surgical History / Comment(s): Total of 3 coronary stents, cystoscopy/lithotripsy/L ureteroscopy and stent, L kidney cyst drained, abdominal hernia repair, R rotator cuff repair, bilateral total knee arthroplasties. Past Anesthesia/Blood Transfusion Reactions: No Reported Reaction Date of Last Stent Placement:: 01/22/21 Smoking Status: Never smoker - Past Family History Father Family Medical History: Diabetes Mellitus, Hypertension Additional Family Medical History / Comment(s): Alzheimer's Mother Family Medical History: Cancer Additional Family Medical History / Comment(s): kidney Medications and Allergies Home Medications Medication Instructions Recorded Confirmed Type Metoprolol Tartrate [Lopressor] 25 mg PO HS 12/12/20 04/02/21 History amLODIPine [Norvasc] 5 mg PO DAILY 12/12/20 04/02/21 History Clopidogrel [Plavix] 75 mg PO DAILY 01/18/21 04/02/21 History Atorvastatin Calcium [Lipitor] 80 mg PO DAILY 02/17/21 04/02/21 History Metoprolol Tartrate [Lopressor] 50 mg PO DAILY 02/17/21 04/02/21 History Multivit-Min/FA/Lycopen/Lutein 1 tab PO DAILY 02/17/21 04/02/21 History [Centrum Silver Men Tablet] Nitroglycerin Sl Tabs [Nitrostat] 0.4 mg SUBLINGUAL Q5M PRN 02/17/21 04/02/21 History Apixaban [Eliquis] 2.5 mg PO BID 30 Days #60 tablet 04/08/21 Rx Allergies Allergy/AdvReac Type Severity Reaction Status Date / Time No Known Allergies Allergy Verified 04/02/21 22:14 Surgical - Exam Vital Signs Temp Pulse Resp BP Pulse Ox 99.5 F 110 H 22 109/55 95 04/02/21 17:22 04/02/21 17:22 04/02/21 17:22 04/02/21 17:22 04/02/21 17:22 - General no distress, no pain - Eyes PERRL - ENT normal nares, normal mucosa - Respiratory normal expansion, normal respiratory effort - Psychiatric oriented to time, oriented to person, oriented to place Results - Labs 04/08/21 05:33 04/11/21 07:18 Abnormal Lab Results - Last 24 Hours (Table) 04/10/21 04/11/21 04/11/21 Range/Units 20:55 05:48 07:18 BUN 56 H (9-20) mg/dL Creatinine 2.48 H (0.66-1.25) mg/dL Glucose 141 H (74-99) mg/dL POC Glucose (mg/dL) 164 H 158 H (75-99) mg/dL 04/11/21 04/11/21 Range/Units 11:56 17:26 BUN (9-20) mg/dL Creatinine (0.66-1.25) mg/dL Glucose (74-99) mg/dL POC Glucose (mg/dL) 198 H 171 H (75-99) mg/dL Diabetes panel 04/11/21 Range/Units 07:18 Sodium 138 (137-145) mmol/L Potassium 4.4 (3.5-5.1) mmol/L Chloride 105 (98-107) mmol/L Carbon Dioxide 27 (22-30) mmol/L BUN 56 H (9-20) mg/dL Creatinine 2.48 H (0.66-1.25) mg/dL Glucose 141 H (74-99) mg/dL Calcium 8.6 (8.4-10.2) mg/dL Calcium panel 04/11/21 Range/Units 07:18 Calcium 8.6 (8.4-10.2) mg/dL Pituitary panel 04/11/21 Range/Units 07:18 Sodium 138 (137-145) mmol/L Potassium 4.4 (3.5-5.1) mmol/L Chloride 105 (98-107) mmol/L Carbon Dioxide 27 (22-30) mmol/L BUN 56 H (9-20) mg/dL Creatinine 2.48 H (0.66-1.25) mg/dL Glucose 141 H (74-99) mg/dL Calcium 8.6 (8.4-10.2) mg/dL Adrenal panel 04/11/21 Range/Units 07:18 Sodium 138 (137-145) mmol/L Potassium 4.4 (3.5-5.1) mmol/L Chloride 105 (98-107) mmol/L Carbon Dioxide 27 (22-30) mmol/L BUN 56 H (9-20) mg/dL Creatinine 2.48 H (0.66-1.25) mg/dL Glucose 141 H (74-99) mg/dL Calcium 8.6 (8.4-10.2) mg/dL Assessment and Plan Assessment: 75-year-old male admitted to the hospital COVID pneumonia. Urology is consulted for bilateral hydronephrosis, he has history of left ureteral stones, underwent left-sided ureteroscopy by Dr. Daniel on March 06, and he subsequently underwent stent removal in the office. Underwent renal ultrasound for worsening creatinine, which showed bilateral hydronephrosis. Today is trending down, down to 2.48 from a baseline of 1.8. Has significant right-sided stone burden. Given his bilateral hydronephrosis will obtain CT abdomen and pelvis to rule out any obstructive ureteral stones.
[2021-04-11 20:13] LABS: Glucose,Whole Blood 150 mg/dL (75-99)
[2021-04-12 06:27] LABS: Calcium 8.2 mg/dL (8.4-10.2); Potassium 4.8 mmol/L (3.5-5.1)
[2021-04-12] MEDS: INSULIN ASPART (NovoLOG) 100 UNIT/ML VIAL SQ SCH ×4 (06:35→20:28)
--- NOTE | 2021-04-12 11:16 | CT ---
EXAMINATION TYPE: CT renal stones wo con DATE OF EXAM: 04/12/2021 HISTORY: hydronephrosis, history or renal stones CT DLP: 1029.4 mGycm. Automated Exposure Control for Dose Reduction was Utilized. TECHNIQUE: CT scan of the abdomen and pelvis is performed without oral or IV contrast. COMPARISON: Prior CT abdomen and pelvis February 17, 2021 FINDINGS: Within the limitations of a non-contrast study, the following observations are made. LUNG BASES: Right-sided diaphragmatic hernia redemonstrated. Right lung base not included. Mild to mo derate atelectasis and/or scarring in the visualized left lung base more prominent from prior. Lyman ry artery calcification and/or stents partially imaged. LIVER/GB: Liver only partially imaged on today's study majority in right lower thorax through large d iaphragmatic hernia sagittal image 59. Gallbladder outside field of view on current study. PANCREAS: No significant abnormality is seen. SPLEEN: No significant abnormality is seen. ADRENALS: No significant abnormality is seen. KIDNEYS: Multiple right-sided renal calculi redemonstrated including larger staghorn type calculus lo wer pole level measuring 2.6 cm long axis axial image 45. New moderate right-sided hydronephrosis. Sc attered left-sided renal calculi redemonstrated with persistent severe left-sided hydronephrosis. Asy mmetric diminished size and cortical thinning to the left kidney with exophytic simple appearing thin -walled 5.7 cm cyst lower pole level redemonstrated. No definitive ureteric calculi seen current stud y. Interval successful clearance of left ureter calculi. Moderate to severely distended bladder now p resent without intraluminal calculus. BOWEL: Diverticula throughout the transverse as well as the left and sigmoid colon without CT evidenc e for acute diverticulitis. Normal-appearing appendix right lower quadrant redemonstrated. No suspici ous small or large bowel dilatation. GENITAL ORGANS: Enlarged prostate consistent with BPH redemonstrated. Scattered pelvic phleboliths ag ain seen. LYMPH NODES: No greater than 1cm abdominal or pelvic lymph nodes are appreciated. OSSEOUS STRUCTURES: Moderate disc space narrowing T8-T9 and T9-T10 levels redemonstrated. Prominent f acet arthropathy in the lower lumbar spine. OTHER: Mild subcutaneous edema laterally over the bilateral thighs. IMPRESSION: Persistent severe left-sided hydronephrosis and new moderate right-sided hydronephrosis b ut interval successful treatment of the left ureter calculi. Moderate to severely distended bladder i s now present likely accounting for reflux hydronephrosis bilaterally. Underlying BPH is present.
[2021-04-12] MEDS: amLODIPine 5 MG TAB PO SCH (11:53)
[2021-04-12] MEDS: ASCORBIC ACID 500 MG TAB PO SCH (11:53)
[2021-04-12] MEDS: PANTOPRAZOLE 40 MG TABLET PO SCH ×2 (11:53→20:28)
[2021-04-12] MEDS: METOPROLOL TARTRATE 12.5 MG TAB PO SCH ×2 (11:53→20:28)
[2021-04-12] MEDS: CLOPIDOGREL 75 MG TAB PO SCH (11:54)
[2021-04-12] MEDS: LEVOFLOXACIN 250 MG TAB PO SCH (11:54)
[2021-04-12] MEDS: CHOLECALCIFEROL 25 MCG (1000 IU) TABLET PO SCH (11:54)
[2021-04-12] MEDS: DEXAMETHASONE SOD PHOSPHATE 10 MG/ML 1 ML VIAL IVP SCH (11:54)
[2021-04-12] MEDS: ATORVASTATIN 80 MG TAB PO SCH (11:54)
[2021-04-12] MEDS: ZINC SULFATE 220 MG CAP PO SCH (11:54)
[2021-04-12] MEDS: APIXABAN 2.5 MG TABLET PO SCH ×2 (11:54→20:28)
[2021-04-12 12:07] LABS: Glucose,Whole Blood 120 mg/dL (75-99)
--- NOTE | 2021-04-12 12:11 | P.PN ---
Subjective Progress Note Date: 04/12/21 Principal diagnosis: Coronavirus associated pneumonia. This is a 75-year-old gentleman who follows with Dr. Edmonds as his primary care provider. He has a history of coronary artery disease with previous stent placements, nephrolithiasis with recent passing of a kidney stone, retention, hyperlipidemia, obesity. He presented here to the emergency room yesterday with poor appetite and a generalized weakness and shortness of breath. White count 15.3. Hemoglobin 12.0. Lymphocytes 0.4. Sodium 134. Potassium 3.8. Creatinine 2.50. BUN 31. GFR 24. Glucose 139. AST 46. ALT 42. LDH 566. C- reactive protein 26.7. Chronic virus by PCR positive. The patient has been v accinated back in July 2020 2 with Moderna. No booster. Chest x-ray does reveal new patchy airspace disease bilaterally. Elevated right hemidiaphragm. He is seen today in consultation in the emergency room. He is currently lying on the stretcher on his right side. This helps him breathe the easiest. He is currently requiring 6 L high flow nasal cannula to maintain O2 saturations in the low 90s. He was 87% on room air. He's been afebrile. Slightly tachycardic. Tachypneic. He's been initiated on Decadron. The patient is seen today 04/04/2021 in follow-up on the regular medical floor. He is currently resting comfortably in bed. Laying on his right side. Breathing a bit easier today compared to yesterday. He is still requiring 15 L high flow nasal cannula to maintain O2 saturation in the low 90s. He is afebrile. Hemodynamically stable. His appetite has improved. D-dimer 1.08. Sodium 134. Potassium 3.8. Creatinine 2.25. Glucose 139. LDH 529. C- reactive protein 35.9. Pro-calcitonin 5.08. Urine culture pending. Blood culture revealed no growth to date. He is continued on Decadron, Lovenox, vitamin supplements. 0.45 normal saline at 100 ML's per hour. The patient is seen today 04/05/2021 in follow-up on the regular medical floor. He is currently resting in bed on his right side. Awake and alert in no acute distress. He is still requiring 15 L high flow nasal cannula to maintain O2 saturation in the low 90s. He's been afebrile. Hemodynamically stable. Follow-up chest x-ray continues to show right hemidiaphragm elevation with some possible pleural effusion. Ultrasound of the right chest pending. Blood culture reveals no growth. D-dimer 0.9. Sodium 136. Potassium 3.9. Creatinine 2.09. He remains on Decadron, Lovenox, vitamin supplements. The patient is seen today 04/06/2021 in follow-up on the regular medical floor. He is currently sitting up at the bedside. Awake and alert in no acute distress. He is still requiring 14 L high flow nasal cannula with O2 saturations in the mid 90s. Ultrasound of the right chest revealed no s ignificant pleural effusion. Blood culture revealed no growth. INR 1.3. D- dimer 0.6. Sodium 135. Potassium 4.2. Creatinine 1.98. BUN 68. C-reactive protein 6.3. Glucose 137. Continued on Decadron, vitamin supplements, Levaquin. The patient was found to be in atrial fibrillation with sinus pauses. Beta blockers were adjusted. Currently on a heparin drip. On 04/07/2021 patient seen in follow-up on selective care unit, he is awake and alert, in no acute distress, he is currently on 12 L of oxygen pulse ox is 90%. Appears to be in no acute distress. He sitting up in the recliner, breathing comfortably, patient has diminished breath sounds on the right, he has chronically elevated right hemidiaphragm, he is ultrasound of the chest showed no significant pleural fluid on the right for drainage, overall breathing comfortably, respirations are nonlabored, he has diffuse crackles over left lower base, his been afebrile. He remains on Decadron 6 mg daily, he is on empiric antibiotics in the form of Levaquin, and he is on Eliquis 2.5 mg twice daily for new onset atrial fibrillation. No acute events overnight, occasional cough, no phlegm production. Progress note dated 04/08/2021. 75-year-old male seen today in room 354. The patient is currently on 6 L nasal cannula, and receiving half-normal saline at 50 mL an hour. He has been vaccinated against coronavirus infection. The patient feels much better today. Much less short of breath. Apparently yesterday he was on 12 L of oxygen. The patient has recently found to have coronary artery disease, and apparently was c onsidering bypass grafting, but instead, stents were placed. White count 20.1, he will been 12, hematocrit 37.2, with a normal platelet count. D-dimer is 0.52. Sodium 139, potassium 4.9, chlorides 109, CO2 21, anion gap 9, BUN 72, with creatinine of 2.60. Pro-ca Progress note dated 04/09/2021. 75-year-old male, again seen in room 354. Currently, the patient's receiving half-normal saline at 100 mL an hour, is on 6 L nasal cannula. He does feel better today. He was hoping for physical therapy to come see him. They have not as yet. Currently, sodium 139, potassium 4.6, chlorides 112, CO2 16, anion gap 11, BUN 73, with a creatinine of 2.77. Last chest x-ray was done on April 07. Progress note dated 04/10/2021. 75-year-old male, seen again in room 354. Currently, Mr. Stratton is on 4 L nasal cannula. He is getting an IV with 2 ampules of sodium bicarbonate and D5W, at 100 mL an hour. The patient's resting comfortably. He denies any shortness of breath, cough, wheezing, or phlegm production. He does feel better. Current labs include a sodium 138, potassium 4.8, chlorides 111, CO2 19, anion gap 8, BUN 67, with a creatinine of 2.59. There is no recent chest x-ray. Currently, the patient is on vitamin C, vitamin D3, and zinc. In addition, the patient is getting Decadron, and Eliquis. Finally, the patient is on Levaquin 250 mg every 24 hours. Microbiology is currently negative. Progress note dated 04/12/2021. The patient is again seen in room 354. He is getting saline at 50 mL an hour. His oxygen has been titrated down to 3 L/m by nasal cannula. He's feeling much improved. He's hoping to be discharged in the near future. Sodium 138, potassium 4.8, chlorides 106, CO2 28, anion gap 4, BUN 54, and creatinine 2.49. A CAT scan of the kidneys showed a left-sided hydronephrosis and new moderate right-sided hydronephrosis, but interval successful treatment of the left ureter calculi. Underlying BPH is present. Objective - Vital Signs Vital signs: Vital Signs Temp 97.8 F 04/12/21 04:00 Pulse 74 04/12/21 04:00 Resp 18 04/12/21 04:00 BP 118/62 04/12/21 04:00 Pulse Ox 95 04/12/21 04:00 Intake & Output 04/11/21 04/12/21 04/12/21 18:59 06:59 18:59 Intake Total 365 240 240 Output Total 6 6 Balance 359 234 240 Weight 99 kg Intake: Oral 365 240 240 Output: Stool 6 6 Other: Voiding Method Bedside Commode Toilet Urinal # Voids 2 1 # Bowel Movements 2 - Exam No acute distress, oriented 3. Currently on 3 liter high flow nasal cannula with saturations of 95%. HEENT examination is grossly unremarkable. Neck supple. Full range of motion. No adenopathy thyromegaly or neck vein distention. Cardiovascular examination reveals regular rhythm rate. S1-S2 normal. No S3 or S4. No discernible murmur noted. Heart sounds are distant. Heart rate 74 bpm. Lungs reveal scattered rhonchi throughout. Severely diminished breath sounds at the right base. No wheezes. No crackles. Abdomen soft bowel sounds are heard. No masses or tenderness. Extremities are intact. No cyanosis clubbing or edema. Skin is without rash or lesion. Neurologic examination is brief but nonfocal. - Labs CBC & Chem 7: 04/08/21 05:33 04/12/21 05:45 Labs: Abnormal Lab Results - Last 24 Hours (Table) 04/11/21 04/11/21 04/12/21 Range/Units 17:26 19:59 05:45 BUN 54 H (9-20) mg/dL Creatinine 2.49 H (0.66-1.25) mg/dL Glucose 109 H (74-99) mg/dL POC Glucose (mg/dL) 171 H 150 H (75-99) mg/dL Calcium 8.2 L (8.4-10.2) mg/dL 04/12/21 Range/Units 11:57 BUN (9-20) mg/dL Creatinine (0.66-1.25) mg/dL Glucose (74-99) mg/dL POC Glucose (mg/dL) 120 H (75-99) mg/dL Calcium (8.4-10.2) mg/dL Assessment and Plan Assessment: Acute hypoxemic respiratory failure secondary to coronavirus associated pneumonia. Possible community-acquired pneumonia. Acute renal failure. History of nephrolithiasis. CAD with previous stent placement. History of CVA. History of hyperlipidemia. History of hypertension. History of new onset atrial fibrillation. History of possible GI bleed. History of chronically elevated right diaphragm. Plan: Plan dated 04/08/2021. The patient continues on appropriate medications including Decadron, Eliquis, and vitamins. The patient's currently on 8 L high flow nasal O2. The patient's getting half-normal saline at 50 mL an hour. Medications, labs, and x-rays all reviewed. No plans for thoracentesis. Ultrasound shows small amount of fluid in the right pleural space. He has a chronically elevated right hemidiaphragm. Yesterday, he was on 12 L high flow. He does seem to be improving albeit slowl y. Plan dated 04/09/2021. The patient continues on appropriate medications including Decadron, Eliquis, vitamin C, vitamin D3, and zinc. His oxygen has been weaned down to 6 L from 8 L yesterday. Remains on half-normal saline, now at 100 mL an hour. The patient's doing much better. Clinically he feels much better. He's hoping for some physical therapy today. He does have a chronically elevated right hemidiaphragm. Ultrasound showed minimal fluid. He was not a candidate for thoracentesis. We will continue to follow make recommendations where appropriate. Plan dated 04/10/2021. The patient continues on Decadron, Eliquis, vitamin C, vitamin D3, and zinc. The patient also continues on Levaquin IV at a reduced dose. The patient to has been weaned down to 4 L. He is currently on sodium bicarbonate drip, with 2 ampules of sodium bicarbonate and D5W, running at 100 mL an hour. The patient's overall prognosis remains guarded. We will continue to follow make recommendations where appropriate. The patient is not a candidate for thoracentesis. Plan dated 04/12/2021. The patient remains on Decadron, Eliquis, and vitamin C, vitamin D3, and zinc. Clinically he is doing well. The results of the renal CAT scan are reviewed. The patient is hoping to be discharged in the near future. Additional recommendations and suggestions are forthcoming. The patient has been on Leva neal since April 06. We will continue to follow make recommendations were appropriate. The patient was thought not to be candidate for thoracentesis. Time with Patient: Less than 30
--- NOTE | 2021-04-12 15:00 | P.PN ---
Progress Note - Text Progress Note Date: 04/12/21 Chief Complaint: Not feeling well This is a very pleasant 75-year-old patient who follows Dr. Edmonds. Chronic stable medical conditions include CAD with stent, hypertension, hyperlipidemia, stroke in the past with some right-sided weakness that resolved, bilateral kid hardik stones, right diaphragm paralysis diverticulosis. Arthritis in the joints. Patient presents with decreased appetite for 3 days. No loss of smell or taste. Feeling very weak. Slight fever. No diarrhea no headache. Slight cough. Patient did pass a kidney stone 3 days ago. Feeling tired and rundown. Some shortness of breath. Patient did test for positive for COVID in the ER. Patient had received prior vaccination. Patient presented yesterday evening to the ER and received monoclonal antibodies. He was discharged. He came back to the ER feeling worse and hypoxic. And therefore admitted April 04: shortness of breath. On 15 L nasal cannula. Tired April 05: Short of breath. On 15 L nasal cannula. Tired. Oral intake fair. April 06: Short of breath. Remains on 15 L nasal cannula. Tired. Eating 25-50%. Patient had dark stools this morning. I discontinued IV heparin. GI service not available the hospital. Surgery consulted. Protonix added. No abdominal pain. Patient (yesterday went into atrial fibrillation. With pauses. Lopressor dose was cut back. Started IV heparin by cardiology.] Atrial fibrillation rate controlled today. April 07: Remain short of breath. Tired. From Black stool changed over to dark brown stool. No abdominal pain. Sitting up in a recliner. Eating about 25%. 98% on 10 L. Started on eliquis by cardiology. April 08: No more dark stools. Breathing she did better. Eating doesn't nasal cannula. Sitting up in a chair. Eating some. April 09: Remains on eliquis. Oral intake fair. On 7 L of nasal cannula. S low improvement in breathing. Creatinine worsening. Sodium bicarbonate drip with D5W ordered. Nephrology consultation. April 10: Acute kidney injury. Possibly prerenal versus ATN. Has been on IV fluids since yesterday. Seen by nephrology. Some improvement in creatinine. Oral intake fair. Sitting up in a chair. Blood the patient start to ambulate in the room. On 4 L of nasal cannula. April 11: Slight improvement in creatinine. Getting IV fluids/bicarb. Oral intake fair. Sitting up in a chair. On 4 L nasal cannula. April 12: Sitting up in a chair. Breathing better. On 3 L of nasal trauma. No abdominal pain. States she does not like hospitals for but he still eating some. On Decadron. She was seen by urology. CT abdomen was ordered.: Shows multiple right-sided renal calculi including largest staghorn-type calculus. Moderate right-sided hydronephrosis. Scattered left-sided renal calculi with persistent severe left-sided hydronephrosis. Cortical thinning on the left daily. Moderate to severely distended bladder. Review of systems: Was done for constitutional, cardiovascular, GI, pulmonary. relevant finding as above Active Medications Acetaminophen (Acetaminophen Tab 325 Mg Tab) 650 mg PO Q6HR PRN PRN Reason: Mild Pain or Fever > 100.5 Amlodipine Besylate (Amlodipine 5 Mg Tab) 5 mg PO DAILY [facility] Last Admin: 04/12/21 11:53 Dose: 5 mg Documented by: Apixaban (Apixaban 2.5 Mg Tablet) 2.5 mg PO BID [facility]; Protocol Last Admin: 04/12/21 11:54 Dose: 2.5 mg Documented by: Ascorbic Acid (Ascorbic Acid 500 Mg Tab) 1,000 mg PO DAILY [facility] Last Admin: 04/12/21 11:53 Dose: 1,000 mg Documented by: Atorvastatin Calcium (Atorvastatin 80 Mg Tab) 80 mg PO DAILY [facility] Last Admin: 04/12/21 11:54 Dose: 80 mg Documented by: Cholecalciferol (Cholecalciferol 25 Mcg (1000 Iu) Tablet) 25 mcg PO DAILY [facility] Last Admin: 04/12/21 11:54 Dose: 25 mcg Documented by: Clopidogrel Bisulfate (Clopidogrel 75 Mg Tab) 75 mg PO DAILY [facility] Last Admin: 04/12/21 11:54 Dose: 75 mg Documented by: Dexamethasone Sodium Phosphate (Dexamethasone Sod Phosphate 10 Mg/Ml 1 Ml Vial) 6 mg IVP DAILY [facility] Last Admin: 04/12/21 11:54 Dose: 6 mg Documented by: Lactated Ringer's (Lactated Ringers) 1,000 mls @ 50 mls/hr IV .Q20H [facility] Last Admin: 04/11/21 21:24 Dose: 50 mls/hr Documented by: Insulin Aspart (Insulin Aspart (Novolog) 100 Unit/Ml Vial) 0 unit SQ ACHS [facility]; Protocol Last Admin: 04/12/21 12:06 Dose: Not Given Documented by: Levofloxacin (Levofloxacin 250 Mg Tab) 250 mg PO Q24H [facility] Last Admin: 04/12/21 11:54 Dose: 250 mg Documented by: Metoprolol Tartrate (Metoprolol Tartrate 12.5 Mg Tab) 12.5 mg PO BID [facility] Last Admin: 04/12/21 11:53 Dose: 12.5 mg Documented by: Naloxone HCl (Naloxone 0.4 Mg/Ml 1 Ml Vial) 0.2 mg IV Q2M PRN PRN Reason: Opioid Reversal Nitroglycerin (Nitroglycerin Sl Tabs 0.4 Mg Tab) 0.4 mg SUBLINGUAL Q5M PRN PRN Reason: Chest Pain Ondansetron HCl (Ondansetron 4 Mg/2 Ml Vial) 4 mg IVP Q8HR PRN PRN Reason: Nausea And Vomiting Pantoprazole Sodium (Pantoprazole 40 Mg Tablet) 40 mg PO BID [facility] Last Admin: 04/12/21 11:53 Dose: 40 mg Documented by: Zinc Sulfate (Zinc Sulfate 220 Mg Cap) 220 mg PO DAILY [facility] Last Admin: 04/12/21 11:54 Dose: 220 mg Documented by: Past medical history to include: CAD with stent, stroke with right-sided weakness that is resolved, hypertension, hyperlipidemia, kidney stones bilateral, right diaphragm paralysis, diverticulosis Social history: Sometimes uses a cane. . Retired. Does not smoke or drink alcohol. Family history: Diabetes, hypertension, Alzheimer's. Physical examination: VITAL SIGNS: 97.6, 95, 18, 120/85, 93% on 3 L GENERAL: Sitting up in chair, awake, LUNGS: Respiratory rate increased, . PSYCH: Alert and oriented x3; mood and affect normal. NEUROLOGICAL: Cranial nerves grossly intact; no facial asymmetry, moving all 4 limbs Rest of exam. As per Pulmonary and nursing INVESTIGATIONS, reviewed in the clinical context: CT renal [April 12] .: Shows multiple right-sided renal calculi including largest staghorn-type calculus. Moderate right-sided hydronephrosis. Scattered left-sided renal calculi with persistent severe left-sided hydronephrosis. Cortical thinning on the left daily. Moderate to severely distended bladder. April 12: Potassium 4.8. 54 creatinine 2.49 April 11: Potassium 4.4 BUN 56 creatinine 2.48 April 10: Potassium 4.8 BUN 67 creatinine 2.59 April 09: Potassium 4.6 BUN 73 creatinine 2.77 April 08: WBC 20.9 hemoglobin 12 platelets 401 potassium 4.9 BUN 72 creatinine 2.6 CRP 3. D-dimer 0.5 to April 07: White count 18.3 hemoglobin 12.4 d-dimer 0.83 CRP 3.9 April 05: White count 14.7 hemoglobin 13.7 d-dimer 0.9 BUN 59 creatinine 2.09 CRP 17.5 April 04: D-dimer 1.08 progression 3.8 BUN 43 creatinine 2.25 WBC 15.3 hemoglobin 12 platelets 222 sodium 134 potassium 3.8 BUN 31 creatinine 2.50 Coronavirus [PCR]: Detected EKG tracing personally reviewed by me. Right bundle-branch block. DC. Normal sinus rhythm. Rate 105 Chest x-ray film personally reviewed by me-right diaphragm elevation. Infiltrate in the bases. Previous labs: 03/17/2021]: Creatinine 1.62 Assessment and plan: -Acute COVID 19 pneumonitis,'s causing hypoxia in a patient who is previously been vaccinated. Patient had received monoclonal antibodies and return to the ER in a few hours feeling worse.: Getting better Decadron 6 mg, Lovenox subcu, vitamin C zinc vitamin D. Pulmonary consultation -Acute hypoxic respiratory failure from COVID 19 pneumonitis, with pulse ox dropping to 87% on room air: Improving Currently on 3 L nasal cannula -Acute GI bleed, suspect upper GI source.. Note patient was on aspirin, Plavix. Dexamethasone. IV heparin. Follow H&H. DC IV heparin. Stop Plavix. Surgery on the case. On eliquis for A. fib.. -New onset atrial fibrillation. Rate controlled. Lopressor 25 mg twice a day. IV heparin that was started discontinued because of dark stools. eliquis -Patient was having pauses on telemetry Dose of Lopressor cutback -CAD with stent Lopressor, Plavix, aspirin-discontinued, Lipitor -Hyperlipidemia Lipitor 80 mg by mouth daily -Essential hypertension Lopressor 12.5 mg twice a day, amlodipine 5 mg a day -Primary osteoarthritis multiple joints bilaterally Use pain medications as needed -Chronic diverticulosis, asymptomatic Follow clinically -Chronic kidney disease stage III from nephrosclerosis At the baseline creatinine of 1.6 -Acute kidney injury likely prerenal from decreased oral intake: Slow to respond Creatinine 2.48 Consult nephrology. IV fluids -Metabolic acidosis due to acute kidney injury: New diagnosis *Bicarbonate drip -Bilateral nephrolithiasis. Patient did pass a stone 3 days ago with some hematuria which is improved. On March 06 patient underwent left ureteroscope even with laser lithotripsy and placement of a double-J catheter by Dr. Flores -Bilateral hydronephrosis, with possible acute component. Follow-up with urology. Dexamethasone. Subcu Lovenox. 3 L nasal cannula. . Eliquis. Await further input from urology.
[2021-04-12 16:32] LABS: Glucose,Whole Blood 148 mg/dL (75-99)
[2021-04-12] MEDS: LACTATED RINGERS 1,000 ML IV SCH (16:56)
--- NOTE | 2021-04-12 16:58 | PN ---
PROGRESS NOTE Patient is seen for followup for acute kidney injury. The patient's renal function is slightly better than on admission, but remains stable with creatinine staying at about 2.4. Previous creatinine was about 1.6-1.8 mg/dL. Patient has underlying bilateral hydronephrosis and has significant nephrolithiasis. He has been evaluated by Urology. The patient recently passed a kidney stone a few days prior to admission. CT from today shows significantly dilated bladder as well. PHYSICAL EXAMINATION: On examination today, blood pressure 120/85, heart rate 95 per minute. Patient is afebrile. Examination of lower extremities shows trace edema bilaterally. Abdomen is soft, morbidly obese. [employer]UCATIONAL ASSISTANT exam grossly intact. LAB: Show sodium 138, potassium 4.8, chloride 106, BUN 54, creatinine 2.49. ASSESSMENT: 1. Acute kidney injury on top of chronic kidney disease mostly obstructive uropathy. The new CT of the abdomen shows distended bladder as well along with bilateral hydronephrosis and significant nephrolithiasis. We will proceed with a Gonsales catheter placement. Continue with the fluids at 50 mL an hour. 2. Chronic kidney disease NKF stage 3B. Baseline creatinine about 1.6-1.8 mg/dL. Secondary to chronic nephrolithiasis bilaterally with possible component of obstructive uropathy as well. 3. Covid 19 infection with Covid 19 pneumonia. 4. Bilateral nephrolithiasis with obstructive uropathy. 5. Benign prostatic hypertrophy with obstructive uropathy. 6. Metabolic acidosis, currently improved off sodium bicarb. PLAN: Place Gonsales catheter. Repeat labs in a.m. We will likely DC the IV fluids over the weekend. MMODL / IJN: [id number] /
[2021-04-12] MEDS: TAMSULOSIN 0.4 MG CAP.ER.24H PO SCH (18:12)
--- NOTE | 2021-04-12 19:04 | P.PN ---
Subjective Progress Note Date: 04/12/21 CT from yesterday showed drug nephrosis, nonobstructive ureteral calculi were visualized. Of note the bladder was significantly distended. Creatinine stable at 2.49,denies any gross hematuria or dysuria. Objective - Vital Signs Vital signs: Vital Signs Temp 97.8 F 04/12/21 16:00 Pulse 86 04/12/21 16:00 Resp 18 04/12/21 16:00 BP 101/58 04/12/21 16:00 Pulse Ox 92 L 04/12/21 16:00 Intake & Output 04/11/21 04/12/21 04/12/21 18:59 06:59 18:59 Intake Total 365 240 760 Output Total 6 6 1500 Balance 359 234 -740 Weight 99 kg Intake: IV 20 Invasive Line 3 20 Oral 365 240 740 Output: Urine 1500 Uretheral (Gonsales) 1500 Stool 6 6 Other: Voiding Method Bedside Commode Toilet Urinal # Voids 2 1 1 # Bowel Movements 2 1 - Constitutional General appearance: Present: no acute distress - Labs CBC & Chem 7: 04/08/21 05:33 04/12/21 05:45 Labs: Abnormal Lab Results - Last 24 Hours (Table) 04/11/21 04/12/21 04/12/21 Range/Units 19:59 05:45 11:57 BUN 54 H (9-20) mg/dL Creatinine 2.49 H (0.66-1.25) mg/dL Glucose 109 H (74-99) mg/dL POC Glucose (mg/dL) 150 H 120 H (75-99) mg/dL Calcium 8.2 L (8.4-10.2) mg/dL 04/12/21 Range/Units 16:31 BUN (9-20) mg/dL Creatinine (0.66-1.25) mg/dL Glucose (74-99) mg/dL POC Glucose (mg/dL) 148 H (75-99) mg/dL Calcium (8.4-10.2) mg/dL Assessment and Plan Assessment: 75-year-old male admitted to the hospital COVID pneumonia. Urology is consulted for bilateral hydronephrosis, he has history of left ureteral stones, underwent left-sided ureteroscopy by Dr. Daniel on March 06, and he subsequently underwent stent removal in the office. Creat stable at 2.49 from a baseline of 1.8. Has significant right-sided stone burden. underwent a CT yesterday which s howed no ureteral stone, bladder significant only distended. Hydronephrosis most likely secondary to urinary retention. -We will obtain a PVR, greater than 250 multiple inserted a Gonsales catheter, can have a trial void prior to discharge. At time of discharge if postvoid residuals greater than 400 mL than a Gonsales can be reinserted and can follow-up with Dr. Madrid in 1 week for a trial of void -Continue Flomax -Can f/u outpatient with Dr. Madrid to address his right-sided renal stones
[2021-04-12 20:35] LABS: Glucose,Whole Blood 135 mg/dL (75-99)
[2021-04-13 06:16] LABS: Glucose,Whole Blood 89 mg/dL (75-99)
[2021-04-13] MEDS: INSULIN ASPART (NovoLOG) 100 UNIT/ML VIAL SQ SCH ×3 (06:16→18:03)
[2021-04-13] MEDS: ASCORBIC ACID 500 MG TAB PO SCH (08:42)
[2021-04-13] MEDS: ATORVASTATIN 80 MG TAB PO SCH (08:43)
[2021-04-13] MEDS: ZINC SULFATE 220 MG CAP PO SCH (08:43)
[2021-04-13] MEDS: amLODIPine 5 MG TAB PO SCH (08:43)
[2021-04-13] MEDS: LEVOFLOXACIN 250 MG TAB PO SCH (08:43)
[2021-04-13] MEDS: CLOPIDOGREL 75 MG TAB PO SCH (08:43)
[2021-04-13] MEDS: CHOLECALCIFEROL 25 MCG (1000 IU) TABLET PO SCH (08:43)
[2021-04-13] MEDS: APIXABAN 2.5 MG TABLET PO SCH (08:43)
[2021-04-13] MEDS: METOPROLOL TARTRATE 12.5 MG TAB PO SCH (08:43)
[2021-04-13] MEDS: PANTOPRAZOLE 40 MG TABLET PO SCH (08:43)
[2021-04-13] MEDS: LACTATED RINGERS 1,000 ML IV SCH (08:48)
[2021-04-13] MEDS ORDERED: dexAMETHasone 2 MG TAB PO SCH (09:00)
[2021-04-13 09:48] LABS: Basophils % (A) 0 %; Eosinophils # (A) 0.4 k/uL (0-0.7); Eosinophils % (A) 3 %; HCT 34.7 % (39.0-53.0); HGB 11.3 gm/dL (13.0-17.5); Lymphocytes # (A) 1.1 k/uL (1.0-4.8); Lymphocytes % (A) 7 %; MCH 31.6 pg (25.0-35.0); MCHC 32.6 g/dL (31.0-37.0); MCV 97.1 fL (80.0-100.0); Monocytes # (A) 0.7 k/uL (0-1.0); Monocytes % (A) 4 %; Neutrophils # (A) 12.7 k/uL (1.3-7.7); Neutrophils % (A) 85 %; Platelet Count 326 k/uL (150-450); RBC 3.58 m/uL (4.30-5.90); RDW 14.2 % (11.5-15.5); WBC 14.9 k/uL (3.8-10.6)
[2021-04-13 09:55] LABS: Albumin 2.7 g/dL (3.5-5.0); Calcium 8.3 mg/dL (8.4-10.2); Potassium 4.3 mmol/L (3.5-5.1); Total Bilirubin 0.8 mg/dL (0.2-1.3); Total Protein 5.1 g/dL (6.3-8.2)
--- NOTE | 2021-04-13 10:05 | P.PN ---
Subjective Patient is seen in follow-up for acute kidney injury on chronic kidney disease. Gonsales catheter placed for urinary retention. Nonoliguric. Renal function improved. Denies chest pain or shortness of breath. No vomiting or diarrhea. Vital signs are stable. General: The patient appeared well nourished and normally developed. HEENT: Head exam is unremarkable. LUNGS: Breath sounds decreased. HEART: Rate and Rhythm are regular. ABDOMEN: Soft, obese. EXTREMITITES: No edema. Objective - Vital Signs Vital signs: Vital Signs Temp 98 F 04/13/21 04:00 Pulse 70 04/13/21 04:00 Resp 18 04/13/21 04:00 BP 99/51 04/13/21 04:00 Pulse Ox 95 04/13/21 04:00 Intake & Output 04/12/21 04/13/21 04/13/21 18:59 06:59 18:59 Intake Total 760 250 Output Total 1500 Balance -740 250 Weight 94.5 kg Intake: IV 20 Invasive Line 3 20 Intake, IV Titration 250 Amount Lactated Ringers 1,000 ml 250 @ 50 mls/hr IV .Q20H [facility] Rx#:[id number] Oral 740 Output: Urine 1500 Uretheral (Gonsales) 1500 Other: Voiding Method Indwelling Catheter # Voids 1 # Bowel Movements 1 1 - Labs CBC & Chem 7: 04/13/21 08:57 04/13/21 08:57 Labs: Abnormal Lab Results - Last 24 Hours (Table) 04/12/21 04/12/21 04/12/21 Range/Units 11:57 16:31 20:16 WBC (3.8-10.6) k/uL RBC (4.30-5.90) m/uL Hgb (13.0-17.5) gm/dL Hct (39.0-53.0) % Neutrophils # (1.3-7.7) k/uL BUN (9-20) mg/dL Creatinine (0.66-1.25) mg/dL Glucose (74-99) mg/dL POC Glucose (mg/dL) 120 H 148 H 135 H (75-99) mg/dL Calcium (8.4-10.2) mg/dL Total Protein (6.3-8.2) g/dL Albumin (3.5-5.0) g/dL 04/13/21 04/13/21 Range/Units 08:57 08:57 WBC 14.9 H (3.8-10.6) k/uL RBC 3.58 L (4.30-5.90) m/uL Hgb 11.3 L (13.0-17.5) gm/dL Hct 34.7 L (39.0-53.0) % Neutrophils # 12.7 H (1.3-7.7) k/uL BUN 49 H (9-20) mg/dL Creatinine 2.20 H (0.66-1.25) mg/dL Glucose 111 H (74-99) mg/dL POC Glucose (mg/dL) (75-99) mg/dL Calcium 8.3 L (8.4-10.2) mg/dL Total Protein 5.1 L (6.3-8.2) g/dL Albumin 2.7 L (3.5-5.0) g/dL Assessment and Plan Plan: Assessment: 1. Daily kidney injury secondary to obstructive uropathy. Renal function better. Creatinine 2.2 today. Nonoliguric. 2. Bilateral hydronephrosis and urinary retention. Gonsales catheter placed. Urology following. On Flomax. 3. Chronic kidney disease stage IIIB with baseline creatinine in the range of 1.5-2 secondary to nephrosclerosis and obstructive uropathy due to nephrolithia sis. Patient had left ureteral stent placed and had a stent placed in February 2021 which was subsequently removed. 4. Hypertension with chronic kidney disease. Blood pressure on the lower side. 5. COVID-19 pneumonia. Plan: Maintain gentle IV hydration. Hold amlodipine for systolic blood pressure less than 120. Continue to monitor renal function and urine output.
[2021-04-13 11:51] LABS: Glucose,Whole Blood 107 mg/dL (75-99)
--- NOTE | 2021-04-13 14:33 | P.PN ---
Subjective Progress Note Date: 04/13/21 Principal diagnosis: Coronavirus associated pneumonia. This is a 75-year-old gentleman who follows with Dr. Edmonds as his primary care provider. He has a history of coronary artery disease with previous stent placements, nephrolithiasis with recent passing of a kidney stone, retention, hyperlipidemia, obesity. He presented here to the emergency room yesterday with poor appetite and a generalized weakness and shortness of breath. White count 15.3. Hemoglobin 12.0. Lymphocytes 0.4. Sodium 134. Potassium 3.8. Creatinine 2.50. BUN 31. GFR 24. Glucose 139. AST 46. ALT 42. LDH 566. C- reactive protein 26.7. Chronic virus by PCR positive. The patient has been v accinated back in July 2020 2 with Moderna. No booster. Chest x-ray does reveal new patchy airspace disease bilaterally. Elevated right hemidiaphragm. He is seen today in consultation in the emergency room. He is currently lying on the stretcher on his right side. This helps him breathe the easiest. He is currently requiring 6 L high flow nasal cannula to maintain O2 saturations in the low 90s. He was 87% on room air. He's been afebrile. Slightly tachycardic. Tachypneic. He's been initiated on Decadron. The patient is seen today 04/04/2021 in follow-up on the regular medical floor. He is currently resting comfortably in bed. Laying on his right side. Breathing a bit easier today compared to yesterday. He is still requiring 15 L high flow nasal cannula to maintain O2 saturation in the low 90s. He is afebrile. Hemodynamically stable. His appetite has improved. D-dimer 1.08. Sodium 134. Potassium 3.8. Creatinine 2.25. Glucose 139. LDH 529. C- reactive protein 35.9. Pro-calcitonin 5.08. Urine culture pending. Blood culture revealed no growth to date. He is continued on Decadron, Lovenox, vitamin supplements. 0.45 normal saline at 100 ML's per hour. The patient is seen today 04/05/2021 in follow-up on the regular medical floor. He is currently resting in bed on his right side. Awake and alert in no acute distress. He is still requiring 15 L high flow nasal cannula to maintain O2 saturation in the low 90s. He's been afebrile. Hemodynamically stable. Follow-up chest x-ray continues to show right hemidiaphragm elevation with some possible pleural effusion. Ultrasound of the right chest pending. Blood culture reveals no growth. D-dimer 0.9. Sodium 136. Potassium 3.9. Creatinine 2.09. He remains on Decadron, Lovenox, vitamin supplements. The patient is seen today 04/06/2021 in follow-up on the regular medical floor. He is currently sitting up at the bedside. Awake and alert in no acute distress. He is still requiring 14 L high flow nasal cannula with O2 saturations in the mid 90s. Ultrasound of the right chest revealed no s ignificant pleural effusion. Blood culture revealed no growth. INR 1.3. D- dimer 0.6. Sodium 135. Potassium 4.2. Creatinine 1.98. BUN 68. C-reactive protein 6.3. Glucose 137. Continued on Decadron, vitamin supplements, Levaquin. The patient was found to be in atrial fibrillation with sinus pauses. Beta blockers were adjusted. Currently on a heparin drip. On 04/07/2021 patient seen in follow-up on selective care unit, he is awake and alert, in no acute distress, he is currently on 12 L of oxygen pulse ox is 90%. Appears to be in no acute distress. He sitting up in the recliner, breathing comfortably, patient has diminished breath sounds on the right, he has chronically elevated right hemidiaphragm, he is ultrasound of the chest showed no significant pleural fluid on the right for drainage, overall breathing comfortably, respirations are nonlabored, he has diffuse crackles over left lower base, his been afebrile. He remains on Decadron 6 mg daily, he is on empiric antibiotics in the form of Levaquin, and he is on Eliquis 2.5 mg twice daily for new onset atrial fibrillation. No acute events overnight, occasional cough, no phlegm production. Progress note dated 04/08/2021. 75-year-old male seen today in room 354. The patient is currently on 6 L nasal cannula, and receiving half-normal saline at 50 mL an hour. He has been vaccinated against coronavirus infection. The patient feels much better today. Much less short of breath. Apparently yesterday he was on 12 L of oxygen. The patient has recently found to have coronary artery disease, and apparently was c onsidering bypass grafting, but instead, stents were placed. White count 20.1, he will been 12, hematocrit 37.2, with a normal platelet count. D-dimer is 0.52. Sodium 139, potassium 4.9, chlorides 109, CO2 21, anion gap 9, BUN 72, with creatinine of 2.60. Pro-ca Progress note dated 04/09/2021. 75-year-old male, again seen in room 354. Currently, the patient's receiving half-normal saline at 100 mL an hour, is on 6 L nasal cannula. He does feel better today. He was hoping for physical therapy to come see him. They have not as yet. Currently, sodium 139, potassium 4.6, chlorides 112, CO2 16, anion gap 11, BUN 73, with a creatinine of 2.77. Last chest x-ray was done on April 07. Progress note dated 04/10/2021. 75-year-old male, seen again in room 354. Currently, Mr. Stratton is on 4 L nasal cannula. He is getting an IV with 2 ampules of sodium bicarbonate and D5W, at 100 mL an hour. The patient's resting comfortably. He denies any shortness of breath, cough, wheezing, or phlegm production. He does feel better. Current labs include a sodium 138, potassium 4.8, chlorides 111, CO2 19, anion gap 8, BUN 67, with a creatinine of 2.59. There is no recent chest x-ray. Currently, the patient is on vitamin C, vitamin D3, and zinc. In addition, the patient is getting Decadron, and Eliquis. Finally, the patient is on Levaquin 250 mg every 24 hours. Microbiology is currently negative. Progress note dated 04/12/2021. The patient is again seen in room 354. He is getting saline at 50 mL an hour. His oxygen has been titrated down to 3 L/m by nasal cannula. He's feeling much improved. He's hoping to be discharged in the near future. Sodium 138, potassium 4.8, chlorides 106, CO2 28, anion gap 4, BUN 54, and creatinine 2.49. A CAT scan of the kidneys showed a left-sided hydronephrosis and new moderate right-sided hydronephrosis, but interval successful treatment of the left ureter calculi. Underlying BPH is present. Progress note dated 04/13/2021. 75-year-old male again seen in room 354. Currently, the patient's on 3 L nasal cannula. Is getting lactated Ringer's at 50 mL an hour. The patient is sitting in the chair next to the bed. He looks very stable. He is currently on vitamin C, vitamin D3, and zinc. In addition, he is getting Decadron and Eliquis. White count 14.9, hemoglobin 11.3, hematocrit 34.7, and platelet count 326,000. Sodium, potassium, chloride, CO2, anion gap are all normal. BUN is 49 with a creatinine of 2.20. Objective - Vital Signs Vital signs: Vital Signs Temp 98 F 04/13/21 04:00 Pulse 70 04/13/21 04:00 Resp 18 04/13/21 08:00 BP 99/51 04/13/21 04:00 Pulse Ox 95 04/13/21 04:00 Intake & Output 04/12/21 04/13/21 04/13/21 18:59 06:59 18:59 Intake Total 760 250 340 Output Total 1500 Balance -740 250 340 Weight 94.5 kg Intake: IV 20 Invasive Line 3 20 Intake, IV Titration 250 Amount Lactated Ringers 1,000 ml 250 @ 50 mls/hr IV .Q20H [facility] Rx#:[id number] Oral 740 340 Output: Urine 1500 Uretheral (Gonsales) 1500 Other: Voiding Method Indwelling Catheter # Voids 1 # Bowel Movements 1 1 1 - Exam No acute distress, oriented 3. Currently on 3 liter high flow nasal cannula with saturations of 95%. HEENT examination is grossly unremarkable. Neck supple. Full range of motion. No adenopathy thyromegaly or neck vein distention. Cardiovascular examination reveals regular rhythm rate. S1-S2 normal. No S3 or S4. No discernible murmur noted. Heart sounds are distant. Heart rate 70 bpm. Lungs reveal scattered rhonchi throughout. Severely diminished breath sounds at the right base. No wheezes. No crackles. Breath sounds are improved. Abdomen soft bowel sounds are heard. No masses or tenderness. Extremities are intact. No cyanosis clubbing or edema. Skin is without rash or lesion. Neurologic examination is brief but nonfocal. - Labs CBC & Chem 7: 04/13/21 08:57 04/13/21 08:57 Labs: Abnormal Lab Results - Last 24 Hours (Table) 04/12/21 04/12/21 04/13/21 Range/Units 16:31 20:16 08:57 WBC (3.8-10.6) k/uL RBC (4.30-5.90) m/uL Hgb (13.0-17.5) gm/dL Hct (39.0-53.0) % Neutrophils # (1.3-7.7) k/uL BUN 49 H (9-20) mg/dL Creatinine 2.20 H (0.66-1.25) mg/dL Glucose 111 H (74-99) mg/dL POC Glucose (mg/dL) 148 H 135 H (75-99) mg/dL Calcium 8.3 L (8.4-10.2) mg/dL Total Protein 5.1 L (6.3-8.2) g/dL Albumin 2.7 L (3.5-5.0) g/dL 04/13/21 04/13/21 Range/Units 08:57 11:44 WBC 14.9 H (3.8-10.6) k/uL RBC 3.58 L (4.30-5.90) m/uL Hgb 11.3 L (13.0-17.5) gm/dL Hct 34.7 L (39.0-53.0) % Neutrophils # 12.7 H (1.3-7.7) k/uL BUN (9-20) mg/dL Creatinine (0.66-1.25) mg/dL Glucose (74-99) mg/dL POC Glucose (mg/dL) 107 H (75-99) mg/dL Calcium (8.4-10.2) mg/dL Total Protein (6.3-8.2) g/dL Albumin (3.5-5.0) g/dL Assessment and Plan Assessment: Acute hypoxemic respiratory failure secondary to coronavirus associated pneumonia. Possible community-acquired pneumonia. Acute renal failure. History of nephrolithiasis. CAD with previous stent placement. History of CVA. History of hyperlipidemia. History of hypertension. History of new onset atrial fibrillation. History of possible GI bleed. History of chronically elevated right diaphragm. Plan: Plan dated 04/08/2021. The patient continues on appropriate medications including Decadron, Eliquis, and vitamins. The patient's currently on 8 L high flow nasal O2. The patient's getting half-normal saline at 50 mL an hour. Medications, labs, and x-rays all reviewed. No plans for thoracentesis. Ultrasound shows small amount of fluid in the right pleural space. He has a chronically elevated right hemidiaphragm. Yesterday, he was on 12 L high flow. He does seem to be improving albeit slowly. Plan dated 04/09/2021. The patient continues on appropriate medications including Decadron, Eliquis, vitamin C, vitamin D3, and zinc. His oxygen has been weaned down to 6 L from 8 L yesterday. Remains on half-normal saline, now at 100 mL an hour. The pa tient's doing much better. Clinically he feels much better. He's hoping for some physical therapy today. He does have a chronically elevated right hemidiaphragm. Ultrasound showed minimal fluid. He was not a candidate for thoracentesis. We will continue to follow make recommendations where dillon ropriate. Plan dated 04/10/2021. The patient continues on Decadron, Eliquis, vitamin C, vitamin D3, and zinc. The patient also continues on Levaquin IV at a reduced dose. The patient to has been weaned down to 4 L. He is currently on sodium bicarbonate drip, with 2 ampules of sodium bicarbonate and D5W, running at 100 mL an hour. The patient's overall prognosis remains guarded. We will continue to follow make recommendations where appropriate. The patient is not a candidate for thoracent esis. Plan dated 04/12/2021. The patient remains on Decadron, Eliquis, and vitamin C, vitamin D3, and zinc. Clinically he is doing well. The results of the renal CAT scan are reviewed. The patient is hoping to be discharged in the near future. Additional recommendations and suggestions are forthcoming. The patient has been on Levaquin since April 06. We will continue to follow make recommendations were appropriate. The patient was thought not to be candidate for thoracentesis. Plan dated 04/13/2021. The patient remains on appropriate medications including Decadron, Eliquis, vitamin C, vitamin D3, and zinc. The results of the CAT scan are reviewed. The patient remains on lactated Ringer's at 50 mL an hour. He is getting O2 at 3 L by nasal cannula. Saturations are 95%. Labs, x-rays, medications are all reviewed. Antibiotic has been discontinued. We will continue to follow the patient make recommendations where appropriate. Prognosis is guarded. Time with Patient: Less than 30
[2021-04-13 14:34] VITALS: BP 118/55; PULSE 73; TEMP 98.2
[2021-04-13 14:35] VITALS: RESP 20
--- NOTE | 2021-04-13 15:27 | P.DS ---
Providers Date of admission: 04/03/21 03:58 Expected date of discharge: 04/13/21 Attending physician: Shay Smith Consults: 04/02/21 21:54 Consult Physician Urgent Consulting Provider: Rufina De Leon Consult Reason/Comments: COVID-19 Do you want consulting provider notified?: Yes 04/05/21 11:15 Consult Physician Urgent Consulting Provider: Jn Willard Consult Reason/Comments: new pauses, ectopy Do you want consulting provider notified?: Yes 04/06/21 13:47 Consult Physician Routine Consulting Provider: Jersey Albarado Consult Reason/Comments: Gi bleed Do you want consulting provider notified?: Yes 04/09/21 11:48 Consult Physician Routine Consulting Provider: Bhavani Frye Consult Reason/Comments: VIJAYA Do you want consulting provider notified?: Yes 04/11/21 14:49 Consult Physician Routine Consulting Provider: Oscar Parmar Consult Reason/Comments: hydronephrosis Do you want consulting provider notified?: Yes Primary care physician: [facility] Course: Chief Complaint: Not feeling well This is a very pleasant 75-year-old patient who follows Dr. Edmonds. Chronic stable medical conditions include CAD with stent, hypertension, hyperlipidemia, stroke in the past with some right-sided weakness that resolved, bilateral kidney stones, right diaphragm paralysis diverticulosis. Arthritis in the joints. Patient presents with decreased appetite for 3 days. No loss of smell or taste. Feeling very weak. Slight fever. No diarrhea no headache. Slight cough. Patient did pass a kidney stone 3 days ago. Feeling tired and rundown. Some shortness of breath. Patient did test for positive for COVID in the ER. Patient had received prior vaccination. Patient presented yesterday evening to the ER and received monoclonal antibodies. He was discharged. He came back to the ER feeling worse and hypoxic. And therefore admitted. Patient requiring up to 15 L of oxygen. Patient had pauses on the telemetry has dose of Lopressor was cut back. Patient also went into atrial fibrillation. Was put on IV heparin. Had dark stools therefore IV heparin was discontinued. Subsequently patient's put on eliquis. On March 06 underwent left sided ureteroscopically with Dr. Flores and subsequently underwent stent removal in the office. He underwent a repeat computed tomography scan. That didn't show significant stone burden. No obstruction. Bladder was dilated and so Gonsales catheter was placed. No no further intervention by urology. Plan is for patient to be discharged on Gonsales catheter. Patient also received IV fluids. Hydronephrosis still present on the renal CT. Today: On 3 L nasal cannula. Eating well. Care was discussed with the patient. He will follow-up with urology with the Gonsales catheter. Labs to be followed. Prednisone taper. Discussion and discharge planning more than 35 minutes Consultation: Dr. Ellis in [facility] from pulmonary Nephrology Dr. robles from urology Past medical history to include: CAD with stent, stroke with right-sided weakness that is resolved, hypertension, hyperlipidemia, kidney stones bilateral, right diaphragm paralysis, diverticulosis Social history: Sometimes uses a cane. . Retired. Does not smoke or drink alcohol. Family history: Diabetes, hypertension, Alzheimer's. Physical examination: VITAL SIGNS: 98.6, 73, 18, 118/55, 95% on 3 L GENERAL: Sitting up in chair, awake, LUNGS: Respiratory rate normal, . PSYCH: Alert and oriented x3; mood and affect normal. NEUROLOGICAL: Cranial nerves grossly intact; no facial asymmetry, moving all 4 limbs Rest of exam. As per Pulmonary and nursing INVESTIGATIONS, reviewed in the clinical context: April 13: WBC 14.9 hemoglobin 11.3 platelets 326 potassium 4.3 BUN [address] renal [April 12] .: Shows multiple right-sided renal calculi including largest staghorn-type calculus. Moderate right-sided hydronephrosis. Scattered left-sided renal calculi with persistent severe left-sided hydronephrosis. Cortical thinning on the left daily. Moderate to severely distended bladder. April 04: D-dimer 1.08 progression 3.8 BUN 43 creatinine 2.25 WBC 15.3 hemoglobin 12 platelets 222 sodium 134 potassium 3.8 BUN 31 creatinine 2.50 Coronavirus [PCR]: Detected EKG tracing personally reviewed by me. Right bundle-branch block. DC. Normal sinus rhythm. Rate 105 Chest x-ray film personally reviewed by me-right diaphragm elevation. Infiltrate in the bases. Previous labs: 03/17/2021]: Creatinine 1.62 Assessment and plan: -Acute COVID 19 pneumonitis,'s causing hypoxia in a patient who is previously been vaccinated. Patient had received monoclonal antibodies and return to the ER in a few hours feeling worse.: Getting better DC on prednisone taper, vitamin C zinc vitamin D. -Acute hypoxic respiratory failure from COVID 19 pneumonitis, with pulse ox dropping to 87% on room air: Improving Currently on 3 L nasal cannula -Acute GI bleed, suspect upper GI source.. Note patient was on aspirin, Plavix. Dexamethasone. IV heparin. Follow H&H. DC IV heparin. Stop Plavix. Surgery on the case. On eliquis for A. fib.. -New onset atrial fibrillation. Rate controlled. Lopressor 25 mg twice a day. IV heparin that was started discontinued because of dark stools. eliquis -Patient was having pauses on telemetry Dose of Lopressor cutback -CAD with stent Lopressor, Plavix, aspirin-discontinued, Lipitor -Hyperlipidemia Lipitor 80 mg by mouth daily -Essential hypertension Lopressor 12.5 mg twice a day, -Primary osteoarthritis multiple joints bilaterally Use pain medications as needed -Chronic diverticulosis, asymptomatic Follow clinically -Chronic kidney disease stage III from nephrosclerosis At the baseline creatinine of 1.6 -Acute kidney injury likely prerenal from decreased oral intake: Slow to respond Creatinine 2.2 Consult nephrology. IV fluids -Metabolic acidosis due to acute kidney injury: Better *Bicarbonate drip -Bilateral nephrolithiasis. On March 06 patient underwent left ureteroscope even with laser lithotripsy and placement of a double-J catheter by Dr. Flores, that was removed in the office. -Bilateral hydronephrosis, Follow-up with urology outpatient. Disposition: Home Plan - Discharge Summary Discharge Rx Participant: No New Discharge Prescriptions: New Apixaban [Eliquis] 2.5 mg PO BID 30 Days #60 tablet Cholecalciferol [Vitamin D3 (25 Mcg = 1000 Iu)] 25 mcg PO DAILY #30 tablet Tamsulosin [Flomax] 0.4 mg PO PC-SUPPER #30 capsule Zinc Sulfate [Orazinc] 220 mg PO DAILY #30 cap predniSONE 10 mg PO DAILY #30 tab Pantoprazole [Protonix] 40 mg PO BID #60 tab Ascorbic Acid [Vitamin C] 1,000 mg PO DAILY #60 tab Continue Atorvastatin Calcium [Lipitor] 80 mg PO DAILY Clopidogrel [Plavix] 75 mg PO DAILY Nitroglycerin Sl Tabs [Nitrostat] 0.4 mg SUBLINGUAL Q5M PRN PRN Reason: Chest Pain Multivit-Min/FA/Lycopen/Lutein [Centrum Silver Men Tablet] 1 tab PO DAILY Changed Metoprolol Tartrate [Lopressor] 12.5 mg PO BID #0 Discontinued Metoprolol Tartrate [Lopressor] 50 mg PO DAILY amLODIPine [Norvasc] 5 mg PO DAILY Aspirin 81 mg PO DAILY Discharge Medication List Clopidogrel [Plavix] 75 mg PO DAILY 01/18/21 [History] Atorvastatin Calcium [Lipitor] 80 mg PO DAILY 02/17/21 [History] Multivit-Min/FA/Lycopen/Lutein [Centrum Silver Men Tablet] 1 tab PO DAILY 02/17/21 [History] Nitroglycerin Sl Tabs [Nitrostat] 0.4 mg SUBLINGUAL Q5M PRN 02/17/21 [History] Apixaban [Eliquis] 2.5 mg PO BID 30 Days #60 tablet 04/08/21 [Rx] Ascorbic Acid [Vitamin C] 1,000 mg PO DAILY #60 tab 04/13/21 [Rx] Cholecalciferol [Vitamin D3 (25 Mcg = 1000 Iu)] 25 mcg PO DAILY #30 tablet 04/13/21 [Rx] Metoprolol Tartrate [Lopressor] 12.5 mg PO BID #0 04/13/21 [Rx] Pantoprazole [Protonix] 40 mg PO BID #60 tab 04/13/21 [Rx] Tamsulosin [Flomax] 0.4 mg PO PC-SUPPER #30 capsule 04/13/21 [Rx] Zinc Sulfate [Orazinc] 220 mg PO DAILY #30 cap 04/13/21 [Rx] predniSONE 10 mg PO DAILY #30 tab 04/13/21 [Rx] Follow up Appointment(s)/Referral(s): Jersey Albarado MD [Medical Doctor] - 4 Weeks Nathan Owen MD [STAFF PHYSICIAN] - 2 Weeks Bryan Edmonds DO [Primary Care Provider] - 1-2 days Vaughn Robles MD [STAFF PHYSICIAN] - 1 Week (Urinary Catheter placed 04/12/21, flowmax started 04/12/21 ) Patient Instructions/Handouts: Coronavirus Disease 2019 (COVID-19), Urinary Retention in Men (ED), Enlarged Prostate (BPH) (DC), Gonsales Catheter Placement and Care (DC), Fall Prevention for Older Adults (ED), Fall Prevention (ED), Urinary Leg Bag (GEN), Bladder Ultrasound (GEN), Gonsales Catheter Removal (DC) Activity/Diet/Wound Care/Special Instructions: Home Oxygen order and supporting information in patient's chart. If patient discharged over the weekend/after hours fax this information to [facility] [employer] [phone] and they will deliver portable O2 to the hospital prior to discharge Please return to the Emergency Department if symptoms worsen or any other concerns.
[2021-04-13 16:40] LABS: Glucose,Whole Blood 195 mg/dL (75-99)
[2021-04-13] MEDS: TAMSULOSIN 0.4 MG CAP.ER.24H PO SCH (18:03)
== END 2021-04-13 19:09 | disposition home or self-care (01) | DRG 177 ==
LOC: EC 17:15 → 4SSUR 04-03 03:58 → 3SCARD 04-03 20:32
PROVIDERS: ADMIT Hospitalist; ATTEND Hospitalist
PROC: XW033H6 Introduction of Other New Technology Monoclonal Antibody into Peripheral Vein, Percutaneous Approach, New Technology Group 6 (ICD-10-PCS; principal; 2021-04-02)
PROC: 5A0955A Assistance with Respiratory Ventilation, Greater than 96 Consecutive Hours, High Flow/Velocity Cannula (ICD-10-PCS; 2021-04-03)
DX: U07.1 COVID-19 (principal); J12.82 Pneumonia due to coronavirus disease 2019; J96.01 Acute respiratory failure with hypoxia; N17.0 Acute kidney failure with tubular necrosis; N13.8 Other obstructive and reflux uropathy; E87.2 Acidosis; K92.2 Gastrointestinal hemorrhage, unspecified; J98.6 Disorders of diaphragm; I95.9 Hypotension, unspecified; I48.0 Paroxysmal atrial fibrillation; N18.32 Chronic kidney disease, stage 3b; I12.9 Hypertensive chronic kidney disease with stage 1 through stage 4 chronic kidney disease, or unspecified chronic kidney disease; N40.1 Benign prostatic hyperplasia with lower urinary tract symptoms; N28.1 Cyst of kidney, acquired; I25.10 Atherosclerotic heart disease of native coronary artery without angina pectoris; E78.5 Hyperlipidemia, unspecified; I45.10 Unspecified right bundle-branch block; K57.90 Diverticulosis of intestine, part unspecified, without perforation or abscess without bleeding; Z79.02 Long term (current) use of antithrombotics/antiplatelets; M15.9 Polyosteoarthritis, unspecified; E66.9 Obesity, unspecified; Z68.32 Body mass index [BMI] 32.0-32.9, adult; Z79.82 Long term (current) use of aspirin; Z79.899 Other long term (current) drug therapy; Z95.5 Presence of coronary angioplasty implant and graft; Z87.442 Personal history of urinary calculi; Z86.73 Personal history of transient ischemic attack (TIA), and cerebral infarction without residual deficits; Z96.653 Presence of artificial knee joint, bilateral; Z87.39 Personal history of other diseases of the musculoskeletal system and connective tissue; Z87.19 Personal history of other diseases of the digestive system; Z98.890 Other specified postprocedural states; Z71.3 Dietary counseling and surveillance; Z83.3 Family history of diabetes mellitus; Z82.49 Family history of ischemic heart disease and other diseases of the circulatory system; Z82.0 Family history of epilepsy and other diseases of the nervous system; Z80.51 Family history of malignant neoplasm of kidney
CPT/HCPCS: 71045; 71046; 74150; 76604; 76770; 80048; 80053; 81001; 82728; 83605; 83615; 83735; 84145; 85025; 85027; 85379; 85610; 85730; 86140; 87040; 87635; 93005; 99285

== ENCOUNTER 2021-06-01 06:41 | Emergency (ER) | payer MEDICARE ==
[2021-06-01 07:02] VITALS: RESP 18; TEMP 98.8
--- NOTE | 2021-06-01 07:41 | ED ---
Male Urogenital HPI - General Chief complaint: Urogenital Stated complaint: catheter issue Time Seen by Provider: 06/01/21 07:00 Source: patient, RN notes reviewed Mode of arrival: wheelchair Limitations: no limitations - History of Present Illness Initial comments: This is a 75-year-old male history of prostatism with indwelling catheter is had since he was admitted to the hospital for Covid 19 who states she's had a catheter replaced with the last time in May 22 who states that having blood in his urine around 10 PM last evening which lasted until around 2 AM this morning the bed was dry until he manipulated it and stood up. No fevers chills nausea times sweats no abdominal pain he believes the catheter be changed he's had this on several different medications thus far. He has seen Dr. Daniel from urology he does have a TURP scheduled for later this month. No other current complaints modifying factors MD Complaint: other - Related Data Home Medications Medication Instructions Recorded Confirmed Clopidogrel [Plavix] 75 mg PO DAILY 01/18/21 04/02/21 Atorvastatin Calcium [Lipitor] 80 mg PO DAILY 02/17/21 04/02/21 Multivit-Min/FA/Lycopen/Lutein 1 tab PO DAILY 02/17/21 04/02/21 [Centrum Silver Men Tablet] Nitroglycerin Sl Tabs [Nitrostat] 0.4 mg SUBLINGUAL Q5M PRN 02/17/21 04/02/21 Previous Rx's Medication Instructions Recorded Apixaban [Eliquis] 2.5 mg PO BID 30 Days #60 tablet 04/08/21 Ascorbic Acid [Vitamin C] 1,000 mg PO DAILY #60 tab 04/13/21 Cholecalciferol [Vitamin D3 (25 25 mcg PO DAILY #30 tablet 04/13/21 Mcg = 1000 Iu)] Metoprolol Tartrate [Lopressor] 12.5 mg PO BID #0 04/13/21 Pantoprazole [Protonix] 40 mg PO BID #60 tab 04/13/21 Tamsulosin [Flomax] 0.4 mg PO PC-SUPPER #30 capsule 04/13/21 Zinc Sulfate [Orazinc] 220 mg PO DAILY #30 cap 04/13/21 predniSONE 10 mg PO DAILY #30 tab 04/13/21 Allergies Allergy/AdvReac Type Severity Reaction Status Date / Time No Known Allergies Allergy Verified 04/02/21 22:14 Review of Systems ROS Statement: Those systems with pertinent positive or pertinent negative responses have been documented in the HPI. ROS Other: All systems not noted in ROS Statement are negative. 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 History of Any Multi-Drug Resistant Organisms: None Reported Past Surgical History: Heart Catheterization, Heart Catheterization With Stent, Hernia Repair, Joint Replacement, Orthopedic Surgery Additional Past Surgical History / Comment(s): Total of 3 coronary stents, cystoscopy/lithotripsy/L ureteroscopy and stent, L kidney cyst drained, abdominal hernia repair, R rotator cuff repair, bilateral total knee arthroplasties. Past Anesthesia/Blood Transfusion Reactions: No Reported Reaction Date of Last Stent Placement:: 01/22/21 Past Psychological History: No Psychological Hx Reported Smoking Status: Never smoker - Past Family History Father Family Medical History: Diabetes Mellitus, Hypertension Additional Family Medical History / Comment(s): Alzheimer's Mother Family Medical History: Cancer Additional Family Medical History / Comment(s): kidney General Exam - General Exam Comments Initial Comments: This is a well-developed well-nourished awake alert oriented 3 male Limitations: no limitations General appearance: alert, in no apparent distress Head exam: Present: atraumatic, normocephalic, normal inspection Eye exam: Present: normal appearance, PERRL, EOMI. Absent: scleral icterus, conjunctival injection, periorbital swelling ENT exam: Present: normal exam, mucous membranes moist Neck exam: Present: normal inspection, full ROM. Absent: tenderness, meningismus, lymphadenopathy Respiratory exam: Absent: respiratory distress, wheezes, rales, rhonchi, stridor Cardiovascular Exam: Present: regular rate, normal rhythm. Absent: systolic murmur, diastolic murmur, rubs, gallop, clicks GI/Abdominal exam: Present: soft, normal bowel sounds. Absent: distended, tenderness, guarding, rebound, rigid, pulsatile mass exam: Present: other (Patient has an uncircumcised penis he does have a indwelling Gonsales catheter some evidence of leakage. No evidence of any infectious processes.) Extremities exam: Present: normal inspection, full ROM, normal capillary refill. Absent: tenderness, pedal edema, joint swelling, calf tenderness Back exam: Present: full ROM. Absent: tenderness Neurological exam: Present: alert, oriented X3, CN II-XII intact Psychiatric exam: Present: normal affect, normal mood Skin exam: Present: warm, dry, intact, normal color. Absent: rash Course Vital Signs 06/01/21 06:52 Temperature 98.8 F Pulse Rate 92 Respiratory 18 Rate Blood Pressure 102/65 O2 Sat by Pulse 94 L Oximetry Medical Decision Making - Medical Decision Making Patient showing much improved after changing the catheter the UA shows the expected amount of blood likely from Irritation. Patient will keep his follow- ups with Dr. Daniel as planned. He is feeling much improved he states - Lab Data Lab Results 06/01/21 Range/Units 07:43 Urine Color Red Urine Appearance Bloody (Clear) Urine RBC >182 H (0-5) /hpf Urine WBC >182 H (0-5) /hpf Disposition Clinical Impression: Gonsales catheter problem Disposition: HOME SELF-CARE Condition: Good Instructions (If sedation given, give patient instructions): Gonslaes Catheter Placement and Care (ED) Is patient prescribed a controlled substance at d/c from ED?: No Referrals: Bryan Edmonds DO [Primary Care Provider] - 1-2 days
[2021-06-01 08:04] LABS: RBC,Urine >182 /hpf (0-5); WBC,Urine >182 /hpf (0-5)
[2021-06-01 08:05] LABS: Appearance,Urine Bloody (Clear); Color,Urine Red
[2021-06-01 08:46] VITALS: BP 108/63; PULSE 74
== END 2021-06-01 08:40 | disposition home or self-care (01) ==
LOC: EC 06:41
DX: T83.098A Other mechanical complication of other urinary catheter, initial encounter (principal); I10 Essential (primary) hypertension; I25.10 Atherosclerotic heart disease of native coronary artery without angina pectoris; E78.5 Hyperlipidemia, unspecified; Z79.02 Long term (current) use of antithrombotics/antiplatelets; Z79.899 Other long term (current) drug therapy
CPT/HCPCS: 81001; 87077; 87086; 87186; 99283

== ENCOUNTER 2021-06-01 17:30 | Observation (INO) | payer MEDICARE ==
--- NOTE | 2021-06-01 18:03 | ED ---
General Adult HPI - General Chief complaint: Urogenital Stated complaint: Catheter issues Time Seen by Provider: 06/01/21 17:56 Source: patient Mode of arrival: wheelchair Limitations: no limitations - History of Present Illness Initial comments: Patient returns to the ED for Gonsales catheter evaluation. Patient states that he was seen in the ED this morning due to his Gonsales catheter not draining well. Patient had his Gonsales catheter replaced in the ED, and he states that since he got home, his urine has been draining into the Gonsales catheter tube, but not into his leg bag. Patient states that he had mild hematuria earlier this morning, but his hematuria has become worse since being seen in the ED this morning, and he states that he has been passing small clots at times as well. Patient states that he is on Plavix. Patient denies having any pain, trauma or injury, fever or chills, headache, chest pain, dyspnea, dizziness, abdominal pain, flank pain, nausea or vomiting, penile pain, or any other symptoms or complaints. - Related Data Home Medications Medication Instructions Recorded Confirmed Clopidogrel [Plavix] 75 mg PO DAILY 01/18/21 06/01/21 Atorvastatin Calcium [Lipitor] 80 mg PO DAILY 02/17/21 06/01/21 Multivit-Min/FA/Lycopen/Lutein 1 tab PO DAILY 02/17/21 06/01/21 [Centrum Silver Men Tablet] Nitroglycerin Sl Tabs [Nitrostat] 0.4 mg SL Q5M PRN 02/17/21 06/01/21 Metoprolol Tartrate [Lopressor] 50 mg PO BID 06/01/21 06/01/21 Tamsulosin [Flomax] 0.4 mg PO HS 06/01/21 06/01/21 Allergies Allergy/AdvReac Type Severity Reaction Status Date / Time No Known Allergies Allergy Verified 06/01/21 21:01 Review of Systems ROS Statement: Those systems with pertinent positive or pertinent negative responses have been documented in the HPI. ROS Other: All systems not noted in ROS Statement are negative. 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 History of Any Multi-Drug Resistant Organisms: None Reported Past Surgical History: Heart Catheterization, Heart Catheterization With Stent, Hernia Repair, Joint Replacement, Orthopedic Surgery Additional Past Surgical History / Comment(s): Total of 3 coronary stents, cystoscopy/lithotripsy/L ureteroscopy and stent, L kidney cyst drained, abdominal hernia repair, R rotator cuff repair, bilateral total knee arthroplasties. Past Anesthesia/Blood Transfusion Reactions: No Reported Reaction Date of Last Stent Placement:: 01/22/21 Past Psychological History: No Psychological Hx Reported Smoking Status: Never smoker Past Alcohol Use History: None Reported Past Drug Use History: None Reported - Past Family History Father Family Medical History: Diabetes Mellitus, Hypertension Additional Family Medical History / Comment(s): Alzheimer's Mother Family Medical History: Cancer Additional Family Medical History / Comment(s): kidney General Exam Limitations: no limitations General appearance: alert, in no apparent distress Head exam: Present: atraumatic, normocephalic Eye exam: Present: normal appearance, EOMI ENT exam: Present: mucous membranes moist Respiratory exam: Present: normal lung sounds bilaterally. Absent: respiratory distress, wheezes, rales, rhonchi, stridor Cardiovascular Exam: Present: regular rate, normal rhythm, normal heart sounds, other (Normal radial pulses bilaterally) GI/Abdominal exam: Present: soft. Absent: distended, tenderness, guarding exam: Present: normal inspection. Absent: testicular tenderness External exam: Present: normal external exam, other (Gonsales catheter is in place and is draining tea-colored urine) Back exam: Absent: CVA tenderness (R), CVA tenderness (L) Neurological exam: Present: alert, oriented X3. Absent: motor sensory deficit Psychiatric exam: Present: normal affect, normal mood Skin exam: Present: warm, dry, intact, normal color Course Vital Signs 06/01/21 17:48 Temperature 98.5 F Pulse Rate 95 Respiratory 16 Rate Blood Pressure 105/64 O2 Sat by Pulse 96 Oximetry - Reevaluation(s) Reevaluation #1: 06/01/21 20:02 Patient's catheter has been irrigated by ED nursing staff, and he continues to have small blood clots being irrigated out. Patient denies development of any new symptoms while in the ED. Patient is aware of his test results, and he agrees with hospital admission at this time. 06/01/21 20:06 Case, H&P, test results and ED management thus far were discussed with Dr. Robles (urology). He agrees with plan to admit the patient to the hospital. He asks to have the patient admitted to the hospitalist service, and he states that he will see the patient in consultation. He has no further recommendations at this time. 06/01/21 20:08 Case, H&P, test results, ED management thus far and my discussion with Dr. Robles as above were discussed with Dr. Smith. He accepts hospital admission. He recommends giving the patient vitamin K 2.5 mg IVPB at this time. He has no further recommendations at this time. Medical Decision Making - Medical Decision Making Given the patient's continued hematuria with passage of blood clots and coagulopathy/anticoagulant medication use, will admit the patient to the hospital for further management and urology evaluation. Dr. Robles has been consulted from the ED. Dr. Smith has accepted hospital admission. Patient's CMP had to be redrawn and is still pending at this time. - Lab Data Result diagrams: 06/01/21 18:39 Lab Results 06/01/21 06/01/21 06/01/21 Range/Units 18:39 18:39 18:39 WBC 9.4 (3.8-10.6) k/uL RBC 3.75 L (4.30-5.90) m/uL Hgb 11.0 L (13.0-17.5) gm/dL Hct 35.6 L (39.0-53.0) % MCV 94.9 (80.0-100.0) fL MCH 29.3 (25.0-35.0) pg MCHC 30.8 L (31.0-37.0) g/dL RDW 14.7 (11.5-15.5) % Plt Count 343 (150-450) k/uL MPV 7.6 Neutrophils % 69 % Lymphocytes % 17 % Monocytes % 7 % Eosinophils % 4 % Basophils % 0 % Neutrophils # 6.5 (1.3-7.7) k/uL Lymphocytes # 1.6 (1.0-4.8) k/uL Monocytes # 0.6 (0-1.0) k/uL Eosinophils # 0.4 (0-0.7) k/uL Basophils # 0.0 (0-0.2) k/uL Hypochromasia Slight PT 22.2 H (9.0-12.0) sec INR 2.2 H (<1.2) APTT 31.7 H (22.0-30.0) sec Urine Color Red Urine Appearance Cloudy (Clear) Urine pH 6.0 (5.0-8.0) Ur Specific [place] 1.010 (1.001-1.035) Urine Protein 2+ H (Negative) Urine Glucose (UA) Negative (Negative) Urine Ketones Negative (Negative) Urine Blood Large H (Negative) Urine Nitrite Negative (Negative) Urine Bilirubin Negative (Negative) Urine Urobilinogen <2.0 (<2.0) mg/dL Ur Leukocyte Esterase Large H (Negative) Urine RBC >182 H (0-5) /hpf Urine WBC >182 H (0-5) /hpf Urine WBC Clumps Many H (None) /hpf Urine Bacteria Occasional H (None) /hpf Disposition Clinical Impression: Hematuria, Gonsales catheter problem Disposition: ADMITTED IP TO THIS [facility] Condition: Stable Is patient prescribed a controlled substance at d/c from ED?: No Time of Disposition: 20:19
[2021-06-01] MEDS ORDERED: SODIUM CHLORIDE 0.9% IRRIGATIO 3,000 ML IRRIGATION ONE (18:20)
[2021-06-01 19:05] LABS: Basophils % (A) 0 %; Eosinophils # (A) 0.4 k/uL (0-0.7); Eosinophils % (A) 4 %; HCT 35.6 % (39.0-53.0); Hypochromasia Slight; Lymphocytes # (A) 1.6 k/uL (1.0-4.8); Lymphocytes % (A) 17 %; MCH 29.3 pg (25.0-35.0); MCHC 30.8 g/dL (31.0-37.0); MCV 94.9 fL (80.0-100.0); Mean Platelet Volume 7.6; Monocytes # (A) 0.6 k/uL (0-1.0); Monocytes % (A) 7 %; Neutrophils # (A) 6.5 k/uL (1.3-7.7); Neutrophils % (A) 69 %; Platelet Count 343 k/uL (150-450); RBC 3.75 m/uL (4.30-5.90); RDW 14.7 % (11.5-15.5); WBC 9.4 k/uL (3.8-10.6)
[2021-06-01 19:15] LABS: Appearance,Urine Cloudy (Clear); Bacteria,Urine Occasional /hpf; Bilirubin,Urine Negative (Negative); Blood,Urine Large (Negative); Color,Urine Red; Glucose,Urine (UA) Negative (Negative); Ketones,Urine Negative (Negative); Leukocyte Esterase,Urine Large (Negative); Nitrite,Urine Negative (Negative); Protein,Urine 2+ (Negative); RBC,Urine >182 /hpf (0-5); Urobilinogen,Urine <2.0 mg/dL (<2.0); WBC,Urine >182 /hpf (0-5)
[2021-06-01 19:20] LABS: INR 2.2 (<1.2); Partial Thromboplastin Time 31.7 sec (22.0-30.0); Prothrombin Time 22.2 sec (9.0-12.0)
[2021-06-01] MEDS ORDERED: PHYTONADIONE 2.5 MG in SODIUM CHLORIDE 0.9% 50 ML IVPB STA (20:17)
[2021-06-01] MEDS ORDERED: NALOXONE 0.4 MG/ML 1 ML VIAL IV PRN (20:19)
[2021-06-01 21:31] LABS: Albumin 2.9 g/dL (3.5-5.0); Calcium 8.4 mg/dL (8.4-10.2); Total Bilirubin 0.6 mg/dL (0.2-1.3); Total Protein 5.4 g/dL (6.3-8.2)
[2021-06-01] MEDS ORDERED: NITROGLYCERIN SL TABS 0.4 MG TAB SUBLINGUAL PRN (23:08)
[2021-06-01] MEDS ORDERED: ACETAMINOPHEN TAB 325 MG TAB PO PRN (23:13)
[2021-06-01] MEDS ORDERED: TAMSULOSIN 0.4 MG CAP.ER.24H PO SCH (23:15)
[2021-06-01] MEDS ORDERED: SODIUM CHLORIDE 0.9% 1,000 ML IV SCH (23:15)
[2021-06-01] MEDS ORDERED: ATORVASTATIN 80 MG TAB PO SCH (23:30)
[2021-06-02] MEDS: METOPROLOL TARTRATE 50 MG TAB PO SCH ×2 (00:10→09:17)
[2021-06-02] MEDS ORDERED: VIT A,C & E-LUTEIN-MINERALS 1 EACH TAB PO SCH (09:00)
[2021-06-02] MEDS ORDERED: ATORVASTATIN 80 MG TAB PO SCH (09:00)
[2021-06-02 09:06] LABS: Basophils # (A) 0.06 X 10*3/uL (0.00-0.10); Basophils % (A) 0.6 %; Eosinophils # (A) 0.43 X 10*3/uL (0.04-0.35); Eosinophils % (A) 4.4 %; HCT 31.4 % (39.6-50.0); HGB 9.6 g/dL (13.0-17.0); Immature Grans, Automated 0.4 %; Lymphocytes # (A) 1.29 X 10*3/uL (0.90-5.00); Lymphocytes % (A) 13.2 %; MCH 29.2 pg (27.0-32.0); MCHC 30.6 g/dL (32.0-37.0); MCV 95.4 fL (80.0-97.0); Mean Platelet Volume 9.6 fL (9.5-12.2); Monocytes # (A) 0.87 X 10*3/uL (0.20-1.00); Monocytes % (A) 8.9 %; NRBC Per 100 WBC 0 /100 WBCS (0.0-0.0); Neutrophils # (A) 7.07 X 10*3/uL (1.80-7.70); Neutrophils % (A) 72.5 %; Platelet Count 299 X 10*3/uL (140-440); RBC 3.29 X 10*6/uL (4.40-5.60); RDW 14.8 % (11.5-14.5); WBC 9.76 X 10*3/uL (4.50-10.00)
[2021-06-02 09:28] LABS: African American GFR (CKD) 42.3 (60.0-200.0); Albumin 3.4 g/dL (3.8-4.9); Albumin/Globulin Ratio 1.77 (1.60-3.17); Anion Gap 11.5 mmol/L (10.00-18.00); BUN/Creat Ratio 11.85 Ratio (12.00-20.00); Blood Urea Nitrogen 21.1 mg/dL (9.0-27.0); Calcium 8.5 mg/dL (8.7-10.3); Carbon Dioxide 23.4 mmol/L (20.0-27.5); Globulin 1.9 g/dL (1.6-3.3); Non-African American GFR(CKD) 36.5 (60.0-200.0); Potassium 4.6 mmol/L (3.5-5.5); Total Bilirubin 0.5 mg/dL (0.30-1.20); Total Protein 5.3 g/dL (6.2-8.2)
[2021-06-02 12:50] VITALS: BP 119/64; PULSE 78; RESP 20; TEMP 98.5
[2021-06-02 14:26] LABS: INR 1.4 (<1.2); Prothrombin Time 14.3 sec (9.0-12.0)
--- NOTE | 2021-06-02 15:54 | P.GSCN ---
History of Present Illness Consult date: 06/02/21 Reason for Consult: gross hematuria History of present illness: this is a 75-year-old male admitted to the hospital with gross hematuria. He is a patient of Dr. Daniel history of urinary retention, has failed multiple trial of void. The plan is for him to undergo a TURP on June 12 of this month. He had two presentation to the ED with gross hematuria, second time had clot retention. His catheter was irrigated, he was admitted to the hospital. He indicated he noticed intermittent hematuria for the past 3 days. 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 on evaluation this afternoon his urine is clear, denies any abdominal pain. Past Medical History Past Medical History: Coronary Artery Disease (CAD), CVA/TIA, Hyperlipidemia, Hypertension, Renal Disease Additional Past Medical History / Comment(s): CVA years ago with R sided weakn ess which resolved, nephrolithiasis bilaterally/pt has had stones surgically removed and passed a stone 04/01/21, UTI, R side diaghram paralysis, diverticular disease. History of Any Multi-Drug Resistant Organisms: None Reported Past Surgical History: Heart Catheterization, Heart Catheterization With Stent, Hernia Repair, Joint Replacement, Orthopedic Surgery Additional Past Surgical History / Comment(s): Total of 3 coronary stents, cystoscopy/lithotripsy/L ureteroscopy and stent, L kidney cyst drained, abdominal hernia repair, R rotator cuff repair, bilateral total knee arthroplasties. Past Anesthesia/Blood Transfusion Reactions: No Reported Reaction Date of Last Stent Placement:: 01/22/21 Past Psychological History: No Psychological Hx Reported Smoking Status: Never smoker Past Alcohol Use History: None Reported Past Drug Use History: None Reported - Past Family History Father Family Medical History: Diabetes Mellitus, Hypertension Additional Family Medical History / Comment(s): Alzheimer's Mother Family Medical History: Cancer Additional Family Medical History / Comment(s): kidney Medications and Allergies Home Medications Medication Instructions Recorded Confirmed Type Clopidogrel [Plavix] 75 mg PO DAILY 01/18/21 06/01/21 History Atorvastatin Calcium [Lipitor] 80 mg PO DAILY 02/17/21 06/01/21 History Multivit-Min/FA/Lycopen/Lutein 1 tab PO DAILY 02/17/21 06/01/21 History [Centrum Silver Men Tablet] Nitroglycerin Sl Tabs [Nitrostat] 0.4 mg SL Q5M PRN 02/17/21 06/01/21 History Metoprolol Tartrate [Lopressor] 50 mg PO BID 06/01/21 06/01/21 History Tamsulosin [Flomax] 0.4 mg PO HS 06/01/21 06/01/21 History Allergies Allergy/AdvReac Type Severity Reaction Status Date / Time No Known Allergies Allergy Verified 06/01/21 21:01 Surgical - Exam Vital Signs Temp Pulse Resp BP Pulse Ox 98.5 F 95 16 105/64 96 06/01/21 17:48 06/01/21 17:48 06/01/21 17:48 06/01/21 17:48 06/01/21 17:48 - General no distress, no pain - ENT normal nares, normal mucosa - Respiratory normal expansion, normal respiratory effort - Abdomen Abdomen: soft, non tender - Psychiatric oriented to time, oriented to person, oriented to place Results - Labs 06/02/21 06:11 06/02/21 06:11 Abnormal Lab Results - Last 24 Hours (Table) 06/01/21 06/01/21 06/01/21 Range/Units 18:39 18:39 18:39 RBC 3.75 L (4.30-5.90) m/uL Hgb 11.0 L (13.0-17.5) gm/dL Hct 35.6 L (39.0-53.0) % MCHC 30.8 L (31.0-37.0) g/dL RDW (11.5-14.5) % Eosinophils # (0.04-0.35) X 10*3/uL PT 22.2 H (9.0-12.0) sec INR 2.2 H (<1.2) APTT 31.7 H (22.0-30.0) sec Sodium (135-145) mmol/L Chloride (98-107) mmol/L BUN (9-20) mg/dL Creatinine (0.66-1.25) mg/dL Est GFR (CKD-EPI)AfAm (60.0-200.0) Est GFR (CKD-EPI)NonAf (60.0-200.0) BUN/Creatinine Ratio (12.00-20.00) Ratio Calcium (8.7-10.3) mg/dL Total Protein (6.3-8.2) g/dL Albumin (3.5-5.0) g/dL Urine Protein 2+ H (Negative) Urine Blood Large H (Negative) Ur Leukocyte Esterase Large H (Negative) Urine RBC >182 H (0-5) /hpf Urine WBC >182 H (0-5) /hpf Urine WBC Clumps Many H (None) /hpf Urine Bacteria Occasional H (None) /hpf 06/01/21 06/02/21 06/02/21 Range/Units 20:40 06:11 06:11 RBC 3.29 L (4.30-5.90) m/uL Hgb 9.6 L (13.0-17.5) gm/dL Hct 31.4 L (39.0-53.0) % MCHC 30.6 L (31.0-37.0) g/dL RDW 14.8 H (11.5-14.5) % Eosinophils # 0.43 H (0.04-0.35) X 10*3/uL PT (9.0-12.0) sec INR (<1.2) APTT (22.0-30.0) sec Sodium 146 H (135-145) mmol/L Chloride 111 H 111 H (98-107) mmol/L BUN 25 H (9-20) mg/dL Creatinine 1.88 H 1.8 H (0.66-1.25) mg/dL Est GFR (CKD-EPI)AfAm 42.3 L (60.0-200.0) Est GFR (CKD-EPI)NonAf 36.5 L (60.0-200.0) BUN/Creatinine Ratio 11.85 L (12.00-20.00) Ratio Calcium 8.5 L (8.7-10.3) mg/dL Total Protein 5.4 L 5.3 L (6.3-8.2) g/dL Albumin 2.9 L 3.4 L (3.5-5.0) g/dL Urine Protein (Negative) Urine Blood (Negative) Ur Leukocyte Esterase (Negative) Urine RBC (0-5) /hpf Urine WBC (0-5) /hpf Urine WBC Clumps (None) /hpf Urine Bacteria (None) /hpf 06/02/21 Range/Units 14:00 RBC (4.30-5.90) m/uL Hgb (13.0-17.5) gm/dL Hct (39.0-53.0) % MCHC (31.0-37.0) g/dL RDW (11.5-14.5) % Eosinophils # (0.04-0.35) X 10*3/uL PT 14.3 H (9.0-12.0) sec INR 1.4 H (<1.2) APTT (22.0-30.0) sec Sodium (135-145) mmol/L Chloride (98-107) mmol/L BUN (9-20) mg/dL Creatinine (0.66-1.25) mg/dL Est GFR (CKD-EPI)AfAm (60.0-200.0) Est GFR (CKD-EPI)NonAf (60.0-200.0) BUN/Creatinine Ratio (12.00-20.00) Ratio Calcium (8.7-10.3) mg/dL Total Protein (6.3-8.2) g/dL Albumin (3.5-5.0) g/dL Urine Protein (Negative) Urine Blood (Negative) Ur Leukocyte Esterase (Negative) Urine RBC (0-5) /hpf Urine WBC (0-5) /hpf Urine WBC Clumps (None) /hpf Urine Bacteria (None) /hpf Diabetes panel 06/01/21 06/02/21 Range/Units 20:40 06:11 Sodium 141 146 H (137-145) mmol/L Potassium 4.0 4.6 (3.5-5.1) mmol/L Chloride 111 H 111 H (98-107) mmol/L Carbon Dioxide 23 23.4 (22-30) mmol/L BUN 25 H 21.1 (9-20) mg/dL Creatinine 1.88 H 1.8 H (0.66-1.25) mg/dL Glucose 99 103 (74-99) mg/dL Calcium 8.4 8.5 L (8.4-10.2) mg/dL AST 20 15 (17-59) U/L ALT 16 16 (4-49) U/L Alkaline Phosphatase 100 101 (38-126) U/L Total Protein 5.4 L 5.3 L (6.3-8.2) g/dL Albumin 2.9 L 3.4 L (3.5-5.0) g/dL Calcium panel 06/01/21 06/02/21 Range/Units 20:40 06:11 Calcium 8.4 8.5 L (8.4-10.2) mg/dL Albumin 2.9 L 3.4 L (3.5-5.0) g/dL Pituitary panel 06/01/21 06/02/21 Range/Units 20:40 06:11 Sodium 141 146 H (137-145) mmol/L Potassium 4.0 4.6 (3.5-5.1) mmol/L Chloride 111 H 111 H (98-107) mmol/L Carbon Dioxide 23 23.4 (22-30) mmol/L BUN 25 H 21.1 (9-20) mg/dL Creatinine 1.88 H 1.8 H (0.66-1.25) mg/dL Glucose 99 103 (74-99) mg/dL Calcium 8.4 8.5 L (8.4-10.2) mg/dL Adrenal panel 06/01/21 06/02/21 Range/Units 20:40 06:11 Sodium 141 146 H (137-145) mmol/L Potassium 4.0 4.6 (3.5-5.1) mmol/L Chloride 111 H 111 H (98-107) mmol/L Carbon Dioxide 23 23.4 (22-30) mmol/L BUN 25 H 21.1 (9-20) mg/dL Creatinine 1.88 H 1.8 H (0.66-1.25) mg/dL Glucose 99 103 (74-99) mg/dL Calcium 8.4 8.5 L (8.4-10.2) mg/dL Total Bilirubin 0.6 0.50 (0.2-1.3) mg/dL AST 20 15 (17-59) U/L ALT 16 16 (4-49) U/L Alkaline Phosphatase 100 101 (38-126) U/L Total Protein 5.4 L 5.3 L (6.3-8.2) g/dL Albumin 2.9 L 3.4 L (3.5-5.0) g/dL Assessment and Plan Assessment: 75-year-old male admitted to the hospital gross hematuria, it has resolved this morning. History of chronic recurrent retention, with the plan to undergo a TURP on June [address] [place]. ON Coumadin and Plavix. Recently his Coumadin was discontinued but his INR was still elevated at 2.3. -okay for discharge from urology standpoint, can follow-up for his scheduled surgery with Dr. Daniel. Can continue taking his Plavix given the resolution of his Gross hematuria
--- NOTE | 2021-06-02 20:28 | P.HPIM ---
History of Present Illness H&P Date: 06/02/21 Chief Complaint: Hematuria History presenting complaint This is a very pleasant 75-year-old patient who follows Dr. Edmonds. Chronic stable medical conditions include CAD with stent, hypertension, hyperlipidemia, atrial fibrillation, stroke in the past with some right-sided weakness that resolved, bilateral kidney stones, right diaphragm paralysis, diverticulosis. Arthritis patient has been vaccinated for COVID 19 and had: Pneumonia in March 2021. Patient to be slightly been having pinkish urine because of Coumadin. On May 20 patient did get a new Gonsales catheter through his urologist within 1 week. It was discontinued. Patient started retaining urine and a new catheter was placed. Because of some blood in the urine 4 days ago his Coumadin was discontinued by his electric shaver mechanic Dr. YASMANY Owen. 2 days ago patient had no catheter placed. Patient has continued to put out blood clots. No fever no chills. Patient is due to go back and have a procedure with Dr. Flores to dilate his bladder neck. In the ER his INR was 2.2. An 2.5 mg of vitamin K was given IV piggyback. This morning his urinalysis cleared up. Though the significant sediments. No fever no chills. Appetite is good. No dysuria. Hematology consulted. Review of systems: GEN.: Tired, EYES: None HEENT: None NECK: None RESPIRATORY: None CARDIOVASCULAR: None GASTROINTESTINAL: None GENITOURINARY: As above. Gonsales catheter. MUSCULOSKELETAL: Joint pains LYMPHATICS: None HEMATOLOGICAL: None PSYCHIATRY: None NEUROLOGICAL: None Past medical history to include: CAD with stent, stroke with right-sided weakness that is resolved, hypertension, hyperlipidemia, kidney stones bilateral, right diaphragm paralysis, diverticulosis Social history: Sometimes uses a cane. . Retired. Does not smoke or drink alcohol. Family history: Diabetes, hypertension, Alzheimer's. Physical examination: VITAL SIGNS: 98.4, 83, 18, 121/53, 93% room air. GENERAL: BMI 32.6, laying in bed, awake EYES: Pupils equal. Conjunctiva normal. HEENT: External appearance of nose and ears normal, oral cavity grossly normal. NECK: JVD not raised; masses not palpable. HEART: First and second heart sounds are normal; no edema. LUNGS: Respiratory rate increased, decreased breath sounds, occasional crackle. ABDOMEN: Soft, nontender, liver spleen not palpable, no masses palpable. Gonsales catheter: Urine with sediments. No blood PSYCH: Alert and oriented x3; mood and affect normal. MUSCULAR skeletal: Evidence of OA NEUROLOGICAL: Cranial nerves grossly intact; no facial asymmetry, power and sensation grossly intact. LYMPHATICS: No lymph nodes palpable in the axilla and neck INVESTIGATIONS, reviewed in the clinical context: White count 9.7 hemoglobin 9.6 platelets 299 sodium 146 potassium 4.6 BUN 21.1 creatinine 1.8 June 01: Hemoglobin 11 INR 2.2 BUN 25 creatinine 1.88 Coronavirus [PCR]: Not detected Assessment and plan: -Acute hematuria with possible local trauma to the bladder with repeated Gonsales catheter placement in the setting of patient getting Coumadin. Patient's Coumadin was discontinued on May 28. INR was still 2.2 in the ER. -Bladder outflow obstruction Chronic Gonsales catheter. Patient is pending surgery for the same outpatient -Coumadin monitoring Coumadin has been discontinued -Paroxysmal atrial fibrillation. Rate controlled. Lopressor 25 mg twice a day. Coumadin has been discontinued -CAD with stent Lopressor, Plavix, Lipitor -Hyperlipidemia Lipitor 80 mg by mouth daily -Essential hypertension Lopressor -Primary osteoarthritis multiple joints bilaterally Use pain medications as needed -Chronic diverticulosis, asymptomatic Follow clinically -Chronic kidney disease stage III from nephrosclerosis At the baseline creatinine of 1.6 -Bilateral nephrolithiasis. On March 06 patient underwent left ureteroscope even with laser lithotripsy and placement of a double-J catheter by Dr. Flores, that was removed in the office. -Bilateral hydronephrosis, Follow-up with urology outpatient. Home medications resumed. Plavix was held in the ER. Received vitamin K 2.5 mg the ER. No visible hematuria currently. Discussed with patient. Pending urology evaluation. 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 History of Any Multi-Drug Resistant Organisms: None Reported Past Surgical History: Heart Catheterization, Heart Catheterization With Stent, Hernia Repair, Joint Replacement, Orthopedic Surgery Additional Past Surgical History / Comment(s): Total of 3 coronary stents, cystoscopy/lithotripsy/L ureteroscopy and stent, L kidney cyst drained, abdominal hernia repair, R rotator cuff repair, bilateral total knee arthroplasties. Past Anesthesia/Blood Transfusion Reactions: No Reported Reaction Date of Last Stent Placement:: 01/22/21 Past Psychological History: No Psychological Hx Reported Smoking Status: Never smoker Past Alcohol Use History: None Reported Past Drug Use History: None Reported - Past Family History Father Family Medical History: Diabetes Mellitus, Hypertension Additional Family Medical History / Comment(s): Alzheimer's Mother Family Medical History: Cancer Additional Family Medical History / Comment(s): kidney Medications and Allergies Home Medications Medication Instructions Recorded Confirmed Type Clopidogrel [Plavix] 75 mg PO DAILY 01/18/21 06/01/21 History Atorvastatin Calcium [Lipitor] 80 mg PO DAILY 02/17/21 06/01/21 History Multivit-Min/FA/Lycopen/Lutein 1 tab PO DAILY 02/17/21 06/01/21 History [Centrum Silver Men Tablet] Nitroglycerin Sl Tabs [Nitrostat] 0.4 mg SL Q5M PRN 02/17/21 06/01/21 History Metoprolol Tartrate [Lopressor] 50 mg PO BID 06/01/21 06/01/21 History Tamsulosin [Flomax] 0.4 mg PO HS 06/01/21 06/01/21 History Allergies Allergy/AdvReac Type Severity Reaction Status Date / Time No Known Allergies Allergy Verified 06/01/21 21:01 Physical Exam Vitals: Vital Signs Temp Pulse Resp BP Pulse Ox 06/02/21 12:49 98.5 F 78 20 119/64 94 L 06/02/21 04:50 98.4 F 83 18 121/53 93 L 06/01/21 23:00 98.2 F 86 18 135/70 95 Intake and Output 06/02/21 06/02/21 06/02/21 06:59 14:59 22:59 Intake Total 475 Output Total 450 Balance 25 Intake: Oral 475 Output: Urine 450 Other: Voiding Method Indwelling Catheter Results CBC & Chem 7: 06/02/21 06:11 06/02/21 06:11 Labs: Abnormal Lab Results - Last 24 Hours (Table) 06/01/21 06/02/21 06/02/21 Range/Units 20:40 06:11 06:11 RBC 3.29 L (4.40-5.60) X 10*6/uL Hgb 9.6 L (13.0-17.0) g/dL Hct 31.4 L (39.6-50.0) % MCHC 30.6 L (32.0-37.0) g/dL RDW 14.8 H (11.5-14.5) % Eosinophils # 0.43 H (0.04-0.35) X 10*3/uL PT (9.0-12.0) sec INR (<1.2) Sodium 146 H (135-145) mmol/L Chloride 111 H 111 H (98-107) mmol/L BUN 25 H (9-20) mg/dL Creatinine 1.88 H 1.8 H (0.66-1.25) mg/dL Est GFR (CKD-EPI)AfAm 42.3 L (60.0-200.0) Est GFR (CKD-EPI)NonAf 36.5 L (60.0-200.0) BUN/Creatinine Ratio 11.85 L (12.00-20.00) Ratio Calcium 8.5 L (8.7-10.3) mg/dL Total Protein 5.4 L 5.3 L (6.3-8.2) g/dL Albumin 2.9 L 3.4 L (3.5-5.0) g/dL 06/02/21 Range/Units 14:00 RBC (4.40-5.60) X 10*6/uL Hgb (13.0-17.0) g/dL Hct (39.6-50.0) % MCHC (32.0-37.0) g/dL RDW (11.5-14.5) % Eosinophils # (0.04-0.35) X 10*3/uL PT 14.3 H (9.0-12.0) sec INR 1.4 H (<1.2) Sodium (135-145) mmol/L Chloride (98-107) mmol/L BUN (9-20) mg/dL Creatinine (0.66-1.25) mg/dL Est GFR (CKD-EPI)AfAm (60.0-200.0) Est GFR (CKD-EPI)NonAf (60.0-200.0) BUN/Creatinine Ratio (12.00-20.00) Ratio Calcium (8.7-10.3) mg/dL Total Protein (6.3-8.2) g/dL Albumin (3.5-5.0) g/dL Thrombosis Risk Factor Assmnt - Choose All That Apply Each Factor Represents 1 point: Obesity (BMI >25) Other Risk Factors: Yes Each Risk Factor Represents 3 Points: Age 75 years or older Thrombosis Risk Factor Assessment Total Risk Factor Score: 4 Thrombosis Risk Factor Assessment Level: Moderate Risk
--- NOTE | 2021-06-02 20:31 | P.DS ---
Providers Date of admission: 06/01/21 20:19 Expected date of discharge: 06/02/21 Attending physician: Shay Smith Consults: 06/01/21 20:10 Consult Physician Urgent Consulting Provider: CHARU PURVIS Consult Reason/Comments: hematuria, Gonsales catheter problem Do you want consulting provider notified?: Already Contacted Primary care physician: [facility] Hospital Course: Chief Complaint: Hematuria History presenting complaint This is a very pleasant 75-year-old patient who follows Dr. Edmonds. Chronic stable medical conditions include CAD with stent, hypertension, hyperlipidemia, atrial fibrillation, stroke in the past with some right-sided weakness that resolved, bilateral kidney stones, right diaphragm paralysis, diverticulosis. Arthritis patient has been vaccinated for COVID 19 and had: Pneumonia in March 2021. Patient to be slightly been having pinkish urine because of Coumadin. On May 20 patient did get a new Gonsales catheter through his urologist within 1 week. It was discontinued. Patient started retaining urine and a new catheter was placed. Because of some blood in the urine 4 days ago his Coumadin was discontinued by his children's minister Dr. YASMANY Owen. 2 days ago patient had no catheter placed. Patient has continued to put out blood clots. No fever no chills. Patient is due to go back and have a procedure with Dr. Flores to dilate his bladder neck. In the ER his INR was 2.2. An 2.5 mg of vitamin K was given IV piggyback. This morning his urinalysis cleared up. Though the significant sediments. No fever no chills. Appetite is good. No dysuria. Hematology consulted. Patient was seen by Dr. purvis from urology. Patient has been off Coumadin anyways. Plavix will be resumed. Discussed with patient. Follow-up with Dr. Flores from urology. Past medical history to include: CAD with stent, stroke with right-sided weakness that is resolved, hypertension, hyperlipidemia, kidney stones bilateral, right diaphragm paralysis, diverticulosis Social history: Sometimes uses a cane. . Retired. Does not smoke or drink alcohol. Family history: Diabetes, hypertension, Alzheimer's. Physical examination: VITAL SIGNS: 98.5, 78, 20, 119/64, 94% room air GENERAL: BMI 32.6, laying in bed, awake EYES: Pupils equal. Conjunctiva normal. HEENT: External appearance of nose and ears normal, oral cavity grossly normal. NECK: JVD not raised; masses not palpable. HEART: First and second heart sounds are normal; no edema. LUNGS: Respiratory rate increased, decreased breath sounds, occasional crackle. ABDOMEN: Soft, nontender, liver spleen not palpable, no masses palpable. Gonsales catheter: Urine with sediments. No blood PSYCH: Alert and oriented x3; mood and affect normal. MUSCULAR skeletal: Evidence of OA INVESTIGATIONS, reviewed in the clinical context: INR 1.4 White count 9.7 hemoglobin 9.6 platelets 299 sodium 146 potassium 4.6 BUN 21.1 creatinine 1.8 June 01: Hemoglobin 11 INR 2.2 BUN 25 creatinine 1.88 Coronavirus [PCR]: Not detected Assessment and plan: -Acute hematuria with possible local trauma to the bladder with repeated Gonsales catheter placement in the setting of patient getting Coumadin. Patient's Coumadin was discontinued on May 28. INR was still 2.2 in the ER.: Resolved -Bladder outflow obstruction Chronic Gonsales catheter. Patient is pending surgery for the same outpatient with Dr. Flores -Coumadin monitoring Coumadin has been discontinued -Paroxysmal atrial fibrillation. Rate controlled. Lopressor 25 mg twice a day. Coumadin has been discontinued -Acute blood loss anemia from hematuria -CAD with stent Lopressor, Plavix continue, Lipitor -Hyperlipidemia Lipitor 80 mg by mouth daily -Essential hypertension Lopressor -Primary osteoarthritis multiple joints bilaterally Use pain medications as needed -Chronic diverticulosis, asymptomatic Follow clinically -Chronic kidney disease stage III from nephrosclerosis At the baseline creatinine of 1.6 -Bilateral nephrolithiasis. On March 06 patient underwent left ureteroscope even with laser lithotripsy and placement of a double-J catheter by Dr. Flores, that was removed in the office. -Bilateral hydronephrosis, Follow-up with urology outpatient. Disposition: Home Plan - Discharge Summary New Discharge Prescriptions: Continue Atorvastatin Calcium [Lipitor] 80 mg PO DAILY Clopidogrel [Plavix] 75 mg PO DAILY Nitroglycerin Sl Tabs [Nitrostat] 0.4 mg SL Q5M PRN PRN Reason: Chest Pain Multivit-Min/FA/Lycopen/Lutein [Centrum Silver Men Tablet] 1 tab PO DAILY Metoprolol Tartrate [Lopressor] 50 mg PO BID Tamsulosin [Flomax] 0.4 mg PO HS Discharge Medication List Clopidogrel [Plavix] 75 mg PO DAILY 01/18/21 [History] Atorvastatin Calcium [Lipitor] 80 mg PO DAILY 02/17/21 [History] Multivit-Min/FA/Lycopen/Lutein [Centrum Silver Men Tablet] 1 tab PO DAILY 02/17/21 [History] Nitroglycerin Sl Tabs [Nitrostat] 0.4 mg SL Q5M PRN 02/17/21 [History] Metoprolol Tartrate [Lopressor] 50 mg PO BID 06/01/21 [History] Tamsulosin [Flomax] 0.4 mg PO HS 06/01/21 [History] Follow up Appointment(s)/Referral(s): Bryan Edmonds DO [Primary Care Provider] - 1-2 days Kristopher Daniel MD [STAFF PHYSICIAN] - 1 Week Activity/Diet/Wound Care/Special Instructions: hold amlodipine Discharge Disposition: HOME SELF-CARE
[2021-06-03] MEDS ORDERED: amLODIPine 5 MG TAB PO SCH (09:00)
== END 2021-06-02 17:30 | disposition home or self-care (01) ==
LOC: EC 17:30 → 5NMEDONC 20:19
PROVIDERS: ADMIT Hospitalist; ATTEND Hospitalist
DX: T83.091A Other mechanical complication of indwelling urethral catheter, initial encounter (principal); N32.0 Bladder-neck obstruction; I48.0 Paroxysmal atrial fibrillation; D62 Acute posthemorrhagic anemia; I25.10 Atherosclerotic heart disease of native coronary artery without angina pectoris; E78.5 Hyperlipidemia, unspecified; Z20.822 Contact with and (suspected) exposure to COVID-19; M15.9 Polyosteoarthritis, unspecified; K57.90 Diverticulosis of intestine, part unspecified, without perforation or abscess without bleeding; I12.9 Hypertensive chronic kidney disease with stage 1 through stage 4 chronic kidney disease, or unspecified chronic kidney disease; E11.22 Type 2 diabetes mellitus with diabetic chronic kidney disease; N18.30 Chronic kidney disease, stage 3 unspecified; N13.2 Hydronephrosis with renal and ureteral calculous obstruction; G30.9 Alzheimer's disease, unspecified; F02.80 Dementia in other diseases classified elsewhere, unspecified severity, without behavioral disturbance, psychotic disturbance, mood disturbance, and anxiety; I69.351 Hemiplegia and hemiparesis following cerebral infarction affecting right dominant side; D68.9 Coagulation defect, unspecified; G83.9 Paralytic syndrome, unspecified; K46.9 Unspecified abdominal hernia without obstruction or gangrene; J98.6 Disorders of diaphragm; Y73.8 Miscellaneous gastroenterology and urology devices associated with adverse incidents, not elsewhere classified; E66.9 Obesity, unspecified; Z68.32 Body mass index [BMI] 32.0-32.9, adult; Z79.02 Long term (current) use of antithrombotics/antiplatelets; Z79.899 Other long term (current) drug therapy; Z87.01 Personal history of pneumonia (recurrent); Z87.442 Personal history of urinary calculi; Z95.5 Presence of coronary angioplasty implant and graft; Z87.440 Personal history of urinary (tract) infections; Z96.653 Presence of artificial knee joint, bilateral; Z83.3 Family history of diabetes mellitus; Z82.49 Family history of ischemic heart disease and other diseases of the circulatory system; Z82.0 Family history of epilepsy and other diseases of the nervous system
CPT/HCPCS: 99285; 96365; 96366; 36415; 80053 ×2; 85025 ×2; 85610 ×2; 85730; 81001; 87635; G0378 ×2; J3430

== ENCOUNTER → 2021-06-05 | Outpatient (CLI) | payer MEDICARE ==
[2021-06-05 15:33] LABS: Appearance,Urine Turbid (Clear); Bacteria,Urine Moderate /hpf; Bilirubin,Urine Negative (Negative); Blood,Urine Large (Negative); Budding Yeast,Urine Many /hpf; Color,Urine Yellow; Glucose,Urine (UA) Negative (Negative); Ketones,Urine Negative (Negative); Leukocyte Esterase,Urine Large (Negative); Mucus,Urine Occasional /hpf; Nitrite,Urine Negative (Negative); PH, Urine 5.5 (5.0-8.0); Protein,Urine 2+ (Negative); RBC,Urine >182 /hpf (0-5); Specific Gravity,Urine 1.013 (1.001-1.035); Urobilinogen,Urine <2.0 mg/dL (<2.0); WBC,Urine >182 /hpf (0-5)
[2021-06-05 18:48] LABS: Basophils # (A) 0.08 X 10*3/uL (0.00-0.10); Basophils % (A) 0.7 %; Eosinophils # (A) 0.54 X 10*3/uL (0.04-0.35); Eosinophils % (A) 4.6 %; HCT 33.6 % (39.6-50.0); HGB 10.1 g/dL (13.0-17.0); Immature Grans, Automated 0.6 %; Lymphocytes # (A) 1.44 X 10*3/uL (0.90-5.00); Lymphocytes % (A) 12.4 %; MCH 28.8 pg (27.0-32.0); MCHC 30.1 g/dL (32.0-37.0); MCV 95.7 fL (80.0-97.0); Mean Platelet Volume 9.8 fL (9.5-12.2); Monocytes % (A) 7.7 %; NRBC Per 100 WBC 0 /100 WBCS (0.0-0.0); Platelet Count 409 X 10*3/uL (140-440); RBC 3.51 X 10*6/uL (4.40-5.60); RDW 15.2 % (11.5-14.5); WBC 11.63 X 10*3/uL (4.50-10.00)
[2021-06-05 19:00] LABS: African American GFR (CKD) 35.7 (60.0-200.0); Albumin 3.6 g/dL (3.8-4.9); Albumin/Globulin Ratio 1.32 (1.60-3.17); Anion Gap 11.1 mmol/L (10.00-18.00); BUN/Creat Ratio 9.02 Ratio (12.00-20.00); Blood Urea Nitrogen 18.5 mg/dL (9.0-27.0); Calcium 9.3 mg/dL (8.7-10.3); Carbon Dioxide 24.1 mmol/L (20.0-27.5); Globulin 2.7 g/dL (1.6-3.3); Non-African American GFR(CKD) 30.8 (60.0-200.0); Potassium 4.4 mmol/L (3.5-5.5); Total Bilirubin 0.5 mg/dL (0.30-1.20); Total Protein 6.3 g/dL (6.2-8.2)
== END | disposition home or self-care (01) ==
LOC: LABPAT 13:59
PROVIDERS: ATTEND Urology
DX: Z01.812 Encounter for preprocedural laboratory examination (principal); R33.9 Retention of urine, unspecified
CPT/HCPCS: 80053; 81001; 85025; 87086

== ENCOUNTER → 2021-08-05 | Outpatient (CLI) | payer MEDICARE ==
[2021-08-05 15:33] LABS: Appearance,Urine Cloudy (Clear); Bilirubin,Urine Negative (Negative); Blood,Urine Moderate (Negative); Color,Urine Yellow; Glucose,Urine (UA) Negative (Negative); Ketones,Urine Negative (Negative); Leukocyte Esterase,Urine Large (Negative); Mucus,Urine Rare /hpf; Nitrite,Urine Negative (Negative); PH, Urine 5.5 (5.0-8.0); Protein,Urine 1+ (Negative); RBC,Urine >182 /hpf (0-5); Specific Gravity,Urine 1.015 (1.001-1.035); Urobilinogen,Urine <2.0 mg/dL (<2.0); WBC,Urine >182 /hpf (0-5)
[2021-08-05 18:28] LABS: HCT 38.1 % (39.6-50.0); HGB 11.3 g/dL (13.0-17.0); MCH 27.4 pg (27.0-32.0); MCHC 29.7 g/dL (32.0-37.0); MCV 92.3 fL (80.0-97.0); Mean Platelet Volume 10.1 fL (9.5-12.2); NRBC Per 100 WBC 0 /100 WBCS (0.0-0.0); Platelet Count 275 X 10*3/uL (140-440); RBC 4.13 X 10*6/uL (4.40-5.60); RDW 14.6 % (11.5-14.5); WBC 8.19 X 10*3/uL (4.50-10.00)
[2021-08-06 05:10] LABS: African American GFR (CKD) 34.6 (60.0-200.0); Albumin 4.4 g/dL (3.8-4.9); Albumin/Globulin Ratio 2.1 (1.60-3.17); Anion Gap 21.8 mmol/L (10.00-18.00); BUN/Creat Ratio 10.9 Ratio (12.00-20.00); Blood Urea Nitrogen 22.9 mg/dL (9.0-27.0); Calcium 9.4 mg/dL (8.7-10.3); Carbon Dioxide 15.2 mmol/L (20.0-27.5); Globulin 2.1 g/dL (1.6-3.3); Non-African American GFR(CKD) 29.9 (60.0-200.0); Potassium 3.9 mmol/L (3.5-5.5); Total Bilirubin 0.2 mg/dL (0.30-1.20); Total Protein 6.5 g/dL (6.2-8.2)
== END | disposition home or self-care (01) ==
LOC: LABPAT 14:16
PROVIDERS: ATTEND Urology
DX: Z01.812 Encounter for preprocedural laboratory examination (principal); N20.0 Calculus of kidney
CPT/HCPCS: 36415; 80053; 81001; 85027; 87086

== ENCOUNTER 2021-09-09 08:36 | Emergency (ER) | payer MEDICARE ==
[2021-09-09 08:43] VITALS: PULSE 63; RESP 18
--- NOTE | 2021-09-09 09:43 | XR ---
EXAMINATION TYPE: XR tibia fibula RT DATE OF EXAM: 09/09/2021 CLINICAL HISTORY: Pain after trauma injury. TECHNIQUE: Two views of the right leg are obtained. COMPARISON: None. FINDINGS: There is no acute fracture or dislocation seen in the right tibia or fibula. Metallic hard vasquez from total right knee arthroplasty appears satisfactory in position. There are posterior heterot opic ossifications. Right ankle joint appears within normal limits. Mild to moderate diffuse subcutan eous edema is present. Fairly severe posterior arterial vascular calcification noted. IMPRESSION: There is no acute fracture or dislocation seen in the right tibia or fibula.
--- NOTE | 2021-09-09 10:13 | US ---
EXAMINATION TYPE: US venous doppler duplex LE RT DATE OF EXAM: 09/09/2021 10:00 AM COMPARISON: CLINICAL HISTORY: pain, swelling. Patient states dropping corner of TV on mai of leg. On blood thin ners. SIDE PERFORMED: Right TECHNIQUE: The lower extremity deep venous system is examined utilizing real time linear array sonog arlene with graded compression, doppler sonography and color-flow sonography. VESSELS IMAGED: Common Femoral Vein Deep Femoral Vein Greater Saphenous Vein * Femoral Vein Popliteal Vein Small Saphenous Vein * Proximal Calf Veins (* superficial vessels) Right Leg: Negative for DVT Grayscale, color doppler, spectral doppler imaging performed of the deep veins of the right lower ext remity. There is normal flow, compressibility, vascular waveforms IMPRESSION: No ultrasound evidence for acute DVT in the right lower extremity.
--- NOTE | 2021-09-09 10:38 | ED ---
General Adult HPI - General Chief complaint: Extremity Injury, Lower Stated complaint: Leg wound Time Seen by Provider: 09/09/21 08:50 Source: patient, family, RN notes reviewed Mode of arrival: wheelchair Limitations: no limitations - History of Present Illness Initial comments: 75-year-old male with a past medical history of hyperlipidemia, hypertension, CAD, CVA presents to the emergency room for right leg pain. Patient states 3 days ago he dropped the corner of a heavy TV onto his right mai. States that it has been swollen and painful since. States that it is painful to walk on it and he wants to make sure nothing is broken. Patient denies fevers. Denies redness burning up his leg. Patient does take Coumadin and Plavix.Patient has no other complaints at this time including shortness of breath, chest pain, abdominal pain, nausea or vomiting, headache, or visual changes. - Related Data Home Medications Medication Instructions Recorded Confirmed Clopidogrel [Plavix] 75 mg PO DAILY 01/18/21 09/09/21 Atorvastatin Calcium [Lipitor] 80 mg PO DAILY 02/17/21 09/09/21 Multivit-Min/FA/Lycopen/Lutein 1 tab PO DAILY 02/17/21 09/09/21 [Centrum Silver Men Tablet] Warfarin [Coumadin] 5 mg PO DAILY 06/10/21 09/09/21 amLODIPine [Norvasc] 5 mg PO DAILY 06/10/21 09/09/21 Metoprolol Tartrate [Lopressor] 50 mg PO BID 09/09/21 09/09/21 Allergies Allergy/AdvReac Type Severity Reaction Status Date / Time No Known Allergies Allergy Verified 09/09/21 10:10 Review of Systems ROS Statement: Those systems with pertinent positive or pertinent negative responses have been documented in the HPI. ROS Other: All systems not noted in ROS Statement are negative. 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 History of Any Multi-Drug Resistant Organisms: None Reported Past Surgical History: Heart Catheterization, Heart Catheterization With Stent, Hernia Repair, Joint Replacement, Orthopedic Surgery Additional Past Surgical History / Comment(s): Total of 3 coronary stents, cystoscopy/lithotripsy/L ureteroscopy and stent, L kidney cyst drained, abdominal hernia repair, R rotator cuff repair, bilateral total knee arthroplasties. Past Anesthesia/Blood Transfusion Reactions: No Reported Reaction Date of Last Stent Placement:: 01/22/21 Past Psychological History: No Psychological Hx Reported Smoking Status: Never smoker Past Alcohol Use History: None Reported Past Drug Use History: None Reported - Past Family History Father Family Medical History: Diabetes Mellitus, Hypertension Additional Family Medical History / Comment(s): Alzheimer's Mother Family Medical History: Cancer Additional Family Medical History / Comment(s): kidney General Exam Limitations: no limitations General appearance: alert, in no apparent distress Head exam: Present: atraumatic Eye exam: Present: normal appearance, PERRL, EOMI. Absent: scleral icterus, conjunctival injection ENT exam: Present: normal exam, mucous membranes moist Neck exam: Present: normal inspection, full ROM. Absent: tenderness Respiratory exam: Present: normal lung sounds bilaterally. Absent: respiratory distress, wheezes Cardiovascular Exam: Present: regular rate, normal rhythm, normal heart sounds Extremities exam: Present: full ROM (Full range of motion of the right foot.), normal capillary refill (Capillary refill less than 2 seconds, DP pulse 2+ right lower extremity.), other (Patient has some mild ecchymosis and erythema of the distal right mai and right foot. There is a contusion noted to the distal anterior right mai. There is no evidence of infection at this time. There is no open wounds.). Absent: calf tenderness Course Vital Signs 09/09/21 08:37 Temperature 98.0 F Pulse Rate 63 Respiratory 18 Rate Blood Pressure 110/68 O2 Sat by Pulse 96 Oximetry Medical Decision Making - Medical Decision Making Vitals are stable. Patient is well-appearing. HPI/PE as documented. Ultrasound negative for acute DVT in the right leg. X-ray shows no acute fracture or dislocation. Discussed keeping his leg elevated and possibly using compression socks that he can manage this. Discussed icing and taking tylenol for pain, no motrin. We will send with a small dose of Tylenol 3 for intractable pain as pt cannot take other anti-inflammatories. Patient will be discharged to follow up with primary care. He'll return here for any worsening symptoms. Disposition Clinical Impression: Contusion of right leg Disposition: HOME SELF-CARE Condition: Good Instructions (If sedation given, give patient instructions): Contusion in Adults (ED), Leg Edema (ED) Additional Instructions: Please take Tylenol for pain. If pain is severe take Tylenol 3 instead. Follow-up with your doctor. Rest ice and elevate the right leg. Return to the emergency room for any worsening symptoms. Is patient prescribed a controlled substance at d/c from ED?: No Referrals: Bryan Edmonds DO [Primary Care Provider] - 1-2 days Time of Disposition: 11:12
[2021-09-09] MEDS ORDERED: ACET/COD 300 MG/30 MG STARTER PACK 6 TAB BTL PO STA (11:12)
[2021-09-09 11:29] VITALS: TEMP 98.7
[2021-09-09 11:30] VITALS: BP 110/74
== END 2021-09-09 11:30 | disposition home or self-care (01) ==
LOC: EC 08:36
DX: S80.11XA Contusion of right lower leg, initial encounter (principal); M79.604 Pain in right leg; I10 Essential (primary) hypertension; Z86.73 Personal history of transient ischemic attack (TIA), and cerebral infarction without residual deficits; W01.198A Fall on same level from slipping, tripping and stumbling with subsequent striking against other object, initial encounter
CPT/HCPCS: 99284

== ENCOUNTER → 2021-11-07 | Outpatient (CLI) | payer MEDICARE ==
--- NOTE | 2021-11-07 15:40 | US ---
EXAMINATION TYPE: US kidneys/renal and bladder DATE OF EXAM: 11/07/2021 COMPARISON: US 2020 CLINICAL HISTORY: N18.9 CHR KIDNEY DISEASE. EXAM MEASUREMENTS: Right Kidney: 9.8 x 5.9 x 5.3 cm Left Kidney: 10.2 x 4.2 x 5.1 cm Right Kidney: 1.0cm stone inferior pole, 1.6cm cyst mid pole Left Kidney: 1.2cm stone superior pole, multiple cysts with largest measuring 6.1cm inferior pole Bladder: wnl Bilateral Jets seen: no There is no evidence for hydronephrosis at this point in time. No solid masses are identified. Th e urinary bladder is anechoic. Bilateral ureteral jets are seen. IMPRESSION: 1. Bilateral nephrolithiasis. 2. Left renal cyst simple in appearance
[2021-11-07 16:48] LABS: Creatinine,Urine Random 104.1 mg/dL; Protein/Creatinine Ratio,Urine 0.202
[2021-11-07 22:56] LABS: Appearance,Urine Clear (Clear); Bilirubin,Urine Negative (Negative); Blood,Urine Trace (Negative); Color,Urine Yellow (Yellow); Ketones,Urine Negative (Negative); Nitrite,Urine Negative (Negative); PH, Urine 5.5 (5.0-8.0); Specific Gravity,Urine 1.015 (1.001-1.030); Urobilinogen,Urine 0.2 (0.2,1.0)
[2021-11-07 23:02] LABS: Bacteria,Urine None Seen /HPF (None Seen)
[2021-11-08 00:07] LABS: African American GFR (CKD) 48.1 (60.0-200.0); Albumin 4.4 g/dL (3.8-4.9); Albumin/Globulin Ratio 1.95 (1.60-3.17); Anion Gap 13.7 mmol/L (10.00-18.00); BUN/Creat Ratio 17.81 Ratio (12.00-20.00); Blood Urea Nitrogen 28.5 mg/dL (9.0-27.0); Calcium 9.3 mg/dL (8.7-10.3); Carbon Dioxide 21.3 mmol/L (20.0-27.5); Globulin 2.3 g/dL (1.6-3.3); Non-African American GFR(CKD) 41.5 (60.0-200.0); Phosphorus 3.4 mg/dL (2.4-5.1); Potassium 4.2 mmol/L (3.5-5.5); Total Bilirubin 0.4 mg/dL (0.30-1.20); Total Protein 6.7 g/dL (6.2-8.2)
[2021-11-08 01:05] LABS: HCT 35.1 % (39.6-50.0); HGB 10.3 g/dL (13.0-17.0); MCH 25.6 pg (27.0-32.0); MCHC 29.3 g/dL (32.0-37.0); MCV 87.3 fL (80.0-97.0); NRBC Per 100 WBC 0 /100 WBCS (0.0-0.0); Platelet Count 281 X 10*3/uL (140-440); RBC 4.02 X 10*6/uL (4.40-5.60); RDW 18.3 % (11.5-14.5); WBC 9.66 X 10*3/uL (4.50-10.00)
== END | disposition home or self-care (01) ==
LOC: RADUSWWP 14:43
PROVIDERS: ATTEND Family Medicine
DX: N18.9 Chronic kidney disease, unspecified (principal); N20.0 Calculus of kidney; N28.1 Cyst of kidney, acquired
CPT/HCPCS: 76770; 80053; 81001; 82570; 84100; 84156; 85027

== ENCOUNTER → 2022-02-04 | Outpatient (CLI) | payer MEDICARE ==
--- NOTE | 2022-02-04 15:40 | XR ---
EXAMINATION TYPE: XR KUB DATE OF EXAM: 02/04/2022 Comparison: CT 04/12/2021 Clinical History: 76-year-old male N20.0 Findings: Calcification right upper quadrant measuring 2.0 x 1.3 cm. Largest calcification left mid abdomen flora suring 1.4 cm. Additional grouped microcalcifications measuring up to 8 mm but aggregate dimension up to 3.0 cm. Nonobstructive bowel gas pattern. Multiple pelvic phleboliths and vascular calcifications in the left side of the pelvis. Nonobstructive bowel gas pattern. Similar asymmetric elevation left hemidiaphrag m. Rounded density below the left renal shadow measuring 7.6 cm corresponding to a cyst which measured 6 .3 cm back on 04/12/2021. Impression: 1. Bilateral nephrolithiasis measuring up to 2.0 cm on the right. Largest calculus on the left measur es 1.4 cm. 2. Left lower pole renal cyst measuring 7.6 cm versus 6.3 cm, previously. 3. Similar asymmetric elevation right hemidiaphragm, possible large area of hemidiaphragmatic eventra tion.
== END | disposition home or self-care (01) ==
LOC: RADXRMAIN 11:48
PROVIDERS: ATTEND Urology
DX: N20.0 Calculus of kidney (principal); N28.1 Cyst of kidney, acquired; J98.6 Disorders of diaphragm
CPT/HCPCS: 74018

== ENCOUNTER 2022-07-23 08:24 | Emergency (ER) | payer MEDICARE ==
[2022-07-23 08:34] VITALS: TEMP 97.6
[2022-07-23] MEDS ORDERED: MECLIZINE 12.5 MG TAB PO STA ×2 (08:42→11:06)
[2022-07-23] MEDS ORDERED: SODIUM CHLORIDE 0.9% 500 ML 500 ML IV STA (08:42)
[2022-07-23 09:08] LABS: Basophils % (A) 1 %; Eosinophils # (A) 0.2 k/uL (0-0.7); Eosinophils % (A) 3 %; HCT 32.2 % (39.0-53.0); HGB 10.2 gm/dL (13.0-17.5); Hypochromasia Slight; Lymphocytes # (A) 1.1 k/uL (1.0-4.8); Lymphocytes % (A) 17 %; MCH 26.9 pg (25.0-35.0); MCHC 31.8 g/dL (31.0-37.0); MCV 84.5 fL (80.0-100.0); Mean Platelet Volume 8.1; Monocytes # (A) 0.3 k/uL (0-1.0); Monocytes % (A) 5 %; Neutrophils # (A) 4.8 k/uL (1.3-7.7); Neutrophils % (A) 71 %; Platelet Count 297 k/uL (150-450); RBC 3.81 m/uL (4.30-5.90); RDW 15.8 % (11.5-15.5); WBC 6.8 k/uL (3.8-10.6)
[2022-07-23 09:21] LABS: Albumin 3.7 g/dL (3.5-5.0); Calcium 8.4 mg/dL (8.4-10.2); Potassium 4.1 mmol/L (3.5-5.1); Total Bilirubin 0.3 mg/dL (0.2-1.3); Total Protein 6.3 g/dL (6.3-8.2)
--- NOTE | 2022-07-23 09:24 | CT ---
EXAMINATION TYPE: CT brain wo con CT DLP: 1201.9 mGycm, Automated exposure control for dose reduction was used. DATE OF EXAM: 07/23/2022 9:18 AM COMPARISON: 12/17/2020. CLINICAL INDICATION:Male, 76 years old with history of dizziness, dizzy TECHNIQUE: Brain: Axial CT images of the brain were obtained with coronal and sagittal reformats created and rev iewed. Contrast used: None. Oral contrast used: None. FINDINGS: Brain: Extra-axial spaces: No abnormal extra-axial fluid collections. Ventricular system: Within normal limits Cerebral parenchyma: Similar left hypodense areas scattered throughout the deep white matter most pro nounced in the left shrestha radiata left basal ganglia, left thalamus, right caudate nucleus. No acute intraparenchymal hemorrhage or mass effect. The hunter-white junction is well differentiated. Cerebellum: Unremarkable. Mass effect: No evidence of midline shift. Intracranial vasculature: Atherosclerotic calcifications of the intracranial vessels. Soft tissues: Normal. Calvarium/osseous structures: No depressed skull fracture. Paranasal sinuses and mastoid air cells: Mild scattered paranasal sinus disease. Visualized orbits: Orbital contents are intact. IMPRESSION: 1. No acute intracranial process. 2. Remote lacunar injuries along with nonspecific white matter changes likely secondary to chronic mi croangiopathy.
[2022-07-23 10:59] VITALS: RESP 20
[2022-07-23] MEDS ORDERED: ONDANSETRON 4 MG/2 ML VIAL IVP STA (11:06)
[2022-07-23] MEDS ORDERED: SODIUM CHLORIDE 0.9% 500 ML 500 ML IV ONE (11:08)
--- NOTE | 2022-07-23 11:26 | ED ---
Dizziness HPI - General Chief Complaint: Dizziness Stated Complaint: Dizzy Time Seen by Provider: 07/23/22 08:37 Source: patient, RN notes reviewed Mode of arrival: ambulatory Limitations: no limitations - History of Present Illness Initial Comments: 76-year-old male presents emergency Department with chief complaint of dizziness. Patient states started yesterday states is only with movement. Denies any headache or vision focal weakness chest pain shortness of breath nausea vomiting no leg pain leg swelling. Patient states she's had this happen the past. Patient states she just felt very dizzy when he stood up so presents to the emergency room. Patient offers no other associated symptoms. - Related Data Home Medications Medication Instructions Recorded Confirmed Clopidogrel [Plavix] 75 mg PO DAILY 01/18/21 07/23/22 Atorvastatin Calcium [Lipitor] 80 mg PO DAILY 02/17/21 07/23/22 Multivit-Min/FA/Lycopen/Lutein 1 tab PO DAILY 02/17/21 07/23/22 [Centrum Silver Men Tablet] Warfarin [Coumadin] 5 mg PO DAILY 06/10/21 07/23/22 amLODIPine [Norvasc] 5 mg PO DAILY 06/10/21 07/23/22 Metoprolol Tartrate [Lopressor] 25 mg PO BID 09/09/21 07/23/22 Furosemide [Lasix] 20 mg PO DAILY 07/23/22 07/23/22 Previous Rx's Medication Instructions Recorded Meclizine [Antivert] 25 mg PO TID PRN #15 tab 07/23/22 Allergies Allergy/AdvReac Type Severity Reaction Status Date / Time No Known Allergies Allergy Verified 07/23/22 09:51 Review of Systems ROS Statement: Those systems with pertinent positive or pertinent negative responses have been documented in the HPI. ROS Other: All systems not noted in ROS Statement are negative. 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 History of Any Multi-Drug Resistant Organisms: None Reported Past Surgical History: Heart Catheterization, Heart Catheterization With Stent, Hernia Repair, Joint Replacement, Orthopedic Surgery Additional Past Surgical History / Comment(s): Total of 3 coronary stents, cystoscopy/lithotripsy/L ureteroscopy and stent, L kidney cyst drained, abdominal hernia repair, R rotator cuff repair, bilateral total knee arthroplas ties. Past Anesthesia/Blood Transfusion Reactions: No Reported Reaction Date of Last Stent Placement:: 01/22/21 Past Psychological History: No Psychological Hx Reported Smoking Status: Never smoker Past Alcohol Use History: None Reported Past Drug Use History: None Reported - Past Family History Father Family Medical History: Diabetes Mellitus, Hypertension Additional Family Medical History / Comment(s): Alzheimer's Mother Family Medical History: Cancer Additional Family Medical History / Comment(s): kidney General Exam Limitations: no limitations General appearance: alert, in no apparent distress Head exam: Present: atraumatic, normocephalic, normal inspection Eye exam: Present: normal appearance, PERRL, EOMI. Absent: scleral icterus, conjunctival injection, periorbital swelling ENT exam: Present: normal exam, mucous membranes moist Neck exam: Present: normal inspection, full ROM. Absent: tenderness, meningismus, lymphadenopathy Respiratory exam: Present: normal lung sounds bilaterally. Absent: respiratory distress, wheezes, rales, rhonchi, stridor Cardiovascular Exam: Present: regular rate, normal rhythm, normal heart sounds. Absent: systolic murmur, diastolic murmur, rubs, gallop, clicks Extremities exam: Present: normal inspection, full ROM, normal capillary refill. Absent: tenderness, pedal edema, joint swelling, calf tenderness Neurological exam: Present: alert, oriented X3, CN II-XII intact, reflexes normal. Absent: motor sensory deficit Skin exam: Present: warm, dry, intact, normal color. Absent: rash Course Vital Signs 07/23/22 07/23/22 07/23/22 08:29 10:56 12:56 Temperature 97.6 F 97.6 F Pulse Rate 88 73 75 Respiratory 18 20 20 Rate Blood Pressure 118/75 127/73 138/69 O2 Sat by Pulse 96 96 96 Oximetry EKG Findings - EKG Comments: EKG Findings:: EKG performed a: 39 sinus rhythm rate of 87 [place] 164 QRS 1:30 QT/QTC 344/389 - EKG Results: EKG: interpreted by DAYNA Medical Decision Making - Medical Decision Making Was pt. sent in by a medical professional or institution ([employer] Back, LIQUIFIED NATURAL GAS SPECIALIST, urgent care, hospital, or residential...) When possible be specific @ -No Did you speak to anyone other than the patient for history (EMS, parent, family, police, friend...)? What history was obtained from this source @ -No Did you review nursing and triage notes (agree or disagree)? Why? @ -I reviewed and agree with nursing and triage notes Were old charts reviewed (outside hosp., previous admission, EMS record, old EKG, old radiological studies, urgent care reports/EKG's, residential records)? Report findings @ -No old charts were reviewed Differential Diagnosis (chest pain, altered mental status, abdominal pain women, abdominal pain men, vaginal bleeding, weakness, fever, dyspnea, syncope, h eadache, dizziness, GI bleed, back pain, seizure, CVA, palpatations, mental health, musculoskeletal)? @ -nDifferential Dizziness: Benign paroxysmal positional Vertigo, Menieres disease, otitis media, acoustic neuroma, vertebrobasilar insufficiency, cerebellar stroke, encephalitis, hypovolemic, arrhythmia, coronary artery syndrome, anemia, this is not meant to be an all-inclusive liste EKG interpreted by me (3pts min.). @ -As above X-rays interpreted by me (1pt min.). @ -Chest x-ray shows no acute process CT interpreted by me (1pt min.). @ -[CT of brain is shows no acute changes, chronic small vessel ischemic changes U/S interpreted by me (1pt. min.). @ -None done What testing was considered but not performed or refused? (CT, X-rays, U/S, labs)? Why? @ -None What meds were considered but not given or refused? Why? @ -None Did you discuss the management of the patient with other professionals (professionals i.e. FERM[employer]N Back, LIQUIFIED NATURAL GAS SPECIALIST, lab, RT, psych nurse, social media strategist, mixing machine operator, teacher, chief medical officer, case management assistant)? Give summary @ -No Was smoking cessation discussed for >3mins.? @ -No Was critical care preformed (if so, how long)? @ -No Were there social determinants of health that impacted care today? How? ( Homelessness, low income, unemployed, alcoholism, drug addiction, transportation, low edu. Level, literacy, decrease access to med. care, fpc, rehab)? @ -No Was there de-escalation of care discussed even if they declined (Discuss DNR or withdrawal of care, Hospice)? DNR status @ -No What co-morbidities impacted this encounter? (DM, HTN, Smoking, COPD, CAD, Cancer, CVA, ARF, Chemo, Hep., AIDS, mental health diagnosis, sleep apnea, morbid obesity)? @ -None Was patient admitted / discharged? Hospital course, mention meds given and route, prescriptions, significant lab abnormalities, going to OR and other pertinent info. @ -h discharge patient feels greatly improved after Antivert, Zofran. Patient's workup was negative. Patient had vertigo in the past patient symptoms are consistent with vertigo. Patient has no ataxia. Patient was discharged in stable condition return parameters were discussed. ospital course Undiagnosed new problem with uncertain prognosis? @ -No Drug Therapy requiring intensive monitoring for toxicity (Heparin, Nitro, Insulin, Cardizem)? @ -No Were any procedures done? @ -No Diagnosis/symptom? @ -Vertigo Acute, or Chronic, or Acute on Chronic? @ -Acute Uncomplicated (without systemic symptoms) or Complicated (systemic symptoms)? @ -Uncomplicated Side effects of treatment? @ -No Exacerbation, Progression, or Severe Exacerbation? @ -No Poses a threat to life or bodily function? How? (Chest pain, [place], [place], pneumonia, PE, COPD, DKA, ARF, appy, cholecystitis, CVA, Diverticulitis, Homicidal, Suicidal, threat to staff... and all critical care pts) @ -No - Lab Data Result diagrams: 07/23/22 08:50 07/23/22 08:50 Lab Results 07/23/22 07/23/22 07/23/22 Range/Units 08:50 08:50 08:50 WBC 6.8 (3.8-10.6) k/uL RBC 3.81 L (4.30-5.90) m/uL Hgb 10.2 L (13.0-17.5) gm/dL Hct 32.2 L (39.0-53.0) % MCV 84.5 (80.0-100.0) fL MCH 26.9 (25.0-35.0) pg MCHC 31.8 (31.0-37.0) g/dL RDW 15.8 H (11.5-15.5) % Plt Count 297 (150-450) k/uL MPV 8.1 Neutrophils % 71 % Lymphocytes % 17 % Monocytes % 5 % Eosinophils % 3 % Basophils % 1 % Neutrophils # 4.8 (1.3-7.7) k/uL Lymphocytes # 1.1 (1.0-4.8) k/uL Monocytes # 0.3 (0-1.0) k/uL Eosinophils # 0.2 (0-0.7) k/uL Basophils # 0.0 (0-0.2) k/uL Hypochromasia Slight Sodium 143 (137-145) mmol/L Potassium 4.1 (3.5-5.1) mmol/L Chloride 110 H (98-107) mmol/L Carbon Dioxide 24 (22-30) mmol/L Anion Gap 9 mmol/L BUN 27 H (9-20) mg/dL Creatinine 1.65 H (0.66-1.25) mg/dL Est GFR (CKD-EPI)AfAm 46 (>60 ml/min/1.73 sqM) Est GFR (CKD-EPI)NonAf 40 (>60 ml/min/1.73 sqM) Glucose 112 H (74-99) mg/dL Calcium 8.4 (8.4-10.2) mg/dL Total Bilirubin 0.3 (0.2-1.3) mg/dL AST 19 (17-59) U/L ALT 26 (4-49) U/L Alkaline Phosphatase 109 (38-126) U/L Troponin I <0.012 (0.000-0.034) ng/mL Total Protein 6.3 (6.3-8.2) g/dL Albumin 3.7 (3.5-5.0) g/dL Disposition Clinical Impression: Vertigo Disposition: HOME SELF-CARE Condition: Stable Instructions (If sedation given, give patient instructions): Dizziness (ED) Additional Instructions: Please return to the Emergency Department if symptoms worsen or any other concerns. Prescriptions: Meclizine [Antivert] 25 mg PO TID PRN #15 tab PRN Reason: Vertigo Is patient prescribed a controlled substance at d/c from ED?: No Referrals: Bryan Edmonds DO [Primary Care Provider] - 1-2 days Time of Disposition: 12:37
[2022-07-23 12:58] VITALS: BP 138/69; PULSE 75
== END 2022-07-23 13:01 | disposition home or self-care (01) ==
LOC: EC 08:24
DX: R42 Dizziness and giddiness (principal); I10 Essential (primary) hypertension; E78.5 Hyperlipidemia, unspecified; I25.10 Atherosclerotic heart disease of native coronary artery without angina pectoris; Z86.73 Personal history of transient ischemic attack (TIA), and cerebral infarction without residual deficits; Z79.02 Long term (current) use of antithrombotics/antiplatelets; Z79.899 Other long term (current) drug therapy
CPT/HCPCS: 93005; 80053; 84484; 85025; 70450; 99284; 96374; 96361 ×3; J2405; 36415

== ENCOUNTER 2022-08-12 03:15 | Inpatient (IN) | payer MEDICARE ==
[2022-08-12 04:17] LABS: HGB 5.2 gm/dL (13.0-17.5); Hypochromasia Marked; MCH 25.9 pg (25.0-35.0); MCHC 31.5 g/dL (31.0-37.0); MCV 82.2 fL (80.0-100.0); Mean Platelet Volume 7.5; Platelet Count 323 k/uL (150-450); Poikilocytosis Slight; RBC 2.02 m/uL (4.30-5.90); WBC 6.4 k/uL (3.8-10.6)
[2022-08-12 04:43] LABS: HCT 16.6 % (39.0-53.0)
[2022-08-12 04:54] LABS: Albumin 3.1 g/dL (3.5-5.0); Magnesium 2.5 mg/dL (1.6-2.3); Potassium 4.2 mmol/L (3.5-5.1); Total Bilirubin 0.2 mg/dL (0.2-1.3); Total Protein 5.4 g/dL (6.3-8.2)
[2022-08-12 05:03] LABS: Partial Thromboplastin Time 40.5 sec (22.0-30.0); Prothrombin Time 120.3 sec (9.0-12.0)
--- NOTE | 2022-08-12 05:04 | ED ---
General Adult HPI - General Chief complaint: Dizziness Stated complaint: Vertigo, Shortness of Breath Time Seen by Provider: 08/12/22 03:25 Source: patient, family Mode of arrival: wheelchair Limitations: no limitations - History of Present Illness Initial comments: This is a 76-year-old male with a past medical history including hypertension and previous CVA presents emergency department for vertigo-like symptoms. The patient stated that he noted that he was having off balance issues this evening and stated that he became more dizzy and lightheaded throughout the evening. The patient did take a Antivert which he had previously been prescribed while in the emergency department 2 weeks ago. The patient stated at that time he was given 2 doses and had improvement of his symptoms. The patient stated that over the last 3-4 days he has had worsening balance issues and became worse today. The patient denied any acute pain or falls. The patient denied any lightheadedness or dizziness currently. The patient was able to look around the room without any vertiginous symptoms. The patient did state that when he stands up and walks around he becomes off balance. The patient denied any fevers, chills as well as any nausea and vomiting. - Related Data Home Medications Medication Instructions Recorded Confirmed Clopidogrel [Plavix] 75 mg PO DAILY 01/18/21 07/23/22 Atorvastatin Calcium [Lipitor] 80 mg PO DAILY 02/17/21 07/23/22 Multivit-Min/FA/Lycopen/Lutein 1 tab PO DAILY 02/17/21 07/23/22 [Centrum Silver Men Tablet] Warfarin [Coumadin] 5 mg PO DAILY 06/10/21 07/23/22 amLODIPine [Norvasc] 5 mg PO DAILY 06/10/21 07/23/22 Metoprolol Tartrate [Lopressor] 25 mg PO BID 09/09/21 07/23/22 Furosemide [Lasix] 20 mg PO DAILY 07/23/22 07/23/22 Previous Rx's Medication Instructions Recorded Meclizine [Antivert] 25 mg PO TID PRN #15 tab 07/23/22 Allergies Allergy/AdvReac Type Severity Reaction Status Date / Time No Known Allergies Allergy Verified 08/12/22 03:21 Review of Systems ROS Statement: Those systems with pertinent positive or pertinent negative responses have been documented in the HPI. ROS Other: All systems not noted in ROS Statement are negative. 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 History of Any Multi-Drug Resistant Organisms: None Reported Past Surgical History: Heart Catheterization, Heart Catheterization With Stent, Hernia Repair, Joint Replacement, Orthopedic Surgery Additional Past Surgical History / Comment(s): Total of 3 coronary stents, cystoscopy/lithotripsy/L ureteroscopy and stent, L kidney cyst drained, abdominal hernia repair, R rotator cuff repair, bilateral total knee arthroplasties. covid 2020 Past Anesthesia/Blood Transfusion Reactions: No Reported Reaction Date of Last Stent Placement:: 01/22/21 Past Psychological History: No Psychological Hx Reported Smoking Status: Never smoker Past Alcohol Use History: None Reported Past Drug Use History: None Reported - Past Family History Father Family Medical History: Diabetes Mellitus, Hypertension Additional Family Medical History / Comment(s): Alzheimer's Mother Family Medical History: Cancer Additional Family Medical History / Comment(s): kidney General Exam Limitations: no limitations General appearance: alert, in no apparent distress Head exam: Present: atraumatic, normocephalic, normal inspection Eye exam: Present: normal appearance, PERRL Pupils: Present: normal accommodation ENT exam: Present: normal exam, normal oropharynx, mucous membranes moist Neck exam: Present: normal inspection, full ROM Respiratory exam: Present: normal lung sounds bilaterally Cardiovascular Exam: Present: regular rate, normal rhythm, normal heart sounds GI/Abdominal exam: Present: soft, normal bowel sounds Extremities exam: Present: normal inspection, full ROM Back exam: Present: normal inspection, full ROM Neurological exam: Present: alert, oriented X3, CN II-XII intact Psychiatric exam: Present: normal affect, normal mood Skin exam: Present: warm, dry Course Vital Signs 08/12/22 08/12/22 08/12/22 03:21 04:51 05:00 Temperature 97.6 F Pulse Rate 80 73 70 Respiratory 17 Rate Blood Pressure 114/57 109/54 O2 Sat by Pulse 94 L Oximetry 08/12/22 08/12/22 05:10 05:20 Temperature Pulse Rate 67 74 Respiratory Rate Blood Pressure 115/60 105/55 O2 Sat by Pulse Oximetry EKG Findings - EKG Comments: EKG Findings:: An EKG was obtained and was interpreted by myself showing a rate of 68, P arrival 177, QRS duration of 134 and QTC of 407. This EKG showed a normal sinus rhythm with a right bundle branch block without any ST segment elevation or depression noted. Medical Decision Making - Medical Decision Making Was pt. sent in by a medical professional or institution (, PA, TRUCKMAN, urgent care, hospital, or intermediate...) When possible be specific @ -No Did you speak to anyone other than the patient for history (EMS, parent, family, police, friend...)? What history was obtained from this source @ -No Did you review nursing and triage notes (agree or disagree)? Why? @ -I reviewed and agree with nursing and triage notes Were old charts reviewed (outside hosp., previous admission, EMS record, old EKG, old radiological studies, urgent care reports/EKG's, intermediate records)? Report findings @ -No old charts were reviewed Differential Diagnosis (chest pain, altered mental status, abdominal pain women, abdominal pain men, vaginal bleeding, weakness, fever, dyspnea, syncope, headache, dizziness, GI bleed, back pain, seizure, CVA, palpatations, mental health)? @ -Symptomatically anemia, intracranial hemorrhage, GI bleed EKG interpreted by me (3pts min.). @ -As above X-rays interpreted by me (1pt min.). @ -X-ray was obtained and was interpreted by myself showing persistent mild cardiomegaly and elevated right hemidiaphragm with basilar linear scarring or atelectasis. CT interpreted by me (1pt min.). @ -CT of the brain was obtained and was interpreted by myself showing no acute cranial bleed however the official read by the radiologist was pending. CTA of the head and neck was initially ordered but radiology would not allow me to order this because the patient's creatinine was 2.05. U/S interpreted by me (1pt. min.). @ -None done What testing was considered but not performed or refused? (CT, X-rays, U/S, labs)? Why? @ -None What meds were considered but not given or refused? Why? @ -None Did you discuss the management of the patient with other professionals (professionals i.e. , PA, TRUCKMAN, lab, RT, psych nurse, social problems specialist, installment agent, teacher, bomb squad officer, piano case and bench assembler)? Give summary @ -Yes, admitting physician was contacted regarding admission. The firefighter marine was also contacted. Was smoking cessation discussed for >3mins.? @ -No Was critical care preformed (if so, how long)? @ -Yes, see above Were there social determinants of health that impacted care today? How? (Homelessness, low income, unemployed, alcoholism, drug addiction, transportation, low edu. Level, literacy, decrease access to med. care, halfway, rehab)? @ -No Was there de-escalation of care discussed even if they declined (Discuss DNR or withdrawal of care, Hospice)? DNR status @ -No What co-morbidities impacted this encounter? (DM, HTN, Smoking, COPD, CAD, Cancer, CVA, ARF, Chemo, Hep., AIDS, mental health diagnosis, sleep apnea, morbid obesity)? @ -Atrial fibrillation, on Coumadin, hypertension, previous CVA Was patient admitted / discharged? Hospital course, mention meds given and route, prescriptions, significant lab abnormalities, going to OR and other pertinent info. @ -The patient was seen and evaluated in the emergency department. Physical exam, the patient was resting in bed without any acute distress. Vital signs admission were stable. Laboratory workup had significant findings for a hemoglobin of 5.2 and INR of greater than 10. The patient had K Centra ordered as well as 2 units of RBCs. The patient's troponin was also elevated 0.296. Due to the patient's bleeding at this time however, the patient will not be started on heparin. CT head was pending official read however did not show any obvious bleed. CT abdomen and pelvis without contrast was ordered. Due to the patient's abnormalities, the patient will be admitted. The patient was agreeabl e to this and was admitted to the ICU. Undiagnosed new problem with uncertain prognosis? @ -No Drug Therapy requiring intensive monitoring for toxicity (Heparin, Nitro, Insulin, Cardizem)? @ -No Were any procedures done? @ -No Diagnosis/symptom? @ -Symptomatically anemia with greater than 10 INR Acute, or Chronic, or Acute on Chronic? @ -Acute Uncomplicated (without systemic symptoms) or Complicated (systemic symptoms)? @ -Complicated Side effects of treatment? @ -No Exacerbation, Progression, or Severe Exacerbation? @ -No Poses a threat to life or bodily function? How? (Chest pain, [place], [place], pneumonia, PE, COPD, DKA, ARF, appy, cholecystitis, CVA, Diverticulitis, Homicidal, Suicidal, threat to staff... and all critical care pts) @ -Yes, worsening bleeding can lead to permanent damage and possible . - Lab Data Result diagrams: 08/12/22 03:52 08/12/22 03:52 Lab Results 08/12/22 08/12/22 08/12/22 Range/Units 03:52 03:52 03:52 WBC 6.4 (3.8-10.6) k/uL RBC 2.02 L (4.30-5.90) m/uL Hgb 5.2 L* D (13.0-17.5) gm/dL Hct 16.6 L* (39.0-53.0) % MCV 82.2 (80.0-100.0) fL MCH 25.9 (25.0-35.0) pg MCHC 31.5 (31.0-37.0) g/dL RDW 16.0 H (11.5-15.5) % Plt Count 323 (150-450) k/uL MPV 7.5 Neutrophils % (Manual) 71 % Lymphocytes % (Manual) 22 % Monocytes % (Manual) 4 % Eosinophils % (Manual) 3 % Neutrophils # (Manual) 4.54 (1.3-7.7) k/uL Lymphocytes # (Manual) 1.41 (1.0-4.8) k/uL Monocytes # (Manual) 0.26 (0-1.0) k/uL Eosinophils # (Manual) 0.19 (0-0.7) k/uL Nucleated RBCs 0 (0-0) /100 WBC Manual Slide Review Performed Polychromasia Present Hypochromasia Marked Poikilocytosis Slight Fragmented RBCs Present PT 120.3 H (9.0-12.0) sec INR >10.0 H* (<1.2) APTT 40.5 H (22.0-30.0) sec D-Dimer <0.17 (<0.60) mg/L FEU Sodium 139 (137-145) mmol/L Potassium 4.2 (3.5-5.1) mmol/L Chloride 110 H (98-107) mmol/L Carbon Dioxide 21 L (22-30) mmol/L Anion Gap 8 mmol/L BUN 26 H (9-20) mg/dL Creatinine 2.05 H (0.66-1.25) mg/dL Est GFR (CKD-EPI)AfAm 35 (>60 ml/min/1.73 sqM) Est GFR (CKD-EPI)NonAf 31 (>60 ml/min/1.73 sqM) Glucose 99 (74-99) mg/dL Calcium 8.0 L (8.4-10.2) mg/dL Magnesium 2.5 H (1.6-2.3) mg/dL Total Bilirubin 0.2 (0.2-1.3) mg/dL AST 27 (17-59) U/L ALT 29 (4-49) U/L Alkaline Phosphatase 86 (38-126) U/L Troponin I (0.000-0.034) ng/mL Total Protein 5.4 L (6.3-8.2) g/dL Albumin 3.1 L (3.5-5.0) g/dL Lipase 292 (23-300) U/L Blood Type Blood Type Recheck Bld Type Recheck Status Antibody Screen Crossmatch Spec Expiration Date 08/12/22 08/12/22 Range/Units 03:52 05:12 WBC (3.8-10.6) k/uL RBC (4.30-5.90) m/uL Hgb (13.0-17.5) gm/dL Hct (39.0-53.0) % MCV (80.0-100.0) fL MCH (25.0-35.0) pg MCHC (31.0-37.0) g/dL RDW (11.5-15.5) % Plt Count (150-450) k/uL MPV Neutrophils % (Manual) % Lymphocytes % (Manual) % Monocytes % (Manual) % Eosinophils % (Manual) % Neutrophils # (Manual) (1.3-7.7) k/uL Lymphocytes # (Manual) (1.0-4.8) k/uL Monocytes # (Manual) (0-1.0) k/uL Eosinophils # (Manual) (0-0.7) k/uL Nucleated RBCs (0-0) /100 WBC Manual Slide Review Polychromasia Hypochromasia Poikilocytosis Fragmented RBCs PT (9.0-12.0) sec INR (<1.2) APTT (22.0-30.0) sec D-Dimer (<0.60) mg/L FEU Sodium (137-145) mmol/L Potassium (3.5-5.1) mmol/L Chloride (98-107) mmol/L Carbon Dioxide (22-30) mmol/L Anion Gap mmol/L BUN (9-20) mg/dL Creatinine (0.66-1.25) mg/dL Est GFR (CKD-EPI)AfAm (>60 ml/min/1.73 sqM) Est GFR (CKD-EPI)NonAf (>60 ml/min/1.73 sqM) Glucose (74-99) mg/dL Calcium (8.4-10.2) mg/dL Magnesium (1.6-2.3) mg/dL Total Bilirubin (0.2-1.3) mg/dL AST (17-59) U/L ALT (4-49) U/L Alkaline Phosphatase (38-126) U/L Troponin I 0.296 H* (0.000-0.034) ng/mL Total Protein (6.3-8.2) g/dL Albumin (3.5-5.0) g/dL Lipase (23-300) U/L Blood Type A Negative Blood Type Recheck A Neg Bld Type Recheck Status No Antibody Screen NEGATIVE Crossmatch See Detail Spec Expiration Date 08/15/20222311 Critical Care Time Critical Care Time: Yes Total Critical Care Time: 32 Disposition Clinical Impression: Symptomatic anemia, Elevated INR, Elevated troponin Disposition: ADMITTED IP TO THIS [facility] Condition: Fair Is patient prescribed a controlled substance at d/c from ED?: No Referrals: Bryan Edmonds DO [Primary Care Provider] - 1-2 days Time of Disposition: 07:12 Decision to Admit Reason: Admit from EC Decision Date: 08/12/22 Decision Time: 07:12
[2022-08-12 05:41] LABS: INR >10.0 (<1.2)
[2022-08-12] MEDS ORDERED: Kcentra PER PHARMACY 1 EACH MISC MISCELLANE PRN (05:55)
[2022-08-12] MEDS ORDERED: PHYTONADIONE 10 MG in SODIUM CHLORIDE 0.9% 50 ML IVPB STA (06:03)
[2022-08-12] MEDS ORDERED: HUMAN PROTHROMBIN COMPLX 500 UNIT/16 ML VIAL IV ONE (06:10)
--- NOTE | 2022-08-12 06:17 | XR ---
EXAMINATION TYPE: XR chest 2V DATE OF EXAM: 08/12/2022 COMPARISON: Most recent chest x-ray April 07, 2021 and older x-rays HISTORY: Dizziness, history of right diaphragm paralysis. TECHNIQUE: Frontal and lateral views of the chest are obtained. FINDINGS: Persistent elevated right hemidiaphragm with bibasilar horizontal opacities favoring linea r scarring and/or atelectasis. No pleural effusion or pneumothorax seen currently. The cardiac silho uette size is likely stable and mildly enlarged with atherosclerotic change aortic knob redemonstrate d. Multilevel spurring in the thoracolumbar spine is redemonstrated. IMPRESSION: Persistent mild cardiomegaly and elevated right hemidiaphragm with bibasilar linear scar ring and/or atelectasis.
[2022-08-12 07:01] LABS: Eosinophils # (M) 0.19 k/uL (0-0.7); Lymphocytes # (M) 1.41 k/uL (1.0-4.8); Monocytes # (M) 0.26 k/uL (0-1.0); Neutrophils # (M) 4.54 k/uL (1.3-7.7); Neutrophils % (M) 71 %; Nucleated Red Blood Cells 0 /100 WBC (0-0); Total Cells Counted 100
[2022-08-12 07:04] LABS: Polychromasia Present; RBC Fragments Present
--- NOTE | 2022-08-12 07:07 | CT ---
EXAMINATION TYPE: CT brain wo con DATE OF EXAM: 08/12/2022 HISTORY: Dizziness x [address] DLP: 1172.4 mGycm. Automated Exposure Control for Dose Reduction was Utilized. TECHNIQUE: CT scan of the head is performed without contrast. COMPARISON: CT brain July 23, 2022. FINDINGS: There is no acute intracranial hemorrhage or midline shift identified. There is mild diff use ventricular and sulcal prominence redemonstrated. There is moderate low-attenuation in the deep and periventricular white matter redemonstrated. Nasal septum is deviated to right of midline simila r to prior. The globes are intact and the visualized sinuses are clear. IMPRESSION: No acute intracranial hemorrhage or midline shift. There is mild diffuse age-related ce rebral atrophy and moderate chronic small vessel ischemic change redemonstrated. No significant lópez e from prior.
[2022-08-12] MEDS ORDERED: NALOXONE 0.4 MG/ML 1 ML VIAL IV PRN (07:13)
[2022-08-12] MEDS ORDERED: HUMAN PROTHROMBIN COMPLX IV ONE (07:40)
--- NOTE | 2022-08-12 08:02 | CT ---
EXAMINATION TYPE: CT abdomen pelvis wo con CT DLP: 1060.4 mGycm, Automated exposure control for dose reduction was used. DATE OF EXAM: 08/12/2022 7:46 AM COMPARISON: None CLINICAL INDICATION:Male, 76 years old with history of HGB 5.8, abdominal pain; HGB 5.8, Abdominal pa in TECHNIQUE: Axial CT of the abdomen and pelvis. Sagittal and coronal reformats were created on a [employer] workstation. Contrast used: None Oral contrast used: without Oral Contrast FINDINGS: LOWER CHEST: Elevated right diaphragm with consolidation in the right lung base felt to be on indepen dent atelectasis bases. There are secretions within the right lower lung airway best appreciated on s eries 201 image 6. ABDOMEN LIVER: The liver is somewhat abnormally positioned within the abdomen with large amount of mesenteric fat along the right lateral aspect. This is felt to be due to high riding right diaphragm possibly d ue to diaphragmatic paralysis. GALLBLADDER AND BILE DUCTS: Calcifications along the gallbladder wall which extends up towards the di aphragm. PANCREAS: Unremarkable. SPLEEN: Unremarkable. ADRENAL GLANDS: Unremarkable. KIDNEYS AND URETERS: Multiple bilateral renal calculi which are nonobstructing. There is atrophic dillon earance of the kidneys left greater than right. Left renal cyst. Renal calculi on the left measuring up to 9 x 6 mm and on the right measuring up to 24 x 12 mm PELVIS BLADDER: Unremarkable REPRODUCTIVE: Prostate is enlarged in size measuring 5.8 cm in transverse dimension. ABDOMEN & PELVIS STOMACH AND BOWEL: No evidence of bowel obstruction. Scattered colonic diverticula. There may be mild fat stranding changes around the sigmoid/descending colon in the left lower quadrant series 202 imag e 42. No organizing fluid collection or free air. PERITONEUM/RETROPERITONEUM: No evidence of pneumoperitoneum or free fluid. VASCULATURE: No evidence of aortic aneurysm. MUSCULOSKELETAL: No acute osseous abnormalities LYMPH NODES: No gross evidence for lymphadenopathy. SOFT TISSUE/ABDOMINAL WALL: Bilateral fat-containing inguinal hernia and umbilical hernia. IMPRESSION: 1. Mild inflammation changes in the left lower quadrant around the sigmoid colon which could represe nt mild colitis/diverticulitis. No additional finding in the abdomen to correlate patient's pain. 2. Elevated right diaphragm with elevation of the right diaphragm with abnormal positioning of the i ntra-abdominal contents up into this elevated diaphragm space. These findings along with atelectasis within the lung bases and secretions within the right lower lung all likely secondary to right diaphr agm paralysis. 3. 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 4. Prostatomegaly, correlate with serum PSA. 5. Colonic diverticulosis. 6. Bilateral fat-containing inguinal hernias.
[2022-08-12] MEDS: ATORVASTATIN 80 MG TAB PO SCH (11:47)
[2022-08-12] MEDS: PANTOPRAZOLE 40 MG/10 ML VIAL IVP SCH (11:47)
[2022-08-12] MEDS: METOPROLOL TARTRATE 25 MG TAB PO SCH ×2 (11:47→21:11)
--- NOTE | 2022-08-12 12:43 | P.CONS ---
History of Present Illness - Reason for Consult Consult date: 08/12/22 Anemia Requesting physician: Bhanu Akers - Chief Complaint Dizziness - History of Present Illness This a pleasant 76-year-old male who presented to the emergency department yesterday with complaints of dizziness and vertigo like symptoms. He has a past medical history including coronary artery disease status post stent, CVA, atrial fibrillation on Coumadin, hyperlipidemia and hypertension. On admission patient was noted to have a hemoglobin of 5.2 with an INR of greater than 10.0. He was given a dose of vitamin K 10 mg as well as started on K centra. Patient denies any previous history of anemia, no history of GI bleed. Denies any history of acid reflux or peptic ulcer disease. States his last colonoscopy was approximately [address] Keita out [facility] for history of polyps. No previous EGD done. Patient denies any abdominal pain, nausea or vomiting. Denies any black stool or bright red blood in his stool. Patient currently denies any shortness of breath or chest pain. He is been admitted to the hospital and is awaiting a bed in the emergency room. He denies any regular use of NSAIDs. States that he has been taking his Coumadin as ordered. Workup: Labs WBC 6.4 hemoglobin 5.2 hematocrit 16.6 platelet count 323,000 PT 120.3 INR greater than 10 PTT 40.5 sodium 139 potassium 4.2 BUN 26 creatinine 2.5 troponin was 0.[address] without contrast reported mild inflammation changes in the left lower quadrant around the sigmoid colon which could represent mild colitis/diverticulitis. No additional findings in the abdomen to correlate for patient's pain. Elevated right diaphragm with elevation of the right diaphragm with abnormal positioning of the intra-abdominal contents up into this elevated diaphragm states. These findings along with atelectasis with the lung bases and secretions within the right lower lung, likely secondary to right diaphragm paralysis. 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 Prostatomegaly, correlate with serum PSA, colonic diverticulosis, bilateral fat-containing inguinal hernias Brain CT: No acute intracranial hemorrhage or midline shift. Diffuse age- related cerebral atrophy and moderate chronic small vessel ischemic change redemonstrated. No significant change from prior. Review of Systems REVIEW OF SYSTEMS: CARDIOPULMONARY: No chest pain or shortness of breath. Gastrointestinal: No abdominal pain or epigastric pain. No nausea or vomiting. No hematemesis, coffee-ground emesis. No rectal bleeding, or melena. GENITOURINARY: No dysuria or hematuria. MUSCULOSKELETAL: Reports normal range of motion. SKIN: No rashes. No jaundice. ENDOCRINE: No chills, fevers. No excessive weight gain or loss. No polydipsia or polyuria. PSYCHIATRIC: Unremarkable. NEUROLOGY: No change in mental status. Dizziness, vertigo. ENT: Vision unremarkable. CONSTITUTIONAL: No recent weight loss. No fever, chills, night sweats. 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 History of Any Multi-Drug Resistant Organisms: None Reported Past Surgical History: Heart Catheterization, Heart Catheterization With Stent, Hernia Repair, Joint Replacement, Orthopedic Surgery Additional Past Surgical History / Comment(s): Total of 3 coronary stents, cystoscopy/lithotripsy/L ureteroscopy and stent, L kidney cyst drained, abdominal hernia repair, R rotator cuff repair, bilateral total knee arthroplasties. covid 2020 Past Anesthesia/Blood Transfusion Reactions: No Reported Reaction Date of Last Stent Placement:: 01/22/21 Past Psychological History: No Psychological Hx Reported Smoking Status: Never smoker Past Alcohol Use History: None Reported Past Drug Use History: None Reported - Past Family History Father Family Medical History: Diabetes Mellitus, Hypertension Additional Family Medical History / Comment(s): Alzheimer's Mother Family Medical History: Cancer Additional Family Medical History / Comment(s): kidney Medications and Allergies Home Medications Medication Instructions Recorded Confirmed Type Clopidogrel [Plavix] 75 mg PO DAILY 01/18/21 08/12/22 History Atorvastatin Calcium [Lipitor] 80 mg PO DAILY 02/17/21 08/12/22 History Multivit-Min/FA/Lycopen/Lutein 1 tab PO DAILY 02/17/21 08/12/22 History [Centrum Silver Men Tablet] Warfarin [Coumadin] 5 mg PO DAILY 06/10/21 08/12/22 History amLODIPine [Norvasc] 5 mg PO DAILY 06/10/21 08/12/22 History Metoprolol Tartrate [Lopressor] 25 mg PO BID 09/09/21 08/12/22 History Furosemide [Lasix] 20 mg PO DAILY 07/23/22 08/12/22 History Meclizine [Antivert] 25 mg PO TID PRN #15 tab 07/23/22 08/12/22 Rx Allergies Allergy/AdvReac Type Severity Reaction Status Date / Time No Known Allergies Allergy Verified 08/12/22 08:17 Physical Exam Vitals: Vital Signs Temp Pulse Resp BP Pulse Ox 08/12/22 08:10 97.5 F L 74 20 114/57 96 08/12/22 08:01 97.7 F 89 18 116/56 94 L 08/12/22 05:20 74 105/55 08/12/22 05:10 67 115/60 08/12/22 05:00 70 109/54 08/12/22 04:51 73 08/12/22 03:21 97.6 F 80 17 114/57 94 L Intake and Output 08/11/22 08/12/22 08/12/22 22:59 06:59 14:59 Intake Total 0 Balance 0 Intake: Blood Product 0 Unit 0 Other: Weight 99.79 kg General appearance: The patient is alert, oriented, appears in no acute distress. HET: Head is normocephalic and atraumatic. Conjunctiva pink. Sclera anicteric. Neck: Supple without lymphadenopathy. Trachea midline. Heart: S1 S2. Regular rate and rhythm. Lungs: Clear to auscultation. Abdomen: Soft, nontender, nondistended with bowel sounds. No guarding or rigidity. Skin: No rashes. No jaundice. Extremities: Normal skin color and turgor. No pedal edema. Neurological: No focal deficits. Alert and oriented x3. Results CBC & Chem 7: 08/12/22 03:52 08/12/22 03:52 Labs: Abnormal Lab Results - Last 24 Hours (Table) 08/12/22 08/12/22 08/12/22 Range/Units 03:52 03:52 03:52 RBC 2.02 L (4.30-5.90) m/uL Hgb 5.2 L* D (13.0-17.5) gm/dL Hct 16.6 L* (39.0-53.0) % RDW 16.0 H (11.5-15.5) % PT 120.3 H (9.0-12.0) sec INR >10.0 H* (<1.2) APTT 40.5 H (22.0-30.0) sec Chloride 110 H (98-107) mmol/L Carbon Dioxide 21 L (22-30) mmol/L BUN 26 H (9-20) mg/dL Creatinine 2.05 H (0.66-1.25) mg/dL Calcium 8.0 L (8.4-10.2) mg/dL Magnesium 2.5 H (1.6-2.3) mg/dL Troponin I (0.000-0.034) ng/mL Total Protein 5.4 L (6.3-8.2) g/dL Albumin 3.1 L (3.5-5.0) g/dL Crossmatch 08/12/22 08/12/22 Range/Units 03:52 05:12 RBC (4.30-5.90) m/uL Hgb (13.0-17.5) gm/dL Hct (39.0-53.0) % RDW (11.5-15.5) % PT (9.0-12.0) sec INR (<1.2) APTT (22.0-30.0) sec Chloride (98-107) mmol/L Carbon Dioxide (22-30) mmol/L BUN (9-20) mg/dL Creatinine (0.66-1.25) mg/dL Calcium (8.4-10.2) mg/dL Magnesium (1.6-2.3) mg/dL Troponin I 0.296 H* (0.000-0.034) ng/mL Total Protein (6.3-8.2) g/dL Albumin (3.5-5.0) g/dL Crossmatch See Detail Assessment and Plan (1) Symptomatic anemia Narrative/Plan: 76-year-old male who came in to the emergency department with symptomatic anemia and was found to have a hemoglobin of 5.2. No previous history of anemia or need for blood transfusion as well as no history of GI bleed. Patient was recently started in the last year on Coumadin for atrial fibrillation, states he has been taking as directed. He was noted to have a supratherapeutic INR greater than 10. Patient denies any signs or symptoms of GI bleed. No abdominal pain, nausea or vomiting. Patient was given vitamin K as well as started on K Centra. Anemia workup ordered, hematology on consult. Need to consider possible GI bleed with drop in hemoglobin to 5.2. Possible etiologies include AVM, peptic ulcer disease, esophagitis, or other possible etiologies. Consider endoscopic evaluation once patient stabilizes. Current Visit: Yes Status: Acute Code(s): D64.9 - ANEMIA, UNSPECIFIED SNOMED Code(s): 163595247 (2) Normocytic normochromic anemia Current Visit: Yes Status: Acute Code(s): D64.9 - ANEMIA, UNSPECIFIED SNOMED Code(s): 53734959 (3) Elevated INR Current Visit: Yes Status: Acute Code(s): R79.1 - ABNORMAL COAGULATION PROFILE SNOMED Code(s): 074046000 Plan: 1. Continue symptomatic and supportive care 2. Daily CBC, transfuse for hemoglobin less than 7 3. Patient may have clear liquid diet 4. Repeat PT/INR 5. Continue medical management per primary medicine team 6. Further recommendations forthcoming based on clinical course Thank you for this consultation, we will continue to follow. Dr. Blaine Petersen I agree with the dictator's note, documented as a scribe by Denia Crawford.
--- NOTE | 2022-08-12 13:20 | P.CNPUL ---
History of Present Illness Consult date: 08/12/22 Chief complaint: anemia History of present illness: This a pleasant 76-year-old male who presented to the emergency department yesterday with complaints of dizziness and vertigo like symptoms. He has a past medical history including coronary artery disease status post stent, CVA, atrial fibrillation on Coumadin, hyperlipidemia and hypertension. On admission patient was noted to have a hemoglobin of 5.2 with an INR of greater than 10.0. He was given a dose of vitamin K 10 mg as well as started on K centra. Patient denies any previous history of anemia, no history of GI bleed. Denies any history of acid reflux or peptic ulcer disease. States his last colonoscopy was approximately [address] Keita out [facility] for history of polyps. No previous EGD done. Patient denies any abdominal pain, nausea or vomiting. Denies any black stool or bright red blood in his stool. Patient currently denies any shortness of breath or chest pain. He is been admitted to the hospital and is awaiting a bed in the emergency room. He denies any regular use of NSAIDs. States that he has been taking his Coumadin as ordered. Abdomen pelvis CT without contrast reported mild inflammation changes in the left lower quadrant around the sigmoid colon which could represent mild colitis/diverticulitis. No additional findings in the abdomen to correlate for patient's pain. Elevated right diaphragm with elevation of the right diaphragm with abnormal positioning of the intra-abdominal contents up into this elevated diaphragm states. These findings along with atelectasis with the lung bases and secretions within the right lower lung, likely secondary to right diaphragm paralysis. 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 Prostatomegaly, correlate with serum PSA, colonic diverticulosis, bilateral fat-containing inguinal hernias. The patient denies having any black tarry stools. He was expressing worsening shortness of breath. His hemoglobin at the time of admission was 5.2. His pl atelet count was 323. He had an INR of more than 10 with a PT of 120. His BUN was 26 with a creatinine of 2.05 and a sodium level was at 139. He also had an abnormal troponin of 0.296. He was free of any chest pain. LFTs were normal. Serum bicarb was 21. The patient was given a total of 2 units of packed RBC. Follow-up hemoglobin is pending for now. His current cardiac rhythm is sinus. He was also given vitamin K. No nausea. No vomiting. No history of any ulcers and no history of drinking or smoking. No history of intake of nonsteroidal anti-inflammatory medications. EKG showing a right bundle branch block pattern, normal sinus rhythm. Review of Systems CARDIOPULMONARY: No chest pain or shortness of breath. Gastrointestinal: No abdominal pain or epigastric pain. No nausea or vomiting. No hematemesis, coffee-ground emesis. No rectal bleeding, or melena. GENITOURINARY: No dysuria or hematuria. MUSCULOSKELETAL: Reports normal range of motion. SKIN: No rashes. No jaundice. ENDOCRINE: No chills, fevers. No excessive weight gain or loss. No polydipsia or polyuria. PSYCHIATRIC: Unremarkable. NEUROLOGY: No change in mental status. Dizziness, vertigo. ENT: Vision unremarkable. CONSTITUTIONAL: No recent weight loss. No fever, chills, night sweats. Past Medical History Past Medical History: Atrial Fibrillation, Coronary Artery Disease (CAD), CVA/TIA, Hyperlipidemia, Hypertension, Renal Disease Additional Past Medical History / Comment(s): 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 COVID 19 in March 2021 History of Any Multi-Drug Resistant Organisms: None Reported Past Surgical History: Heart Catheterization, Heart Catheterization With Stent, Hernia Repair, Joint Replacement, Orthopedic Surgery Additional Past Surgical History / Comment(s): Total of 3 coronary stents, cystoscopy/lithotripsy/L ureteroscopy and stent, L kidney cyst drained, abdominal hernia repair, R rotator cuff repair, bilateral total knee arthroplasties. covid 2020 Past Anesthesia/Blood Transfusion Reactions: No Reported Reaction Date of Last Stent Placement:: 01/22/21 Past Psychological History: No Psychological Hx Reported Smoking Status: Never smoker Past Alcohol Use History: None Reported Past Drug Use History: None Reported - Past Family History Father Family Medical History: Diabetes Mellitus, Hypertension Additional Family Medical History / Comment(s): Alzheimer's Mother Family Medical History: Cancer Additional Family Medical History / Comment(s): kidney Medications and Allergies Home Medications Medication Instructions Recorded Confirmed Type Clopidogrel [Plavix] 75 mg PO DAILY 01/18/21 08/12/22 History Atorvastatin Calcium [Lipitor] 80 mg PO DAILY 02/17/21 08/12/22 History Multivit-Min/FA/Lycopen/Lutein 1 tab PO DAILY 02/17/21 08/12/22 History [Centrum Silver Men Tablet] Warfarin [Coumadin] 5 mg PO DAILY 06/10/21 08/12/22 History amLODIPine [Norvasc] 5 mg PO DAILY 06/10/21 08/12/22 History Metoprolol Tartrate [Lopressor] 25 mg PO BID 09/09/21 08/12/22 History Furosemide [Lasix] 20 mg PO DAILY 07/23/22 08/12/22 History Meclizine [Antivert] 25 mg PO TID PRN #15 tab 07/23/22 08/12/22 Rx Allergies Allergy/AdvReac Type Severity Reaction Status Date / Time No Known Allergies Allergy Verified 08/12/22 08:17 Physical Exam Vitals: Vital Signs Temp Pulse Resp BP Pulse Ox 08/12/22 12:41 65 18 115/61 95 08/12/22 12:40 65 18 115/61 95 08/12/22 11:10 97.8 F 77 20 140/61 95 08/12/22 10:50 97.8 F 77 20 114/66 96 08/12/22 10:41 97.8 F 73 18 116/66 95 08/12/22 10:22 97.8 F 63 20 129/63 96 08/12/22 08:30 97.7 F 77 20 112/54 96 08/12/22 08:10 97.5 F L 74 20 114/57 96 08/12/22 08:01 97.7 F 89 18 116/56 94 L 08/12/22 05:20 74 105/55 08/12/22 05:10 67 115/60 08/12/22 05:00 70 109/54 08/12/22 04:51 73 08/12/22 03:21 97.6 F 80 17 114/57 94 L Intake and Output 08/11/22 08/12/22 08/12/22 22:59 06:59 14:59 Intake Total 620 Balance 620 Intake: Blood Product 620 Rc As-1 Unit 310 [id number] Rc As-1 Unit 310 [id number] Other: Weight 99.79 kg General appearance: The patient is alert, oriented, appears in no acute distress. Patient is currently on oxygen 2 L/m nasal cannula, breathing is nonlabored HET: Head is normocephalic and atraumatic. Conjunctiva pink. Sclera anicteric. Neck: Supple without lymphadenopathy. Trachea midline. Heart: S1 S2. Regular rate and rhythm. Lungs: Diminished breath on the right lung base secondary to his previous diaphragmatic paralysis Abdomen: Soft, nontender, nondistended with bowel sounds. No guarding or rigidity. Skin: No rashes. No jaundice. Extremities: Normal skin color and turgor. No pedal edema. Neurological: No focal deficits. Alert and oriented x3. Results - Laboratory Findings CBC and BMP: 08/12/22 03:52 08/12/22 03:52 PT/INR, D-dimer PT 120.3 sec (9.0-12.0) H 08/12/22 03:52 INR >10.0 (<1.2) H* 08/12/22 03:52 D-Dimer <0.17 mg/L FEU (<0.60) 08/12/22 03:52 Abnormal lab findings: Abnormal Labs 08/12/22 08/12/22 08/12/22 03:52 03:52 03:52 RBC 2.02 L Hgb 5.2 L* D Hct 16.6 L* RDW 16.0 H PT 120.3 H INR >10.0 H* APTT 40.5 H Chloride 110 H Carbon Dioxide 21 L BUN 26 H Creatinine 2.05 H Calcium 8.0 L Magnesium 2.5 H Troponin I Total Protein 5.4 L Albumin 3.1 L Crossmatch 08/12/22 08/12/22 03:52 05:12 RBC Hgb Hct RDW PT INR APTT Chloride Carbon Dioxide BUN Creatinine Calcium Magnesium Troponin I 0.296 H* Total Protein Albumin Crossmatch See Detail Assessment and Plan Plan: Subacute anemia with secondary shortness of breath, symptomatic and hemoglobin was down to 5.2. The patient received a total of 2 units of packed RBC. No evidence of any acute blood loss or GI bleeding at this point in time. The patient was Coumadin toxic at the time of admission, and the patient is also on Plavix. Acute Coumadin toxicity with an INR of above 10 Shortness of breath secondary to above Troponin leak secondary to above with an underlying sinus rhythm and bundle- branch block pattern, type II ischemia History of hematuria, currently inactive and stable History of BPH Paroxysmal A. fib, current rhythm is sinus History of coronary artery disease with previous coronary stenting Hypertension Hyperlipidemia History of diverticulosis History of chronic stage III kidney disease related to hypertensive nephrosclerosis Bilateral nephrolithiasis history of CVA Chronic right hemidiaphragmatic paralysis Previous history of Covid 19 infection back in March 2021 Plan Agree on packed RBC transfusion Monitor PT/INR Repeat another hemoglobin and if the hemoglobin response is adequate, the patient can be transferred to medical surgical floor GI consultation We'll continue to follow.
[2022-08-12 15:06] LABS: Basophils % (A) 0 %; Eosinophils # (A) 0.1 k/uL (0-0.7); Eosinophils % (A) 2 %; HCT 23.3 % (39.0-53.0); Hypochromasia Moderate; Lymphocytes # (A) 1.1 k/uL (1.0-4.8); Lymphocytes % (A) 14 %; MCH 27.8 pg (25.0-35.0); MCHC 32.3 g/dL (31.0-37.0); Mean Platelet Volume 7.5; Monocytes # (A) 0.5 k/uL (0-1.0); Monocytes % (A) 7 %; Neutrophils # (A) 5.4 k/uL (1.3-7.7); Neutrophils % (A) 73 %; Platelet Count 309 k/uL (150-450); Poikilocytosis Marked; RBC 2.72 m/uL (4.30-5.90); RDW 15.7 % (11.5-15.5); WBC 7.4 k/uL (3.8-10.6)
[2022-08-12 15:13] LABS: INR 1.8 (<1.2); Prothrombin Time 17.8 sec (9.0-12.0)
[2022-08-12 15:15] LABS: HGB 7.6 gm/dL (13.0-17.5)
--- NOTE | 2022-08-12 15:22 | P.CONS ---
History of Present Illness - Reason for Consult Consult date: 08/12/22 anemia Requesting physician: Bhanu Akers - Chief Complaint dizziness - History of Present Illness Patient is a 76-year-old male with a history of A. fib on coumadin, CAD status post stent, CVA, hyperlipidemia and hypertension. We will consult it for anemia. Patient presented to the ER for complaints of dizziness over the last 3-4 days. He denies abdominal pain. blood in stool, melena. He does report the urine has been darker in color, denies any clotting. Denies history of aneurysm. He denies having received iron supplementation in the past. He states his last colonoscopy was greater than 5 years ago and has never had any EGD. Upon admission his hemoglobin was 5.2, hematocrit 16.6, platelets 323,000. PT 120.3, INR greater than 10. He was given vitamin K and prothrombin complex. 2 units of PRBCs have been ordered. Coumadin has been held. CT head was negative for acute intracranial processes. CT abdomen and pelvis revealed mild inflammatory changes in the left lower quadrant around the sigmoid colon with which could represent a mild colitis/diverticulitis. Elevated right diaphragm with elevation of the right diaphragm with abnormal positioning of the intra- abdominal contents up to the elevation of the diaphragm space. Gallbladder wall calcifications. Prostatomegaly. Colonic diverticulosis. Review of Systems 10 point ROS is negative except as stated in the HPI Past Medical History Past Medical History: Atrial Fibrillation, Coronary Artery Disease (CAD), CVA/TIA, Hyperlipidemia, Hypertension, Renal Disease Additional Past Medical History / Comment(s): 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 COVID 19 in March 2021 History of Any Multi-Drug Resistant Organisms: None Reported Past Surgical History: Heart Catheterization, Heart Catheterization With Stent, Hernia Repair, Joint Replacement, Orthopedic Surgery Additional Past Surgical History / Comment(s): Total of 3 coronary stents, cystoscopy/lithotripsy/L ureteroscopy and stent, L kidney cyst drained, abdominal hernia repair, R rotator cuff repair, bilateral total knee arthroplasties. covid 2020 Past Anesthesia/Blood Transfusion Reactions: No Reported Reaction Date of Last Stent Placement:: 01/22/21 Past Psychological History: No Psychological Hx Reported Smoking Status: Never smoker Past Alcohol Use History: None Reported Past Drug Use History: None Reported - Past Family History Father Family Medical History: Diabetes Mellitus, Hypertension Additional Family Medical History / Comment(s): Alzheimer's Mother Family Medical History: Cancer Additional Family Medical History / Comment(s): kidney Medications and Allergies Home Medications Medication Instructions Recorded Confirmed Type Clopidogrel [Plavix] 75 mg PO DAILY 01/18/21 08/12/22 History Atorvastatin Calcium [Lipitor] 80 mg PO DAILY 02/17/21 08/12/22 History Multivit-Min/FA/Lycopen/Lutein 1 tab PO DAILY 02/17/21 08/12/22 History [Centrum Silver Men Tablet] Warfarin [Coumadin] 5 mg PO DAILY 06/10/21 08/12/22 History amLODIPine [Norvasc] 5 mg PO DAILY 06/10/21 08/12/22 History Metoprolol Tartrate [Lopressor] 25 mg PO BID 09/09/21 08/12/22 History Furosemide [Lasix] 20 mg PO DAILY 07/23/22 08/12/22 History Meclizine [Antivert] 25 mg PO TID PRN #15 tab 07/23/22 08/12/22 Rx Allergies Allergy/AdvReac Type Severity Reaction Status Date / Time No Known Allergies Allergy Verified 08/12/22 08:17 Physical Exam Vitals: Vital Signs Temp Pulse Resp BP Pulse Ox 08/12/22 14:00 70 18 114/55 96 08/12/22 12:41 65 18 115/61 95 08/12/22 12:40 65 18 115/61 95 08/12/22 11:10 97.8 F 77 20 140/61 95 08/12/22 10:50 97.8 F 77 20 114/66 96 08/12/22 10:41 97.8 F 73 18 116/66 95 08/12/22 10:22 97.8 F 63 20 129/63 96 08/12/22 08:30 97.7 F 77 20 112/54 96 08/12/22 08:10 97.5 F L 74 20 114/57 96 08/12/22 08:01 97.7 F 89 18 116/56 94 L 08/12/22 05:20 74 105/55 08/12/22 05:10 67 115/60 08/12/22 05:00 70 109/54 08/12/22 04:51 73 08/12/22 03:21 97.6 F 80 17 114/57 94 L Intake and Output 08/11/22 08/12/22 08/12/22 22:59 06:59 14:59 Intake Total 620 Balance 620 Intake: Blood Product 620 Rc As-1 Unit 310 [id number] Rc As-1 Unit 310 [id number] Other: Weight 99.79 kg - Constitutional General appearance: average body habitus, no acute distress - EENT Eyes: anicteric sclerae, EOMI ENT: hearing grossly normal - Respiratory Respiratory: bilateral: CTA - Cardiovascular Rhythm: regular Heart sounds: normal: S1, S2 Abnormal Heart Sounds: no systolic murmur, no diastolic murmur, no rub, no S3 Gallop, no S4 Gallop, no click, no other - Gastrointestinal General gastrointestinal: soft, no tenderness - Integumentary Integumentary: pale - Neurologic Grossly intact - Musculoskeletal Musculoskeletal: strength equal bilaterally - Psychiatric Psychiatric: A&O x's 3, appropriate affect, intact judgment & insight Results CBC & Chem 7: 08/12/22 03:52 08/12/22 03:52 Labs: Abnormal Lab Results - Last 24 Hours (Table) 08/12/22 08/12/22 08/12/22 Range/Units 03:52 03:52 03:52 RBC 2.02 L (4.30-5.90) m/uL Hgb 5.2 L* D (13.0-17.5) gm/dL Hct 16.6 L* (39.0-53.0) % RDW 16.0 H (11.5-15.5) % PT 120.3 H (9.0-12.0) sec INR >10.0 H* (<1.2) APTT 40.5 H (22.0-30.0) sec Chloride 110 H (98-107) mmol/L Carbon Dioxide 21 L (22-30) mmol/L BUN 26 H (9-20) mg/dL Creatinine 2.05 H (0.66-1.25) mg/dL Calcium 8.0 L (8.4-10.2) mg/dL Magnesium 2.5 H (1.6-2.3) mg/dL Troponin I (0.000-0.034) ng/mL Total Protein 5.4 L (6.3-8.2) g/dL Albumin 3.1 L (3.5-5.0) g/dL Crossmatch 08/12/22 08/12/22 Range/Units 03:52 05:12 RBC (4.30-5.90) m/uL Hgb (13.0-17.5) gm/dL Hct (39.0-53.0) % RDW (11.5-15.5) % PT (9.0-12.0) sec INR (<1.2) APTT (22.0-30.0) sec Chloride (98-107) mmol/L Carbon Dioxide (22-30) mmol/L BUN (9-20) mg/dL Creatinine (0.66-1.25) mg/dL Calcium (8.4-10.2) mg/dL Magnesium (1.6-2.3) mg/dL Troponin I 0.296 H* (0.000-0.034) ng/mL Total Protein (6.3-8.2) g/dL Albumin (3.5-5.0) g/dL Crossmatch See Detail CT scan - abdomen: report reviewed CT Scan - head: report reviewed CT scan - pelvis: report reviewed Assessment and Plan (1) Elevated INR Current Visit: Yes Status: Acute Code(s): R79.1 - ABNORMAL COAGULATION PROFILE SNOMED Code(s): 019858469 (2) Symptomatic anemia Current Visit: Yes Status: Acute Code(s): D64.9 - ANEMIA, UNSPECIFIED SNOMED Code(s): 321338890 Plan: Elevated INR: -PT 120.3, INR greater than 10. Coumadin has been held -Vitamin K and prothrombin complex given -Repeat coags and the a.m. Anemia: -Hemoglobin 5.2, hematocrit 16.6, platelets 323,000. -2 units PRBCs ordered -Anemia workup ordered -GI has been consulted to rule out GI bleed -If hemoglobin continues to drop despite reversal of Coumadin, platelet transfusion will be ordered -Will continue to monitor counts. Please transfuse for hemoglobin less than 7 or symptomatic. attests: I have performed H&P and developed impression and plan of care for patient, discussed with dictator. I agree with dictated note, documented as a scribe
--- NOTE | 2022-08-12 17:39 | P.HPIM ---
History of Present Illness H&P Date: 08/12/22 Chief Complaint: Short of breath, dizzy This is a very pleasant 76-year-old patient who follows Dr. Edmonds. Chronic stable medical conditions include CAD with stent, hypertension, hyperlipidemia, atrial fibrillation, stroke in the past with some right-sided weakness that r esolved, bilateral kidney stones, right diaphragm paralysis, diverticulosis. Arthritis Patient presents with episodes of dizziness for last 2 weeks. Also short of breath with walking a few steps. More so progressive. He did come to the ER recently. On July 23 DC hemoglobin was 10.2. On presentation and a hemoglobin was found to be 5.2 patient normally does not look in his stool habits cannot tell if he has any dark stools. ordered 2 units in the ER getting 1 when I saw him this morning. No other evidence of bleeding. No chest pain. No fever no chills. INR greater than 10. Given 10 mg of vitamin K Review of systems: GEN.: Tired, EYES: None HEENT: None NECK: None RESPIRATORY: As above CARDIOVASCULAR: None GASTROINTESTINAL: None GENITOURINARY: As above. Gonsales catheter. MUSCULOSKELETAL: Joint pains LYMPHATICS: None HEMATOLOGICAL: None PSYCHIATRY: None NEUROLOGICAL: None Past medical history to include: CAD with stent, stroke with right-sided weakness that is resolved, hypertension, hyperlipidemia, kidney stones bilateral, right diaphragm paralysis, diverticulosis: Bladder outflow obstruction Social history: Sometimes uses a cane. . Retired. Does not smoke or drink alcohol. Family history: Diabetes, hypertension, Alzheimer's. Physical examination: VITAL SIGNS: 97.7, 77, 20, 112/54, 96% room air GENERAL: BMI 32.5, reclining in bed, awake EYES: Pupils equal. Conjunctiva pale HEENT: External appearance of nose and ears normal, oral cavity grossly normal. NECK: JVD not raised; masses not palpable. HEART: First and second heart sounds are normal; no edema. LUNGS: Respiratory rate increased, decreased breath sounds, ABDOMEN: Soft, nontender, liver spleen not palpable, no masses palpable. Gonsales catheter: PSYCH: Alert and oriented x3; mood and affect normal. MUSCULAR skeletal: Evidence of OA NEUROLOGICAL: Cranial nerves grossly intact; no facial asymmetry, power and sensation grossly intact. LYMPHATICS: No lymph nodes palpable in the axilla and neck INVESTIGATIONS, reviewed in the clinical context: August 12: White count 6.4 hemoglobin 5.2 platelets 323 INR greater than 10 sodium 139 potassium 4.2 BUN 26 creatinine 2.05 Troponin I 0.296 EKG tracing personally reviewed by me-normal sinus rhythm. Right bundle branch block. CT abdomen pelvis: Mild inflammatory changes in the left lower quadrant around the sigmoid colon, elevated right diaphragm gallbladder wall calcification. Prostatomegaly. Colonic diverticulosis. Previous labs: Hemoglobin 10.2 on 07/23/2022 Assessment and plan: -Acute severe symptomatic anemia with hemoglobin of 5.2. Patient's hemoglobin was 10.2 on July 23. Patient is not actually looked at his stools. Has had hematuria in the past. Transfuse 2 units of blood. Consult GI. Follow H&H. -Coumadin toxicity. Accompanied by loss of hemoglobin. No obvious O's of bleeding currently. Coumadin stopped. Vitamin K 10 mg given -Paroxysmal atrial fibrillation. Currently sinus rhythm Lopressor 25 mg twice a day. Coumadin stopped -CAD with stent Lopressor, Plavix-hold Lipitor -Hyperlipidemia Lipitor 80 mg by mouth daily -Essential hypertension , currently blood pressure running on the lower side Lopressor with parameters -Primary osteoarthritis multiple joints bilaterally Use pain medications as needed -Colonic diverticulosis, asymptomatic Follow clinically -Chronic kidney disease stage III from nephrosclerosis At the baseline creatinine of 1.6 -Bilateral nephrolithiasis. Patient pending admission to ICU. Consult culture manager, GI. Clear liquid diet. Follow CBC INR Past Medical History Past Medical History: Coronary Artery Disease (CAD), CVA/TIA, Hyperlipidemia, Hypertension, Renal Disease Additional Past Medical History / Comment(s): 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 History of Any Multi-Drug Resistant Organisms: None Reported Past Surgical History: Heart Catheterization, Heart Catheterization With Stent, Hernia Repair, Joint Replacement, Orthopedic Surgery Additional Past Surgical History / Comment(s): Total of 3 coronary stents, cystoscopy/lithotripsy/L ureteroscopy and stent, L kidney cyst drained, abdominal hernia repair, R rotator cuff repair, bilateral total knee arthroplasties. covid 2020 Past Anesthesia/Blood Transfusion Reactions: No Reported Reaction Date of Last Stent Placement:: 01/22/21 Past Psychological History: No Psychological Hx Reported Smoking Status: Never smoker Past Alcohol Use History: None Reported Past Drug Use History: None Reported - Past Family History Father Family Medical History: Diabetes Mellitus, Hypertension Additional Family Medical History / Comment(s): Alzheimer's Mother Family Medical History: Cancer Additional Family Medical History / Comment(s): kidney Medications and Allergies Home Medications Medication Instructions Recorded Confirmed Type Clopidogrel [Plavix] 75 mg PO DAILY 01/18/21 08/12/22 History Atorvastatin Calcium [Lipitor] 80 mg PO DAILY 02/17/21 08/12/22 History Multivit-Min/FA/Lycopen/Lutein 1 tab PO DAILY 02/17/21 08/12/22 History [Centrum Silver Men Tablet] Warfarin [Coumadin] 5 mg PO DAILY 06/10/21 08/12/22 History amLODIPine [Norvasc] 5 mg PO DAILY 06/10/21 08/12/22 History Metoprolol Tartrate [Lopressor] 25 mg PO BID 09/09/21 08/12/22 History Furosemide [Lasix] 20 mg PO DAILY 07/23/22 08/12/22 History Meclizine [Antivert] 25 mg PO TID PRN #15 tab 07/23/22 08/12/22 Rx Allergies Allergy/AdvReac Type Severity Reaction Status Date / Time No Known Allergies Allergy Verified 08/12/22 08:17 Physical Exam Vitals: Vital Signs Temp Pulse Resp BP Pulse Ox 08/12/22 08:10 97.5 F L 74 20 114/57 96 08/12/22 08:01 97.7 F 89 18 116/56 94 L 08/12/22 05:20 74 105/55 08/12/22 05:10 67 115/60 08/12/22 05:00 70 109/54 08/12/22 04:51 73 08/12/22 03:21 97.6 F 80 17 114/57 94 L Intake and Output 08/11/22 08/12/22 08/12/22 22:59 06:59 14:59 Intake Total 0 Balance 0 Intake: Blood Product 0 Unit 0 Other: Weight 99.79 kg Results CBC & Chem 7: 08/12/22 14:01 08/12/22 03:52 Labs: Abnormal Lab Results - Last 24 Hours (Table) 0408/12/22 08/12/22 Range/Units 03:52 03:52 03:52 RBC 2.02 L (4.30-5.90) m/uL Hgb 5.2 L* D (13.0-17.5) gm/dL Hct 16.6 L* (39.0-53.0) % RDW 16.0 H (11.5-15.5) % PT 120.3 H (9.0-12.0) sec INR >10.0 H* (<1.2) APTT 40.5 H (22.0-30.0) sec Chloride 110 H (98-107) mmol/L Carbon Dioxide 21 L (22-30) mmol/L BUN 26 H (9-20) mg/dL Creatinine 2.05 H (0.66-1.25) mg/dL Calcium 8.0 L (8.4-10.2) mg/dL Magnesium 2.5 H (1.6-2.3) mg/dL Troponin I (0.000-0.034) ng/mL Total Protein 5.4 L (6.3-8.2) g/dL Albumin 3.1 L (3.5-5.0) g/dL Crossmatch 08/12/22 08/12/22 Range/Units 03:52 05:12 RBC (4.30-5.90) m/uL Hgb (13.0-17.5) gm/dL Hct (39.0-53.0) % RDW (11.5-15.5) % PT (9.0-12.0) sec INR (<1.2) APTT (22.0-30.0) sec Chloride (98-107) mmol/L Carbon Dioxide (22-30) mmol/L BUN (9-20) mg/dL Creatinine (0.66-1.25) mg/dL Calcium (8.4-10.2) mg/dL Magnesium (1.6-2.3) mg/dL Troponin I 0.296 H* (0.000-0.034) ng/mL Total Protein (6.3-8.2) g/dL Albumin (3.5-5.0) g/dL Crossmatch See Detail
[2022-08-12 22:33] LABS: % Iron Saturation 3.52 (15.00-50.00)
[2022-08-12 22:34] LABS: Ferritin 11.2 ng/mL (22.0-322.0)
[2022-08-13 06:29] LABS: Anisocytosis Slight; Basophils % (A) 0 %; Eosinophils # (A) 0.3 k/uL (0-0.7); Eosinophils % (A) 4 %; HCT 25.5 % (39.0-53.0); HGB 8.4 gm/dL (13.0-17.5); Hypochromasia Moderate; Lymphocytes # (A) 1.2 k/uL (1.0-4.8); Lymphocytes % (A) 16 %; MCH 27.7 pg (25.0-35.0); MCHC 32.7 g/dL (31.0-37.0); MCV 84.7 fL (80.0-100.0); Mean Platelet Volume 7.7; Monocytes # (A) 0.5 k/uL (0-1.0); Monocytes % (A) 7 %; Neutrophils # (A) 5.6 k/uL (1.3-7.7); Neutrophils % (A) 71 %; Platelet Count 319 k/uL (150-450); Poikilocytosis Marked; RBC 3.01 m/uL (4.30-5.90); WBC 7.9 k/uL (3.8-10.6)
[2022-08-13 06:34] LABS: INR 1.2 (<1.2); Partial Thromboplastin Time 22.9 sec (22.0-30.0); Prothrombin Time 12.4 sec (9.0-12.0)
[2022-08-13] MEDS: METOPROLOL TARTRATE 25 MG TAB PO SCH (07:55)
[2022-08-13] MEDS: ATORVASTATIN 80 MG TAB PO SCH (07:55)
[2022-08-13] MEDS: PANTOPRAZOLE 40 MG/10 ML VIAL IVP SCH (07:55)
[2022-08-13] MEDS: SODIUM FERRIC GLUCONAT-SUCROSE 125 MG in SODIUM CHLORIDE 0.9% 100 ML IVPB SCH (10:12)
--- NOTE | 2022-08-13 13:15 | P.PN ---
Subjective Progress Note Date: 08/13/22 Principal diagnosis: Anemia At today's visit patient is resting comfortably in bed. Patient states he is feeling well. Patient denies any blood in stool or melena. Patient denies abdominal pain, nausea, vomiting, diarrhea. Patient reports he was told by GI that colonoscopy is scheduled for tomorrow. Hemoglobin 8.4 today after receiving 2 units of PRBCs yesterday. INR 1.2 Coumadin held. Iron labs consistent with iron deficiency anemia. Will start IV iron. Objective - Vital Signs Vital signs: Vital Signs Temp 97.6 F 08/13/22 07:50 Pulse 73 08/13/22 08:43 Resp 16 08/13/22 08:43 BP 157/73 08/13/22 07:50 Pulse Ox 94 L 08/13/22 07:50 FiO2 Intake & Output 08/12/22 08/13/22 08/13/22 18:59 06:59 18:59 Intake Total 620 118 Balance 620 118 Intake: Oral 118 Blood Product 620 Rc As-1 Unit 310 [id number] As-1 Unit 310 [id number] Other: Voiding Method Toilet - Constitutional General appearance: Present: average body habitus, no acute distress - EENT Eyes: Present: anicteric sclerae, EOMI ENT: Present: hearing grossly normal - Respiratory Details: Breathing is even and unlabored - Cardiovascular Details: Skin warm and dry - Integumentary Integumentary: Present: pale - Neurologic Neurologic Comment(s): Grossly intact - Musculoskeletal Musculoskeletal: Present: strength equal bilaterally - Psychiatric Psychiatric: Present: A&O x's 3, appropriate affect, intact judgment & insight - Labs CBC & Chem 7: 08/13/22 06:05 08/12/22 03:52 Labs: Abnormal Lab Results - Last 24 Hours (Table) 08/12/22 08/12/22 08/12/22 Range/Units 03:52 14:01 14:14 RBC 2.72 L (4.30-5.90) m/uL Hgb 7.6 L D (13.0-17.5) gm/dL Hct 23.3 L (39.0-53.0) % RDW 15.7 H (11.5-15.5) % PT 17.8 H (9.0-12.0) sec INR 1.8 H (<1.2) Iron 14 L (65-175) ug/dL % Saturation 3.52 L (15.00-50.00) Ferritin 11.2 L (22.0-322.0) ng/mL Troponin I (0.000-0.034) ng/mL 08/12/22 08/13/22 08/13/22 Range/Units 20:50 06:05 06:05 RBC 3.01 L (4.30-5.90) m/uL Hgb 8.4 L (13.0-17.5) gm/dL Hct 25.5 L (39.0-53.0) % RDW 16.0 H (11.5-15.5) % PT 12.4 H (9.0-12.0) sec INR 1.2 H (<1.2) Iron (65-175) ug/dL % Saturation (15.00-50.00) Ferritin (22.0-322.0) ng/mL Troponin I 0.227 H* (0.000-0.034) ng/mL Assessment and Plan (1) Elevated INR Current Visit: Yes Status: Acute Code(s): R79.1 - ABNORMAL COAGULATION PROFILE SNOMED Code(s): 646707588 (2) Symptomatic anemia Current Visit: Yes Status: Acute Code(s): D64.9 - ANEMIA, UNSPECIFIED SNOMED Code(s): 861623517 Plan: Elevated INR: -Upon admission, PT 120.3, INR greater than 10. -Vitamin K and prothrombin complex given. Repeat INR 1.2, PT 12.4 -Repeat coags tomorrow -Please continue to hold coumadin Anemia: -Repeat hemoglobin today 8.4, after 2 units of PRBCs. Denies any episodes of bleeding -Iron studies consistent with LAKESHA. IV iron ordered. Vitamin B12 367, MMA pending. Folate normal -Anemia likely r/t to acute GI bleed. GI has been consulted, plan for colonoscopy once pt is stable -If hemoglobin continues to drop despite reversal of Coumadin, platelet transfusion will be ordered -Will continue to monitor counts. Please transfuse for hemoglobin less than 7 or symptomatic.
--- NOTE | 2022-08-13 16:49 | P.PN ---
Subjective Progress Note Date: 08/13/22 Principal diagnosis: Anemia This a pleasant 76-year-old male who presented to the emergency department yesterday with complaints of dizziness and vertigo like symptoms. He has a past medical history including coronary artery disease status post stent, CVA, atrial fibrillation on Coumadin, hyperlipidemia and hypertension. On admission patient was noted to have a hemoglobin of 5.2 with an INR of greater than 10.0. He was given a dose of vitamin K 10 mg as well as started on K centra. Patient denies any previous history of anemia, no history of GI bleed. Denies any history of acid reflux or peptic ulcer disease. States his last colonoscopy was approximately [address] Keita out [facility] for history of polyps. No previous EGD done. Patient denies any abdominal pain, nausea or vomiting. Denies any black stool or bright red blood in his stool. Patient currently denies any shortness of breath or chest pain. He is been admitted to the hospital and is awaiting a bed in the emergency room. He denies any regular use of NSAIDs. States that he has been taking his Coumadin as ordered. Workup: Labs WBC 6.4 hemoglobin 5.2 hematocrit 16.6 platelet count 323,000 PT 120.3 INR greater than 10 PTT 40.5 sodium 139 potassium 4.2 BUN 26 creatinine 2.5 troponin was 0.[address] without contrast reported mild inflammation changes in the lef t lower quadrant around the sigmoid colon which could represent mild colitis/diverticulitis. No additional findings in the abdomen to correlate for patient's pain. Elevated right diaphragm with elevation of the right diaphragm with abnormal positioning of the intra-abdominal contents up into this elevated diaphragm states. These findings along with atelectasis with the lung bases and secretions within the right lower lung, likely secondary to right diaphragm paralysis. 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 Prostatomegaly, correlate with serum PSA, colonic diverticulosis, bilateral fat-containing inguinal hernias Brain CT: No acute intracranial hemorrhage or midline shift. Diffuse age- related cerebral atrophy and moderate chronic small vessel ischemic change redemonstrated. No significant change from prior. 08/13/2022: Patient seen and examined today as a follow-up. He denies any rectal bleeding or black stool. Denies any abdominal pain, nausea or vomiting. States he is feeling better today. Received 2 units of blood yesterday with re peat hemoglobin this morning of 8.4. INR at 1.2. Objective - Vital Signs Vital signs: Vital Signs Temp 97.9 F 08/13/22 14:00 Pulse 65 08/13/22 14:00 Resp 16 08/13/22 14:00 BP 124/67 08/13/22 14:00 Pulse Ox 96 08/13/22 14:00 FiO2 Intake & Output 08/12/22 08/13/22 08/13/22 18:59 06:59 18:59 Intake Total 620 118 Output Total 400 Balance 620 -282 Weight 99.79 kg Intake: Oral 118 Blood Product 620 Rc As-1 Unit 310 [id number] Rc As-1 Unit 310 [id number] Output: Urine 400 Other: Voiding Method Toilet - Exam General appearance: The patient is alert, oriented, appears in no acute distress. HET: Head is normocephalic and atraumatic. Conjunctiva pink. Sclera anicteric. Neck: Supple without lymphadenopathy. Abdomen: Soft, nontender, nondistended with bowel sounds. No guarding or rigidity. Extremities: Normal skin color and turgor. No pedal edema Skin: No rashes, no jaundice Neurological: No focal deficits. Alert and oriented. - Labs CBC & Chem 7: 08/13/22 06:05 08/12/22 03:52 Labs: Abnormal Lab Results - Last 24 Hours (Table) 08/12/22 08/12/22 08/13/22 Range/Units 03:52 20:50 06:05 RBC (4.30-5.90) m/uL Hgb (13.0-17.5) gm/dL Hct (39.0-53.0) % RDW (11.5-15.5) % PT 12.4 H (9.0-12.0) sec INR 1.2 H (<1.2) Iron 14 L (65-175) ug/dL % Saturation 3.52 L (15.00-50.00) Ferritin 11.2 L (22.0-322.0) ng/mL Troponin I 0.227 H* (0.000-0.034) ng/mL 08/13/22 Range/Units 06:05 RBC 3.01 L (4.30-5.90) m/uL Hgb 8.4 L (13.0-17.5) gm/dL Hct 25.5 L (39.0-53.0) % RDW 16.0 H (11.5-15.5) % PT (9.0-12.0) sec INR (<1.2) Iron (65-175) ug/dL % Saturation (15.00-50.00) Ferritin (22.0-322.0) ng/mL Troponin I (0.000-0.034) ng/mL Assessment and Plan (1) Symptomatic anemia Narrative/Plan: 76-year-old male who came in to the emergency department with symptomatic anemia and was found to have a hemoglobin of 5.2. No previous history of anemia or need for blood transfusion as well as no history of GI bleed. Patient was recently started in the last year on Coumadin for atrial fibrillation, states he has been taking as directed. He was noted to have a supratherapeutic INR greater than 10. Patient denies any signs or symptoms of GI bleed. No abdominal pain, nausea or vomiting. Patient was given vitamin K as well as started on K Centra. Anemia workup ordered, hematology on consult. Need to co nsider possible GI bleed with drop in hemoglobin to 5.2. Possible etiologies include AVM, peptic ulcer disease, esophagitis, or other possible etiologies. Consider endoscopic evaluation once patient stabilizes. Patient stabilizes, INR stabilized at 1.2. Will proceed with EGD and colonoscopy to evaluate for possible GI source of bleeding. Current Visit: Yes Status: Acute Code(s): D64.9 - ANEMIA, UNSPECIFIED SNOMED Code(s): 028574972 (2) Normocytic normochromic anemia Current Visit: Yes Status: Acute Code(s): D64.9 - ANEMIA, UNSPECIFIED SNOMED Code(s): 85106369 (3) Elevated INR Current Visit: Yes Status: Acute Code(s): R79.1 - ABNORMAL COAGULATION PROFILE SNOMED Code(s): 136370448 Plan: 1. Continue symptomatic and supportive care 2. Daily CBC, transfuse for hemoglobin less than 7 3. Patient may have clear liquid diet 4. Repeat PT/INR 5. Continue medical management per primary medicine team 6. Clear liquid diet, nothing by mouth after midnight 7. EGD colonoscopy scheduled for tomorrow Thank you for this consultation, we will continue to follow. Dr. Blaine Petersen I agree with the dictator's note, documented as a scribe by Denia Crawford.
[2022-08-13] MEDS ORDERED: PEG 3350 (236 GM/BTL) + LYTES 4,000 ML BOTTLE PO ONE (17:00)
--- NOTE | 2022-08-13 20:46 | P.PN ---
Progress Note - Text Progress Note Date: 08/13/22 Chief Complaint: Short of breath, dizzy This is a very pleasant 76-year-old patient who follows Dr. Edmonds. Chronic stable medical conditions include CAD with stent, hypertension, hyperlipidemia, atrial fibrillation, stroke in the past with some right-sided weakness that resolved, bilateral kidney stones, right diaphragm paralysis, diverticulosis. Arthritis Patient presents with episodes of dizziness for last 2 weeks. Also short of breath with walking a few steps. More so progressive. He did come to the ER recently. On July 23 DC hemoglobin was 10.2. On presentation and a hemoglobin was found to be 5.2 patient normally does not look in his stool habits cannot tell if he has any dark stools. ordered 2 units in the ER getting 1 when I saw him this morning. No other evidence of bleeding. No chest pain. No fever no chills. INR greater than 10. Given 10 mg of vitamin K August 13: Received 2 units of blood. Breathing better. Dizziness better. EGD colonoscopy scheduled by GI for tomorrow. Showing iron deficiency anemia. IV iron ordered. Active Medications Atorvastatin Calcium (Atorvastatin 80 Mg Tab) 80 mg PO DAILY [facility] Last Admin: 08/13/22 07:55 Dose: 80 mg Ferric Sodium Gluconate 125 mg (/ Sodium Chloride) 110 mls @ 100 mls/hr IVPB DAILY [facility] Stop: 08/15/22 10:05 Last Admin: 08/13/22 10:12 Dose: 100 mls/hr Metoprolol Tartrate (Metoprolol Tartrate 25 Mg Tab) 25 mg PO BID [facility] Last Admin: 08/13/22 07:55 Dose: 25 mg Naloxone HCl (Naloxone 0.4 Mg/Ml 1 Ml Vial) 0.2 mg IV Q2M PRN PRN Reason: Opioid Reversal Pantoprazole Sodium (Pantoprazole 40 Mg/10 Ml Vial) 40 mg IVP DAILY [facility] Last Admin: 08/13/22 07:55 Dose: 40 mg Past medical history to include: CAD with stent, stroke with right-sided weakness that is resolved, hypertension, hyperlipidemia, kidney stones bilateral, right diaphragm paralysis, diverticulosis: Bladder outflow obstruction Social history: Sometimes uses a cane. . Retired. Does not smoke or drink alcohol. Family history: Diabetes, hypertension, Alzheimer's. Physical examination: VITAL SIGNS: 97.9, 65, 16, 124/67, 96% on 2 L GENERAL: BMI 32.5, comfortable EYES: Pupils equal. Conjunctiva pale HEENT: External appearance of nose and ears normal, oral cavity grossly normal. NECK: JVD not raised; masses not palpable. HEART: First and second heart sounds are normal; no edema. LUNGS: Respiratory rate increased, decreased breath sounds, ABDOMEN: Soft, nontender, liver spleen not palpable, no masses palpable. Gonsales catheter: PSYCH: Alert and oriented x3; mood and affect normal. MUSCULAR skeletal: Evidence of OA NEUROLOGICAL: Cranial nerves grossly intact; no facial asymmetry, power and sensation grossly intact. INVESTIGATIONS, reviewed in the clinical context: August 13: White count 7.9 hemoglobin 8.4 platelets 319 INR 1.2 August 12: White count 6.4 hemoglobin 5.2 platelets 323 INR greater than 10 sodium 139 potassium 4.2 BUN 26 creatinine 2.05 Troponin I 0.296 EKG tracing personally reviewed by me-normal sinus rhythm. Right bundle branch block. CT abdomen pelvis: Mild inflammatory changes in the left lower quadrant around the sigmoid colon, elevated right diaphragm gallbladder wall calcification. Prostatomegaly. Colonic diverticulosis. Previous labs: Hemoglobin 10.2 on 07/23/2022 Assessment and plan: -Acute severe symptomatic anemia with hemoglobin of 5.2. Patient's hemoglobin was 10.2 on July 23. Patient is not actually looked at his stools. Has had hematuria in the past. Received 2 units of blood. GI scheduling for EGD colonoscopy tomorrow -Coumadin toxicity. Accompanied by loss of hemoglobin. No obvious O's of bleeding currently. Coumadin stopped. Vitamin K 10 mg given -Paroxysmal atrial fibrillation. Currently sinus rhythm Lopressor 25 mg twice a day. Coumadin stopped -CAD with stent Lopressor, Plavix-hold Lipitor -Hyperlipidemia Lipitor 80 mg by mouth daily -Essential hypertension , currently blood pressure running on the lower side Lopressor with parameters -Primary osteoarthritis multiple joints bilaterally Use pain medications as needed -Colonic diverticulosis, asymptomatic Follow clinically -Chronic kidney disease stage III from nephrosclerosis At the baseline creatinine of 1.6 -Bilateral nephrolithiasis. Hemoglobin 8.4. Pending EGD colonoscopy tomorrow. Discussed.
[2022-08-14] MEDS: METOPROLOL TARTRATE 25 MG TAB PO SCH ×4 (00:05→21:23)
[2022-08-14 07:52] LABS: Anisocytosis Slight; Basophils % (A) 0 %; Eosinophils # (A) 0.2 k/uL (0-0.7); Eosinophils % (A) 2 %; HCT 24.6 % (39.0-53.0); HGB 7.8 gm/dL (13.0-17.5); Hypochromasia Marked; Lymphocytes # (A) 1.1 k/uL (1.0-4.8); Lymphocytes % (A) 12 %; MCH 27.4 pg (25.0-35.0); MCHC 31.6 g/dL (31.0-37.0); MCV 86.6 fL (80.0-100.0); Mean Platelet Volume 7.2; Monocytes # (A) 0.5 k/uL (0-1.0); Monocytes % (A) 5 %; Neutrophils # (A) 7.4 k/uL (1.3-7.7); Neutrophils % (A) 78 %; Platelet Count 326 k/uL (150-450); Poikilocytosis Marked; RBC 2.84 m/uL (4.30-5.90); RDW 16.5 % (11.5-15.5); WBC 9.6 k/uL (3.8-10.6)
[2022-08-14] MEDS: SODIUM FERRIC GLUCONAT-SUCROSE 125 MG in SODIUM CHLORIDE 0.9% 100 ML IVPB SCH (09:02)
[2022-08-14] MEDS: ATORVASTATIN 80 MG TAB PO SCH (09:02)
[2022-08-14] MEDS: PANTOPRAZOLE 40 MG/10 ML VIAL IVP SCH (09:02)
[2022-08-14 12:12] LABS: INR 1.14 (0.90-1.11); Prothrombin Time 12.8 sec (9.9-11.9)
[2022-08-14] MEDS ORDERED: PROPOFOL 10 MG/ML 20 ML VIAL IV ONE (13:26)
[2022-08-14] MEDS ORDERED: GLUCAGON 1 MG/ML VIAL ONE (13:26)
[2022-08-14] MEDS ORDERED: LIDOCAINE 2% INJ 20 MG/ML (2 ML VIAL) ONE (13:26)
[2022-08-14] MEDS ORDERED: IV FLUID CONTINUATION 500 ML IV ONE ×2 (13:54)
--- NOTE | 2022-08-14 14:14 | P.PCN ---
Date of Procedure: 08/14/22 Procedure(s) Performed: Brief history: Patient is a pleasant 76-year-old white male admitted hospital with severe symptomatic anemia and hemoglobin of 5.4 g/dL requiring 2 units of the obesity transition. He denies any GI bleed. He has been on Coumadin and his INR was more than 10 at the time of admission to hospital. He received vitamin K and this morning INR is 1.2. He is scheduled scheduled for anupper endoscopy as well as colonoscopy as a part of evaluation of severe symptomatic anemia. Procedure performed: Esophagogastroduodenoscopy with biopsy Colonoscopy with snare polypectomy and Endo Clip placement Preoperative diagnosis: Severe symptomatic anemia and hemoglobin of 5.4 g/dL Anesthesia: MAC Procedure: After informed consent was obtained from the patient was brought into the endoscopy unit and IV sedation was administered by anesthesia under continuous monitoring. Initially upper endoscopy was done. The Olympus GF 160 video endoscope was inserted inserted into the mouth and esophagus intubated without any difficulty and was gradually advanced into the stomach and duodenum and carefully examined. The bulb of the duodenum had a 5 mm superficial ulcer and duodenitis and second part of the duodenum appeared normal. The scope was then withdrawn into the stomach adequately insufflated with air and upon careful examination the antrum had scattered erosions. Because of the body, cardia and fundus appeared normal. The scope was then withdrawn into the esophagus. Small hiatal hernia noted. The GE junction was located at 42 cm to the incisors. Small hiatal hernia noted. It appeared irregular with no erythema erosions or ulcerations. There was a 2 cm length of Ashton's appearing mucosa extending from 40-42 cm from the incisors and this was biopsied. Rest of the esophagus appeared normal. Patient tolerated the procedure well. At this time the patient continued to remain sedation. Initial digital rectal examination was normal. Olympus CF 160 video colonoscope was then inserted into the rectum and gradually advanced to the cecum without any difficulty. Careful examination was performed as the scope was gradually being withdrawn. The prep was excellent. The cecum, appeared normal. Ascending colon there was a 1 cm polyp removed by snare polypectomy. In the transverse colon there was another 1 cm and 5 mm polyp removed by snare polypectomy. In the descending colon there was a 1.5 cm polyp removed by snare polypectomy. In the proximal sigmoid colon at 40 cm from the anal was there was a 3 cm pedunculated polyp that was removed by snare polypectomy in a piecemeal fashion followed by Endo Clip placement at the base of the prior polypectomy was some oozing identified. In the rectum there was a 5 mm polyp removed by snare polypectomy. Scattered diffuse diverticulosis seen. Retroflexion was performed in the rectum and no lesions were noted. Patient tolerated the procedure well. Impression: 1. Upper endoscopy revealed small 5 mm duodenal bulbar ulcer, duodenitis, antral erosive gastritis and Ashton's esophagus 2. Colonoscopy : a) 1 cm ascending colon polyp status post polypectomy b) 5 mm and 1 cm transverse colon polyp status post polypectomy c) 1.5 cm descending colon polyp status post polypectomy d) 3 cm round pegylated polyp in the proximal sigmoid colon at 40 cm from the anal verge status post snare polypectomy followed by some bleeding and Endo Clip placement with good hemostasis e) 5 mm rectal polyp status post polypectomy Recommendations: Findings of this examination were discussed with the patient . He was advised to follow with the biopsy results. He was advised to resume Coumadin on Thursday. Keep him on clear liquids today and advance diet as tolerated tomorrow.
--- NOTE | 2022-08-14 14:44 | P.PN ---
Subjective Progress Note Date: 08/14/22 Principal diagnosis: Anemia At today's visit patient is resting comfortably in bed. Patient states he is feeling well. Patient denies any blood in stool or melena. Patient denies abdominal pain, nausea, omiting, diarrhea. Colonoscopy plan for today. Hemoglobin 7.8 today after. 2 units of PRBCs have been given. INR 1.1, Coumadin held. Iron labs consistent with iron deficiency anemia. IV iron x 3 doses ordered. Objective - Vital Signs Vital signs: Vital Signs Temp 97.8 F 08/14/22 07:45 Pulse 68 08/14/22 09:18 Resp 16 08/14/22 09:18 BP 99/50 08/14/22 07:45 Pulse Ox 96 08/14/22 07:45 FiO2 Intake & Output 08/13/22 08/14/22 08/14/22 18:59 06:59 18:59 Intake Total 118 400 Output Total 400 Balance -282 400 Weight 99.79 kg 98.1 kg Intake: IV 400 Oral 118 Output: Urine 400 Other: Voiding Method Toilet Toilet # Voids 4 - Constitutional General appearance: Present: average body habitus, no acute distress - EENT Eyes: Present: anicteric sclerae, EOMI ENT: Present: hearing grossly normal - Respiratory Details: Breathing is even and unlabored - Cardiovascular Details: Skin is warm and dry - Integumentary Integumentary: Present: pale - Neurologic Neurologic Comment(s): Grossly intact - Musculoskeletal Musculoskeletal: Present: strength equal bilaterally - Psychiatric Psychiatric: Present: A&O x's 3, appropriate affect, intact judgment & insight - Labs CBC & Chem 7: 08/14/22 07:22 08/12/22 03:52 Labs: Abnormal Lab Results - Last 24 Hours (Table) 08/14/22 08/14/22 Range/Units 07:22 07:22 RBC 2.84 L (4.30-5.90) m/uL Hgb 7.8 L (13.0-17.5) gm/dL Hct 24.6 L (39.0-53.0) % RDW 16.5 H (11.5-15.5) % PT 12.8 H (9.9-11.9) sec INR 1.14 H (0.90-1.11) Assessment and Plan (1) Elevated INR Current Visit: Yes Status: Acute Code(s): R79.1 - ABNORMAL COAGULATION PROFILE SNOMED Code(s): 016980829 (2) Symptomatic anemia Current Visit: Yes Status: Acute Code(s): D64.9 - ANEMIA, UNSPECIFIED SNOMED Code(s): 529323929 Plan: Elevated INR: -Upon admission, PT 120.3, INR greater than 10. -Vitamin K and prothrombin complex given. Repeat INR 1.1, PT 12.8 -Please continue to hold coumadin Anemia: -Repeat hemoglobin today 7.8, s/p 2 units of PRBCs. Denies any episodes of bleeding -Iron studies consistent with LAKESHA. IV iron x 3 doses ordered. Vitamin B12 367, MMA normal. Folate normal -Anemia likely r/t to acute GI bleed. GI has been consulted, plan for colonoscopy today -If hemoglobin continues to drop despite reversal of Coumadin, platelet transfus ion will be ordered -Will continue to monitor counts. Please transfuse for hemoglobin less than 7 o r symptomatic.
--- NOTE | 2022-08-14 15:40 | P.PN ---
Progress Note - Text Progress Note Date: 08/14/22 Chief Complaint: Short of breath, dizzy This is a very pleasant 76-year-old patient who follows Dr. Edmonds. Chronic stable medical conditions include CAD with stent, hypertension, hyperlipidemia, atrial fibrillation, stroke in the past with some right-sided weakness that resolved, bilateral kidney stones, right diaphragm paralysis, diverticulosis. Arthritis Patient presents with episodes of dizziness for last 2 weeks. Also short of breath with walking a few steps. More so progressive. He did come to the ER recently. On July 23 DC hemoglobin was 10.2. On presentation and a hemoglobin was found to be 5.2 patient normally does not look in his stool habits cannot tell if he has any dark stools. ordered 2 units in the ER getting 1 when I saw him this morning. No other evidence of bleeding. No chest pain. No fever no chills. INR greater than 10. Given 10 mg of vitamin K August 13: Received 2 units of blood. Breathing better. Dizziness better. EGD colonoscopy scheduled by GI for tomorrow. Showing iron deficiency anemia. IV iron ordered. August 14: Patient is seen this morning. Prior to EGD colonoscopy. Underwent the same. It showed 5 mm duodenal bulb ulcer, duodenitis and antral erosive gastritis and Ashton's esophagus. Lower GI: Polypectomy, few of them. Patient be resumed Coumadin on Thursday. To remain on clear liquids today. Active Medications Atorvastatin Calcium (Atorvastatin 80 Mg Tab) 80 mg PO DAILY [facility] Last Admin: 08/14/22 09:02 Dose: 80 mg Ferric Sodium Gluconate 125 mg (/ Sodium Chloride) 110 mls @ 100 mls/hr IVPB [facility]ILY [facility] Stop: 08/15/22 10:05 Last Admin: 08/14/22 09:02 Dose: 100 mls/hr Metoprolol Tartrate (Metoprolol Tartrate 25 Mg Tab) 25 mg PO BID [facility] Last Admin: 08/14/22 09:02 Dose: Not Given Naloxone HCl (Naloxone 0.4 Mg/Ml 1 Ml Vial) 0.2 mg IV Q2M PRN PRN Reason: Opioid Reversal Pantoprazole Sodium (Pantoprazole 40 Mg/10 Ml Vial) 40 mg IVP DAILY [facility] Last Admin: 08/14/22 09:02 Dose: 40 mg Past medical history to include: CAD with stent, stroke with right-sided weakness that is resolved, hypertension, hyperlipidemia, kidney stones bilateral, right diaphragm paralysis, diverticulosis: Bladder outflow obstruction Social history: Sometimes uses a cane. . Retired. Does not smoke or drink alcohol. Family history: Diabetes, hypertension, Alzheimer's. Physical examination: VITAL SIGNS: 97.8, 68, 16, 99/50, 96% on 2 L GENERAL: Sitting at edge of the bed EYES: Pupils equal. Conjunctiva pale HEENT: External appearance of nose and ears normal, oral cavity grossly normal. NECK: JVD not raised; masses not palpable. HEART: First and second heart sounds are normal; no edema. LUNGS: Respiratory rate increased, decreased breath sounds, ABDOMEN: Soft, nontender, liver spleen not palpable, no masses palpable. Gonsales catheter: PSYCH: Alert and oriented x3; mood and affect normal. MUSCULAR skeletal: Evidence of OA NEUROLOGICAL: Cranial nerves grossly intact; no facial asymmetry, power and sensation grossly intact. INVESTIGATIONS, reviewed in the clinical context: August 14: Hemoglobin 7.8 August 13: White count 7.9 hemoglobin 8.4 platelets 319 INR 1.2 August 12: White count 6.4 hemoglobin 5.2 platelets 323 INR greater than 10 sodium 139 potassium 4.2 BUN 26 creatinine 2.05 Troponin I 0.296 EKG tracing personally reviewed by me-normal sinus rhythm. Right bundle branch block. CT abdomen pelvis: Mild inflammatory changes in the left lower quadrant around the sigmoid colon, elevated right diaphragm gallbladder wall calcification. Prostatomegaly. Colonic diverticulosis. Previous labs: Hemoglobin 10.2 on 07/23/2022 Assessment and plan: -Acute severe symptomatic anemia with hemoglobin of 5.2. Patient's hemoglobin was 10.2 on July 23. Patient is not actually looked at his stools. Has had hematuria in the past. Received 2 units of blood. -EGD: 5 mm duodenal bulb ulcer, duodenitis and antral erosive gastritis and Ashton's esophagus. Causing upper GI bleed Clear liquids. PPI. -Coumadin toxicity. Accompanied by loss of hemoglobin. No obvious O's of bleeding currently. Coumadin stopped. Vitamin K 10 mg given -Paroxysmal atrial fibrillation. Currently sinus rhythm Lopressor 25 mg twice a day. Coumadin stopped -CAD with stent Lopressor, Plavix-hold Lipitor -Hyperlipidemia Lipitor 80 mg by mouth daily -Essential hypertension , currently blood pressure running on the lower side Lopressor with parameters -Primary osteoarthritis multiple joints bilaterally Use pain medications as needed -Colonic diverticulosis, asymptomatic Follow clinically -Chronic kidney disease stage III from nephrosclerosis At the baseline creatinine of 1.6 -Bilateral nephrolithiasis. Clear liquids. Repeat labs. PPI. IV ferric gluconate.
[2022-08-14] MEDS: PANTOPRAZOLE 40 MG TABLET PO SCH (17:20)
[2022-08-15] MEDS: ATORVASTATIN 80 MG TAB PO SCH (07:57)
[2022-08-15] MEDS: PANTOPRAZOLE 40 MG TABLET PO SCH ×2 (07:57→16:43)
[2022-08-15] MEDS: METOPROLOL TARTRATE 25 MG TAB PO SCH ×2 (07:57→20:03)
[2022-08-15] MEDS: SODIUM FERRIC GLUCONAT-SUCROSE 125 MG in SODIUM CHLORIDE 0.9% 100 ML IVPB SCH (08:06)
[2022-08-15 08:11] LABS: Anisocytosis Slight; Basophils % (A) 0 %; Eosinophils # (A) 0.2 k/uL (0-0.7); Eosinophils % (A) 2 %; HCT 26.7 % (39.0-53.0); HGB 8.6 gm/dL (13.0-17.5); Hypochromasia Marked; Lymphocytes # (A) 1.3 k/uL (1.0-4.8); Lymphocytes % (A) 14 %; MCH 28.4 pg (25.0-35.0); MCHC 32.3 g/dL (31.0-37.0); Mean Platelet Volume 7.5; Monocytes # (A) 0.5 k/uL (0-1.0); Monocytes % (A) 5 %; Neutrophils # (A) 7.2 k/uL (1.3-7.7); Neutrophils % (A) 76 %; Platelet Count 392 k/uL (150-450); Poikilocytosis Moderate; RBC 3.04 m/uL (4.30-5.90); RDW 17.2 % (11.5-15.5); WBC 9.5 k/uL (3.8-10.6)
[2022-08-15 08:25] LABS: African American GFR (CKD) 40 (>60 ml/min/1.73 sqM); Anion Gap 9 mmol/L; Blood Urea Nitrogen 12 mg/dL (9-20); Calcium 8.7 mg/dL (8.4-10.2); Carbon Dioxide 25 mmol/L (22-30); Chloride 108 mmol/L (98-107); Glucose 95 mg/dL (74-99); Non-African American GFR(CKD) 35 (>60 ml/min/1.73 sqM); Potassium 4.3 mmol/L (3.5-5.1); Sodium 142 mmol/L (137-145)
--- NOTE | 2022-08-15 09:28 | P.PN ---
Subjective Progress Note Date: 08/15/22 Principal diagnosis: Anemia This a pleasant 76-year-old male who presented to the emergency department yesterday with complaints of dizziness and vertigo like symptoms. He has a past medical history including coronary artery disease status post stent, CVA, atrial fibrillation on Coumadin, hyperlipidemia and hypertension. On admission patient was noted to have a hemoglobin of 5.2 with an INR of greater than 10.0. He was given a dose of vitamin K 10 mg as well as started on K centra. Patient denies any previous history of anemia, no history of GI bleed. Denies any history of acid reflux or peptic ulcer disease. States his last colonoscopy was approximately [address] Keita out [facility] for history of polyps. No previous EGD done. Patient denies any abdominal pain, nausea or vomiting. Denies any black stool or bright red blood in his stool. Patient currently denies any shortness of breath or chest pain. He is been admitted to the hospital and is awaiting a bed in the emergency room. He denies any regular use of NSAIDs. States that he has been taking his Coumadin as ordered. Workup: Labs WBC 6.4 hemoglobin 5.2 hematocrit 16.6 platelet count 323,000 PT 120.3 INR greater than 10 PTT 40.5 sodium 139 potassium 4.2 BUN 26 creatinine 2.5 troponin was 0.[address] without contrast reported mild inflammation changes in the lef t lower quadrant around the sigmoid colon which could represent mild colitis/diverticulitis. No additional findings in the abdomen to correlate for patient's pain. Elevated right diaphragm with elevation of the right diaphragm with abnormal positioning of the intra-abdominal contents up into this elevated diaphragm states. These findings along with atelectasis with the lung bases and secretions within the right lower lung, likely secondary to right diaphragm paralysis. 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 Prostatomegaly, correlate with serum PSA, colonic diverticulosis, bilateral fat-containing inguinal hernias Brain CT: No acute intracranial hemorrhage or midline shift. Diffuse age- related cerebral atrophy and moderate chronic small vessel ischemic change redemonstrated. No significant change from prior. 08/13/2022: Patient seen and examined today as a follow-up. He denies any rectal bleeding or black stool. Denies any abdominal pain, nausea or vomiting. States he is feeling better today. Received 2 units of blood yesterday with re peat hemoglobin this morning of 8.4. INR at 1.2. 08/15/2022: Patient is seen and examined today in follow-up for anemia. Yesterday patient underwent EGD and colonoscopy. Upper endoscopy revealed a small 5 mm duodenal bulbar ulcer, duodenitis, antral erosive gastritis and Ashton's esophagus. Colonoscopy with multiple colon polyps status post polypectomy, there was a 3 cm round pegylated polyp in the proximal sigmoid colon status post polypectomy followed by bleeding and endoclips placed with good hemostasis. Today he states he has no abdominal pain, no nausea or vomiting. He has not had a bowel movement since his procedures. Hemoglobin is stable at 8.6. Tolerated clear liquid diet. Continue to hold Coumadin and Plavix until Thursday. Objective - Vital Signs Vital signs: Vital Signs Temp 98.5 F 08/15/22 01:33 Pulse 72 08/15/22 01:33 Resp 18 08/15/22 01:33 BP 111/57 08/15/22 01:33 Pulse Ox 97 08/15/22 01:33 FiO2 Intake & Output 08/14/22 08/14/22 08/15/22 06:59 18:59 06:59 Intake Total 400 440 Balance 400 440 Weight 98.1 kg Intake: IV 400 Oral 440 Other: Voiding Method Toilet Toilet # Voids 4 2 - Exam General appearance: The patient is alert, oriented, appears in no acute distress. HET: Head is normocephalic and atraumatic. Conjunctiva pink. Sclera anicteric. Neck: Supple without lymphadenopathy. Abdomen: Soft, nontender, nondistended with bowel sounds. No guarding or rigidity. Extremities: Normal skin color and turgor. No pedal edema Skin: No rashes, no jaundice Neurological: No focal deficits. Alert and oriented. - Labs CBC & Chem 7: 08/15/22 07:38 08/15/22 07:38 Labs: Abnormal Lab Results - Last 24 Hours (Table) 08/14/22 08/14/22 Range/Units 07:22 07:22 RBC 2.84 L (4.30-5.90) m/uL Hgb 7.8 L (13.0-17.5) gm/dL Hct 24.6 L (39.0-53.0) % RDW 16.5 H (11.5-15.5) % PT 12.8 H (9.9-11.9) sec INR 1.14 H (0.90-1.11) Assessment and Plan (1) Symptomatic anemia Narrative/Plan: 76-year-old male who came in to the emergency department with symptomatic anemia and was found to have a hemoglobin of 5.2. No previous history of anemia or need for blood transfusion as well as no history of GI bleed. Patient was recently started in the last year on Coumadin for atrial fibrillation, states he has been taking as directed. He was noted to have a supratherapeutic INR greater than 10. Patient denies any signs or symptoms of GI bleed. No abdominal pain, nausea or vomiting. Patient was given vitamin K as well as started on K Centra. Anemia workup ordered, hematology on consult. Need to consider possible GI bleed with drop in hemoglobin to 5.2. Possible etiologies include AVM, peptic ulcer disease, esophagitis, or other possible etiologies. Consider endoscopic evaluation once patient stabilizes. Patient stabilizes, INR stabilized at 1.2. Will proceed with EGD and colonoscopy to evaluate for possible GI source of bleeding. EGD colonoscopy performed 08/14/2022 no active bleeding noted. Ht revealed duodenal bulbar ulcer, duodenitis, antral erosive gastritis and Ashton's esophagus. Patient will need to continue Protonix 40 mg twice a day. Colonoscopy with multiple colon polyps status post polypectomy, there is a 3 cm pegylated polyp in the proximal sigmoid colon status post polypectomy with some bleeding Endo Clip was placed with good hemostasis. No active bleeding had been noted initially, possible source of GI bleed from ulcer to tinnitus, or erosive gastritis versus colon polyp. Current Visit: Yes Status: Acute Code(s): D64.9 - ANEMIA, UNSPECIFIED SNOMED Code(s): 929285202 (2) Normocytic normochromic anemia Current Visit: Yes Status: Acute Code(s): D64.9 - ANEMIA, UNSPECIFIED SNOMED Code(s): 77733838 (3) Elevated INR Current Visit: Yes Status: Acute Code(s): R79.1 - ABNORMAL COAGULATION PROFILE SNOMED Code(s): 610371278 Plan: 1. Continue symptomatic and supportive care 2. Advance to regular diet 3. Continue to hold Coumadin and Plavix until 08/17/2022 4. Patient is cleared for discharge from gastroenterology. Patient to follow- up in office in 2 weeks for biopsy results. Thank you for this consultation, we will sign off at this time. Dr. Blaine Petersen I agree with the dictator's note, documented as a scribe by Denia Crawford.
[2022-08-15 11:14] LABS: INR 1.11 (0.90-1.11); Prothrombin Time 12.5 sec (9.9-11.9)
--- NOTE | 2022-08-15 14:01 | P.PN ---
Subjective Progress Note Date: 08/15/22 Principal diagnosis: Anemia At today's visit patient is resting comfortably in bed. Patient states he is feeling well. S/p EGD and colonoscopy. EGD showed duodenal ulcer, duodenitis, antral erosive gastritis, and Ashton's esophagus. Biopsy was obtained. Colonoscopy, 5 polyps were removed. Patient denies any blood in stool or melena. Patient denies abdominal pain, nausea, vomiting, diarrhea. Hemoglobin continues to improve, hemoglobin 8.6 today. If counts remain stable and the patient is asymptomatic will plan to restart anticoagulation and antiplatelets in the next 48-72 hours. Objective - Vital Signs Vital signs: Vital Signs Temp 97.5 F L 08/15/22 08:00 Pulse 53 L 08/15/22 08:00 Resp 17 08/15/22 08:00 BP 104/66 08/15/22 08:00 Pulse Ox 95 08/15/22 09:44 FiO2 Intake & Output 08/14/22 08/15/22 08/15/22 18:59 06:59 18:59 Intake Total 400 440 Balance 400 440 Weight 101.514 kg Intake: IV 400 Oral 440 Other: Voiding Method Toilet Toilet Toilet # Voids 2 - Constitutional General appearance: Present: average body habitus, no acute distress - EENT Eyes: Present: anicteric sclerae, EOMI ENT: Present: hearing grossly normal - Respiratory Details: breathing is even and unlabored - Cardiovascular Details: skin is warm and dry - Gastrointestinal General gastrointestinal: Present: soft. Absent: tenderness - Integumentary Integumentary: Present: pale - Neurologic Neurologic: Present: CNII-XII intact - Musculoskeletal Musculoskeletal: Present: strength equal bilaterally - Psychiatric Psychiatric: Present: A&O x's 3, appropriate affect, intact judgment & insight - Labs CBC & Chem 7: 08/15/22 07:38 08/15/22 07:38 Labs: Abnormal Lab Results - Last 24 Hours (Table) 08/15/22 08/15/22 08/15/22 Range/Units 07:38 07:38 07:38 RBC 3.04 L (4.30-5.90) m/uL Hgb 8.6 L (13.0-17.5) gm/dL Hct 26.7 L (39.0-53.0) % RDW 17.2 H (11.5-15.5) % PT 12.5 H (9.9-11.9) sec Chloride 108 H (98-107) mmol/L Creatinine 1.86 H (0.66-1.25) mg/dL Assessment and Plan (1) Elevated INR Current Visit: Yes Status: Acute Code(s): R79.1 - ABNORMAL COAGULATION PROFILE SNOMED Code(s): 563614722 (2) Symptomatic anemia Current Visit: Yes Status: Acute Code(s): D64.9 - ANEMIA, UNSPECIFIED SNOMED Code(s): 390489406 Plan: Elevated INR: -Upon admission, PT 120.3, INR greater than 10. -Vitamin K and prothrombin complex given. Repeat INR 1.1, PT 12.8 -Please continue to hold coumadin and plavix. -If counts remain stable and the patient is asymptomatic will plan to restart anticoagulation and antiplatelets in the next 48-72 hours. Patient follows with Dr. Owen, encouraged follow-up with cardiology upon discharge to discuss transitioning to DAOC. Anemia: -Repeat hemoglobin today 8.6, s/p 2 units of PRBCs. Denies any episodes of ble eding -Iron studies consistent with LAKESHA. IV iron x 3 doses given. Vitamin B12 367, MMA normal. Folate normal -Anemia likely r/t to acute GI bleed. GI consulted. EGD showed duodenal ulcer, duodenitis, antral erosive gastritis, and Ashton's esophagus. Biopsy was obtained. Colonoscopy, 5 polyps were removed. -Will continue to monitor counts. Please transfuse for hemoglobin less than 7 or symptomatic.
--- NOTE | 2022-08-15 16:37 | P.PN ---
Progress Note - Text Progress Note Date: 08/15/22 Chief Complaint: Short of breath, dizzy This is a very pleasant 76-year-old patient who follows Dr. Edmonds. Chronic stable medical conditions include CAD with stent, hypertension, hyperlipidemia, atrial fibrillation, stroke in the past with some right-sided weakness that resolved, bilateral kidney stones, right diaphragm paralysis, diverticulosis. Arthritis Patient presents with episodes of dizziness for last 2 weeks. Also short of breath with walking a few steps. More so progressive. He did come to the ER recently. On July 23 DC hemoglobin was 10.2. On presentation and a hemoglobin was found to be 5.2 patient normally does not look in his stool habits cannot tell if he has any dark stools. ordered 2 units in the ER getting 1 when I saw him this morning. No other evidence of bleeding. No chest pain. No fever no chills. INR greater than 10. Given 10 mg of vitamin K August 13: Received 2 units of blood. Breathing better. Dizziness better. EGD colonoscopy scheduled by GI for tomorrow. Showing iron deficiency anemia. IV iron ordered. August 14: Patient is seen this morning. Prior to EGD colonoscopy. Underwent the same. It showed 5 mm duodenal bulb ulcer, duodenitis and antral erosive gastritis and Ashton's esophagus. Lower GI: Polypectomy, few of them. Patient be resumed Coumadin on Thursday. To remain on clear liquids today. August 15: Laying in bed. Diet advanced. No abdominal pain. Hemoglobin 8.6 was up in a chair. Eating better. Active Medications Atorvastatin Calcium (Atorvastatin 80 Mg Tab) 80 mg PO DAILY [facility] Last Admin: 08/15/22 07:57 Dose: 80 mg Metoprolol Tartrate (Metoprolol Tartrate 25 Mg Tab) 25 mg PO BID [facility] Last Admin: 08/15/22 07:57 Dose: Not Given Naloxone HCl (Naloxone 0.4 Mg/Ml 1 Ml Vial) 0.2 mg IV Q2M PRN PRN Reason: Opioid Reversal Pantoprazole Sodium (Pantoprazole 40 Mg Tablet) 40 mg PO AC-BID [facility] Last Admin: 08/15/22 07:57 Dose: 40 mg Past medical history to include: CAD with stent, stroke with right-sided weakness that is resolved, hypertension, hyperlipidemia, kidney stones bilateral, right diaphragm paralysis, diverticulosis: Bladder outflow obstruction Social history: Sometimes uses a cane. . Retired. Does not smoke or drink alcohol. Family history: Diabetes, hypertension, Alzheimer's. Physical examination: VITAL SIGNS: 98.2, 83, 17, 104/44, 95% on 2 L GENERAL: Sitting at edge of the bed EYES: Pupils equal. Conjunctiva pale HEENT: External appearance of nose and ears normal, oral cavity grossly normal. NECK: JVD not raised; masses not palpable. HEART: First and second heart sounds are normal; no edema. LUNGS: Respiratory rate increased, decreased breath sounds, ABDOMEN: Soft, nontender, liver spleen not palpable, no masses palpable. Gonsales catheter: PSYCH: Alert and oriented x3; mood and affect normal. MUSCULAR skeletal: Evidence of OA INVESTIGATIONS, reviewed in the clinical context: August 15: Hemoglobin 8.6 potassium 4.3 creatinine 1.86 August 14: Hemoglobin 7.8 August 13: White count 7.9 hemoglobin 8.4 platelets 319 INR 1.2 August 12: White count 6.4 hemoglobin 5.2 platelets 323 INR greater than 10 sodium 139 potassium 4.2 BUN 26 creatinine 2.05 Troponin I 0.296 EKG tracing personally reviewed by me-normal sinus rhythm. Right bundle branch block. CT abdomen pelvis: Mild inflammatory changes in the left lower quadrant around the sigmoid colon, elevated right diaphragm gallbladder wall calcification. Prostatomegaly. Colonic diverticulosis. Previous labs: Hemoglobin 10.2 on 07/23/2022 Assessment and plan: -Acute severe symptomatic anemia with hemoglobin of 5.2. Patient's hemoglobin was 10.2 on July 23. Patient is not actually looked at his stools. Has had hematuria in the past. Received 2 units of blood. -EGD: 5 mm duodenal bulb ulcer, duodenitis and antral erosive gastritis and Ashton's esophagus. Causing upper GI bleed Advanced regular diet. PPI. -Coumadin toxicity. Accompanied by loss of hemoglobin. No obvious O's of bleeding currently. Coumadin stopped. Vitamin K 10 mg given -Paroxysmal atrial fibrillation. Currently sinus rhythm Lopressor 25 mg twice a day. Coumadin stopped -CAD with stent Lopressor, Plavix-hold Lipitor -Hyperlipidemia Lipitor 80 mg by mouth daily -Essential hypertension , currently blood pressure running on the lower side Lopressor with parameters -Primary osteoarthritis multiple joints bilaterally Use pain medications as needed -Colonic diverticulosis, asymptomatic Follow clinically -Chronic kidney disease stage III from nephrosclerosis At the baseline creatinine of 1.6 -Bilateral nephrolithiasis. Diet advanced. IV iron. Hold Plavix till Thursday. Cleared by GI. Increase activity
[2022-08-16 03:32] VITALS: RESP 18
[2022-08-16] MEDS: PANTOPRAZOLE 40 MG TABLET PO SCH (06:15)
[2022-08-16] MEDS: ATORVASTATIN 80 MG TAB PO SCH (10:38)
[2022-08-16] MEDS: METOPROLOL TARTRATE 25 MG TAB PO SCH (10:39)
[2022-08-16 14:54] VITALS: BP 113/60; PULSE 70; TEMP 97.5
--- NOTE | 2022-08-17 22:58 | P.DS ---
Providers Date of admission: 08/12/22 07:14 Attending physician: Shay Smith Consults: 08/12/22 07:13 Consult Physician Routine Consulting Provider: Harvey Patel Consult Reason/Comments: Symptomatic anemia Do you want consulting provider notified?: Yes, Notify in am Consult Physician Routine Consulting Provider: Audelia Petersen Consult Reason/Comments: Symptomatic anemia Do you want consulting provider notified?: Yes, Notify in am 08/12/22 07:14 Consult Physician Stat Consulting Provider: Luh Solares Consult Reason/Comments: Symptomatic enemia, Elevated INR, trop Do you want consulting provider notified?: Already Contacted [facility] Course: Final Diagnosis -Acute severe symptomatic anemia with hemoglobin of 5.2 on admission s/p 2 unit of PRBC -EGD: 5 mm duodenal bulb ulcer, duodenitis and antral erosive gastritis and Ashton's esophagus. Causing upper GI bleed -Coumadin toxicity given vitamin K -Troponin leak mostly likely typ2 DE secondary to supply demand mismatch -Underlying iron deficiency anemia -Paroxysmal atrial fibrillation. Currently sinus rhythm -History of coronary artery disease with PCI -Hyperlipidemia -Essential hypertension -Primary osteoarthritis multiple joints bilaterally -Colonic diverticulosis, asymptomatic -Chronic kidney disease stage III from nephrosclerosis -Bilateral nephrolithiasis. -History of stroke Full Code Discharge Disposition Patient is stable for discharge home. Diet has been advanced and tolerated patient has been cleared by GI services to f/u in the office in 2 weeks to discuss biopsy results. Patient to Hold Coumadin and Plavix, may resume 08/18/2022 per GI recommendations. Follow up with Dr. YASMANY Owen your route sales associate on discharge to discuss changing to DOAC. Repeat labs thursday including BMP, CBC and INR. Norvasc has been discontinued on discharge secondary to blood pressure low normal. Protonix BID recommended. Hospital Course This is a very pleasant 76-year-old patient who follows Dr. Edmonds. Chronic stable medical conditions include CAD with stent, hypertension, hyperlipidemia, atrial fibrillation, stroke in the past with some right-sided weakness that resolved, bilateral kidney stones, right diaphragm paralysis, diverticulosis. Patient presents with episodes of dizziness for last 2 weeks. Also short of breath with walking a few steps. Patients most recent hemoglobin was 10.2 Initial work up reveals a hemoglobin of 5.2, patient unsure whether he had dark stools No other signs of bleeding. Patient is anticoagulted with coumadin outpatient, found to have INR greater than 10. Given 10 mg of vitamin K and patient also received 2 units of PRBC. Iron studies reveal iron deficiency anemia and patient started on IV iron. Patient was evaluated by GI Dr Blaine gomez nd underwent EGD colonoscopy. Results showing 5 mm duodenal bulb ulcer, duodenitis and antral erosive gastritis and Ashton's esophagus. Lower GI: Polypectomy, few of them. Patient was evaluated by hematology as well. Patient remained on clear liquid diet and was advanced to regular and tolerating well. No signs of active bleeding. Hemoglobin stable at 8.6. Creatinine 1.86. Patient INR now 1.11. Patient has been started on protonix BID. Patient will be discharged home with above mentioned recommendations. 08/16/2022 Patient is evaluated today resting in bed. No abdominal pain. No epigastric pain. Tolerating diet, normoactive bowel sounds and soft abdomen. Lungs are clear, S1 S2 auscultated. Alert x 3, focal neurological exam is negative. Patient was also evaluated by physical therapy and cleared for discharge home. Vitals today showing temp of 97.5, heart rate 70, blood pressure 113/60, 94% room air. Please see medication reconciliation for a list of current medication. Thank you for allowing us to participate in the care of this patient. The impression and plan of care has been dictated by Denisse Deshpande, Nurse Practitioner as directed. Dr. Jodi MD I have performed a history and physical examination and medical decision making of this patient, discussed the same with the dictator, and agree with the dictators assessment and plan as written, documented as a scribe. Based on total visit time, I have performed more than 50% of this visit. Patient Condition at Discharge: Stable Plan - Discharge Summary Discharge Rx Participant: No New Discharge Prescriptions: New Pantoprazole [Protonix] 40 mg PO AC-BID #60 tab Continue Atorvastatin Calcium [Lipitor] 80 mg PO DAILY Metoprolol Tartrate [Lopressor] 25 mg PO BID Furosemide [Lasix] 20 mg PO DAILY Meclizine [Antivert] 25 mg PO TID PRN #15 tab PRN Reason: Vertigo Warfarin [Coumadin] 5 mg PO DAILY #0 Multivit-Min/FA/Lycopen/Lutein [Centrum Silver Men Tablet] 1 tab PO DAILY Clopidogrel [Plavix] 75 mg PO DAILY #0 Discontinued amLODIPine [Norvasc] 5 mg PO DAILY Discharge Medication List Atorvastatin Calcium [Lipitor] 80 mg PO DAILY 02/17/21 [History] Multivit-Min/FA/Lycopen/Lutein [Centrum Silver Men Tablet] 1 tab PO DAILY 02/17/21 [History] Metoprolol Tartrate [Lopressor] 25 mg PO BID 09/09/21 [History] Furosemide [Lasix] 20 mg PO DAILY 07/23/22 [History] Meclizine [Antivert] 25 mg PO TID PRN #15 tab 07/23/22 [Rx] Clopidogrel [Plavix] 75 mg PO DAILY #0 08/16/22 [Rx] Pantoprazole [Protonix] 40 mg PO AC-BID #60 tab 08/16/22 [Rx] Warfarin [Coumadin] 5 mg PO DAILY #0 08/16/22 [Rx] Follow up Appointment(s)/Referral(s): Nathan Owen MD [STAFF PHYSICIAN] - 1 Week Bryan Edmonds DO [Primary Care Provider] - 1-2 days Audelia Petersen MD [STAFF PHYSICIAN] - 2 Weeks Ambulatory/Diagnostic Orders: Basic Metabolic Panel [LAB.AMB] Time Frame: 2 Days, Location: None Selected Complete Blood Count w/diff [LAB.AMB] Location: None Selected Prothrombin Time INR [LAB.AMB] Time Frame: 2 Days, Location: None Selected Patient Instructions/Handouts: Gastrointestinal Bleeding (DC), Anemia (DC) Activity/Diet/Wound Care/Special Instructions: Hold Coumadin and Plavix, may resume 08/18/[address] YASMANY Owen your route sales associate on discharge to discuss changing to new anticoagulation Follow up with Dr. Blaine Petersen as recommended per notes to see in 2 weeks for biopsy results Continue regular diet as tolerated Continue to increase activity level Repeat labs thursday including BMP, CBC and INR. Discharge Disposition: HOME SELF-CARE
== END 2022-08-16 15:32 | disposition home or self-care (01) | DRG 381 ==
LOC: EC 03:15 → 2SICU 07:14 → 5NMEDONC 16:42 → 4SSUR 18:17
PROVIDERS: ADMIT Hospitalist; ATTEND Hospitalist
PROC: 30233N1 Transfusion of Nonautologous Red Blood Cells into Peripheral Vein, Percutaneous Approach (ICD-10-PCS; 2022-08-12)
PROC: 30283B1 Transfusion of Nonautologous 4-Factor Prothrombin Complex Concentrate into Vein, Percutaneous Approach (ICD-10-PCS; 2022-08-12)
PROC: 0DBM8ZX Excision of Descending Colon, Via Natural or Artificial Opening Endoscopic, Diagnostic (ICD-10-PCS; principal; 2022-08-14 12:30)
PROC: 0DB78ZX Excision of Stomach, Pylorus, Via Natural or Artificial Opening Endoscopic, Diagnostic (ICD-10-PCS; principal; 2022-08-14 12:30)
PROC: 0DBL8ZX Excision of Transverse Colon, Via Natural or Artificial Opening Endoscopic, Diagnostic (ICD-10-PCS; principal; 2022-08-14 12:30)
PROC: 0W3P8ZZ Control Bleeding in Gastrointestinal Tract, Via Natural or Artificial Opening Endoscopic (ICD-10-PCS; principal; 2022-08-14 12:30)
PROC: 0DBP8ZX Excision of Rectum, Via Natural or Artificial Opening Endoscopic, Diagnostic (ICD-10-PCS; principal; 2022-08-14 12:30)
PROC: 0DBK8ZX Excision of Ascending Colon, Via Natural or Artificial Opening Endoscopic, Diagnostic (ICD-10-PCS; principal; 2022-08-14 12:30)
PROC: 0DB58ZX Excision of Esophagus, Via Natural or Artificial Opening Endoscopic, Diagnostic (ICD-10-PCS; principal; 2022-08-14 12:30)
PROC: 0DBN8ZX Excision of Sigmoid Colon, Via Natural or Artificial Opening Endoscopic, Diagnostic (ICD-10-PCS; principal; 2022-08-14 12:30)
DX: K22.70 Barrett's esophagus without dysplasia (principal); J98.11 Atelectasis; K26.4 Chronic or unspecified duodenal ulcer with hemorrhage; K29.81 Duodenitis with bleeding; K44.9 Diaphragmatic hernia without obstruction or gangrene; D50.9 Iron deficiency anemia, unspecified; E78.5 Hyperlipidemia, unspecified; I12.9 Hypertensive chronic kidney disease with stage 1 through stage 4 chronic kidney disease, or unspecified chronic kidney disease; I48.0 Paroxysmal atrial fibrillation; Z86.73 Personal history of transient ischemic attack (TIA), and cerebral infarction without residual deficits; J98.6 Disorders of diaphragm; K57.30 Diverticulosis of large intestine without perforation or abscess without bleeding; K63.5 Polyp of colon; K62.1 Rectal polyp; K40.20 Bilateral inguinal hernia, without obstruction or gangrene, not specified as recurrent; K29.61 Other gastritis with bleeding; M15.9 Polyosteoarthritis, unspecified; N18.30 Chronic kidney disease, stage 3 unspecified; N20.0 Calculus of kidney; N32.0 Bladder-neck obstruction; R79.1 Abnormal coagulation profile; T45.515A Adverse effect of anticoagulants, initial encounter; N40.1 Benign prostatic hyperplasia with lower urinary tract symptoms; Z79.01 Long term (current) use of anticoagulants; Z79.02 Long term (current) use of antithrombotics/antiplatelets; Z79.899 Other long term (current) drug therapy; Z82.49 Family history of ischemic heart disease and other diseases of the circulatory system; Z86.16 Personal history of COVID-19; Z87.442 Personal history of urinary calculi; Z86.010 Personal history of colon polyps; Z96.653 Presence of artificial knee joint, bilateral; Z95.5 Presence of coronary angioplasty implant and graft; Z87.440 Personal history of urinary (tract) infections
CPT/HCPCS: 36415; 36430; 43239; 43255; 45385; 70450; 71046; 74176; 80048; 80053; 82607; 82728; 82746; 83540; 83550; 83690; 83735; 83921; 84484; 85025; 85379; 85610; 85730; 86850; 86900; 86901; 86920; 88305; 93005; 94760; 96365; 96367; 96375; 96376; 99291

== ENCOUNTER → 2022-08-18 | Outpatient (CLI) | payer MEDICARE ==
[2022-08-19 02:10] LABS: Basophils # (A) 0.04 X 10*3/uL (0.00-0.10); Basophils % (A) 0.4 %; HCT 28.4 % (39.6-50.0); HGB 8.1 g/dL (13.0-17.0); Immature Grans, Automated 0.5 %; Lymphocytes # (A) 1.12 X 10*3/uL (0.90-5.00); MCH 26.8 pg (27.0-32.0); MCHC 28.5 g/dL (32.0-37.0); Monocytes # (A) 0.84 X 10*3/uL (0.20-1.00); Monocytes % (A) 8.2 %; NRBC Per 100 WBC 0 /100 WBCS (0.0-0.0); Neutrophils # (A) 7.97 X 10*3/uL (1.80-7.70); Neutrophils % (A) 77.9 %; Platelet Count 297 X 10*3/uL (140-440); RBC 3.02 X 10*6/uL (4.40-5.60); RDW 20.1 % (11.5-14.5); WBC 10.22 X 10*3/uL (4.50-10.00)
[2022-08-19 02:38] LABS: African American GFR (CKD) 41.4 (60.0-200.0); Anion Gap 11.2 mmol/L (10.00-18.00); BUN/Creat Ratio 8.78 Ratio (12.00-20.00); Blood Urea Nitrogen 15.8 mg/dL (9.0-27.0); Calcium 9.1 mg/dL (8.7-10.3); Carbon Dioxide 25.8 mmol/L (20.0-27.5); Non-African American GFR(CKD) 35.8 (60.0-200.0); Potassium 4.5 mmol/L (3.5-5.5)
[2022-08-19 04:03] LABS: INR 1.06 (0.90-1.11); Prothrombin Time 11.9 sec (9.9-11.9)
== END | disposition home or self-care (01) ==
LOC: LABWHC1 14:38
PROVIDERS: ATTEND Nurse Practitioner Family
DX: I12.9 Hypertensive chronic kidney disease with stage 1 through stage 4 chronic kidney disease, or unspecified chronic kidney disease (principal); N18.9 Chronic kidney disease, unspecified; D63.1 Anemia in chronic kidney disease; N20.0 Calculus of kidney; Z87.442 Personal history of urinary calculi; Z79.899 Other long term (current) drug therapy
CPT/HCPCS: 36415; 80048; 85025; 85610

== ENCOUNTER → 2023-02-04 | Outpatient (CLI) | payer MEDICARE ==
--- NOTE | 2023-02-04 16:29 | XR ---
EXAMINATION TYPE: XR KUB DATE OF EXAM: 02/04/2023 Comparison: 08/12/2022 CT Clinical History: 77-year-old male N20.0 CALCULUS OF KIDNEY Findings: There is a large 2.0 cm calcification in the right kidney. Subtle smaller calcifications may be prese nt in the upper pole measuring up to 7 mm. Multiple left-sided renal calculi measuring up to 1.1 cm. Vascular calcifications and phleboliths in the pelvis. No dilated small bowel loops. Moderate stool within the rectum. Impression: Bilateral renal calculi measuring up to 2.0 cm on the right and 1.1 cm on the left.
== END | disposition home or self-care (01) ==
LOC: RADXRWHC 14:17
PROVIDERS: ATTEND Urology
DX: N20.0 Calculus of kidney (principal)
CPT/HCPCS: 74018

== ENCOUNTER 2023-08-11 07:34 | Day surgery (SDC) | payer MEDICARE ==
[2023-08-07 14:21] VITALS: BMI 34.8
[~2023-08-11 07:34] MED LIST changes: -DEXAMETHASONE SOD PHOSPHATE 4 MG/ML 1 ML VIAL IV ONE; -HYDROmorphone 0.5 MG/0.5 ML SYRINGE IVP PRN; -LACTATED RINGERS 1,000 ML IV SCH; -MIDAZOLAM 2 MG/2 ML VIAL IV PRN; -ONDANSETRON 4 MG/2 ML VIAL IVP ONE
[2023-08-11] MEDS: LACTATED RINGERS 1,000 ML IV SCH (07:54)
[2023-08-11] MEDS ORDERED: LIDOCAINE 1% INJ 10MG/ML (20 ML MDV) ONE (08:38)
[2023-08-11] MEDS ORDERED: PROPOFOL 10 MG/ML 20 ML VIAL IV ONE (08:38)
[2023-08-11 08:42] VITALS: RESP 16; TEMP 98
--- NOTE | 2023-08-11 08:55 | P.PCN ---
Date of Procedure: 08/11/23 Procedure(s) Performed: BRIEF HISTORY: Patient is a 77-year-old pleasant white male scheduled for an elective colonoscopy as a part of Evaluationof prior history of colon polyps. PROCEDURE PERFORMED: ColonoscopyWith cold snare polypectomy. PREOPERATIVE DIAGNOSIS: History of colon. IV sedation per Anesthesia. PROCEDURE: After informed consent was obtained, the patient, was brought into the endoscopy unit. IV sedation was administered by Anesthesia under continuous monitoring. Digital rectal examination was normal. Initially the Olympus CF-160 flexible video colonoscope was then inserted in the rectum, gradually advanced into the cecum without any difficulty. Careful examination was performed as the scope was gradually being withdrawn. Ileocecal valve and the appendiceal orifice were visualized and appeared normal. Prep was excellent. Mucosa of the cecumAppeared normal. In the ascending colon there was a 6 cm polyp that was removed by cold snare polypectomy. Rest of the, ascending colon, transverse colon, Appeared normal. In the descending colon there was a 3 mm polyp that was removed by cold snare polypectomy. Moderate sigmoid diverticulosis seen. Rest of thedescending colon, sigmoid colon, and rectum appeared normal. Retroflexion was performed in the rectum and no lesions were seen. The patient tolerated the procedure well. IMPRESSION: 6 mm ascending colon polyp status post cold snare polypectomy 3 mm descending colon polyp status post cold snare polypectomy Moderate diverticulosis RECOMMENDATIONS: Findings of this examination were discussed with the patient as well as his family. He was advised to follow with the biopsy results. If the biopsy reveals adenoma he can have a repeat colonoscopy in 3 years..
[2023-08-11 09:27] VITALS: BP 156/88; PULSE 67
== END 2023-08-11 09:40 | disposition home or self-care (01) ==
LOC: ORWHC2ENDO 07:34
PROVIDERS: ATTEND Internal Medicine Gastroenterology
DX: Z12.11 Encounter for screening for malignant neoplasm of colon (principal); K63.5 Polyp of colon; K57.30 Diverticulosis of large intestine without perforation or abscess without bleeding; I10 Essential (primary) hypertension; E78.5 Hyperlipidemia, unspecified; J45.909 Unspecified asthma, uncomplicated; I25.10 Atherosclerotic heart disease of native coronary artery without angina pectoris; J39.2 Other diseases of pharynx; Z79.899 Other long term (current) drug therapy; Z86.010 Personal history of colon polyps; Z95.5 Presence of coronary angioplasty implant and graft; Z96.653 Presence of artificial knee joint, bilateral; Z98.890 Other specified postprocedural states; Z79.51 Long term (current) use of inhaled steroids
CPT/HCPCS: 45385; J2001; J2704; 88305

== ENCOUNTER → 2024-02-11 | Outpatient (CLI) | payer MEDICARE ==
--- NOTE | 2024-02-11 14:56 | XR ---
KUB. HISTORY: Abdominal pain. COMPARISON: 1123 TECHNIQUE: 2 supine views of the abdomen were obtained. FINDINGS: The lung bases are clear. There is no free intraperitoneal air beneath the diaphragm. The bowel gas pattern is nonspecific and there is no evidence of obstruction. There are 4 calcifications overlying the left kidney the largest of which is in the mid pole and andres ures approximately 2 mm. There is a large dense gallstone. The osseous structures are intact. IMPRESSION: 1. Multiple left renal calcifications as described above. 2 gallstone. [facility], , 02/11/2024 12:22 PM
== END | disposition home or self-care (01) ==
LOC: RADXRMAIN 11:47
PROVIDERS: ATTEND Urology
CPT/HCPCS: 74018

== ENCOUNTER → 2024-02-18 | Outpatient (CLI) | payer MEDICARE ==
--- NOTE | 2024-02-18 11:35 | CT ---
EXAMINATION TYPE: CT abdomen pelvis wo con DATE OF EXAM: 02/18/2024 HISTORY: bilateral calculus of kidney CT DLP: 1158.4 mGycm. Automated Exposure Control for Dose Reduction was Utilized. TECHNIQUE: CT scan of the abdomen and pelvis is performed without oral or IV contrast. COMPARISON: 1422 FINDINGS: Within the limitations of a non-contrast study, the following observations are made. LUNG BASES: Elevated right hemidiaphragm with right basilar subsegmental atelectasis. Coronary artery calcifications. There is calcifications of the aortic valve.. LIVER/GB: Cholelithiasis but no CT evidence of cholecystitis.. PANCREAS: No significant abnormality is seen. SPLEEN: No significant abnormality is seen. ADRENALS: Mild subcentimeter thickening of the adrenal glands too small to characterize but likely th e basis of benign adenoma or hyperplasia.. KIDNEYS: Right kidney: There are approximately 12 calcifications within the right kidney the largest measuring 2.5 x 1.2 cm stable from prior exam. Subcentimeter hypodensities within the kidney are too small to characterize but stable. Incompletely evaluated by noncontrast technique. Statistically most likely r elated to benign cyst. Left kidney: Marked atrophic change of the left kidney with large lower pole renal lesion measuring 5 Hounsfield units and 5 cm stable in size most typical of benign Bosniak classification 1 renal cyst. Additional smaller lesions too small to characterize but statistically most likely related to benign cyst. There are approximately 7 calcifications within the left kidney the largest measuring 9 x 6 mm. Simil ar to prior exam. BOWEL: Diverticulosis of the colon but no CT evidence of diverticulitis. No obstruction. Appendix nor mal.. LYMPH NODES: No greater than 1cm abdominal or pelvic lymph nodes are appreciated. OSSEOUS STRUCTURES: Multilevel hypertrophic and degenerative changes of the spine. Bilateral hip arth ropathy.. OTHER: Prostate is markedly enlarged measuring 6 cm. Bladder is nondistended and limited but no obvio us calcifications or wall thickening. Small fat-containing anterior abdominal wall and bilateral ingu inal hernia. No inflammatory changes.. IMPRESSION: 1. Stable bilateral multiple renal calculi as measured above. The largest is seen on the right measur ing 2.5 cm. No hydronephrosis or hydroureter. 2. Extensive coronary artery calcifications. 3. Prostate is markedly enlarged with heterogeneous attenuation consider correlation with PSA. Suspec t portion of the heterogeneity is a prominent prostatic urethra which could be secondary to outlet ob struction from the enlarged prostate. Correlate clinically. 4. Cholelithiasis. [facility], , 02/18/2024 11:33 AM
== END | disposition home or self-care (01) ==
LOC: RADCTMAIN 09:32
PROVIDERS: ATTEND Urology
CPT/HCPCS: 74176